=== PATIENT | male | born 1945 | race African-American/Black ===

== ENCOUNTER → 2016-09-05 | Day surgery (SDC) | payer MEDICARE ==
[~2016-09-05] MED LIST: ALBU2.5V14 NEB; ALBU8.5H5 IH; AZIT250T PO; CARV3.12 PO; DIGO125T PO; FENTANYL PF 100 MCG/2 ML VIAL. IV PRN; FLUT100D IH; FLUT9.9S NS; FOLI0.4T2 PO; FURO-69 PO; GABA-585 PO; HYDROMORPHONE 2 MG/ML VIAL. IV PRN; IV RINGERS,LACTATED 1000ML 1,000 ML IV SCH; LIDOCAINE 1% 1 ML SYRINGE. ID PRN; MONT10TA9 PO; MORPHINE SULFATE 2 MG/ML DISP.SYRIN. IV PRN; ONDANSETRON PF 4 MG/2 ML VIAL. IV PRN; PANT40TA5 PO; PROCHLORPERAZINE 10 MG/2 ML VIAL. IV PRN; PROPOFOL 40 ML IV ONE; TIOT18CA IH
--- NOTE | 2016-09-05 10:24 | PDOC1 ---
HISTORY & PHYSICAL H&P Juve iLndo Sr [id number] 1945 08/30/2016 02:00 PM 07/10 [employer] [facility] OUR PATIENTS COME FIRST [address] [place] [address] Ph. [phone] Patient: Juve Lindo Sr Date of : 1945 Date: 08/30/2016 2:00 PM Visit Type: Office Visit This 70 year old male presents for H/o colorectal polyp. History of Present Illness: 1. H/o colorectal polyp Prior screening: colonoscopy. Risk Factors: h/o colon polyp.. Pertinent negatives include abdominal pain, change in bowel habits, change in stool caliber, constipation, decreased appetite, diarrhea, melena, nausea, rectal bleeding, vomiting, weight gain and weight loss. Additional information: No family history of colon cancer, No family history of Crohn's/colitis, No NSAID/ ASA use and Last colonoscopy more then 3 yrs ago and had adenomatous polyp. INTAKE COMMENTS: Intake Comments: Nurse Note: the pt is here today to schedule a repeat colonoscopy, the pt's last colonoscopy was done in 2013 and he had polyps at that time. PROBLEM LIST: Problem Description Onset Date Coronary atherosclerosis 08/09/2012 Idiopathic peripheral neuropathy Arthropathy 07/16/2009 Acute exacerbation of chronic bronchitis 10/14/2013 Multiple myeloma 07/16/2009 Benign hypertension with CKD (chronic kidney disease) stage III 11/02/2015 Allergic rhinitis 07/16/2009 Chronic obstructive lung disease 07/16/2009 Megaloblastic anemia due to vitamin B>12< deficiency 07/16/2009 Benign essential hypertension 07/16/2009 Peripheral vascular disease 07/16/2009 Lymphadenopathy 07/16/2009 Acute on chronic congestive heart failure, unspecified congestive heart failure type 03/07/2016 Pernicious anemia 06/15/2015 COPD with acute exacerbation 06/09/2014 Acute exacerbation of chronic obstructive pulmonary disease (COPD) 07/07/2014 Chronic respiratory failure 07/07/2014 Conduction disorder of the heart 03/06/2012 PAST MEDICAL/SURGICAL HISTORY (Detailed) Disease/disorder Onset Date Management Date Comments Allergies Arthritis Bone marrow biopsy 2008 Colonic polyps colonoscopy with polypectomy 08/01/2013 COPD with Castleman syndrome Coronary artery disease gallbladder polyps 11/2012 Hypertension L3 vertebral lesion h/o radiation tx Lower Back Pain 2008 Lymphadenopathy monoclonal gammopathy /POEM syndrome Multiple myeloma Peripheral neuropathy Pernicious anemia B-12 deficiency PVD/mild 2007 splenomegaly 11/2012 DIAGNOSTICS HISTORY: Test Ordered Interpretation Result completed EKG 09/12/2006 09/12/2006 Scan MRI 09/14/2007 Lumbar spine 09/14/[address] 11/05/2008 PET/CT Skull to mid thigh 11/05/2008 CT guided biopsy 12/15/2008 biopsy of Retroperitoneal lymphadenopathy/mass 02/2009 Scan Bone 10/22/2007 Whole body bone survey 10/22/2007 EGD 10/24/2012 abnormal Imp: Gastritis(bx), Grade l Ref esophagitis(bx), BX: Antral type gastric mucosa within normal limits, Esophageal squamous and cardiac type gastric mucosa within normal limits. 11/08/2012 Abdomen Ultrasound; Complete 11/28/2012 Imp: Splenomegaly. Some tiny gallbladder polyps are identified. Some focal scarring is seen in the (R) kidney. 11/30/2012 Colonoscopy 07/24/2013 abnormal Imp: diverticulosis of the sigmoid colon, polyps in the ascending colon(polypectomy), BX: tubular adenoma 08/01/2013 Test Ordered Ordering Comments Modifier EKG 09/12/2006 Cardiac Studies Scan MRI 09/14/[address] 11/05/[address] guided biopsy 12/15/2008 Other Reports Scan Bone 10/22/2007 Diagnostic Images EGD 10/24/2012 Abdomen Ultrasound; Complete 11/28/2012 Colonoscopy 07/24/2013 Medications (Active): Started Medication Directions Instruction Stopped 04/11/2016 albuterol sulfate 2.5 mg/3 mL (0.083 %) solution for nebulization USE FOUR TIMES DAILY NEEDED DX:J44.1 10/14/2013 Allergy Relief (loratadine) 10 mg tablet take 1 tablet by oral route every day 05/25/2009 aspirin 325 mg Tab take 1 tablet (325MG) by ORAL route every day 03/07/2016 Coreg 3.125 mg tablet take 1 tablet by oral route 2 times every day with food 06/15/2015 cyanocobalamin (vit B-12) 5,[address] one tablet under the tongue once a day. 03/08/2016 digoxin 125 mcg tablet take 1 tablet by ORAL route every 2 days call patient when ready 12/28/2015 Elocon 0.1 % topical ointment APPLY TO AFFECTED AREAS DAILY. 12/28/2015 ferrous sulfate 325 mg (65 mg iron) tablet,delayed release take 1 tablet by oral route every day 12/28/2015 Flonase 50 mcg/actuation nasal spray,suspension INHALE 2 SPRAYS EVERY DAY IN EACH NOSTRIL 04/11/2016 Flovent Diskus 250 mcg/actuation powder for inhalation inhale 1 puff by inhalation route 2 times every day 12/28/2015 folic acid 1 mg tablet TAKE ONE TABLET DAILY 03/07/2016 furosemide 40 mg tablet take 1 tablet by oral route every day garlic tablet 02/23/2016 magnesium oxide 400 mg tablet take 1 tablet by oral route 3 times every day 05/07/2013 Mucinex 1,200 mg tablet,extended release 12 hr 1 tablet by mouth twice daily DM since 10/1204/22/2016 Neurontin 300 mg capsule TAKE 1 CAPSULE AT BEDTIME 01/23/2014 nystatin 100,000 unit/gram topical ointment apply by topical route 2 times every day to the affected area(s) 12/28/2015 nystatin 100,000 unit/mL oral suspension take 5 milliliter by oral route 4 times every day 12/29/[address] 40 MG TAB TAKE 1 TABLET IN THE MORNING. 12/28/2015 Pepcid 40 mg tablet TAKE 1 TABLET DAILY AT BEDTIME. 05/26/2016 prednisone 10 mg tablet 4 daily in AM for 3 days,3 daily for 3 days, 2 daily for 3 days,1 daily for 3 days 12/28/2015 selenium sulfide 2.25 % shampoo apply by topical route every week to the affected area(s) 12/28/2015 Singulair 10 mg tablet take 1 tablet by oral route every day in the evening 07/14/2016 SPIRIVA 30 INHALE 1 CAPSULE BY MOUTH DAILY Zithromax 250 mg tablet take 1 tablet by oral route every day for 1 day then 1 tablet (250 mg) by oral route once daily for 4 days Allergies: Ingredient Reaction Medication Name Comment ALLOPURINOL Rash ZYLOPRIM REVIEW OF SYSTEMS System Neg/Pos Details Constitutional Negative Chills, fever, malaise, weight gain and weight loss. ENMT Negative Sore throat. Eyes Negative Double vision. Respiratory Negative Dyspnea and wheezing. Cardio Negative Chest pain and irregular heartbeat/palpitations. GI Positive See HPI. GI Negative Abdominal pain, change in bowel habits, change in stool caliber, constipation, decreased appetite, diarrhea, melena, nausea, see HPI, rectal bleeding and vomiting. Negative Dysuria and hematuria. Endocrine Negative Cold intolerance and heat intolerance. Psych Negative Anxiety. Integumentary Negative Hives and rash. MS Negative Joint pain. Javier/Lymph Negative Easy bleeding and easy bruising. Allergic/Immuno Negative Food allergies. VITAL SIGNS Time BP mm/Hg Pulse /min Resp /min Temp F Ht ft Ht in Ht cm Wt lb Wt kg BMI kg/ m2 BSA m2 O2 Sat% 2:19 PM 132/84 97 97.9 6.0 4.00 193.04 191.60 86.908 23.32 92 Time Measured by 2:19 PM Alnea Rucker PHYSICAL EXAM: Exam Findings Details Constitutional Normal Well developed. Eyes Normal Conjunctiva - Right: Normal, Left: Normal. Sclera - Right: Normal, Left: Normal. Nasopharynx Normal Lips/teeth/gums - Normal. Neck Exam Normal Inspection - Normal. Thyroid gland - Normal. Respiratory Normal Inspection - Normal. Auscultation - Normal. Cardiovascular Normal Regular rate and rhythm. No murmurs, gallops, or rubs. Vascular Normal Pulses - Carotids: Normal, Femoral: Normal, Dorsalis pedis: Normal. Abdomen Normal Inspection - Normal. Anterior palpation - No guarding. No abdominal tenderness. No hepatic enlargement. No splenic enlargement. No hernia. No ascites. Skin Normal Inspection - Normal. Extremity Normal No edema. Psychiatric * Oriented to time, place, person and situation. Psychiatric Normal Appropriate mood and effect. The patient was checked out at 3:24 PM by Alena Rucker. Assessment/Plan # Detail Type Description 1. Assessment History of colon polyps (Z86.010). Patient Plan schedule colonoscopy at [facility] Plan Orders Further diagnostic evaluations ordered today include(s) Colonoscopy to be performed today. He is to schedule a follow-up visit with Katrin Dang MD upon completion of work-up Electronically signed by: Katrin Dang MD 08/31/2016 12:48 PM Document generated by: Katrin Dang 08/31/2016 12:47 PM Milvia Elliott MD, Family Practice; Raheem Weston MD Internal Medicine; Kiersten Lawson MD, Internal Medicine; Elizabeth Dang MD Internal Medicine; Katrin Dang MD, Gastroenterology; Carmelo Perdue MD, Rheumatology, S. Nino Stout, Physical Medicine/Rehab Tish Luu APRN ------ 09/05/16 Patient seen and examined. No change in H&P KATRIN DANG MD Sep 05, 2016 10:24
[2016-09-05 12:31] VITALS: BP 111/71
--- NOTE | 2016-09-05 12:33 | PDOC4 ---
GI OP Report - Dr. Woodson Date/Time DATE: 09/05/16 TIME: 12:29 Attending Physician Jm Woodson MD Referring Physician Indications Personal history of colonic polyps Pre-Op See the Anesthesia note for documentation of the administered medications Procedures Colonoscopy+polypectomy Findings - Diverticulosis in the sigmoid colon. - One 4 mm polyp in the ascending colon. Biopsied. - Two 3 to 4 mm polyps in the proximal transverse colon. Biopsied. - One 7 mm polyp in the distal transverse colon. Resected and retrieved. - One 10 mm polyp at the splenic flexure. Biopsied. Tattooed. - One 8 mm polyp in the sigmoid colon. Resected and retrieved. Plan - Discharge patient to home. - Patient has a contact number available for emergencies. The signs and symptoms of potential delayed complications were discussed with the patient. Return to normal activities tomorrow. Written discharge instructions were provided to the patient. - Resume regular diet. - Continue present medications. - Await pathology results. - Repeat colonoscopy date to be determined after pending pathology results are reviewed for retreatment of splenic flexure lesion if needed.. - Return to my office in 2 weeks. JM WOODSON MD Sep 05, 2016 12:32
--- NOTE | 2016-09-06 16:40 | PATHOLOGY ---
PATHOLOGY REPORT * * * * * * * * FINAL DIAGNOSIS: A. Colon biopsies, ascending colon polyp: - Tubular adenoma. B. Colon biopsies, proximal transverse colon polyps x 2: - Tubular adenomas. C. Colon biopsies, distal transverse colon polyp: - Mucous and minute segment of tubular adenoma. D. Colon biopsies, splenic flexure polyp: - Tubular adenoma. E. Colon biopsies, sigmoid polyp: - Tubular adenoma. COMMENT: There is no high-grade dysplasia or evidence of malignancy. (JPM:mgmary; d/t: 09/06/16) REPORT ELECTRONICALLY SIGNED BY: Hemanth Moran M.D. DATE/TIME: 09/06/2016 16:40 * * * * * * * * GROSS PATHOLOGY: A. Received in formalin labeled "Juve Cuellar Sr., ascending colon polyp biopsy," are two segments of chinchilla soft tissue measuring 0.4 x 0.4 x 0.1 cm in aggregate dimensions and ranging from 0.3 to 0.4 cm in maximum dimension. The specimen is submitted entirely in cassette A1. B. Received in formalin labeled "Juve Cuellar Sr., proximal transverse polyp biopsy 2 polyps," are two segments of chinchilla soft tissue measuring 0.7 x 0.6 x 0.1 cm in aggregate dimensions and ranging from 0.5 to 0.7 cm in maximum dimension. The specimen is submitted entirely in cassette B1. C. The specimen is received in formalin labeled "Juve Cuellar Sr., distal transverse colon polyp biopsy". Received are several minute fragments of pale chinchilla possible soft tissue measuring <0.1 by <0.1 by <0.1 cm in aggregate dimensions. The specimen is filtered and entirely submitted in cassette C1. Due to the minute nature of the specimen, it may not survive processing. D. Received in formalin labeled "Juve Cuellar Sr., biopsy splenic flexure polyp," are five segments of chinchilla soft tissue measuring 1.1 x 1.1 x 0.2 cm in aggregate dimensions and ranging from 0.2 to 0.6 cm in maximum dimension. The specimen is submitted entirely in cassette D1. E. Received in formalin labeled "Juve Cuellar Sr., biopsy sigmoid polyp," are three segments of chinchilla soft tissue measuring 0.8 x 0.5 x 0.1 cm in aggregate dimensions and ranging from 0.3 to 0.5 cm in maximum dimension. The specimen is submitted entirely in cassette E1. (CAA; 09/05/2016) INITIAL CPT CODE(S): A; 57320 B; 51365 C; 13914 D; 70217 E; 09198 Professional services performed by [facility] at [address] [address] Technical services performed by [facility] at [address] [place] [address], [address], [place] [address]. SPECIMEN(S) RECEIVED: A.Ascending colon polyp biopsy B.Proximal transverse colon polyp biopsy x2 polyps C.Distal transverse colon polyp biopsy D.Biopsy splenic flexure polyp E.Sigmoid polyp CLINICAL HISTORY: Screening; colon polyps PATIENT: JUVE CUELLAR /AGE: 5 1945 (Age: 70) PATIENT #: [id number] ALT CASE #: SPECIMEN COLLECTION DATE: 09/05/2016 SPECIMEN RECEIVED DATE: 09/05/2016 [facility] - [address] [place] [address] - PHONE: [phone] * * * END OF REPORT * * *
== END | disposition home or self-care (01) ==
LOC: ENDOS 09:39
PROVIDERS: ATTEND Internal Medicine Gastroenterology
DX: D12.2 Benign neoplasm of ascending colon (principal); D12.3 Benign neoplasm of transverse colon; D12.5 Benign neoplasm of sigmoid colon; K57.30 Diverticulosis of large intestine without perforation or abscess without bleeding; I10 Essential (primary) hypertension; J44.9 Chronic obstructive pulmonary disease, unspecified; F17.200 Nicotine dependence, unspecified, uncomplicated
CPT/HCPCS: 45380; 45381; 45385; J2704

== ENCOUNTER → 2016-09-26 | Day surgery (SDC) | payer MEDICARE ==
[~2016-09-26] MED LIST changes: +LIDOCAINE 2% PF Vial for OR 5 ML VIAL. ONE; -ONDANSETRON PF 4 MG/2 ML VIAL. IV PRN
--- NOTE | 2016-09-26 12:20 | PDOC1 ---
HISTORY & PHYSICAL H&P [place] [facility] OUR PATIENTS COM[facility] FIRST [address] [place] [id number] . [phone] Patient: Juve Lindo Sr Date of : 1945 Date: 08/30/2016 2:00 PM Visit Type: Office Visit This 70 year old male presents for H/o colorectal polyp. History of Present Illness: 1. H/o colorectal polyp Prior screening: colonoscopy. Risk Factors: h/o colon polyp.. Pertinent negatives include abdominal pain, change in bowel habits, change in stool caliber, constipation, decreased appetite, diarrhea, melena, nausea, rectal bleeding, vomiting, weight gain and weight loss. Additional information: No family history of colon cancer, No family history of Crohn's/colitis, No NSAID/ ASA use and Last colonoscopy more then 3 yrs ago and had adenomatous polyp. INTAKE COMMENTS: Intake Comments: Nurse Note: the pt is here today to schedule a repeat colonoscopy, the pt's last colonoscopy was done in 2013 and he had polyps at that time. PROBLEM LIST: Problem Description Onset Date Coronary atherosclerosis 08/09/2012 Idiopathic peripheral neuropathy Arthropathy 07/16/2009 Acute exacerbation of chronic bronchitis 10/14/2013 Multiple myeloma 07/16/2009 Benign hypertension with CKD (chronic kidney disease) stage III 11/02/2015 Allergic rhinitis 07/16/2009 Chronic obstructive lung disease 07/16/2009 Megaloblastic anemia due to vitamin B>12< deficiency 07/16/2009 Benign essential hypertension 07/16/2009 Peripheral vascular disease 07/16/2009 Lymphadenopathy 07/16/2009 Acute on chronic congestive heart failure, unspecified congestive heart failure type 03/07/2016 Pernicious anemia 06/15/2015 COPD with acute exacerbation 06/09/2014 Acute exacerbation of chronic obstructive pulmonary disease (COPD) 07/07/2014 Chronic respiratory failure 07/07/2014 Conduction disorder of the heart 03/06/2012 PAST MEDICAL/SURGICAL HISTORY (Detailed) Disease/disorder Onset Date Management Date Comments Allergies Arthritis Bone marrow biopsy 2008 Colonic polyps colonoscopy with polypectomy 08/01/2013 COPD with Castleman syndrome Coronary artery disease gallbladder polyps 11/2012 Hypertension L3 vertebral lesion h/o radiation tx Lower Back Pain 2008 Lymphadenopathy monoclonal gammopathy /POEM syndrome Multiple myeloma Peripheral neuropathy Pernicious anemia B-12 deficiency PVD/mild 2008 splenomegaly 11/2012 DIAGNOSTICS HISTORY: Test Ordered Interpretation Result completed EKG 09/12/2006 09/12/2006 Scan MRI 09/14/2007 Lumbar spine 09/14/[address] 11/05/2008 PET/CT Skull to mid thigh 11/05/2008 CT guided biopsy 12/15/2008 biopsy of Retroperitoneal lymphadenopathy/mass 02/2009 Scan Bone 10/22/2007 Whole body bone survey 10/22/2007 EGD 10/24/2012 abnormal Imp: Gastritis(bx), Grade l Ref esophagitis(bx), BX: Antral type gastric mucosa within normal limits, Esophageal squamous and cardiac type gastric mucosa within normal limits. 11/08/2012 Abdomen Ultrasound; Complete 11/28/2012 Imp: Splenomegaly. Some tiny gallbladder polyps are identified. Some focal scarring is seen in the (R) kidney. 11/30/2012 Colonoscopy 07/24/2013 abnormal Imp: diverticulosis of the sigmoid colon, polyps in the ascending colon(polypectomy), BX: tubular adenoma 08/01/2013 Test Ordered Ordering Comments Modifier EKG 09/12/2006 Cardiac Studies Scan MRI 09/14/[address] 11/05/[address] guided biopsy 12/15/2008 Other Reports Scan Bone 10/22/2007 Diagnostic Images EGD 10/24/2012 Abdomen Ultrasound; Complete 11/28/2012 Colonoscopy 07/24/2013 Medications (Active): Started Medication Directions Instruction Stopped 04/11/2016 albuterol sulfate 2.5 mg/3 mL (0.083 %) solution for nebulization USE FOUR TIMES DAILY NEEDED DX:J44.1 10/14/2013 Allergy Relief (loratadine) 10 mg tablet take 1 tablet by oral route every day 05/25/2009 aspirin 325 mg Tab take 1 tablet (325MG) by ORAL route every day 03/07/2016 Coreg 3.125 mg tablet take 1 tablet by oral route 2 times every day with food 06/15/2015 cyanocobalamin (vit B-12) 5,[address] one tablet under the tongue once a day. 03/08/2016 digoxin 125 mcg tablet take 1 tablet by ORAL route every 2 days call patient when ready 12/28/2015 Elocon 0.1 % topical ointment APPLY TO AFFECTED AREAS DAILY. 12/28/2015 ferrous sulfate 325 mg (65 mg iron) tablet,delayed release take 1 tablet by oral route every day 12/28/2015 Flonase 50 mcg/actuation nasal spray,suspension INHALE 2 SPRAYS EVERY DAY IN EACH NOSTRIL 04/11/2016 Flovent Diskus 250 mcg/actuation powder for inhalation inhale 1 puff by inhalation route 2 times every day 12/28/2015 folic acid 1 mg tablet TAKE ONE TABLET DAILY 03/07/2016 furosemide 40 mg tablet take 1 tablet by oral route every day garlic tablet 02/23/2016 magnesium oxide 400 mg tablet take 1 tablet by oral route 3 times every day 05/07/2013 Mucinex 1,200 mg tablet,extended release 12 hr 1 tablet by mouth twice daily DM since 10/1204/22/2016 Neurontin 300 mg capsule TAKE 1 CAPSULE AT BEDTIME 01/23/2014 nystatin 100,000 unit/gram topical ointment apply by topical route 2 times every day to the affected area(s) 12/28/2015 nystatin 100,000 unit/mL oral suspension take 5 milliliter by oral route 4 times every day 12/29/[address] 40 MG TAB TAKE 1 TABLET IN THE MORNING. 12/28/2015 Pepcid 40 mg tablet TAKE 1 TABLET DAILY AT BEDTIME. 05/26/2016 prednisone 10 mg tablet 4 daily in AM for 3 days,3 daily for 3 days, 2 daily for 3 days,1 daily for 3 days 12/28/2015 selenium sulfide 2.25 % shampoo apply by topical route every week to the affected area(s) 12/28/2015 Singulair 10 mg tablet take 1 tablet by oral route every day in the evening 07/14/2016 SPIRIVA 30 INHALE 1 CAPSULE BY MOUTH DAILY Zithromax 250 mg tablet take 1 tablet by oral route every day for 1 day then 1 tablet (250 mg) by oral route once daily for 4 days Allergies: Ingredient Reaction Medication Name Comment ALLOPURINOL Rash ZYLOPRIM REVIEW OF SYSTEMS System Neg/Pos Details Constitutional Negative Chills, fever, malaise, weight gain and weight loss. ENMT Negative Sore throat. Eyes Negative Double vision. Respiratory Negative Dyspnea and wheezing. Cardio Negative Chest pain and irregular heartbeat/palpitations. GI Positive See HPI. GI Negative Abdominal pain, change in bowel habits, change in stool caliber, constipation, decreased appetite, diarrhea, melena, nausea, see HPI, rectal bleeding and vomiting. Negative Dysuria and hematuria. Endocrine Negative Cold intolerance and heat intolerance. Psych Negative Anxiety. Integumentary Negative Hives and rash. MS Negative Joint pain. Javier/Lymph Negative Easy bleeding and easy bruising. Allergic/Immuno Negative Food allergies. VITAL SIGNS Time BP mm/Hg Pulse /min Resp /min Temp F Ht ft Ht in Ht cm Wt lb Wt kg BMI kg/ m2 BSA m2 O2 Sat% 2:19 PM 132/84 97 97.9 6.0 4.00 193.04 191.60 86.908 23.32 92 Time Measured by 2:19 PM Alena Rucker PHYSICAL EXAM: Exam Findings Details Constitutional Normal Well developed. Eyes Normal Conjunctiva - Right: Normal, Left: Normal. Sclera - Right: Normal, Left: Normal. Nasopharynx Normal Lips/teeth/gums - Normal. Neck Exam Normal Inspection - Normal. Thyroid gland - Normal. Respiratory Normal Inspection - Normal. Auscultation - Normal. Cardiovascular Normal Regular rate and rhythm. No murmurs, gallops, or rubs. Vascular Normal Pulses - Carotids: Normal, Femoral: Normal, Dorsalis pedis: Normal. Abdomen Normal Inspection - Normal. Anterior palpation - No guarding. No abdominal tenderness. No hepatic enlargement. No splenic enlargement. No hernia. No ascites. Skin Normal Inspection - Normal. Extremity Normal No edema. Psychiatric * Oriented to time, place, person and situation. Psychiatric Normal Appropriate mood and effect. The patient was checked out at 3:24 PM by Alena Rucker. Assessment/Plan # Detail Type Description 1. Assessment History of colon polyps (Z86.010). Patient Plan schedule colonoscopy at [facility] Plan Orders Further diagnostic evaluations ordered today include(s) Colonoscopy to be performed today. He is to schedule a follow-up visit with Katrin Dang MD upon completion of work-up Electronically signed by: Katrin Dang MD 08/31/2016 12:48 PM Document generated by: Katrin Dang 08/31/2016 12:47 PM Milvia Elliott MD, Family Practice; Raheem Weston MD Internal Medicine; Kiersten Lawson MD, Internal Medicine; Elizabeth Dang MD Internal Medicine; Katrin Dang MD, Gastroenterology; Carmelo Perdue MD, Rheumatology, S. Nino Stout, Physical Medicine/Rehab Tish PaytonMauricio' [employer] SUPER[employer] 09/26/16 Patient seen and examined. Patient is here for treatment of the residual tumor that was biopsied. KATRIN DANG MD Sep 26, 2016 12:20
--- NOTE | 2016-09-26 12:22 | PDOC4 ---
GI OP Report - Dr. Woodson Date/Time DATE: 09/26/16 TIME: 12:20 Attending Physician Jm Woodson MD Referring Physician Indications For therapy of adenomatous polyps in the colon Pre-Op See the Anesthesia note for documentation of the administered medications Procedures Colonoscopy +bx + Argon coagulation. Findings - One 5 mm polyp in the sigmoid colon. Biopsied. - Presence of some polypoid mucosa seen at the splenic flexure treated with argon coagulation. Plan - Discharge patient to home. - Patient has a contact number available for emergencies. The signs and symptoms of potential delayed complications were discussed with the patient. Return to normal activities tomorrow. Written discharge instructions were provided to the patient. - Resume regular diet. - Continue present medications. - Repeat colonoscopy in 3 years for surveillance. - Return to my office in 2 weeks. JM WOODSON MD Sep 26, 2016 12:22
[2016-09-26 12:36] VITALS: BP 107/74
--- NOTE | 2016-09-27 14:57 | PATHOLOGY ---
PATHOLOGY REPORT * * * * * * * * FINAL DIAGNOSIS: Colon biopsy, sigmoid polyp: - Tubular adenoma. COMMENT: There is no high-grade dysplasia or evidence of malignancy. (JPM:; d/t: 09/27/16) REPORT ELECTRONICALLY SIGNED BY: Hemanth Moran M.D. DATE/TIME: 09/27/2016 14:53 * * * * * * * * GROSS PATHOLOGY: Received in formalin labeled "Juve Cuellar, sigmoid polyp," are two segments of chinhcilla soft tissue measuring 0.7 x 0.5 x 0.1 cm in aggregate dimensions and ranging from 0.4 to 0.5 cm in maximum dimension. The specimen is submitted entirely in cassette A1. (CAA; 09/26/2016) INITIAL CPT CODE(S): A; 78890 Professional services performed [place] [facility] [address] Technical services performed by [facility] at [address] [place] [address], [facility] [address], [place] [address]. SPECIMEN(S) RECEIVED: A.Sigmoid polyp CLINICAL HISTORY: Polyps PATIENT: JUVE CUELLAR /AGE: 5 1945 (Age: 70) PATIENT #: [id number] ALT CASE #: SPECIMEN COLLECTION DATE: 09/26/2016 SPECIMEN RECEIVED DATE: 09/26/2016 [facility] - [address] [place] [address] - PHONE: [phone] * * * END OF REPORT * * *
== END | disposition home or self-care (01) ==
LOC: ENDOS 09:44
PROVIDERS: ATTEND Internal Medicine Gastroenterology
DX: D12.5 Benign neoplasm of sigmoid colon (principal); D12.6 Benign neoplasm of colon, unspecified; I10 Essential (primary) hypertension; J44.9 Chronic obstructive pulmonary disease, unspecified
CPT/HCPCS: 45380; 45388; J2704; 88305

== ENCOUNTER → 2017-04-13 | Outpatient (CLI) | payer MEDICARE ==
[2016-09-26 12:36] VITALS: BP 107/74
[~2017-04-13] MED LIST changes: -ALBU8.5H5 IH; +ALBU8.5H8 IH; -FENTANYL PF 100 MCG/2 ML VIAL. IV PRN; -HYDROMORPHONE 2 MG/ML VIAL. IV PRN; -IV RINGERS,LACTATED 1000ML 1,000 ML IV SCH; -LIDOCAINE 1% 1 ML SYRINGE. ID PRN; -LIDOCAINE 2% PF Vial for OR 5 ML VIAL. ONE; -MORPHINE SULFATE 2 MG/ML DISP.SYRIN. IV PRN; -PROCHLORPERAZINE 10 MG/2 ML VIAL. IV PRN; -PROPOFOL 40 ML IV ONE
--- NOTE | 2017-04-13 12:38 | KCIC ---
Chest 2 views 04/13/2017 CLINICAL INDICATION: Cough and chest pain. COMPARISON: None. FINDINGS: Cardiac and mediastinal silhouettes are within normal limits. No pleural effusion, pneumothorax or focal consolidation. IMPRESSION: No acute cardiopulmonary abnormality Electronically signed by: Ivan Cedeno MD (04/13/2017 12:34 PM) [id number]
== END | disposition home or self-care (01) ==
LOC: KCIC 11:33
PROVIDERS: ATTEND Internal Medicine Pulmonary Disease
DX: R05 Cough (principal); R07.9 Chest pain, unspecified
CPT/HCPCS: 71020

== ENCOUNTER 2019-06-26 06:36 | Outpatient (CLI) | payer MEDICARE ==
[~2019-06-26] VITALS: Ht 188 cm; Wt 86.2 kg
[2019-06-26] VITALS (7 sets, daily range): BP systolic 102–114; BP diastolic 62–74
[~2019-06-26 06:36] MED LIST changes: +ALBU2.5V8 IH; -ALBU8.5H8 IH; -DIGO125T PO; +DIGO125T3 PO; +MONT10TA49 PO; -MONT10TA9 PO; -PANT40TA5 PO; +PANT40TA77 PO
[2019-06-26] MEDS ORDERED: FLUT250D IH (07:39)
[2019-06-26] MEDS ORDERED: ASCO1TAB2 PO (07:39)
[2019-06-26] MEDS ORDERED: FAMO40TA4 PO (07:39)
[2019-06-26] MEDS ORDERED: CETI10TA22 PO (07:39)
[2019-06-26] MEDS ORDERED: CALC-31 PO (07:39)
[2019-06-26] MEDS ORDERED: CHOL200027 PO (07:39)
[2019-06-26] MEDS ORDERED: GUAI12003 PO (07:39)
[2019-06-26] MEDS ORDERED: BREO ELLIPTA 21 EACH IH (07:39)
[2019-06-26] MEDS ORDERED: SODI650T PO (07:39)
[2019-06-26] MEDS ORDERED: GARL500C5 PO (07:39)
[2019-06-26] MEDS ORDERED: folic acid PO (07:39)
[2019-06-26] MEDS ORDERED: MAGN400C PO (07:39)
[2019-06-26] MEDS ORDERED: FERR325T14 PO (07:39)
[2019-06-26] MEDS ORDERED: ASPI325T8 PO (07:39)
[2019-06-26] MEDS ORDERED: CYAN50008 PO (07:39)
[2019-06-26] MEDS ORDERED: FURO20TA3 PO (07:39)
[2019-06-26] MEDS ORDERED: GABA300C18 PO (07:39)
[2019-06-26] MEDS ORDERED: DILT180C29 PO (07:39)
[2019-06-26] MEDS ORDERED: GRAP50CA3 PO (07:40)
[2019-06-26 07:46] LABS: BASO % 1 % (0-3); EOS # 0.1 x10^3/uL (0.0-0.7); EOS % 5 % (0-3); HEMATOCRIT 37.5 % (39.0-53.0); HEMOGLOBIN 12.4 g/dL (13.0-17.5); LYMPH # 0.5 x10^3/uL (1.0-4.8); LYMPH % 17 % (24-48); MEAN CORPUSCULAR HEMOGLOBIN 30 pg (25-35); MEAN CORPUSCULAR HGB CONC 33 g/dL (31-37); MEAN CORPUSCULAR VOLUME 91 fL (79-100); MONO # 0.3 x10^3/uL (0.0-1.1); MONO % 9 % (0-9); NEUT # 2.1 x10^3/uL (1.8-7.7); NEUT % 68 % (31-73); PLATELET COUNT 324 x10^3/uL (140-400); RED BLOOD COUNT 4.12 x10^6/uL (4.30-5.70); RED CELL DISTRIBUTION WIDTH 13.9 % (11.5-14.5); WHITE BLOOD COUNT 3.1 x10^3/uL (4.0-11.0)
[2019-06-26 07:57] LABS: PROTHROMBIN TIME PATIENT 13.2 SEC (11.7-14.0)
[2019-06-26] MEDS ORDERED: LIDOCAINE WITH 8.4% SOD BICARB 3 ML DISP.SYRIN. ONE (08:06)
[2019-06-26] MEDS ORDERED: MIDAZOLAM HCL/PF 2 MG/2 ML VIAL. ONE (08:30)
[2019-06-26] MEDS ORDERED: fentaNYL PF VIAL 100 MCG/2 ML VIAL ONE (08:30)
[2019-06-26] MEDS ORDERED: MIDAZOLAM HCL/PF 2 MG/2 ML VIAL. IV ONE (08:45)
[2019-06-26] MEDS ORDERED: LIDOCAINE WITH 8.4% SOD BICARB 3 ML DISP.SYRIN. IJ ONE (08:45)
[2019-06-26] MEDS ORDERED: fentaNYL PF VIAL 100 MCG/2 ML VIAL IV ONE (08:45)
--- NOTE | 2019-06-26 09:09 | PDOC1 ---
History and Physical Date of Procedure Date of Admission Procedure Procedure 06.26.19 Indication Indication sclerotic lesion L1 History of Present Illness Reason for Visit Same Past Medical History Past Medical History Hx of sclerotic bony lesions uncertain eitiology/ Cardiovascular: No pertinent hx Pulmonary: No pertinent hx CENTRAL NERVOUS SYSTEM: Carpal Tunnel Syndrome GI: No pertinent hx Heme/Onc: Other Hepatobiliary: No pertinent hx Psych: No pertinent hx Rheumatologic: No pertinent hx Infectious disease: No pertinent hx ENT: No pertinent hx Renal/: No pertinent hx Endocrine: No pertinent hx Dermatology: No pertinent hx Current Medications Current Medications Current Medications Lidocaine HCl (Buffered Lidocaine 1%) 3 ml STK-MED ONCE .ROUTE ; Start 06/26/19 at 08:06; Stop 06/26/19 at 08:06; Status DC Midazolam HCl (Versed) 2 mg STK-MED ONCE .ROUTE ; Start 06/26/19 at 08:30; Stop 06/26/19 at 08:30; Status DC Fentanyl Citrate (Fentanyl 2ml Vial) 100 mcg STK-MED ONCE .ROUTE ; Start 06/26/19 at 08:30; Stop 06/26/19 at 08:30; Status DC Lidocaine HCl (Buffered Lidocaine 1%) 3 ml 1X ONCE IJ Last administered on 06/26/19at 08:49; Start 06/26/19 at 08:45; Stop 06/26/19 at 08:46; Status DC Midazolam HCl (Versed) 2 mg 1X ONCE IV Last administered on 06/26/19at 08:50; Start 06/26/19 at 08:45; Stop 06/26/19 at 08:46; Status DC Fentanyl Citrate (Fentanyl 2ml Vial) 100 mcg 1X ONCE IV Last administered on 06/26/19at 08:50; Start 06/26/19 at 08:45; Stop 06/26/19 at 08:46; Status DC Active Scripts Active Reported Grape Seed Extract 50 Mg Capsule 50 Mg PO BID Zyrtec (Cetirizine Hcl) 10 Mg Tablet 1 Tab PO DAILY Vitamin D3 (Cholecalciferol (Vitamin D3)) 2,000 Unit Tablet 1 Tab PO DAILY 30 Days Vitamin B12 (Cyanocobalamin (Vitamin B-12)) 5,000 Mcg Tab.rapdis 1,000 Mg PO DAILY 30 Days Sodium Bicarbonate 650 Mg Tablet 1 Tab PO BID Mucinex (Guaifenesin) 1,200 Mg Tbmp.12hr 1 Tab PO BID 15 Days Magnesium (Magnesium Oxide) 400 Mg Capsule 1 Cap PO DAILY 30 Days Ferrous Sulfate 325 Mg Tablet 1 Tab PO DAILY Garlic 500 Mg Capsule 500 Mg PO DAILY Gabapentin 300 Mg Capsule 300 Mg PO DAILY Furosemide 20 Mg Tablet 1 Tab PO DAILY [folic acid] 1 Mg PO DAILY Flovent 250MCG Diskus (Fluticasone Propionate) 250 Mcg Disk.w.dev 1 Puff IH BID Famotidine 40 Mg Tablet 0.5 Tab PO HS Dotty-C 500 Mg Tablet (Ascorbate Calcium/Bioflavonoid) 1 Each Tablet 1 Each PO DAILY Diltiazem 24HR Cd (Diltiazem Hcl) 180 Mg Cap.er.24h 1 Cap PO DAILY 30 Days Calcium 500 + D Tablet (Calcium Carbonate/Vitamin D3) 1 Each Tablet 1 Tab PO DAILY 30 Days Breo Ellipta 200-25 Mcg INH (Fluticasone/Vilanterol) 1 Each Blst.w.dev 1 Puff IH DAILY Aspirin 325 Mg Tablet 1 Tab PO DAILY Zithromax (Azithromycin) 250 Mg Tablet 1 Pkg PO DAILY Albuterol Sulfate Conc Neb Soln (Albuterol Sulfate) 2.5 Mg/0.5 Ml Vial.neb 1 Vial NEB PRN PRN Pantoprazole Sodium (Pantoprazole Sodium) 40 Mg Tablet.dr 1 Tab PO DAILY05 Flonase Allergy Relief (Fluticasone Propionate) 9.9 Ml [place].susp 2 Sprays NS DAILY Spiriva (Tiotropium [place]) 18 Mcg Cap.w.dev 1 Cap IH DAILY05 Allergies Allergies: Coded Allergies: Penicillins (Verified Allergy, Intermediate, Unknown, 06/26/19) Physical Exam Vital Signs Vital Signs Date Time Temp Pulse Resp B/P (MAP) Pulse Ox O2 Delivery O2 Flow Rate FiO2 06/26/19 09:05 78 18 98 Nasal Cannula 2.0 06/26/19 07:45 97.9 111/70 (84) 97.9 Heart: Regular rate Assessment Assessment l1 sclerotic lesion Plan Plan Biopsy STEVAN JACKSON MD Jun 26, 2019 09:09
--- NOTE | 2019-06-26 09:10 | PDOC ---
MODERATE SEDATION ASSESSMENT RISKS/ALTERNATIVES Risks/Alternatives Risks and alternatives of this type of sedation and procedure discussed with: RISK/ALTERNATIVES: Patient H & P ON CHART H & P H & P on chart and reviewed for co-morbid conditions and appropriate labs. H&P ON CHART: Yes STATUS PREG STATUS ASSESSED: Yes MEDS/ALLERGIES REVIEWED Meds/Allergies Reviewed Medications and Allergies including time and route of recently administered narcotics and sedatives. MEDS/ALLERGIES REVIEWED: Yes ASA RATING ASA RATING: II AIRWAY ASSESSMENT Airway Assessment Airway patency, oral function limitations, presence of caps, crowns, dentures, partials, and ability to extend neck assessed. AIRWAY ASSESSMENT: Yes MALLAMPATI SCORE MALLAMPATI SCORE: II PRE-SEDATION ASSESSMENT PRE-SEDATION ASSESSMENT: Yes STEVAN JACKSON MD Jun 26, 2019 09:10
--- NOTE | 2019-06-26 09:17 | RAD ---
Fluoroscopically guided biopsy, sclerotic lesion, L1 vertebral body 06/26/2019 Indication: Sclerotic lesions in the spine, uncertain etiology. Some interval growth since prior study. Discussion: The procedure was explained in its entirety to the patient or the patients designated printing sales representative by a member of the treatment team, including a discussion of the risks, benefits and commonly accepted alternatives to the procedure, as well as the expected consequences of no therapy whatsoever. Discussion of the risks included, but was not limited to, those that are most frequent and those that are rare but possibly severe or life-threatening, as well as the possibility of unforeseen complications. All elements of maximal sterile barrier technique including the use of a cap, mask, sterile gown, sterile gloves, large sterile sheet, appropriate hand hygiene, and 2% chlorhexidine for cutaneous antisepsis (or acceptable alternative antiseptic per current guidelines) were followed for this procedure. A timeout procedure was performed. The low back was prepped and draped using sterile barrier technique as described. The L1 vertebral body was identified and biplane fluoroscopy. 1% lidocaine was administered for local anesthesia. The needle was administered in a left transpedicular fashion into the posterior, left inferior L1 vertebral body. The sclerotic lesion could be visualized fluoroscopically. Core biopsies of this were obtained and placed in formalin. The needle was removed. Manual pressure was held. Sterile dressings were applied. Total fluoroscopy time:2.4 min Dose area product: 27.35 Gycm2 The procedures performed under conscious sedation including continuous cardiopulmonary monitoring via dedicated sedation nurse. Dyli-ir-vayd sedation time: 25 minutes Impression: Fluoroscopically guided biopsy, sclerotic lesion L1 vertebral body
--- NOTE | 2019-06-26 10:20 | NUR ---
pt discharged to home with family. PIV dc'd. Pt tolerated PO and ambulated without difficulty
--- NOTE | 2019-07-05 01:06 | PATHOLOGY ---
[facility] Accession Number: [id number] . 01 Material submitted: . vertebral column - SCLEROTIC LESION L1 . 01 Clinical history: . MGUS, bone metastasis . 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 Please see comment. (TANVI:gabe; 07/01/2019) [facility] 07/01/2019 1441 Local . 02 Comment: Examination of the L1 needle core bone biopsy shows trilineage marrow hematopoiesis with patchy proliferation of atypical plasma cells. Immunohistochemical stains with appropriate controls show: . (Block A1) CD138 - highlights plasma cells, comprising approximately 20% of the total marrow cellularity. [place] and lambda [place] - lambda predominant. . Based on the morphology and immunohistochemical stain pattern, the findings suggest a plasma cell neoplasm. Correlation with serum protein electrophoresis and immunofixation studies with presence of end-organ tissue/impairment (anemia, hypercalcemia, renal insufficiency and bone lesions) are recommended for a more definite classification of the plasma cell neoplasm including plasma cell myeloma and its variants. . These findings were discussed with Kristina Rivas RN from Dr. Lj Gustafson's office on 07/04/19 at 3:05 pm. . Co-reviewed: Dr. Caitlin Ramos (JMQ:speech lang path; 07/01/2019) . 02 Electronically signed: . Viridiana Ridley MD, Pathologist NPI- [id number] . 01 Gross description: . The specimen is received in formalin, labeled "Juve Lindo, L1 bone biopsy". Received are two needle cores of light chinchilla bone measuring 0.9 and 1.2 cm in length, with each measuring 0.3 cm in diameter. The specimen is filtered and entirely submitted in cassette A1, following light decalcification. (CAA; 06/26/2019) QAC/QAC 06/26/2019 1736 Local . 02 Pathologist provided ICD-10: D47.Z9 . 02 CPT . 114483, P87181, J18039, G81729, 203475 Specimen Comment: A courtesy copy of this report has been sent to [phone] Specimen Comment: [phone], Specimen Comment: Report sent to , and Performed at: [address], [place] [id number] MD Jesus Alberto Murray MD Phone: [phone] Performed at: 02 [facility] [id number] [place] [id number] MD Viridiana Ridley MD Phone: [phone]
== END 2019-06-26 10:20 | disposition home or self-care (01) ==
LOC: INTRAD 06:36
PROVIDERS: ATTEND Internal Medicine Hematology & Oncology
DX: M89.9 Disorder of bone, unspecified (principal); Z98.890 Other specified postprocedural states; Z79.82 Long term (current) use of aspirin; Z79.01 Long term (current) use of anticoagulants; Z88.0 Allergy status to penicillin
CPT/HCPCS: 20225; 36415; 77002; 85025; 85610; 88307; 88311; 88342; 88364; 88365; J2250; J3010; 76942; 99152

== ENCOUNTER → 2019-07-08 | Outpatient (CLI) | payer MEDICARE ==
[2019-06-26 10:05] VITALS: BP 113/67
[~2019-07-08] MED LIST changes: +ASCO1TAB2 PO; +ASPI325T8 PO; +BREO ELLIPTA 21 EACH IH; +CALC-31 PO; +CETI10TA22 PO; +CHOL200027 PO; +CYAN50008 PO; +DILT180C29 PO; +FAMO40TA4 PO; +FERR325T14 PO; +FLUT250D IH; +FURO20TA3 PO; +GABA300C18 PO; +GARL500C5 PO; +GRAP50CA3 PO; +GUAI12003 PO; +IOHEXOL 240 MG/ML 50ML VIAL. PO ONE; +MAGN400C PO; +SODI650T PO; +folic acid PO
--- NOTE | 2019-07-08 16:50 | RAD ---
CT scan of the abdomen and pelvis without contrast 06/11/2019 CLINICAL HISTORY: Sclerotic lesions seen on outside imaging studies concerning for bony metastasis. TECHNIQUE: After the oral administration of contrast only, contiguous, 5 mm axial sections were obtained through the abdomen and pelvis. One or more of the following individualized dose reduction techniques were utilized for this study: 1. Automated exposure control. 2. Adjustment of the mA and/or kV according to patient size. 3. Use of iterative reconstruction technique. FINDINGS: Comparison is made to the patient's CT scan of the chest [facility] dated 06/24/2019. Images through the lung bases demonstrate minimal dependent subsegmental atelectasis bilaterally. The liver, spleen, pancreas, adrenal glands and kidneys are within normal limits. Atherosclerotic calcification of the abdominal aorta is seen. The abdominal aorta tapers normally. The gallbladder is well-distended. No free fluid or free air is seen within the abdomen. Air and stool seen throughout the colon. There is no evidence of bowel obstruction. The cecum extends into the pelvis. The appendix is partially visualized and is within normal limits. Scattered diverticula are seen involving the sigmoid colon. No inflammatory changes are seen in the adjacent fat. Enlarged retroperitoneal lymph nodes are seen adjacent to the abdominal aorta, left greater than right. These measure 1 to 4.1 cm in size. Images through the pelvis demonstrate the urinary bladder distended with urine. The prostate gland is enlarged likely related to BPH. Calcifications are seen within the pelvis consistent with a colitis. An intramuscular lipoma is seen left gluteal region. This measures 7.7 cm in size. Very mild S-shaped curvature of the thoracolumbar spine is seen. Degenerative changes are seen involving the lower thoracic and throughout the lumbar spine, both SI joints and both hips. Predominantly sclerotic lesions are seen scattered throughout the lower thoracic and lumbosacral vertebrae along with the bony pelvis concerning for skeletal metastasis. These measure 2 mm to 2.5 cm in size. IMPRESSION: 1. Retroperitoneal lymphadenopathy. 2. Sclerotic lesions are seen involving the visualized bony structures concerning for bony metastasis. Electronically signed by: David Sharp MD (07/08/2019 4:47 PM) [facility]
--- NOTE | 2019-07-08 17:35 | RAD ---
Bone scan July 08, 2019 HISTORY: Sclerotic lesions seen on CT scan concerning for skeletal metastasis. TECHNIQUE: 3 hours after the intravenous administration of 25.3 mCi of Technetium 99m MDP, whole body imaging of the axial and appendicular skeleton was performed using the gamma camera. FINDINGS: Comparison is made to the patient's CT scan of the chest dated 06/14/[address] scan of the abdomen and pelvis performed earlier today. Areas of increased activity are seen involving lower cervical spine and both shoulders consistent with areas of degenerative change. No area of abnormal activity is seen to suggest evidence of skeletal metastatic disease. The sclerotic lesion seen on the patient's CT studies do not have scintigraphic correlates. IMPRESSION: The patient's sclerotic lesions do not demonstrate increased activity on bone scintigraphy. Electronically signed by: David Sharp MD (07/08/2019 5:32 PM) [facility]
== END | disposition home or self-care (01) ==
LOC: NM 07:39
PROVIDERS: ATTEND Internal Medicine Hematology & Oncology
DX: C79.51 Secondary malignant neoplasm of bone (principal); D47.2 Monoclonal gammopathy; D17.79 Benign lipomatous neoplasm of other sites; J98.11 Atelectasis; I70.0 Atherosclerosis of aorta; K57.30 Diverticulosis of large intestine without perforation or abscess without bleeding; R59.0 Localized enlarged lymph nodes; N40.0 Benign prostatic hyperplasia without lower urinary tract symptoms
CPT/HCPCS: 74176; 78306; A9503; Q9966

== ENCOUNTER → 2020-04-03 | Outpatient (CLI) | payer MEDICARE ==
[2019-10-28 15:00] VITALS: BP 105/65
[~2020-04-03] MED LIST changes: -CETI10TA22 PO; +CETI10TA74 PO; +CYAN50002 PO; +DOXA4TAB2 PO; +FLUT16SP NS; +FLUT1DIS3 IH; +Folic Acid PO; +GABA600T7 PO; +GARL500C2 PO; -GARL500C5 PO; -IOHEXOL 240 MG/ML 50ML VIAL. PO ONE; +LORA10TA55 PO; +MAGN200T7 PO; +MOME45CR3 TP; +PANT20TA2 PO; +PRED-220 PO
--- NOTE | 2020-04-03 15:06 | RAD ---
CT CHEST WO CONTRAST INDICATION: SOA/PLASMA CELL NEOPLASM COMPARISON STUDY: CTA 10/24/2019. TECHNIQUE: Unenhanced axial images were obtained through the lungs and upper abdomen. Coronal and sagittal multiplanar reconstructions were also obtained. PQRS compliance statement: One or more of the following individualized dose reduction techniques were utilized for this examination: 1. Automated exposure control 2. Adjustment of the mA and/or kV according to patient size 3. Use of iterative reconstruction technique FINDINGS: Lungs and Airways: No pulmonary mass or consolidation. Previously seen left upper lobe 10 mm spiculated nodule has resolved. Few additional previously described small nodules are stable. Centrilobular emphysema. Normal central airways. Pleura: The pleural spaces are normal. Heart and Mediastinum: The visualized thyroid gland is normal in size and attenuation. No axillary or supraclavicular lymphadenopathy. No mediastinal, hilar or retrocrural lymphadenopathy. Normal cardiac size. Coronary artery atherosclerotic disease. Atherosclerosis of the thoracic aorta. Large pulmonary trunk measures 34 mm, which can be seen with pulmonary hypertension. Abdomen: The visualized abdominal organs demonstrate no abnormality. Bones and Soft Tissues: Degenerative changes of the spine. Few scattered sclerotic osseous lesions remain stable. IMPRESSION: 1. Previously described left upper lobe spiculated nodule has resolved, and may have represented a focus of infection/inflammation. Few additional previously described small pulmonary nodules are stable. 2. No pulmonary mass. No thoracic lymphadenopathy. 3. Stable few scattered sclerotic osseous lesions. Electronically signed by: Clovis Peraza MD (04/03/2020 3:03 PM) [facility]
== END | disposition home or self-care (01) ==
LOC: CT 11:40
PROVIDERS: ATTEND Internal Medicine Pulmonary Disease
DX: I25.10 Atherosclerotic heart disease of native coronary artery without angina pectoris (principal); I70.0 Atherosclerosis of aorta; I10 Essential (primary) hypertension; M47.819 Spondylosis without myelopathy or radiculopathy, site unspecified
CPT/HCPCS: 71250

== ENCOUNTER → 2020-07-13 | Day surgery (SDC) | payer MEDICARE ==
[~2020-07-13] MED LIST changes: +CARV6.25 PO; -CYAN50008 PO; +CYAN50009 PO; +DEXA4TAB PO; +DILT120C99 PO; +FAMO40TA57 PO; -FLUT100D IH; +FLUT100D2 IH; -FOLI0.4T2 PO; +FOLI0.4T5 PO; +IV RINGERS,LACTATED 1000ML 1,000 ML IV SCH; +LIDOCAINE 2% PF 5 ML VIAL. ONE; +LORA-169 PO; -LORA10TA55 PO; +PROPOFOL 10 MG/ML (20ML) VIAL. IV ONE
--- NOTE | 2020-07-13 13:43 | PDOC4 ---
PROCEDURE Procedure EGD/biopsies, colonoscopy Indication: EMILY Meds: per anesthesia Findings: E--Non-obstructing ring distally G--Mild antral erythema, biopsied. D--Normal to second portion, biopsied. WILLIAM normal --'Scope advanced to cecum. Prep adequate. Mucosa normal. No tic's, polyps, etc. Smalll IH's on retroflex. Twan. well. IMP: Non-obstructing Shatzki's, not dilated as no symptoms. Antral erythema Internal hemorrhoids.\ REC: Await path. Resume meds and diet. F/u with me in 2 weeks. If no answers from path, consider SBCE. ALEJANDRO RICCI MD Jul 13, 2020 13:43
[2020-07-13 13:57] VITALS: BP 144/79
--- NOTE | 2020-07-16 17:10 | PATHOLOGY ---
[facility] Accession Number: [id number] . 01 Material submitted: . PART A: gastrointestinal site - DUODENUM BX PART B: stomach - ANTRUM BX . 01 Clinical history: . ANEMIA,EGD,SHATZKIS RING . 02 Diagnosis: A. Duodenal biopsy: - No significant pathologic abnormalities. . B. Gastric biopsies, antrum: - Chronic gastritis, mild. (JPM:[facility] 07/16/2020) [facility] 07/16/2020 1222 Local . 02 Comment: Sections of the duodenal biopsy reveal small intestine mucosa. Where best oriented, the mucosal villi show no sprue-like changes or significant inflammatory changes. . Sections of the gastric biopsy reveal segments of gastric antral and antral/body transition mucosa showing congestion and mild chronic inflammation. A properly controlled immunoperoxidase stain for Helicobacter is negative for Helicobacter organisms. ([facility] 07/16/2020) . Special stain performed: Immunoperoxidase stain for Helicobacter on B1. . 02 Electronically signed: . Hemanth Moran MD, Pathologist NPI- [id number] . 01 Gross description: . A. The specimen is received in formalin, labeled "Lindo, Juve, duodenum BX" and consists of a fragment chinchilla tissue measuring 0.6 x 0.2 cm which is entirely submitted in A1. . B. The specimen is received in formalin, labeled "Lindo, Juve, antral BX" and consists of 3 fragments of chinchilla tissue measuring between 0.2 x 0.1 cm and 0.3 x 0.2 cm which are entirely submitted in B1. (SDY; 07/15/2020) SYU/SYU 07/15/2020 1115 Local . 02 Pathologist provided ICD-10: K29.50, D64.9 . 02 CPT . 731004, 069257, O70906 Specimen Comment: A courtesy copy of this report has been sent to [phone] Specimen Comment: Report sent to Performed at: 01 [facility] [address] [place] [id number] MD Paul Steel MD Phone: [phone] Performed at: 02 [facility] [address] [place], [place] [id number] MD Hemanth Moran MD Phone: [phone]
== END | disposition home or self-care (01) ==
LOC: ENDOS 11:55
PROVIDERS: ATTEND Internal Medicine Gastroenterology
DX: D50.9 Iron deficiency anemia, unspecified (principal); K64.8 Other hemorrhoids; K22.2 Esophageal obstruction; K31.89 Other diseases of stomach and duodenum; K29.50 Unspecified chronic gastritis without bleeding; K64.0 First degree hemorrhoids; I25.10 Atherosclerotic heart disease of native coronary artery without angina pectoris; K44.9 Diaphragmatic hernia without obstruction or gangrene; K21.9 Gastro-esophageal reflux disease without esophagitis; I13.0 Hypertensive heart and chronic kidney disease with heart failure and stage 1 through stage 4 chronic kidney disease, or unspecified chronic kidney disease; I50.32 Chronic diastolic (congestive) heart failure; N18.30 Chronic kidney disease, stage 3 unspecified; J43.1 Panlobular emphysema; G47.30 Sleep apnea, unspecified; Z87.891 Personal history of nicotine dependence; Z79.82 Long term (current) use of aspirin; Z79.899 Other long term (current) drug therapy; Z98.890 Other specified postprocedural states; Z88.0 Allergy status to penicillin; Z86.010 Personal history of colon polyps; Z85.830 Personal history of malignant neoplasm of bone; Z86.711 Personal history of pulmonary embolism; Z86.718 Personal history of other venous thrombosis and embolism; Z87.19 Personal history of other diseases of the digestive system; Z92.3 Personal history of irradiation; Z83.3 Family history of diabetes mellitus; Z80.0 Family history of malignant neoplasm of digestive organs; Z79.01 Long term (current) use of anticoagulants; Z88.8 Allergy status to other drugs, medicaments and biological substances; Z82.49 Family history of ischemic heart disease and other diseases of the circulatory system
CPT/HCPCS: 43239; 45378; 88305; 88342; J2704

== ENCOUNTER 2021-04-01 11:59 | Inpatient (IN) | payer MEDICARE ==
[~2021-04-01] VITALS: Ht 188 cm; Wt 86.4 kg
[~2021-04-01 11:59] MED LIST changes: -FLUT250D IH; +FLUT250D2 IH; -IV RINGERS,LACTATED 1000ML 1,000 ML IV SCH; -LIDOCAINE 2% PF 5 ML VIAL. ONE; -PROPOFOL 10 MG/ML (20ML) VIAL. IV ONE
[2021-04-01 12:10] LABS: BASE EXCESS COOX 7 mmol/L (-3-3); HCO3 COOX 32 mmol/L (21-28); METHEMOGLOBIN 0.2 % (0.0-1.9); OXYHEMOGLOBIN 95.7 %; PCO2 COOX 50 mmHg (35-46); PO2 COOX 88 mmHg (65-108); SAT O2 COOX 96 % (92-99)
--- NOTE | 2021-04-01 12:10 | ED.ADGEN ---
Past Medical History Past Medical History: COPD, Hypertension Additional Past Medical Histor: bone cancer Past Surgical History: No Surgical History Smoking Status: Never Smoker Alcohol Use: None General Adult HPI: HPI: Patient is a 75-year-old male who arrives via EMS in respiratory distress. Patient has a history of COPD and requires 5 L of supplemental oxygen on a regular basis. Patient was diagnosed with bronchitis on Monday of this week and has been taking prednisone since that time. Despite his recent treatment, he is not improving. Upon arrival the patient is using a nonrebreather and was found to have oxygen saturations in the mid 70s on his supplemental oxygen. Patient states despite his symptoms he is not had any fevers or chest pain. Additionally he states he did complete the vaccination series for coronavirus earlier this year. He is awake, alert and in moderate respiratory distress Review of Systems: Review of Systems: Constitutional: Denies fever or chills. [] Eyes: Denies change in visual acuity. [] HENT: Denies nasal congestion or sore throat. [] Respiratory: Reports respiratory distress/shortness of air. [] Cardiovascular: Denies chest pain or edema. [] GI: Denies abdominal pain, nausea, vomiting, bloody stools or diarrhea. [] : Denies dysuria. [] Musculoskeletal: Denies back pain or joint pain. [] Integument: Denies rash. [] Neurologic: Denies headache, focal weakness or sensory changes. [] Endocrine: Denies polyuria or polydipsia. [] Lymphatic: Denies swollen glands. [] Psychiatric: Denies depression or anxiety. [] Current Medications: Current Medications Medications (Trade) Dose Ordered Sig/Juany Start Time Stop Time Status Last Admin Dose Admin Albuterol Sulfate (Ventolin Neb Soln) 2.5 mg 1X ONCE 04/01/21 12:15 04/01/21 12:16 DC 04/01/21 12:15 2.5 MG Levofloxacin/ Dextrose 150 ml @ 100 mls/hr 1X ONCE 04/01/21 12:15 04/01/21 13:44 04/01/21 12:44 100 MLS/HR Methylprednisolone Sodium Succinate (SOLU-Medrol 125MG VIAL) 125 mg 1X ONCE 04/01/21 12:15 04/01/21 12:16 DC 04/01/21 12:49 125 MG Sodium Chloride 1,000 ml @ 1,000 mls/hr Q1H 04/01/21 12:15 04/01/21 13:14 DC Allergies: Allergies: Allergies Coded Allergies Type Severity Reaction Last Updated Verified Penicillins Allergy Intermediate 07/13/20 Yes Physical Exam: PE: Constitutional: Patient is visibly uncomfortable and ill-appearing. Well developed, well nourished, non-toxic appearance. [] HENT: Normocephalic, atraumatic, bilateral external ears normal, oropharynx moist, no oral exudates, nose normal. [] Eyes: PERRLA, EOMI, conjunctiva normal, no discharge. [] Neck: Normal range of motion, no tenderness, supple, no stridor. [] Cardiovascular: Tachycardia. No murmur present Lungs & Thorax: Patient in moderate respiratory distress with expiratory wheezes bilaterally. [] Abdomen: Bowel sounds normal, soft, no tenderness, no masses, no pulsatile masses. [] Skin: Warm, dry, no erythema, no rash. [] Back: No tenderness, no CVA tenderness. [] Extremities: No tenderness, no cyanosis, no clubbing, ROM intact, no edema. [] Neurologic: Alert and oriented X 3, normal motor function, normal sensory function, no focal deficits noted. [] Psychologic: Affect normal, judgement normal, mood normal. [] Current Patient Data: Labs: Laboratory Tests Test 04/01/21 12:08 04/01/21 12:15 04/01/21 12:25 04/01/21 12:30 O2 Saturation 96 % (92-99) Arterial Blood pH 7.42 (7.35-7.45) Arterial Blood pCO2 at Patient Temp 50 mmHg (35-46) H Arterial Blood pO2 at Patient Temp 88 mmHg (65-108) Arterial Blood HCO3 32 mmol/L (21-28) H Arterial Blood Base Excess 7 mmol/L (-3-3) H Oxyhemoglobin 95.7 % Methemoglobin 0.2 % (0.0-1.9) Carbon Monoxide, Quantitative 0.3 % (0.0-1.9) FiO2 70 White Blood Count 10.1 x10^3/uL (4.0-11.0) Red Blood Count 2.68 x10^6/uL (4.30-5.70) L Hemoglobin 9.0 g/dL (13.0-17.5) L Hematocrit 27.4 % (39.0-53.0) L Mean Corpuscular Volume 102 fL (79-100) H Mean Corpuscular Hemoglobin 34 pg (25-35) Mean Corpuscular Hemoglobin Concent 33 g/dL (31-37) Red Cell Distribution Width 15.6 % (11.5-14.5) H Platelet Count 184 x10^3/uL (140-400) Neutrophils (%) (Auto) 95 % (31-73) H Lymphocytes (%) (Auto) 1 % (24-48) L Monocytes (%) (Auto) 3 % (0-9) Eosinophils (%) (Auto) 0 % (0-3) Basophils (%) (Auto) 1 % (0-3) Neutrophils # (Auto) 9.6 x10^3/uL (1.8-7.7) H Lymphocytes # (Auto) 0.1 x10^3/uL (1.0-4.8) L Monocytes # (Auto) 0.3 x10^3/uL (0.0-1.1) Eosinophils # (Auto) 0.0 x10^3/uL (0.0-0.7) Basophils # (Auto) 0.1 x10^3/uL (0.0-0.2) Segmented Neutrophils % 84 % (35-66) H Band Neutrophils % 12 % (0-9) H Lymphocytes % 1 % (24-48) L Monocytes % 3 % (0-10) Platelet Estimate Adequate (ADEQUATE) Anisocytosis Slight Sodium Level 137 mmol/L (136-145) Potassium Level 4.5 mmol/L (3.5-5.1) Chloride Level 96 mmol/L (98-107) L Carbon Dioxide Level 33 mmol/L (21-32) H Anion Gap 8 (6-14) Blood Urea Nitrogen 35 mg/dL (8-26) H Creatinine 1.6 mg/dL (0.7-1.3) H Estimated GFR (Cockcroft-Gault) 51.2 BUN/Creatinine Ratio 22 (6-20) H Glucose Level 112 mg/dL (70-99) H Lactic Acid Level 1.5 mmol/L (0.4-2.0) Calcium Level 9.5 mg/dL (8.5-10.1) Total Bilirubin 0.2 mg/dL (0.2-1.0) Aspartate Amino Transferase (AST) 40 U/L (15-37) H Alanine Aminotransferase (ALT) 51 U/L (16-63) Alkaline Phosphatase 125 U/L (46-116) H Troponin I Quantitative < 0.017 ng/mL (0.000-0.055) BE-Vrd-M-Type Natriuretic Peptide 172 pg/mL (0-449) Total Protein 7.0 g/dL (6.4-8.2) Albumin 2.8 g/dL (3.4-5.0) L Albumin/Globulin Ratio 0.7 (1.0-1.7) L SARS-CoV-2 Antigen (Rapid) Positive (NEGATIVE) *A Influenza Type A Antigen Negative (NEGATIVE) Influenza Type B Antigen Negative (NEGATIVE) Laboratory Tests 04/01/21 12:15 Laboratory Tests 04/01/21 12:15 Vital Signs: Vital Signs Date Time Temp Pulse Resp B/P (MAP) Pulse Ox O2 Delivery O2 Flow Rate FiO2 04/01/21 12:10 98.4 123 28 160/76 (104) 80 NonRebreather Mask 15.0 98.4 EKG: EKG: EKG was obtained at 12:08 PM and revealed a sinus tachycardia with ventricular 125 beats per minute. There is both left axis deviation as well as a left anterior fascicular block. There are no acute ST/T wave changes to denote ischemia. EKG is a poor quality given the patient's respiratory effort. [] Heart Score: C/O Chest Pain: No HEART Score for Chest Pain: HEART Score for Chest Pain Response (Comments) Value History Moderately Suspicious 1 ECG Nonspecific Repolarizatio 1 Age > 65 2 Risk Factors 1 or 2 Risk Factors 1 Troponin < Normal Limit 0 Total 5 Risk Factors: Risk Factors: DM, Current or recent (<one month) smoker, HTN, HLP, family history of CAD, obesity. Risk Scores: Score 0 - 3: 2.5% MACE over next 6 weeks - Discharge Home Score 4 - 6: 20.3% MACE over next 6 weeks - Admit for Clinical Observation Score 7 - 10: 72.7% MACE over next 6 weeks - Early Invasive Strategies Radiology/Procedures: Radiology/Procedures: [] Impression: [facility] [address] [place] [address] IMAGING REPORT Signed PATIENT: NATE CUELLAR ACCOUNT: [id number] : 1945 LOCATION: ER AGE: 75 SEX: M EXAM STATUS: REG ER ORD. PHYSICIAN: TRAVIS GONZALEZ DO REASON: soa PROCEDURE: PORTABLE CHEST 1V XR CHEST 1V History: Reason: soa / Spl. Instructions: / History: Comparison: October 22, 2019 Findings: Patchy bibasilar opacities. No pleural effusion. No pneumothorax. Hyperinflation. Unchanged heart size. Impression: 1. Mild patchy bibasilar opacities, may represent atelectasis or developing infiltrates. If persistent clinical concern, recommend follow-up. Electronically signed by: Zachary Reich DO (04/01/2021 1:09 PM) [id number] DICTATED and SIGNED BY: ZACHARY REICH DO DATE: 04/01/21 [id number] Course & Med Decision Making: Course & Med Decision Making Pertinent Labs and Imaging studies reviewed. (See chart for details) [] Dragon Disclaimer: Dragon Disclaimer: This electronic medical record was generated, in whole or in part, using a voice recognition dictation system. Departure Departure Impression: Primary Impression: COVID-19 Additional Impressions: Respiratory failure Renal insufficiency History of COPD Disposition: HOME / SELF CARE / HOMELESS Admitting Physician: Liberty Dang Condition: GUARDED Referrals: LIBERTY DANG MD (PCP) Problem Qualifiers TRAVIS GONZALEZ DO Apr 01, 2021 12:10
[2021-04-01] MEDS ORDERED: IV NORMAL SALINE 1000ML BAG 1,000 ML IV SCH (12:15)
[2021-04-01] MEDS ORDERED: methylPREDNISolone SOD SUCC PF 125 MG/2 ML VIAL. IV ONE (12:15)
[2021-04-01] MEDS ORDERED: ALBUTEROL SULFATE 2.5 MG/3 ML NEBU. NEB ONE (12:15)
[2021-04-01 12:43] LABS: BASO # 0.1 x10^3/uL (0.0-0.2); BASO % 1 % (0-3); EOS % 0 % (0-3); HEMATOCRIT 27.4 % (39.0-53.0); LYMPH # 0.1 x10^3/uL (1.0-4.8); LYMPH % 1 % (24-48); MEAN CORPUSCULAR HEMOGLOBIN 34 pg (25-35); MEAN CORPUSCULAR HGB CONC 33 g/dL (31-37); MEAN CORPUSCULAR VOLUME 102 fL (79-100); MONO # 0.3 x10^3/uL (0.0-1.1); MONO % 3 % (0-9); NEUT # 9.6 x10^3/uL (1.8-7.7); NEUT % 95 % (31-73); PLATELET COUNT 184 x10^3/uL (140-400); RED BLOOD COUNT 2.68 x10^6/uL (4.30-5.70); RED CELL DISTRIBUTION WIDTH 15.6 % (11.5-14.5); WHITE BLOOD COUNT 10.1 x10^3/uL (4.0-11.0)
[2021-04-01 13:04] LABS: CALCIUM 9.5 mg/dL (8.5-10.1); CREATININE 1.6 mg/dL (0.7-1.3); GFR 51.2; POTASSIUM 4.5 mmol/L (3.5-5.1)
[2021-04-01 13:07] LABS: ALBUMIN 2.8 g/dL (3.4-5.0); ALBUMIN/GLOBULIN RATIO 0.7 (1.0-1.7); TOTAL BILIRUBIN 0.2 mg/dL (0.2-1.0)
[2021-04-01 13:10] LABS: % BANDS 12 % (0-9); % LYMPHS 1 % (24-48); % MONOS 3 % (0-10); % SEGS 84 % (35-66)
[2021-04-01 13:11] LABS: ANISOCYTOSIS SLIGHT; PLT ESTIMATE ADEQUATE (ADEQUATE)
--- NOTE | 2021-04-01 13:11 | RAD ---
XR CHEST 1V History: Reason: soa / Spl. Instructions: / History: Comparison: October 22, 2019 Findings: Patchy bibasilar opacities. No pleural effusion. No pneumothorax. Hyperinflation. Unchanged heart siz e. Impression: 1. Mild patchy bibasilar opacities, may represent atelectasis or developing infiltrates. If persiste nt clinical concern, recommend follow-up. Electronically signed by: Zachary Reich DO (04/01/2021 1:09 PM) [id number]
[2021-04-01 13:15] LABS: INFLUENZA A PATIENT NEGATIVE (NEGATIVE); INFLUENZA B PATIENT NEGATIVE (NEGATIVE)
[2021-04-01 16:00] VITALS: BP 161/74
[2021-04-01] MEDS ORDERED: FURO-68 PO (16:42)
[2021-04-01] MEDS ORDERED: PRED20TA PO (17:04)
[2021-04-01] MEDS ORDERED: SULF1TAB23 PO (17:04)
[2021-04-01] MEDS ORDERED: GABA300C18 PO (17:04)
[2021-04-01] MEDS ORDERED: SODI650T PO (17:04)
[2021-04-01] MEDS ORDERED: ACYC-12 PO (17:04)
[2021-04-01] MEDS ORDERED: AZIT250T6 PO (17:04)
--- NOTE | 2021-04-01 18:23 | PDOC ---
Provider Note Date of Service: DATE: 04/01/21 TIME: 18:23 Provider Note H&P dictated #[id number] Justifications for Admission Other Justification LIBERTY WOODSON MD Apr 01, 2021 18:23
[2021-04-01] MEDS: SMZ/TMP 800/160MG TABLET. PO SCH (18:31)
[2021-04-01] MEDS: IPRATRPIUM/ALBUTEROL 0.5/2.5MG 3 ML NEBU. NEB SCH (18:54)
--- NOTE | 2021-04-01 19:02 | HP ---
ADMIT DATE: 04/01/2021 HISTORY OF PRESENT ILLNESS: This is a 75-year-old male who is well known to me and who has a history of severe COPD and chronic respiratory failure, on oxygen by nasal cannula 5 liters per minute and who also has multiple myeloma with POEMS syndrome. Recently, he took his booster that is his third vaccine dose for COVID-19. Three days ago, he started having symptoms of bronchitis and was treated with antibiotics and steroids. However, today, his symptoms got worse and even on 5 liters of oxygen by nasal cannula at home, he became much more short of breath and he just could not breathe in and because of that, the EMS was called and he was brought to the Emergency Room. His O2 sats were in the 70s. On FiO2 of 70%, his ABG showed pH 7.42, pCO2 of 50 and pO2 of 88. In the Emergency Room, he was given IV Solu-Medrol 125 mg and IV Levaquin. Chest x-ray showed bilateral opacities that may represent atelectasis or developing infiltrates. WBC count was 10.1, hemoglobin 9, platelet count 184,000, polys 84. Sodium 137, potassium 4.5, BUN 35, creatinine 1.6, AST 40, ALT 51, alkaline phosphatase 125, albumin 2.8. Influenza A and B were negative. SARS-CoV-2 antigen rapid test was positive. Because of the acute on chronic hypoxic respiratory failure with exacerbation of chronic obstructive pulmonary disease and COVID-19 pneumonia, the patient was admitted for further evaluation and management. SYSTEMS REVIEW: At present time, the patient states that he is breathing a little better. He complains of cough, congestion. He denies any fever, chills, nausea, vomiting, or diarrhea. He admits to some weakness and dyspnea. He feels weak and tired. Other systems reviewed and are negative. PAST MEDICAL HISTORY: The patient was last admitted here in October 2019 for exacerbation of COPD. He has severe COPD, chronic respiratory failure, on oxygen by nasal cannula 5 liters per minute. He has panlobular emphysema, hypertension, multiple myeloma with POEMS syndrome. 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 FAMILY HISTORY: Father has coronary artery disease and diabetes mellitus. Mother has diabetes mellitus. Sister has pancreatic cancer. ALLERGIES: THE PATIENT IS ALLERGIC TO ALLOPURINOL THAT CAUSES RASH. MEDICATIONS: Reviewed and reconciled. PHYSICAL EXAMINATION: GENERAL: The patient is an elderly male who is alert, oriented x 3, appears to be chronically ill and in moderate respiratory distress. He is on oxygen by nasal cannula 10 liters per minute. VITAL SIGNS: Temperature 98.4, pulse 123 per minute, respirations 28 per minute, blood pressure 160/76 mmHg, O2 sat 80%. The patient was at that time on nonrebreathing mask with BiPAP and a flow rate of 15 liters per minute. EYES: Pupils reacting to light. Conjunctivae pale. Sclerae muddy. HENT: Partial exam, congestion noted. NECK: Supple. JVP normal. No thyromegaly. Trachea midline. LUNGS: Bilateral wheezing. Decreased breath sounds at bases. CARDIOVASCULAR SYSTEM: S1, S2, regular. ABDOMEN: Soft, nontender, no guarding, no rigidity. Bowel sounds present. EXTREMITIES: No edema. CENTRAL NERVOUS SYSTEM: Generalized weakness, moves all extremities. Alert and oriented. LABORATORY FINDINGS: As noted earlier. IMPRESSION: 1. Acute on chronic hypoxic respiratory failure due to COVID-19 pneumonia. 2. COVID-19 pneumonia. 3. Multiple myeloma with polyneuropathy, organomegaly, endocrinopathy, monoclonal gammopathy, and skin changes syndrome. 4. Exacerbation of chronic obstructive pulmonary disease. 5. Panlobular emphysema. 6. Simple chronic bronchitis. 7. Chronic diastolic congestive heart failure. 8. Atherosclerotic heart disease. 9. Peripheral artery disease. 10. Gastroesophageal reflux disease without esophagitis. 11. Benign hypertension with chronic kidney disease stage 3. PLAN: 1. COVID-19 pneumonia. Start IV Solu-Medrol. We will consult Dr. Romero and Dr. Dustin Sy for pulmonary and infectious disease management respectively. We will continue him on appropriate protocol for COVID-19 infection. 2. Acute on chronic hypoxic respiratory failure. Continue oxygenation. 3. Exacerbation of chronic obstructive pulmonary disease, started on IV steroids. 4. Continue acyclovir and Bactrim-DS for immunosuppression. The patient has received both COVID-19 vaccines previously as well as booster dose recently. 5. Monitor blood sugar as he is on steroids. I will start him on DVT prophylaxis. Continue pantoprazole. For details, please refer to the orders. Prognosis of this patient is very poor due to his multiple medical problems. ROMINA/JERAMIE DR: Mikaela TID: [id number]
[2021-04-01 19:59] VITALS: BP 143/76
[2021-04-01] MEDS: BUDESONIDE 0.5 MG/2 ML NEBU. NEB SCH (20:00)
--- NOTE | 2021-04-01 20:25 | NUR ---
Pt in bed assessment completed vss poc explained pt denied pain at this time call light i n reach bed alarm is set will resume care and continue to monitor pt.
[2021-04-01] MEDS ORDERED: GUAIFENESIN PO SCH (21:00)
[2021-04-01] MEDS: ENOXAPARIN 40 MG/0.4 ML SYRINGE. SQ SCH (21:28)
[2021-04-01] MEDS: ACYCLOVIR 200 MG CAPSULE. PO SCH (21:28)
[2021-04-01] MEDS: MONTELUKAST SODIUM 10 MG TABLET. PO SCH (21:28)
[2021-04-01] MEDS: methylPREDNISolone SOD SUCC PF 125 MG/2 ML VIAL. IV SCH (21:28)
[2021-04-01 22:17] VITALS: BP 161/80
[2021-04-02 03:00] VITALS: BP 165/86
[2021-04-02 05:43] LABS: BASO % 0 % (0-3); EOS % 0 % (0-3); HEMATOCRIT 25.2 % (39.0-53.0); HEMOGLOBIN 8.1 g/dL (13.0-17.5); LYMPH # 0.1 x10^3/uL (1.0-4.8); LYMPH % 2 % (24-48); MEAN CORPUSCULAR HEMOGLOBIN 33 pg (25-35); MEAN CORPUSCULAR HGB CONC 32 g/dL (31-37); MEAN CORPUSCULAR VOLUME 103 fL (79-100); MONO # 0.1 x10^3/uL (0.0-1.1); MONO % 3 % (0-9); NEUT # 4.8 x10^3/uL (1.8-7.7); NEUT % 95 % (31-73); PLATELET COUNT 154 x10^3/uL (140-400); RED BLOOD COUNT 2.44 x10^6/uL (4.30-5.70); RED CELL DISTRIBUTION WIDTH 15.6 % (11.5-14.5)
[2021-04-02 05:56] LABS: ALBUMIN 2.3 g/dL (3.4-5.0); ALBUMIN/GLOBULIN RATIO 0.5 (1.0-1.7); CALCIUM 9.3 mg/dL (8.5-10.1); CREATININE 1.4 mg/dL (0.7-1.3); GFR 59.8; MAGNESIUM 2.4 mg/dL (1.8-2.4); POTASSIUM 5.4 mmol/L (3.5-5.1); TOTAL BILIRUBIN 0.2 mg/dL (0.2-1.0); TOTAL PROTEIN 6.5 g/dL (6.4-8.2)
[2021-04-02] MEDS: PANTOPRAZOLE 40 MG TABLET.DR. PO SCH (06:04)
[2021-04-02] MEDS: INSULIN LISPRO 300 UNITS/3 ML VIAL. SQ SCH ×2 (07:30→16:30)
[2021-04-02 07:55] VITALS: BP 171/84
[2021-04-02] MEDS: BUDESONIDE 0.5 MG/2 ML NEBU. NEB SCH (08:00)
[2021-04-02] MEDS: CYANOCOBALAMIN (VITAMIN B-12) 1,000 MCG TABLET. PO SCH (08:52)
[2021-04-02] MEDS: MAGNESIUM OXIDE 400 MG TABLET PO SCH (08:52)
[2021-04-02] MEDS: SODIUM BICARBONATE 650 MG TABLET. PO SCH ×3 (08:52→17:01)
--- NOTE | 2021-04-02 08:52 | PDOC ---
PULMONARY PROGRESS NOTES DATE: 04/02/21 TIME: 08:52 Vitals Vital Signs Date Time Temp Pulse Resp B/P (MAP) Pulse Ox O2 Delivery O2 Flow Rate FiO2 04/02/21 08:04 100 BiPAP/CPAP 04/02/21 07:55 98.0 98 20 171/84 (113) 10.0 98.0 General: Alert, No acute distress Lungs: Other Cardiovascular: S1, S2 Abdomen: Soft Extremities: No Edema Labs Laboratory Tests Test 04/01/21 12:08 04/01/21 12:15 04/01/21 12:25 04/01/21 12:30 O2 Saturation 96 % (92-99) Arterial Blood pH 7.42 (7.35-7.45) Arterial Blood pCO2 at Patient Temp 50 mmHg (35-46) Arterial Blood pO2 at Patient Temp 88 mmHg (65-108) Arterial Blood HCO3 32 mmol/L (21-28) Arterial Blood Base Excess 7 mmol/L (-3-3) Oxyhemoglobin 95.7 % Methemoglobin 0.2 % (0.0-1.9) Carbon Monoxide, Quantitative 0.3 % (0.0-1.9) FiO2 70 White Blood Count 10.1 x10^3/uL (4.0-11.0) Red Blood Count 2.68 x10^6/uL (4.30-5.70) Hemoglobin 9.0 g/dL (13.0-17.5) Hematocrit 27.4 % (39.0-53.0) Mean Corpuscular Volume 102 fL (79-100) Mean Corpuscular Hemoglobin 34 pg (25-35) Mean Corpuscular Hemoglobin Concent 33 g/dL (31-37) Red Cell Distribution Width 15.6 % (11.5-14.5) Platelet Count 184 x10^3/uL (140-400) Neutrophils (%) (Auto) 95 % (31-73) Lymphocytes (%) (Auto) 1 % (24-48) Monocytes (%) (Auto) 3 % (0-9) Eosinophils (%) (Auto) 0 % (0-3) Basophils (%) (Auto) 1 % (0-3) Neutrophils # (Auto) 9.6 x10^3/uL (1.8-7.7) Lymphocytes # (Auto) 0.1 x10^3/uL (1.0-4.8) Monocytes # (Auto) 0.3 x10^3/uL (0.0-1.1) Eosinophils # (Auto) 0.0 x10^3/uL (0.0-0.7) Basophils # (Auto) 0.1 x10^3/uL (0.0-0.2) Segmented Neutrophils % 84 % (35-66) Band Neutrophils % 12 % (0-9) Lymphocytes % 1 % (24-48) Monocytes % 3 % (0-10) Platelet Estimate Adequate (ADEQUATE) Anisocytosis Slight Sodium Level 137 mmol/L (136-145) Potassium Level 4.5 mmol/L (3.5-5.1) Chloride Level 96 mmol/L (98-107) Carbon Dioxide Level 33 mmol/L (21-32) Anion Gap 8 (6-14) Blood Urea Nitrogen 35 mg/dL (8-26) Creatinine 1.6 mg/dL (0.7-1.3) Estimated GFR (Cockcroft-Gault) 51.2 BUN/Creatinine Ratio 22 (6-20) Glucose Level 112 mg/dL (70-99) Lactic Acid Level 1.5 mmol/L (0.4-2.0) Calcium Level 9.5 mg/dL (8.5-10.1) Total Bilirubin 0.2 mg/dL (0.2-1.0) Aspartate Amino Transf (AST/SGOT) 40 U/L (15-37) Alanine Aminotransferase (ALT/SGPT) 51 U/L (16-63) Alkaline Phosphatase 125 U/L (46-116) Troponin I Quantitative < 0.017 ng/mL (0.000-0.055) JR-Qoz-[id number]-Type Natriuretic Peptide 172 pg/mL (0-449) Total Protein 7.0 g/dL (6.4-8.2) Albumin 2.8 g/dL (3.4-5.0) Albumin/Globulin Ratio 0.7 (1.0-1.7) SARS-CoV-2 Antigen (Rapid) Positive (NEGATIVE) Influenza Type A Antigen Negative (NEGATIVE) Influenza Type B Antigen Negative (NEGATIVE) Test 04/01/21 20:05 04/02/21 04:45 04/02/21 08:10 Glucose (Fingerstick) 145 mg/dL (70-99) 122 mg/dL (70-99) White Blood Count 5.0 x10^3/uL (4.0-11.0) Red Blood Count 2.44 x10^6/uL (4.30-5.70) Hemoglobin 8.1 g/dL (13.0-17.5) Hematocrit 25.2 % (39.0-53.0) Mean Corpuscular Volume 103 fL (79-100) Mean Corpuscular Hemoglobin 33 pg (25-35) Mean Corpuscular Hemoglobin Concent 32 g/dL (31-37) Red Cell Distribution Width 15.6 % (11.5-14.5) Platelet Count 154 x10^3/uL (140-400) Neutrophils (%) (Auto) 95 % (31-73) Lymphocytes (%) (Auto) 2 % (24-48) Monocytes (%) (Auto) 3 % (0-9) Eosinophils (%) (Auto) 0 % (0-3) Basophils (%) (Auto) 0 % (0-3) Neutrophils # (Auto) 4.8 x10^3/uL (1.8-7.7) Lymphocytes # (Auto) 0.1 x10^3/uL (1.0-4.8) Monocytes # (Auto) 0.1 x10^3/uL (0.0-1.1) Eosinophils # (Auto) 0.0 x10^3/uL (0.0-0.7) Basophils # (Auto) 0.0 x10^3/uL (0.0-0.2) Sodium Level 139 mmol/L (136-145) Potassium Level 5.4 mmol/L (3.5-5.1) Chloride Level 100 mmol/L (98-107) Carbon Dioxide Level 34 mmol/L (21-32) Anion Gap 5 (6-14) Blood Urea Nitrogen 33 mg/dL (8-26) Creatinine 1.4 mg/dL (0.7-1.3) Estimated GFR (Cockcroft-Gault) 59.8 BUN/Creatinine Ratio 24 (6-20) Glucose Level 139 mg/dL (70-99) Calcium Level 9.3 mg/dL (8.5-10.1) Magnesium Level 2.4 mg/dL (1.8-2.4) Total Bilirubin 0.2 mg/dL (0.2-1.0) Aspartate Amino Transf (AST/SGOT) 33 U/L (15-37) Alanine Aminotransferase (ALT/SGPT) 42 U/L (16-63) Alkaline Phosphatase 108 U/L (46-116) Total Protein 6.5 g/dL (6.4-8.2) Albumin 2.3 g/dL (3.4-5.0) Albumin/Globulin Ratio 0.5 (1.0-1.7) Laboratory Tests Test 04/01/21 12:08 04/01/21 12:15 04/01/21 12:25 04/01/21 12:30 O2 Saturation 96 % (92-99) Arterial Blood pH 7.42 (7.35-7.45) Arterial Blood pCO2 at Patient Temp 50 mmHg (35-46) Arterial Blood pO2 at Patient Temp 88 mmHg (65-108) Arterial Blood HCO3 32 mmol/L (21-28) Arterial Blood Base Excess 7 mmol/L (-3-3) Oxyhemoglobin 95.7 % Methemoglobin 0.2 % (0.0-1.9) Carbon Monoxide, Quantitative 0.3 % (0.0-1.9) FiO2 70 White Blood Count 10.1 x10^3/uL (4.0-11.0) Red Blood Count 2.68 x10^6/uL (4.30-5.70) Hemoglobin 9.0 g/dL (13.0-17.5) Hematocrit 27.4 % (39.0-53.0) Mean Corpuscular Volume 102 fL (79-100) Mean Corpuscular Hemoglobin 34 pg (25-35) Mean Corpuscular Hemoglobin Concent 33 g/dL (31-37) Red Cell Distribution Width 15.6 % (11.5-14.5) Platelet Count 184 x10^3/uL (140-400) Neutrophils (%) (Auto) 95 % (31-73) Lymphocytes (%) (Auto) 1 % (24-48) Monocytes (%) (Auto) 3 % (0-9) Eosinophils (%) (Auto) 0 % (0-3) Basophils (%) (Auto) 1 % (0-3) Neutrophils # (Auto) 9.6 x10^3/uL (1.8-7.7) Lymphocytes # (Auto) 0.1 x10^3/uL (1.0-4.8) Monocytes # (Auto) 0.3 x10^3/uL (0.0-1.1) Eosinophils # (Auto) 0.0 x10^3/uL (0.0-0.7) Basophils # (Auto) 0.1 x10^3/uL (0.0-0.2) Segmented Neutrophils % 84 % (35-66) Band Neutrophils % 12 % (0-9) Lymphocytes % 1 % (24-48) Monocytes % 3 % (0-10) Platelet Estimate Adequate (ADEQUATE) Anisocytosis Slight Sodium Level 137 mmol/L (136-145) Potassium Level 4.5 mmol/L (3.5-5.1) Chloride Level 96 mmol/L (98-107) Carbon Dioxide Level 33 mmol/L (21-32) Anion Gap 8 (6-14) Blood Urea Nitrogen 35 mg/dL (8-26) Creatinine 1.6 mg/dL (0.7-1.3) Estimated GFR (Cockcroft-Gault) 51.2 BUN/Creatinine Ratio 22 (6-20) Glucose Level 112 mg/dL (70-99) Lactic Acid Level 1.5 mmol/L (0.4-2.0) Calcium Level 9.5 mg/dL (8.5-10.1) Total Bilirubin 0.2 mg/dL (0.2-1.0) Aspartate Amino Transf (AST/SGOT) 40 U/L (15-37) Alanine Aminotransferase (ALT/SGPT) 51 U/L (16-63) Alkaline Phosphatase 125 U/L (46-116) Troponin I Quantitative < 0.017 ng/mL (0.000-0.055) SU-Ayd-O-Type Natriuretic Peptide 172 pg/mL (0-449) Total Protein 7.0 g/dL (6.4-8.2) Albumin 2.8 g/dL (3.4-5.0) Albumin/Globulin Ratio 0.7 (1.0-1.7) SARS-CoV-2 Antigen (Rapid) Positive (NEGATIVE) Influenza Type A Antigen Negative (NEGATIVE) Influenza Type B Antigen Negative (NEGATIVE) Test 04/01/21 20:05 04/02/21 04:45 04/02/21 08:10 Glucose (Fingerstick) 145 mg/dL (70-99) 122 mg/dL (70-99) White Blood Count 5.0 x10^3/uL (4.0-11.0) Red Blood Count 2.44 x10^6/uL (4.30-5.70) Hemoglobin 8.1 g/dL (13.0-17.5) Hematocrit 25.2 % (39.0-53.0) Mean Corpuscular Volume 103 fL (79-100) Mean Corpuscular Hemoglobin 33 pg (25-35) Mean Corpuscular Hemoglobin Concent 32 g/dL (31-37) Red Cell Distribution Width 15.6 % (11.5-14.5) Platelet Count 154 x10^3/uL (140-400) Neutrophils (%) (Auto) 95 % (31-73) Lymphocytes (%) (Auto) 2 % (24-48) Monocytes (%) (Auto) 3 % (0-9) Eosinophils (%) (Auto) 0 % (0-3) Basophils (%) (Auto) 0 % (0-3) Neutrophils # (Auto) 4.8 x10^3/uL (1.8-7.7) Lymphocytes # (Auto) 0.1 x10^3/uL (1.0-4.8) Monocytes # (Auto) 0.1 x10^3/uL (0.0-1.1) Eosinophils # (Auto) 0.0 x10^3/uL (0.0-0.7) Basophils # (Auto) 0.0 x10^3/uL (0.0-0.2) Sodium Level 139 mmol/L (136-145) Potassium Level 5.4 mmol/L (3.5-5.1) Chloride Level 100 mmol/L (98-107) Carbon Dioxide Level 34 mmol/L (21-32) Anion Gap 5 (6-14) Blood Urea Nitrogen 33 mg/dL (8-26) Creatinine 1.4 mg/dL (0.7-1.3) Estimated GFR (Cockcroft-Gault) 59.8 BUN/Creatinine Ratio 24 (6-20) Glucose Level 139 mg/dL (70-99) Calcium Level 9.3 mg/dL (8.5-10.1) Magnesium Level 2.4 mg/dL (1.8-2.4) Total Bilirubin 0.2 mg/dL (0.2-1.0) Aspartate Amino Transf (AST/SGOT) 33 U/L (15-37) Alanine Aminotransferase (ALT/SGPT) 42 U/L (16-63) Alkaline Phosphatase 108 U/L (46-116) Total Protein 6.5 g/dL (6.4-8.2) Albumin 2.3 g/dL (3.4-5.0) Albumin/Globulin Ratio 0.5 (1.0-1.7) Medications Active Scripts Medications Dose Route/Sig Max Daily Dose Days Date Category Dose Instructions Sodium Bicarbonate 650 Mg Tablet 1 Tab PO TIDWMEALS 04/01/21 Reported Prednisone 20 Mg Tablet 1 Tab PO DAILY 04/01/21 Reported Acyclovir 400 Mg Tablet 2 Tab PO BID 04/01/21 Reported Azithromycin Tablet (Azithromycin) 250 Mg Tablet 250 Mg PO DAILY 04/01/21 Reported Bactrim 400-80 Mg Tablet (Sulfamethoxazole/Trimethoprim) 1 Each Tablet 2 Tab PO QMTH 04/01/21 Reported Gabapentin (Gabapentin) 300 Mg Capsule 300 Mg PO TID 04/01/21 Reported Lasix (Furosemide) 40 Mg Tablet 1 Tab PO DAILY 30 04/01/21 Reported Mucinex (Guaifenesin) 1,200 Mg Tbmp.12hr 1 Tab PO BID 15 07/13/20 Reported Diltiazem 24HR Cd (Diltiazem Hcl) 120 Mg Cap.er.24h 1 Cap PO DAILY 30 07/13/20 Reported Dexamethasone 4 Mg Tablet 4 Tab PO DAILY 07/13/20 Reported Prednisone (Prednisone) 10 Mg Tablet 10 Mg PO UD 10/28/19 Rx Take 4 tablets by mouth daily for 3 days, then take 3 tablets by mouth daily for 3 days, then take 2 tablets by mouth daily for 3 days, then take 1 tablets by mouth daily for 3 days, then stop [Folic Acid] 1 Mg PO DAILY 10/22/19 Reported Spiriva (Tiotropium [place]) 18 Mcg Cap.w.dev 1 Cap IH DAILY 10/22/19 Reported Montelukast Sodium Tablet (Montelukast Sodium) 10 Mg Tablet 10 Mg PO HS 10/22/19 Reported Proair Hfa (Albuterol Sulfate) 8.5 Gm Hfa.aer.ad 2 Puff IH PRN Q4 PRN 21 10/22/19 Reported Protonix (Pantoprazole Sodium) 20 Mg Tablet.dr 2 Tab PO DAILY 10/22/19 Reported Mometasone Furoate 45 Gm Cream..g. 1 [place] TP DAILY 10/22/19 Reported Mag-Oxide (Magnesium Oxide) 200 Mg Tablet 2 Tab PO DAILY 30 10/22/19 Reported Fluticasone Propionate Nasal [place] (Fluticasone Propionate) 16 Gm [place].susp 2 [place] NS DAILY 10/22/19 Reported Ferrous Sulfate 325 Mg Tablet 1 Tab PO DAILY 10/22/19 Reported B-12 (Cyanocobalamin (Vitamin B-12)) 5,000 Mcg Tab.rapdis 1 Tab PO DAILY 30 10/22/19 Reported Loratadine 10 Mg Tab.rapdis 1 Tab PO DAILY 30 10/22/19 Reported Breo Ellipta 200-25 Mcg INH (Fluticasone/Vilanterol) 1 Each Blst.w.dev 1 Puff IH DAILY 06/26/19 Reported Aspirin 325 Mg Tablet 1 Tab PO DAILY 06/26/19 Reported Albuterol Sulfate Conc Neb Soln (Albuterol Sulfate) 2.5 Mg/0.5 Ml Vial.neb 1 Vial NEB PRN PRN 09/05/16 Reported Impression . Full note dictated Continue current support We will add tocilizumab TU HERMOSILLO MD Apr 02, 2021 08:52
[2021-04-02] MEDS: FLUTICASONE 50MCG/NASAL SPRAY 16GM BOTTLE. NS SCH (08:53)
[2021-04-02] MEDS: FERROUS SULFATE 325 MG TABLET. PO SCH (08:53)
[2021-04-02] MEDS: CETIRIZINE HCL 10 MG TABLET. PO SCH (08:53)
[2021-04-02] MEDS: ACYCLOVIR 200 MG CAPSULE. PO SCH ×2 (08:54→20:55)
[2021-04-02] MEDS: ASPIRIN 325 MG TABLET PO SCH (08:54)
[2021-04-02] MEDS: methylPREDNISolone SOD SUCC PF 125 MG/2 ML VIAL. IV SCH ×2 (08:57→20:55)
[2021-04-02] MEDS: IPRATRPIUM/ALBUTEROL 0.5/2.5MG 3 ML NEBU. NEB SCH (08:58)
[2021-04-02] MEDS ORDERED: NON FORMULARY ITEM (Tiotropium Bromide (Spiriva) 1 CAP) IH SCH (09:00)
[2021-04-02] MEDS ORDERED: NON FORMULARY ITEM (Fluticasone/Vilanterol (Breo Ellipta 200-25 Mcg INH) 1 PUFF) IH SCH (09:00)
--- NOTE | 2021-04-02 09:07 | PDOC ---
IM PROGRESS NOTES- Subjective Subjective Complaints of cough, congestion and dyspnea. Objective Vitals/I&O Vital Signs Date Time Temp Pulse Resp B/P (MAP) Pulse Ox O2 Delivery O2 Flow Rate FiO2 04/02/21 08:52 98 171/84 04/02/21 08:04 100 BiPAP/CPAP 04/02/21 07:55 98.0 20 10.0 98.0 I & O 04/01/21 04/01/21 04/02/21 15:00 23:00 07:00 Intake Total 1180 ml Output Total 275 ml 550 ml Balance 905 ml -550 ml Physical Exam Physical Exam General Appearance - alert and mild respiratory Chest - decreased breath sounds at bases with few bilateral wheezes,rales Heart - S1 and S2 normal Abdomen - soft, non tender Neurological - alert and oriented Musculoskeletal - generalized weakness Extremities - no edema Labs Laboratory Tests Test 04/01/21 12:08 04/01/21 12:15 04/01/21 12:25 04/01/21 12:30 O2 Saturation 96 % (92-99) Arterial Blood pH 7.42 (7.35-7.45) Arterial Blood pCO2 at Patient Temp 50 mmHg (35-46) H Arterial Blood pO2 at Patient Temp 88 mmHg (65-108) Arterial Blood HCO3 32 mmol/L (21-28) H Arterial Blood Base Excess 7 mmol/L (-3-3) H Oxyhemoglobin 95.7 % Methemoglobin 0.2 % (0.0-1.9) Carbon Monoxide, Quantitative 0.3 % (0.0-1.9) FiO2 70 White Blood Count 10.1 x10^3/uL (4.0-11.0) Red Blood Count 2.68 x10^6/uL (4.30-5.70) L Hemoglobin 9.0 g/dL (13.0-17.5) L Hematocrit 27.4 % (39.0-53.0) L Mean Corpuscular Volume 102 fL (79-100) H Mean Corpuscular Hemoglobin 34 pg (25-35) Mean Corpuscular Hemoglobin Concent 33 g/dL (31-37) Red Cell Distribution Width 15.6 % (11.5-14.5) H Platelet Count 184 x10^3/uL (140-400) Neutrophils (%) (Auto) 95 % (31-73) H Lymphocytes (%) (Auto) 1 % (24-48) L Monocytes (%) (Auto) 3 % (0-9) Eosinophils (%) (Auto) 0 % (0-3) Basophils (%) (Auto) 1 % (0-3) Neutrophils # (Auto) 9.6 x10^3/uL (1.8-7.7) H Lymphocytes # (Auto) 0.1 x10^3/uL (1.0-4.8) L Monocytes # (Auto) 0.3 x10^3/uL (0.0-1.1) Eosinophils # (Auto) 0.0 x10^3/uL (0.0-0.7) Basophils # (Auto) 0.1 x10^3/uL (0.0-0.2) Segmented Neutrophils % 84 % (35-66) H Band Neutrophils % 12 % (0-9) H Lymphocytes % 1 % (24-48) L Monocytes % 3 % (0-10) Platelet Estimate Adequate (ADEQUATE) Anisocytosis Slight Sodium Level 137 mmol/L (136-145) Potassium Level 4.5 mmol/L (3.5-5.1) Chloride Level 96 mmol/L (98-107) L Carbon Dioxide Level 33 mmol/L (21-32) H Anion Gap 8 (6-14) Blood Urea Nitrogen 35 mg/dL (8-26) H Creatinine 1.6 mg/dL (0.7-1.3) H Estimated GFR (Cockcroft-Gault) 51.2 BUN/Creatinine Ratio 22 (6-20) H Glucose Level 112 mg/dL (70-99) H Lactic Acid Level 1.5 mmol/L (0.4-2.0) Calcium Level 9.5 mg/dL (8.5-10.1) Total Bilirubin 0.2 mg/dL (0.2-1.0) Aspartate Amino Transferase (AST) 40 U/L (15-37) H Alanine Aminotransferase (ALT) 51 U/L (16-63) Alkaline Phosphatase 125 U/L (46-116) H Troponin I Quantitative < 0.017 ng/mL (0.000-0.055) GO-Ynm-Q-Type Natriuretic Peptide 172 pg/mL (0-449) Total Protein 7.0 g/dL (6.4-8.2) Albumin 2.8 g/dL (3.4-5.0) L Albumin/Globulin Ratio 0.7 (1.0-1.7) L SARS-CoV-2 Antigen (Rapid) Positive (NEGATIVE) *A Influenza Type A Antigen Negative (NEGATIVE) Influenza Type B Antigen Negative (NEGATIVE) Test 04/01/21 20:05 04/02/21 04:45 04/02/21 08:10 Glucose (Fingerstick) 145 mg/dL (70-99) H 122 mg/dL (70-99) H White Blood Count 5.0 x10^3/uL (4.0-11.0) Red Blood Count 2.44 x10^6/uL (4.30-5.70) L Hemoglobin 8.1 g/dL (13.0-17.5) L Hematocrit 25.2 % (39.0-53.0) L Mean Corpuscular Volume 103 fL (79-100) H Mean Corpuscular Hemoglobin 33 pg (25-35) Mean Corpuscular Hemoglobin Concent 32 g/dL (31-37) Red Cell Distribution Width 15.6 % (11.5-14.5) H Platelet Count 154 x10^3/uL (140-400) Neutrophils (%) (Auto) 95 % (31-73) H Lymphocytes (%) (Auto) 2 % (24-48) L Monocytes (%) (Auto) 3 % (0-9) Eosinophils (%) (Auto) 0 % (0-3) Basophils (%) (Auto) 0 % (0-3) Neutrophils # (Auto) 4.8 x10^3/uL (1.8-7.7) Lymphocytes # (Auto) 0.1 x10^3/uL (1.0-4.8) L Monocytes # (Auto) 0.1 x10^3/uL (0.0-1.1) Eosinophils # (Auto) 0.0 x10^3/uL (0.0-0.7) Basophils # (Auto) 0.0 x10^3/uL (0.0-0.2) Sodium Level 139 mmol/L (136-145) Potassium Level 5.4 mmol/L (3.5-5.1) H Chloride Level 100 mmol/L (98-107) Carbon Dioxide Level 34 mmol/L (21-32) H Anion Gap 5 (6-14) L Blood Urea Nitrogen 33 mg/dL (8-26) H Creatinine 1.4 mg/dL (0.7-1.3) H Estimated GFR (Cockcroft-Gault) 59.8 BUN/Creatinine Ratio 24 (6-20) H Glucose Level 139 mg/dL (70-99) H Calcium Level 9.3 mg/dL (8.5-10.1) Magnesium Level 2.4 mg/dL (1.8-2.4) Total Bilirubin 0.2 mg/dL (0.2-1.0) Aspartate Amino Transferase (AST) 33 U/L (15-37) Alanine Aminotransferase (ALT) 42 U/L (16-63) Alkaline Phosphatase 108 U/L (46-116) Total Protein 6.5 g/dL (6.4-8.2) Albumin 2.3 g/dL (3.4-5.0) L Albumin/Globulin Ratio 0.5 (1.0-1.7) L Laboratory Tests 04/01/21 12:15 04/02/21 04:45 Laboratory Tests 04/01/21 12:15 04/02/21 04:45 Meds Current Medications Medications (Trade) Dose Ordered Sig/Juany Route PRN Reason Start Time Stop Time Status Last Admin Dose Admin Sodium Chloride 1,000 ml @ 1,000 mls/hr Q1H IV 04/01/21 12:15 04/01/21 13:14 DC 04/01/21 13:40 Albuterol Sulfate (Ventolin Neb Soln) 2.5 mg 1X ONCE NEB 04/01/21 12:15 04/01/21 12:16 DC 04/01/21 12:15 Methylprednisolone Sodium Succinate (SOLU-Medrol 125MG VIAL) 125 mg 1X ONCE IV 04/01/21 12:15 04/01/21 12:16 DC 04/01/21 12:49 Levofloxacin/ Dextrose 150 ml @ 100 mls/hr 1X ONCE IV 04/01/21 12:15 04/01/21 13:44 DC 04/01/21 12:44 Aspirin (Kevin Aspirin) 325 mg DAILY PO 04/02/21 09:00 04/02/21 08:54 Diltiazem HCl (Cardizem 24hr Cd) 120 mg DAILY PO 04/02/21 09:00 04/02/21 08:52 Ferrous Sulfate (Feosol) 325 mg DAILY PO 04/02/21 09:00 04/02/21 08:53 Fluticasone Propionate (Flonase) 2 spray DAILY NS 04/02/21 09:00 04/02/21 08:53 Montelukast Sodium (Singulair) 10 mg HS PO 04/01/21 21:00 04/01/21 21:28 Sodium Bicarbonate (Sodium Bicarbonate) 650 mg TIDWMEALS PO 04/02/21 08:00 04/02/21 08:52 Acyclovir (Zovirax) 400 mg BID PO 04/01/21 21:00 04/02/21 08:54 Cyanocobalamin (Vitamin B-12) 500 mcg DAILY PO 04/02/21 09:00 04/02/21 08:52 Cetirizine HCl (ZyrTEC) 10 mg DAILY PO 04/02/21 09:00 04/02/21 08:53 Magnesium Oxide (Magnesium Oxide) 400 mg DAILY PO 04/02/21 09:00 04/02/21 08:52 Pantoprazole Sodium (Protonix) 40 mg DAILYAC PO 04/02/21 07:30 04/02/21 06:04 Trimethoprim/ Sulfamethoxazole (Bactrim Ds) 1 tab QMTH PO 04/01/21 16:00 04/01/21 18:31 Methylprednisolone Sodium Succinate (SOLU-Medrol 125MG VIAL) 60 mg Q12HR IV 04/01/21 21:00 04/02/21 08:57 Enoxaparin Sodium (Lovenox 40mg Syringe) 40 mg Q24H SQ 04/01/21 19:00 04/01/21 21:28 Assessment Assessment 1. Acute on chronic hypoxic respiratory failure due to COVID-19 pneumonia. 2. COVID-19 pneumonia. 3. Multiple myeloma with polyneuropathy, organomegaly, endocrinopathy, monoclonal gammopathy, and skin changes syndrome. 4. Exacerbation of chronic obstructive pulmonary disease. 5. Panlobular emphysema. 6. Simple chronic bronchitis. 7. Chronic diastolic congestive heart failure. 8. Atherosclerotic heart disease. 9. Peripheral artery disease. 10. Gastroesophageal reflux disease without esophagitis. 11. Benign hypertension with chronic kidney disease stage 3. PLAN: 1. COVID-19 pneumonia. Start IV Solu-Medrol. We will consult Dr. Romero and Dr. Dustin Sy for pulmonary and infectious disease management respectively. We will continue him on appropriate protocol for COVID-19 infection. Antibiotics, remdesivir etc. per specialist 2. Acute on chronic hypoxic respiratory failure. Continue oxygenation. 3. Exacerbation of chronic obstructive pulmonary disease, started on IV steroids. 4. Continue acyclovir and Bactrim-DS for immunosuppression. The patient has received both COVID-19 vaccines previously as well as booster dose recently. 5. Monitor blood sugar as he is on steroids. I will start him on DVT prophylaxis. Continue pantoprazole. Severe malnutrition. Albumin level is 2.3 Hyperkalemia potassium 5.4. Continue to monitor. Anemia hemoglobin has dropped to 8.1. Continue to monitor. For details, please refer to the orders. Prognosis of this patient is very poor due to his multiple medical problems. Plan Plan For more details regarding further plans, please refer to the orders. Justifications for Admission Other Justification LIBERTY WOODSON MD Apr 02, 2021 09:07
[2021-04-02 10:41] VITALS: BP 144/74
--- NOTE | 2021-04-02 10:54 | CONS ---
DATE OF CONSULTATION: 04/02/2021 REFERRING PHYSICIAN: Elizabeth Dang MD REASON FOR CONSULTATION: Respiratory failure, antibiotic management. HISTORY OF PRESENT ILLNESS: A 75-year-old male with history of COPD, on O2 at 2 liters at home; multiple myeloma with POEMS syndrome, recently took his third COVID vaccine booster a week ago. Three days ago, he started having worsening cough, shortness of breath. His O2 went up to 5 liters by nasal cannula at home. Since he did not improve, he called EMS and was brought to the ER. He was hypoxic, initially placed on BiPAP. He was started on IV Solu-Medrol, received 1 dose of Levaquin. He was started on steroids. White count was 10.1, neutrophils of 95%, bands of 12%. Lactate of 1.5, creatinine of 1.6. SARS COVID rapid was positive. Influenza screen negative. Chest x-ray showed bilateral basilar opacities. ID consultation has been requested for antibiotic management. PAST MEDICAL HISTORY: Chronic respiratory failure; severe COPD, home O2; multiple myeloma, POEMS; coronary artery disease; monoclonal gammopathy; lymphadenopathy; peripheral neuropathy; pernicious anemia; chronic diastolic congestive heart failure; chronic bronchitis; peripheral arterial disease; GERD without esophagitis; hypertension; CKD. FAMILY HISTORY: As per HPI. ALLERGIES: PENICILLIN CAUSING RASH, has tolerated amoxicillin and Augmentin well; ALLOPURINOL. CURRENT MEDICATIONS: Reviewed. PHYSICAL EXAMINATION: VITAL SIGNS: Temperature 98, pulse 98, respiratory rate 20, blood pressure 171/84, oxygen saturation 98% on 10 liters O2 by nasal cannula. GENERAL: Alert, oriented x 3, chronically ill-appearing male in mild distress. HEENT: Normocephalic, atraumatic. Anicteric sclerae. NECK: Supple. LUNGS: Coarse breath sounds, mild wheezing. HEART: S1, S2, regular. ABDOMEN: Soft, nontender, nondistended. EXTREMITIES: No edema, no cyanosis. DERMATOLOGIC: Warm, dry. No generalized rash. NEUROLOGIC: Alert, oriented x 3, generalized weakness. PSYCHIATRIC: Calm and cooperative. LABORATORY DATA: WBC 8.5, hemoglobin 8.1, hematocrit 25.2, platelets 154. Sodium 137, potassium 4.5, chloride 96, bicarb 33, BUN 35, creatinine 1.6. AST 40, ALT 51, alk phos 151, albumin 2.8. SARS COVID rapid positive. Influenza screen negative. IMAGING: Chest x-ray shows mild patchy bibasilar opacities, may represent atelectasis or developing pneumonia. IMPRESSION: 1. Acute on chronic hypoxic respiratory failure. 2. Bilateral infiltrates with COVID rapid antigen positive. 3. Status post COVID vaccination 3rd in series booster dose a week ago prior to admission. 4. Chronic bronchitis. 5. Multiple myeloma with polyneuropathy organomegaly, endocrinopathy and monoclonal gammopathy. 6. Chronic kidney disease. 7. Chronic diastolic heart failure. 8. Peripheral arterial disease. 9. Gastroesophageal reflux disease. 10. Anemia. RECOMMENDATIONS: 1. Start cefepime.Start Remdesivir. D/W Pharmacy 2. Continue steroids. 3. Pulmonary team has been consulted. 4. Follow up labs and cultures. 5. Continue supportive care. Thank you, Dr. Dang, for consulting Infectious Disease to participate in this patient's care. If you have any questions, do not hesitate to contact me. ALEXA DR: Janet TID: [id number] [facility]
[2021-04-02] MEDS: CEFEPIME HCL IV Push 2 GM VIAL. IVP SCH ×2 (11:21→20:55)
[2021-04-02] MEDS: FLUTICASONE/VILANTEROL 200/25 INHALER. INH SCH (11:21)
[2021-04-02] MEDS ORDERED: REMDESIVIR LOAD in IV NORMAL SALINE 250ML TV IV ONE (12:00)
--- NOTE | 2021-04-02 13:10 | NUR ---
SS following for discharge planning. SS reviewed pt chart and discussed with pt RN. Pt is from home with spouse and is currently requiring oxygen at 13 liters nasal canula. COVID19 positive. Pt on IV Remdesivir, IV Cefepime, and IV Solu-Medrol. SS will continue to follow for discharge planning.
[2021-04-02 14:38] VITALS: BP 147/70
[2021-04-02] MEDS ORDERED: TOCILIZUMAB 400 MG in IV NS TV=100ML IV ONE (16:00)
[2021-04-02] MEDS: ENOXAPARIN 40 MG/0.4 ML SYRINGE. SQ SCH (17:03)
[2021-04-02 19:10] VITALS: BP 149/77
[2021-04-02] MEDS: MONTELUKAST SODIUM 10 MG TABLET. PO SCH (20:55)
--- NOTE | 2021-04-02 21:23 | CONS ---
DATE OF CONSULTATION: 04/02/2021 ATTENDING PHYSICIAN: Elizabeth Dang MD CONSULTING PHYSICIAN: Ann Umana MD REASON FOR CONSULTATION: The patient is seen in Pulmonary consultation at the request of Dr. Dang for acute on chronic respiratory failure. HISTORY OF PRESENT ILLNESS: The patient is a 75-year-old patient of mine. He is well known to me. He is currently being treated at home for chronic respiratory failure, on 2-3 liters of oxygen. He also has a history of multiple myeloma and monoclonal gammopathy. He presented with increasing shortness of breath, he is now requiring 12 liters of oxygen supplementation. He has been vaccinated for COVID. In fact, he also had his booster vaccination. He presents with increasing shortness of breath. Chest x-ray was obtained, which revealed bilateral pulmonary infiltrates. I was asked to see him in consultation. The patient has been seen in consult by Infectious Disease service. He is currently being treated with cefepime. PAST MEDICAL HISTORY: Remarkable for chronic respiratory failure, severe COPD. He has a history of monoclonal gammopathy, peripheral neuropathy, chronic diastolic heart failure, congestive heart failure, hypertension, gastroesophageal reflux. PAST SURGICAL HISTORY: As indicated above. ALLERGIES: AUGMENTIN AND ALLOPURINOL. MEDICATIONS: Current medication list is reviewed. He is currently receiving remdesivir. REVIEW OF SYSTEMS: As indicated above, otherwise a 10-point system was reviewed and negative. PHYSICAL EXAMINATION: VITAL SIGNS: Stable. O2 saturation was greater than 92%. LUNGS: Clear. No wheezes. CARDIOVASCULAR: Regular rate and rhythm with S1, S2, no S3. ABDOMEN: Soft, nontender. EXTREMITIES: No clubbing, cyanosis or edema. DIAGNOSTIC DATA: Chest x-ray reviewed as indicated above. LABORATORY DATA: White count was normal. He had a lymphopenia. Arterial blood gas: A pH of 7.42, PaCO2 of 50, pO2 of 88. Electrolytes were noted. BUN and creatinine elevated. Troponin was normal. IMPRESSION: 1. Acute on chronic respiratory failure, multifactorial. 2. COVID-19 viral pneumonia. 3. Possible bacterial pneumonia. 4. Status post vaccination with a booster approximately a week ago. 5. Multiple myeloma with polyneuropathy, organomegaly, endocrinopathy and monoclonal gammopathy. 6. Chronic kidney disease. 7. Chronic diastolic heart failure. 8. Chronic obstructive pulmonary disease. PLAN: 1. Continue current support with steroids. 2. IV remdesivir. 3. We will add tocilizumab. 4. Follow ID input. I do appreciate the privilege in sharing in the patient's care. JARON DR: Lisandro TID: [id number]
[2021-04-02 23:00] VITALS: BP 160/81
[2021-04-03 03:20] VITALS: BP 162/79
[2021-04-03 04:47] LABS: BASO % 0 % (0-3); EOS % 0 % (0-3); HEMATOCRIT 28.9 % (39.0-53.0); HEMOGLOBIN 9.3 g/dL (13.0-17.5); LYMPH # 0.1 x10^3/uL (1.0-4.8); LYMPH % 2 % (24-48); MEAN CORPUSCULAR HEMOGLOBIN 33 pg (25-35); MEAN CORPUSCULAR HGB CONC 32 g/dL (31-37); MEAN CORPUSCULAR VOLUME 103 fL (79-100); MONO # 0.3 x10^3/uL (0.0-1.1); MONO % 5 % (0-9); NEUT # 5.2 x10^3/uL (1.8-7.7); NEUT % 93 % (31-73); PLATELET COUNT 231 x10^3/uL (140-400); RED CELL DISTRIBUTION WIDTH 15.6 % (11.5-14.5); WHITE BLOOD COUNT 5.6 x10^3/uL (4.0-11.0)
[2021-04-03 05:09] LABS: ALBUMIN 2.5 g/dL (3.4-5.0); ALBUMIN/GLOBULIN RATIO 0.5 (1.0-1.7); POTASSIUM 4.6 mmol/L (3.5-5.1); TOTAL BILIRUBIN 0.2 mg/dL (0.2-1.0); TOTAL PROTEIN 7.1 g/dL (6.4-8.2)
[2021-04-03 05:22] LABS: CALCIUM 9.5 mg/dL (8.5-10.1); CREATININE 1.4 mg/dL (0.7-1.3); GFR 59.8
[2021-04-03 06:59] VITALS: BP 157/84
[2021-04-03] MEDS: INSULIN LISPRO 300 UNITS/3 ML VIAL. SQ SCH ×2 (07:30→16:30)
[2021-04-03] MEDS: MAGNESIUM OXIDE 400 MG TABLET PO SCH (08:54)
[2021-04-03] MEDS: SODIUM BICARBONATE 650 MG TABLET. PO SCH ×3 (08:55→17:05)
[2021-04-03] MEDS: CETIRIZINE HCL 10 MG TABLET. PO SCH (08:55)
[2021-04-03] MEDS: PANTOPRAZOLE 40 MG TABLET.DR. PO SCH (08:55)
[2021-04-03] MEDS: ASPIRIN 325 MG TABLET PO SCH (08:55)
[2021-04-03] MEDS: CYANOCOBALAMIN (VITAMIN B-12) 1,000 MCG TABLET. PO SCH (08:56)
[2021-04-03] MEDS: FERROUS SULFATE 325 MG TABLET. PO SCH (08:56)
[2021-04-03] MEDS: CEFEPIME HCL IV Push 2 GM VIAL. IVP SCH ×2 (08:57→20:59)
[2021-04-03] MEDS: methylPREDNISolone SOD SUCC PF 125 MG/2 ML VIAL. IV SCH ×2 (08:57→20:59)
[2021-04-03] MEDS: ACYCLOVIR 200 MG CAPSULE. PO SCH ×2 (08:59→20:57)
[2021-04-03] MEDS: FLUTICASONE 50MCG/NASAL SPRAY 16GM BOTTLE. NS SCH ×2 (09:04→11:42)
[2021-04-03] MEDS: FLUTICASONE/VILANTEROL 200/25 INHALER. INH SCH (09:06)
--- NOTE | 2021-04-03 09:23 | PDOC ---
PULMONARY PROGRESS NOTES DATE: 04/03/21 TIME: 09:21 Subjective on bipap feels better Vitals Vital Signs Date Time Temp Pulse Resp B/P (MAP) Pulse Ox O2 Delivery O2 Flow Rate FiO2 04/03/21 08:55 75 04/03/21 06:59 97.7 19 157/84 (108) 100 BiPAP/CPAP 97.7 04/02/21 20:44 11.0 Comments on bipap no distress nc at rrr no accessory muscle use General: Alert, No acute distress Cardiovascular: S1, S2 Extremities: No Edema Labs Laboratory Tests Test 04/01/21 12:08 04/01/21 12:15 04/01/21 12:25 04/01/21 12:30 O2 Saturation 96 % (92-99) Arterial Blood pH 7.42 (7.35-7.45) Arterial Blood pCO2 at Patient Temp 50 mmHg (35-46) Arterial Blood pO2 at Patient Temp 88 mmHg (65-108) Arterial Blood HCO3 32 mmol/L (21-28) Arterial Blood Base Excess 7 mmol/L (-3-3) Oxyhemoglobin 95.7 % Methemoglobin 0.2 % (0.0-1.9) Carbon Monoxide, Quantitative 0.3 % (0.0-1.9) FiO2 70 White Blood Count 10.1 x10^3/uL (4.0-11.0) Red Blood Count 2.68 x10^6/uL (4.30-5.70) Hemoglobin 9.0 g/dL (13.0-17.5) Hematocrit 27.4 % (39.0-53.0) Mean Corpuscular Volume 102 fL (79-100) Mean Corpuscular Hemoglobin 34 pg (25-35) Mean Corpuscular Hemoglobin Concent 33 g/dL (31-37) Red Cell Distribution Width 15.6 % (11.5-14.5) Platelet Count 184 x10^3/uL (140-400) Neutrophils (%) (Auto) 95 % (31-73) Lymphocytes (%) (Auto) 1 % (24-48) Monocytes (%) (Auto) 3 % (0-9) Eosinophils (%) (Auto) 0 % (0-3) Basophils (%) (Auto) 1 % (0-3) Neutrophils # (Auto) 9.6 x10^3/uL (1.8-7.7) Lymphocytes # (Auto) 0.1 x10^3/uL (1.0-4.8) Monocytes # (Auto) 0.3 x10^3/uL (0.0-1.1) Eosinophils # (Auto) 0.0 x10^3/uL (0.0-0.7) Basophils # (Auto) 0.1 x10^3/uL (0.0-0.2) Segmented Neutrophils % 84 % (35-66) Band Neutrophils % 12 % (0-9) Lymphocytes % 1 % (24-48) Monocytes % 3 % (0-10) Platelet Estimate Adequate (ADEQUATE) Anisocytosis Slight Sodium Level 137 mmol/L (136-145) Potassium Level 4.5 mmol/L (3.5-5.1) Chloride Level 96 mmol/L (98-107) Carbon Dioxide Level 33 mmol/L (21-32) Anion Gap 8 (6-14) Blood Urea Nitrogen 35 mg/dL (8-26) Creatinine 1.6 mg/dL (0.7-1.3) Estimated GFR (Cockcroft-Gault) 51.2 BUN/Creatinine Ratio 22 (6-20) Glucose Level 112 mg/dL (70-99) Lactic Acid Level 1.5 mmol/L (0.4-2.0) Calcium Level 9.5 mg/dL (8.5-10.1) Total Bilirubin 0.2 mg/dL (0.2-1.0) Aspartate Amino Transf (AST/SGOT) 40 U/L (15-37) Alanine Aminotransferase (ALT/SGPT) 51 U/L (16-63) Alkaline Phosphatase 125 U/L (46-116) Troponin I Quantitative < 0.017 ng/mL (0.000-0.055) EK-Fkg-D-Type Natriuretic Peptide 172 pg/mL (0-449) Total Protein 7.0 g/dL (6.4-8.2) Albumin 2.8 g/dL (3.4-5.0) Albumin/Globulin Ratio 0.7 (1.0-1.7) SARS-CoV-2 Antigen (Rapid) Positive (NEGATIVE) Influenza Type A Antigen Negative (NEGATIVE) Influenza Type B Antigen Negative (NEGATIVE) Test 04/01/21 20:05 04/02/21 04:45 04/02/21 08:10 04/02/21 11:18 Glucose (Fingerstick) 145 mg/dL (70-99) 122 mg/dL (70-99) 118 mg/dL (70-99) White Blood Count 5.0 x10^3/uL (4.0-11.0) Red Blood Count 2.44 x10^6/uL (4.30-5.70) Hemoglobin 8.1 g/dL (13.0-17.5) Hematocrit 25.2 % (39.0-53.0) Mean Corpuscular Volume 103 fL (79-100) Mean Corpuscular Hemoglobin 33 pg (25-35) Mean Corpuscular Hemoglobin Concent 32 g/dL (31-37) Red Cell Distribution Width 15.6 % (11.5-14.5) Platelet Count 154 x10^3/uL (140-400) Neutrophils (%) (Auto) 95 % (31-73) Lymphocytes (%) (Auto) 2 % (24-48) Monocytes (%) (Auto) 3 % (0-9) Eosinophils (%) (Auto) 0 % (0-3) Basophils (%) (Auto) 0 % (0-3) Neutrophils # (Auto) 4.8 x10^3/uL (1.8-7.7) Lymphocytes # (Auto) 0.1 x10^3/uL (1.0-4.8) Monocytes # (Auto) 0.1 x10^3/uL (0.0-1.1) Eosinophils # (Auto) 0.0 x10^3/uL (0.0-0.7) Basophils # (Auto) 0.0 x10^3/uL (0.0-0.2) Sodium Level 139 mmol/L (136-145) Potassium Level 5.4 mmol/L (3.5-5.1) Chloride Level 100 mmol/L (98-107) Carbon Dioxide Level 34 mmol/L (21-32) Anion Gap 5 (6-14) Blood Urea Nitrogen 33 mg/dL (8-26) Creatinine 1.4 mg/dL (0.7-1.3) Estimated GFR (Cockcroft-Gault) 59.8 BUN/Creatinine Ratio 24 (6-20) Glucose Level 139 mg/dL (70-99) Calcium Level 9.3 mg/dL (8.5-10.1) Magnesium Level 2.4 mg/dL (1.8-2.4) Total Bilirubin 0.2 mg/dL (0.2-1.0) Aspartate Amino Transf (AST/SGOT) 33 U/L (15-37) Alanine Aminotransferase (ALT/SGPT) 42 U/L (16-63) Alkaline Phosphatase 108 U/L (46-116) C-Reactive Protein, Quantitative 306.0 mg/L (0-3.3) Total Protein 6.5 g/dL (6.4-8.2) Albumin 2.3 g/dL (3.4-5.0) Albumin/Globulin Ratio 0.5 (1.0-1.7) Test 04/02/21 17:02 04/02/21 20:36 04/03/21 04:30 04/03/21 07:36 Glucose (Fingerstick) 130 mg/dL (70-99) 121 mg/dL (70-99) 118 mg/dL (70-99) White Blood Count 5.6 x10^3/uL (4.0-11.0) Red Blood Count 2.80 x10^6/uL (4.30-5.70) Hemoglobin 9.3 g/dL (13.0-17.5) Hematocrit 28.9 % (39.0-53.0) Mean Corpuscular Volume 103 fL (79-100) Mean Corpuscular Hemoglobin 33 pg (25-35) Mean Corpuscular Hemoglobin Concent 32 g/dL (31-37) Red Cell Distribution Width 15.6 % (11.5-14.5) Platelet Count 231 x10^3/uL (140-400) Neutrophils (%) (Auto) 93 % (31-73) Lymphocytes (%) (Auto) 2 % (24-48) Monocytes (%) (Auto) 5 % (0-9) Eosinophils (%) (Auto) 0 % (0-3) Basophils (%) (Auto) 0 % (0-3) Neutrophils # (Auto) 5.2 x10^3/uL (1.8-7.7) Lymphocytes # (Auto) 0.1 x10^3/uL (1.0-4.8) Monocytes # (Auto) 0.3 x10^3/uL (0.0-1.1) Eosinophils # (Auto) 0.0 x10^3/uL (0.0-0.7) Basophils # (Auto) 0.0 x10^3/uL (0.0-0.2) Sodium Level 143 mmol/L (136-145) Potassium Level 4.6 mmol/L (3.5-5.1) Chloride Level 101 mmol/L (98-107) Carbon Dioxide Level 32 mmol/L (21-32) Anion Gap 10 (6-14) Blood Urea Nitrogen 37 mg/dL (8-26) Creatinine 1.4 mg/dL (0.7-1.3) Estimated GFR (Cockcroft-Gault) 59.8 BUN/Creatinine Ratio 26 (6-20) Glucose Level 130 mg/dL (70-99) Calcium Level 9.5 mg/dL (8.5-10.1) Total Bilirubin 0.2 mg/dL (0.2-1.0) Aspartate Amino Transf (AST/SGOT) 39 U/L (15-37) Alanine Aminotransferase (ALT/SGPT) 43 U/L (16-63) Alkaline Phosphatase 118 U/L (46-116) Total Protein 7.1 g/dL (6.4-8.2) Albumin 2.5 g/dL (3.4-5.0) Albumin/Globulin Ratio 0.5 (1.0-1.7) Laboratory Tests Test 04/02/21 11:18 04/02/21 17:02 04/02/21 20:36 04/03/21 04:30 Glucose (Fingerstick) 118 mg/dL (70-99) 130 mg/dL (70-99) 121 mg/dL (70-99) White Blood Count 5.6 x10^3/uL (4.0-11.0) Red Blood Count 2.80 x10^6/uL (4.30-5.70) Hemoglobin 9.3 g/dL (13.0-17.5) Hematocrit 28.9 % (39.0-53.0) Mean Corpuscular Volume 103 fL (79-100) Mean Corpuscular Hemoglobin 33 pg (25-35) Mean Corpuscular Hemoglobin Concent 32 g/dL (31-37) Red Cell Distribution Width 15.6 % (11.5-14.5) Platelet Count 231 x10^3/uL (140-400) Neutrophils (%) (Auto) 93 % (31-73) Lymphocytes (%) (Auto) 2 % (24-48) Monocytes (%) (Auto) 5 % (0-9) Eosinophils (%) (Auto) 0 % (0-3) Basophils (%) (Auto) 0 % (0-3) Neutrophils # (Auto) 5.2 x10^3/uL (1.8-7.7) Lymphocytes # (Auto) 0.1 x10^3/uL (1.0-4.8) Monocytes # (Auto) 0.3 x10^3/uL (0.0-1.1) Eosinophils # (Auto) 0.0 x10^3/uL (0.0-0.7) Basophils # (Auto) 0.0 x10^3/uL (0.0-0.2) Sodium Level 143 mmol/L (136-145) Potassium Level 4.6 mmol/L (3.5-5.1) Chloride Level 101 mmol/L (98-107) Carbon Dioxide Level 32 mmol/L (21-32) Anion Gap 10 (6-14) Blood Urea Nitrogen 37 mg/dL (8-26) Creatinine 1.4 mg/dL (0.7-1.3) Estimated GFR (Cockcroft-Gault) 59.8 BUN/Creatinine Ratio 26 (6-20) Glucose Level 130 mg/dL (70-99) Calcium Level 9.5 mg/dL (8.5-10.1) Total Bilirubin 0.2 mg/dL (0.2-1.0) Aspartate Amino Transf (AST/SGOT) 39 U/L (15-37) Alanine Aminotransferase (ALT/SGPT) 43 U/L (16-63) Alkaline Phosphatase 118 U/L (46-116) Total Protein 7.1 g/dL (6.4-8.2) Albumin 2.5 g/dL (3.4-5.0) Albumin/Globulin Ratio 0.5 (1.0-1.7) Test 04/03/21 07:36 Glucose (Fingerstick) 118 mg/dL (70-99) Medications Active Scripts Medications Dose Route/Sig Max Daily Dose Days Date Category Dose Instructions Sodium Bicarbonate 650 Mg Tablet 1 Tab PO TIDWMEALS 04/01/21 Reported Prednisone 20 Mg Tablet 1 Tab PO DAILY 04/01/21 Reported Acyclovir 400 Mg Tablet 2 Tab PO BID 04/01/21 Reported Azithromycin Tablet (Azithromycin) 250 Mg Tablet 250 Mg PO DAILY 04/01/21 Reported Bactrim 400-80 Mg Tablet (Sulfamethoxazole/Trimethoprim) 1 Each Tablet 2 Tab PO QMTH 04/01/21 Reported Gabapentin (Gabapentin) 300 Mg Capsule 300 Mg PO TID 04/01/21 Reported Lasix (Furosemide) 40 Mg Tablet 1 Tab PO DAILY 30 04/01/21 Reported Mucinex (Guaifenesin) 1,200 Mg Tbmp.12hr 1 Tab PO BID 15 07/13/20 Reported Diltiazem 24HR Cd (Diltiazem Hcl) 120 Mg Cap.er.24h 1 Cap PO DAILY 30 07/13/20 Reported Dexamethasone 4 Mg Tablet 4 Tab PO DAILY 07/13/20 Reported Prednisone (Prednisone) 10 Mg Tablet 10 Mg PO UD 10/28/19 Rx Take 4 tablets by mouth daily for 3 days, then take 3 tablets by mouth daily for 3 days, then take 2 tablets by mouth daily for 3 days, then take 1 tablets by mouth daily for 3 days, then stop [Folic Acid] 1 Mg PO DAILY 10/22/19 Reported Spiriva (Tiotropium [place]) 18 Mcg Cap.w.dev 1 Cap IH DAILY 10/22/19 Reported Montelukast Sodium Tablet (Montelukast Sodium) 10 Mg Tablet 10 Mg PO HS 10/22/19 Reported Proair Hfa (Albuterol Sulfate) 8.5 Gm Hfa.aer.ad 2 Puff IH PRN Q4 PRN 21 10/22/19 Reported Protonix (Pantoprazole Sodium) 20 Mg Tablet.dr 2 Tab PO DAILY 10/22/19 Reported Mometasone Furoate 45 Gm Cream..g. 1 [place] TP DAILY 10/22/19 Reported Mag-Oxide (Magnesium Oxide) 200 Mg Tablet 2 Tab PO DAILY 30 10/22/19 Reported Fluticasone Propionate Nasal [place] (Fluticasone Propionate) 16 Gm [place].susp 2 [place] NS DAILY 10/22/19 Reported Ferrous Sulfate 325 Mg Tablet 1 Tab PO DAILY 4/14/20 Reported B-12 (Cyanocobalamin (Vitamin B-12)) 5,000 Mcg Tab.rapdis 1 Tab PO DAILY 30 10/22/19 Reported Loratadine 10 Mg Tab.rapdis 1 Tab PO DAILY 30 10/22/19 Reported Breo Ellipta 200-25 Mcg INH (Fluticasone/Vilanterol) 1 Each Blst.w.dev 1 Puff IH DAILY 06/26/19 Reported Aspirin 325 Mg Tablet 1 Tab PO DAILY 06/26/19 Reported Albuterol Sulfate Conc Neb Soln (Albuterol Sulfate) 2.5 Mg/0.5 Ml Vial.neb 1 Vial NEB PRN PRN 09/05/16 Reported Impression . IMPRESSION: 1. Acute on chronic respiratory failure, multifactorial. 2. COVID-19 viral pneumonia. 3. Possible bacterial pneumonia. 4. Status post vaccination with a booster approximately a week ago. 5. Multiple myeloma with polyneuropathy, organomegaly, endocrinopathy and monoclonal gammopathy. 6. Chronic kidney disease. 7. Chronic diastolic heart failure. 8. Chronic obstructive pulmonary disease. Plan . PLAN: 1. steroids. solumedrol 2. remdesivir. 3. tocilizumab. 4. abx per id 5. titrate fio2 to keep sat 90% 6. lovenox for dvt prophylaxis 7. bipap prn ERON DONALDSON MD Apr 03, 2021 09:23
[2021-04-03 11:00] VITALS: BP 188/88
--- NOTE | 2021-04-03 11:01 | PDOC ---
PROGRESS NOTES Date of Service: DATE: 04/03/21 TIME: 10:58 Subjective Subjective feels ok, sitting on potty chair Objective Objective Vital Signs Date Time Temp Pulse Resp B/P (MAP) Pulse Ox O2 Delivery O2 Flow Rate FiO2 04/03/21 09:39 92 High Flow Nasal Cannula 15.0 04/03/21 08:55 75 04/03/21 06:59 97.7 19 157/84 (108) 97.7 Intake and Output 04/03/21 07:00 Intake Total 740 ml Output Total 500 ml Balance 240 ml Intake Oral 740 ml Output Urine Total 500 ml # Bowel Movements 2 Physical Exam Abdomen: Soft Heart: Normal S1, Normal S2 Extremities: No clubbing General: Alert Lungs: Normal air movement MUSCULOSKELETAL: No deformity Neck: Supple Neuro: Normal speech Psych/Mental Status: Mental status NL Skin: No breakdown Diagnosis Problem List Problems Medical Problems: (1) COVID-19 Status: Acute (2) History of COPD Status: Acute (3) Person under investigation for COVID-19 Status: Acute (4) Renal insufficiency Status: Acute (5) Respiratory failure Status: Acute Assessment Assessment 1. Acute on chronic hypoxic respiratory failure due to COVID-19 pneumonia. 2. COVID-19 pneumonia. 3. Multiple myeloma with polyneuropathy, organomegaly, endocrinopathy, monoclonal gammopathy, and skin changes syndrome. 4. Exacerbation of chronic obstructive pulmonary disease. 5. Panlobular emphysema. 6. Simple chronic bronchitis. 7. Chronic diastolic congestive heart failure. 8. Atherosclerotic heart disease. 9. Peripheral artery disease. 10. Gastroesophageal reflux disease without esophagitis. 11. Benign hypertension with chronic kidney disease stage 3. PLAN:10- 15 L oxygen IV remdesivr+solemedrol IV actimra x1 dose. IV antibiotics Cefepime+acyclovir cr 1.4 stable ,cbc ok. 1. COVID-19 pneumonia. Start IV Solu-Medrol. We will consult Dr. Romero and Dr. Dustin Sy for pulmonary and infectious disease management respectively. We will continue him on appropriate protocol for COVID-19 infection. Antibiotics, remdesivir etc. per specialist 2. Acute on chronic hypoxic respiratory failure. Continue oxygenation. 3. Exacerbation of chronic obstructive pulmonary disease, started on IV steroids. 4. Continue acyclovir and Bactrim-DS for immunosuppression. The patient has received both COVID-19 vaccines previously as well as booster dose recently. 5. Monitor blood sugar as he is on steroids. I will start him on DVT prophylaxis. Continue pantoprazole. Severe malnutrition. Albumin level is 2.3 Hyperkalemia potassium 5.4. Continue to monitor. Anemia hemoglobin has dropped to 8.1. Continue to monitor. For details, please refer to the orders. Prognosis of this patient is very poor due to his multiple medical problems. Plan Plan of Care Problems Medical Problems: (1) COVID-19 Status: Acute (2) History of COPD Status: Acute (3) Person under investigation for COVID-19 Status: Acute (4) Renal insufficiency Status: Acute (5) Respiratory failure Status: Acute Comment Review of Relevant I have reviewed the following items barney (where applicable) has been applied. Labs Laboratory Tests Test 04/02/21 11:18 04/02/21 17:02 04/02/21 20:36 04/03/21 04:30 Glucose (Fingerstick) 118 mg/dL (70-99) 130 mg/dL (70-99) 121 mg/dL (70-99) White Blood Count 5.6 x10^3/uL (4.0-11.0) Red Blood Count 2.80 x10^6/uL (4.30-5.70) Hemoglobin 9.3 g/dL (13.0-17.5) Hematocrit 28.9 % (39.0-53.0) Mean Corpuscular Volume 103 fL (79-100) Mean Corpuscular Hemoglobin 33 pg (25-35) Mean Corpuscular Hemoglobin Concent 32 g/dL (31-37) Red Cell Distribution Width 15.6 % (11.5-14.5) Platelet Count 231 x10^3/uL (140-400) Neutrophils (%) (Auto) 93 % (31-73) Lymphocytes (%) (Auto) 2 % (24-48) Monocytes (%) (Auto) 5 % (0-9) Eosinophils (%) (Auto) 0 % (0-3) Basophils (%) (Auto) 0 % (0-3) Neutrophils # (Auto) 5.2 x10^3/uL (1.8-7.7) Lymphocytes # (Auto) 0.1 x10^3/uL (1.0-4.8) Monocytes # (Auto) 0.3 x10^3/uL (0.0-1.1) Eosinophils # (Auto) 0.0 x10^3/uL (0.0-0.7) Basophils # (Auto) 0.0 x10^3/uL (0.0-0.2) Sodium Level 143 mmol/L (136-145) Potassium Level 4.6 mmol/L (3.5-5.1) Chloride Level 101 mmol/L (98-107) Carbon Dioxide Level 32 mmol/L (21-32) Anion Gap 10 (6-14) Blood Urea Nitrogen 37 mg/dL (8-26) Creatinine 1.4 mg/dL (0.7-1.3) Estimated GFR (Cockcroft-Gault) 59.8 BUN/Creatinine Ratio 26 (6-20) Glucose Level 130 mg/dL (70-99) Calcium Level 9.5 mg/dL (8.5-10.1) Total Bilirubin 0.2 mg/dL (0.2-1.0) Aspartate Amino Transf (AST/SGOT) 39 U/L (15-37) Alanine Aminotransferase (ALT/SGPT) 43 U/L (16-63) Alkaline Phosphatase 118 U/L (46-116) Total Protein 7.1 g/dL (6.4-8.2) Albumin 2.5 g/dL (3.4-5.0) Albumin/Globulin Ratio 0.5 (1.0-1.7) Test 04/03/21 07:36 Glucose (Fingerstick) 118 mg/dL (70-99) Microbiology 04/01/21 Blood Culture - Preliminary, Resulted NO GROWTH AFTER 1 DAY Medications Current Medications Cefepime HCl (Maxipime) 2 gm Q12HR IVP Last administered on 04/03/21at 08:57; Start 04/02/21 at 11:30 Fluticasone/ Vilanterol (Breo Ellipta 200-25 Mcg) 1 puff DAILY INH Last administered on 04/03/21at 09:06; Start 04/02/21 at 11:00 Remdesivir 100 mg/ Sodium Chloride 230 ml @ 460 mls/hr Q24H IV ; Start 04/03/21 at 12:00; Stop 04/06/21 at 12:29 Remdesivir 200 mg/ Sodium Chloride 210 ml @ 210 mls/hr 1X ONCE IV Last administered on 04/02/21at 11:41; Start 04/02/21 at 12:00; Stop 04/02/21 at 12:59; Status DC Tocilizumab 400 mg/Sodium Chloride 100 ml @ 100 mls/hr 1X ONCE IV Last administered on 04/02/21at 17:00; Start 04/02/21 at 16:00; Stop 04/02/21 at 16:59; Status DC Vitals/I & O Vital Sign - Last 24 Hours 04/02/21 04/02/21 04/02/21 04/02/21 11:14 14:38 16:55 19:10 Temp 97.6 97.9 97.6 97.9 Pulse 101 95 Resp 22 B/P (MAP) 147/70 (95) 149/77 (101) Pulse Ox 97 97 95 94 O2 Delivery High Flow Nasal Cannula Nasal Cannula High Flow Nasal Cannula Nasal Cannula O2 Flow Rate 13.0 10.0 11.0 11.0 04/02/21 04/02/21 04/02/21 04/02/21 20:00 20:44 22:00 22:13 Resp 20 Pulse Ox 93 95 99 O2 Delivery Nasal Cannula High Flow Nasal Cannula BiPAP/CPAP BiPAP/CPAP O2 Flow Rate 10.0 11.0 04/02/21 04/03/21 04/03/21 04/03/21 23:00 03:20 06:59 08:55 Temp 97.6 97.0 97.7 97.6 97.0 97.7 Pulse 98 78 73 75 Resp 19 B/P (MAP) 160/81 (107) 162/79 (106) 157/84 (108) Pulse Ox 100 99 100 O2 Delivery BiPAP/CPAP BiPAP/CPAP BiPAP/CPAP 04/03/21 09:39 Pulse Ox 92 O2 Delivery High Flow Nasal Cannula O2 Flow Rate 15.0 Intake and Output 04/02/21 04/02/21 04/03/21 15:00 23:00 07:00 Intake Total 420 ml 200 ml 120 ml Output Total 350 ml 150 ml Balance 420 ml -150 ml -30 ml Justifications for Admission Other Justification SYED BAUGH MD Apr 03, 2021 11:01
--- NOTE | 2021-04-03 11:18 | PDOC ---
Infectious Disease Note Vital Signs: Vital Signs Vital Signs Date Time Temp Pulse Resp B/P (MAP) Pulse Ox O2 Delivery O2 Flow Rate FiO2 04/03/21 11:00 98.0 100 20 188/88 (121) 93 Nasal Cannula 98.0 04/03/21 09:39 15.0 Physical Exam: PHYSICAL EXAM GENERAL: Alert, oriented x 3, chronically ill-appearing male in mild distress. HEENT: Normocephalic, atraumatic. Anicteric sclerae. NECK: Supple. LUNGS: Coarse breath sounds, mild wheezing. HEART: S1, S2, regular. ABDOMEN: Soft, nontender, nondistended. EXTREMITIES: No edema, no cyanosis. DERMATOLOGIC: Warm, dry. No generalized rash. NEUROLOGIC: Alert, oriented x 3, generalized weakness. PSYCHIATRIC: mildly anxioius and cooperative. Medications: Inpatient Meds: Medications reviewed. Labs: Lab Laboratory Tests Test 04/02/21 17:02 04/02/21 20:36 04/03/21 04:30 04/03/21 07:36 Glucose (Fingerstick) 130 mg/dL (70-99) 121 mg/dL (70-99) 118 mg/dL (70-99) White Blood Count 5.6 x10^3/uL (4.0-11.0) Red Blood Count 2.80 x10^6/uL (4.30-5.70) Hemoglobin 9.3 g/dL (13.0-17.5) Hematocrit 28.9 % (39.0-53.0) Mean Corpuscular Volume 103 fL (79-100) Mean Corpuscular Hemoglobin 33 pg (25-35) Mean Corpuscular Hemoglobin Concent 32 g/dL (31-37) Red Cell Distribution Width 15.6 % (11.5-14.5) Platelet Count 231 x10^3/uL (140-400) Neutrophils (%) (Auto) 93 % (31-73) Lymphocytes (%) (Auto) 2 % (24-48) Monocytes (%) (Auto) 5 % (0-9) Eosinophils (%) (Auto) 0 % (0-3) Basophils (%) (Auto) 0 % (0-3) Neutrophils # (Auto) 5.2 x10^3/uL (1.8-7.7) Lymphocytes # (Auto) 0.1 x10^3/uL (1.0-4.8) Monocytes # (Auto) 0.3 x10^3/uL (0.0-1.1) Eosinophils # (Auto) 0.0 x10^3/uL (0.0-0.7) Basophils # (Auto) 0.0 x10^3/uL (0.0-0.2) Sodium Level 143 mmol/L (136-145) Potassium Level 4.6 mmol/L (3.5-5.1) Chloride Level 101 mmol/L (98-107) Carbon Dioxide Level 32 mmol/L (21-32) Anion Gap 10 (6-14) Blood Urea Nitrogen 37 mg/dL (8-26) Creatinine 1.4 mg/dL (0.7-1.3) Estimated GFR (Cockcroft-Gault) 59.8 BUN/Creatinine Ratio 26 (6-20) Glucose Level 130 mg/dL (70-99) Calcium Level 9.5 mg/dL (8.5-10.1) Total Bilirubin 0.2 mg/dL (0.2-1.0) Aspartate Amino Transf (AST/SGOT) 39 U/L (15-37) Alanine Aminotransferase (ALT/SGPT) 43 U/L (16-63) Alkaline Phosphatase 118 U/L (46-116) Total Protein 7.1 g/dL (6.4-8.2) Albumin 2.5 g/dL (3.4-5.0) Albumin/Globulin Ratio 0.5 (1.0-1.7) Objective: Assessment: 1. Acute on chronic hypoxic respiratory failure. 2. Bilateral infiltrates with COVID 19 infection 3. Status post COVID vaccination 3rd in series booster dose a week ago prior to admission. 4. Chronic bronchitis. 5. Multiple myeloma with polyneuropathy organomegaly, endocrinopathy and monoclonal gammopathy. 6. Chronic kidney disease. 7. Chronic diastolic heart failure. 8. Peripheral arterial disease. 9. Gastroesophageal reflux disease. 10. Anemia. Plan: Plan of Care 1. Start cefepime.Start Remdesivir. D/W Pharmacy 2. Continue steroids. 3. Pulmonary team following 4. Follow up labs and cultures. 5. Continue supportive care D/W PAUL HELLER MD Apr 03, 2021 11:18
[2021-04-03] MEDS: REMDESIVIR 100mg in NORMAL SALINE 250ML X 4 DAYS IV SCH (11:42)
[2021-04-03 14:48] VITALS: BP 150/76
[2021-04-03 19:00] VITALS: BP 163/79
[2021-04-03] MEDS: ENOXAPARIN 40 MG/0.4 ML SYRINGE. SQ SCH (19:38)
[2021-04-03] MEDS: MONTELUKAST SODIUM 10 MG TABLET. PO SCH (20:57)
[2021-04-03 23:04] VITALS: BP 148/78
[2021-04-04 02:44] VITALS: BP 138/90
[2021-04-04 04:51] LABS: BASO % 0 % (0-3); EOS % 0 % (0-3); HEMATOCRIT 24.2 % (39.0-53.0); HEMOGLOBIN 8.1 g/dL (13.0-17.5); LYMPH # 0.1 x10^3/uL (1.0-4.8); LYMPH % 1 % (24-48); MEAN CORPUSCULAR HEMOGLOBIN 34 pg (25-35); MEAN CORPUSCULAR HGB CONC 34 g/dL (31-37); MEAN CORPUSCULAR VOLUME 100 fL (79-100); MONO # 0.2 x10^3/uL (0.0-1.1); MONO % 4 % (0-9); NEUT # 3.9 x10^3/uL (1.8-7.7); NEUT % 95 % (31-73); PLATELET COUNT 169 x10^3/uL (140-400); RED BLOOD COUNT 2.42 x10^6/uL (4.30-5.70); RED CELL DISTRIBUTION WIDTH 15.5 % (11.5-14.5); WHITE BLOOD COUNT 4.2 x10^3/uL (4.0-11.0)
[2021-04-04 05:17] LABS: ALBUMIN 2.2 g/dL (3.4-5.0); ALBUMIN/GLOBULIN RATIO 0.6 (1.0-1.7); CALCIUM 8.9 mg/dL (8.5-10.1); CREATININE 1.1 mg/dL (0.7-1.3); POTASSIUM 4.6 mmol/L (3.5-5.1); TOTAL BILIRUBIN 0.2 mg/dL (0.2-1.0)
[2021-04-04] MEDS: PANTOPRAZOLE 40 MG TABLET.DR. PO SCH (06:17)
[2021-04-04 07:00] VITALS: BP 183/90
[2021-04-04] MEDS: INSULIN LISPRO 300 UNITS/3 ML VIAL. SQ SCH ×2 (07:30→16:30)
[2021-04-04] MEDS: FLUTICASONE/VILANTEROL 200/25 INHALER. INH SCH (09:00)
--- NOTE | 2021-04-04 09:29 | PDOC ---
IM PROGRESS NOTES- Subjective Subjective Complaints of cough, congestion and dyspnea.. Feels slightly better Objective Vitals/I&O Vital Signs Date Time Temp Pulse Resp B/P (MAP) Pulse Ox O2 Delivery O2 Flow Rate FiO2 04/04/21 07:00 97.1 77 18 183/90 (121) 94 BiPAP/CPAP 97.1 04/03/21 23:04 11.0 I & O 04/03/21 04/03/21 04/04/21 15:00 23:00 07:00 Intake Total 600 ml 200 ml 100 ml Output Total 300 ml 200 ml Balance 600 ml -100 ml -100 ml Physical Exam Physical Exam General Appearance - alert and in mild respiratory distress Chest - decreased breath sounds at bases, with occasional wheezes Heart - S1 and S2 normal Abdomen - soft, non tender Neurological - alert and oriented Musculoskeletal - generalized weakness Extremities - no edema Labs Laboratory Tests Test 04/03/21 12:17 04/03/21 16:44 04/03/21 20:37 04/04/21 04:05 Glucose (Fingerstick) 132 mg/dL (70-99) H 143 mg/dL (70-99) H 126 mg/dL (70-99) H White Blood Count 4.2 x10^3/uL (4.0-11.0) Red Blood Count 2.42 x10^6/uL (4.30-5.70) L Hemoglobin 8.1 g/dL (13.0-17.5) L Hematocrit 24.2 % (39.0-53.0) L Mean Corpuscular Volume 100 fL (79-100) Mean Corpuscular Hemoglobin 34 pg (25-35) Mean Corpuscular Hemoglobin Concent 34 g/dL (31-37) Red Cell Distribution Width 15.5 % (11.5-14.5) H Platelet Count 169 x10^3/uL (140-400) Neutrophils (%) (Auto) 95 % (31-73) H Lymphocytes (%) (Auto) 1 % (24-48) L Monocytes (%) (Auto) 4 % (0-9) Eosinophils (%) (Auto) 0 % (0-3) Basophils (%) (Auto) 0 % (0-3) Neutrophils # (Auto) 3.9 x10^3/uL (1.8-7.7) Lymphocytes # (Auto) 0.1 x10^3/uL (1.0-4.8) L Monocytes # (Auto) 0.2 x10^3/uL (0.0-1.1) Eosinophils # (Auto) 0.0 x10^3/uL (0.0-0.7) Basophils # (Auto) 0.0 x10^3/uL (0.0-0.2) Sodium Level 141 mmol/L (136-145) Potassium Level 4.6 mmol/L (3.5-5.1) Chloride Level 102 mmol/L (98-107) Carbon Dioxide Level 33 mmol/L (21-32) H Anion Gap 6 (6-14) Blood Urea Nitrogen 40 mg/dL (8-26) H Creatinine 1.1 mg/dL (0.7-1.3) Estimated GFR (Cockcroft-Gault) 79.0 BUN/Creatinine Ratio 36 (6-20) H Glucose Level 141 mg/dL (70-99) H Calcium Level 8.9 mg/dL (8.5-10.1) Total Bilirubin 0.2 mg/dL (0.2-1.0) Aspartate Amino Transferase (AST) 31 U/L (15-37) Alanine Aminotransferase (ALT) 33 U/L (16-63) Alkaline Phosphatase 92 U/L (46-116) Total Protein 6.0 g/dL (6.4-8.2) L Albumin 2.2 g/dL (3.4-5.0) L Albumin/Globulin Ratio 0.6 (1.0-1.7) L Test 04/04/21 07:45 Glucose (Fingerstick) 136 mg/dL (70-99) H Laboratory Tests 04/04/21 04:05 Laboratory Tests 04/04/21 04:05 Meds Current Medications Medications (Trade) Dose Ordered Sig/Juany Route PRN Reason Start Time Stop Time Status Last Admin Dose Admin Remdesivir 100 mg/ Sodium Chloride 230 ml @ 460 mls/hr Q24H IV 04/03/21 12:00 04/06/21 12:29 04/03/21 11:42 Assessment Assessment 1. Acute on chronic hypoxic respiratory failure due to COVID-19 pneumonia. 2. COVID-19 pneumonia. 3. Multiple myeloma with polyneuropathy, organomegaly, endocrinopathy, monoclonal gammopathy, and skin changes syndrome. 4. Exacerbation of chronic obstructive pulmonary disease. 5. Panlobular emphysema. 6. Simple chronic bronchitis. 7. Chronic diastolic congestive heart failure. 8. Atherosclerotic heart disease. 9. Peripheral artery disease. 10. Gastroesophageal reflux disease without esophagitis. 11. Benign hypertension with chronic kidney disease stage 3. PLAN:10- 15 L oxygen 1. COVID-19 pneumonia. Start IV Solu-Medrol. We will consult Dr. Romero and Dr. Dustin Sy for pulmonary and infectious disease management respectively. We will continue him on appropriate protocol for COVID-19 infection. On IV cefepime and remdesivir 2. Acute on chronic hypoxic respiratory failure. Continue oxygenation. 3. Exacerbation of chronic obstructive pulmonary disease, started on IV steroids. 4. Continue acyclovir and Bactrim-DS for immunosuppression. The patient has received both COVID-19 vaccines previously as well as booster dose recently. 5. Monitor blood sugar as he is on steroids. I will start him on DVT prophylaxis. Continue pantoprazole. Severe malnutrition. Albumin level is 2.3 Hyperkalemia- improving. Continue to monitor. Anemia hemoglobin has dropped to 8.1. Continue to monitor. Azotemia. BUN 40, creatinine 1.1. BUN may be increasing due to steroids. Hypertension monitor blood pressure. As needed IV hydralazine. For details, please refer to the orders. Prognosis of this patient is very poor due to his multiple medical problems. Plan Plan For more details regarding further plans, please refer to the orders. Justifications for Admission Other Justification LIBERTY WOODSON MD Apr 04, 2021 09:29
[2021-04-04] MEDS ORDERED: hydrALAZINE 20 MG/ML VIAL. IVP PRN (09:30)
[2021-04-04] MEDS: methylPREDNISolone SOD SUCC PF 125 MG/2 ML VIAL. IV SCH ×2 (09:31→20:42)
[2021-04-04] MEDS: MAGNESIUM OXIDE 400 MG TABLET PO SCH (09:31)
[2021-04-04] MEDS: CYANOCOBALAMIN (VITAMIN B-12) 1,000 MCG TABLET. PO SCH (09:31)
[2021-04-04] MEDS: SODIUM BICARBONATE 650 MG TABLET. PO SCH ×3 (09:31→17:04)
[2021-04-04] MEDS: FERROUS SULFATE 325 MG TABLET. PO SCH (09:31)
[2021-04-04] MEDS: CETIRIZINE HCL 10 MG TABLET. PO SCH (09:32)
[2021-04-04] MEDS: ACYCLOVIR 200 MG CAPSULE. PO SCH ×2 (09:32→20:42)
[2021-04-04] MEDS: ASPIRIN 325 MG TABLET PO SCH (09:32)
--- NOTE | 2021-04-04 09:32 | PDOC ---
PULMONARY PROGRESS NOTES DATE: 04/04/21 TIME: 09:31 Subjective on bipap fio2 40% feels better Vitals Vital Signs Date Time Temp Pulse Resp B/P (MAP) Pulse Ox O2 Delivery O2 Flow Rate FiO2 04/04/21 07:00 97.1 77 18 183/90 (121) 94 BiPAP/CPAP 97.1 04/03/21 23:04 11.0 Comments on bipap no distress nc at rrr no accessory muscle use General: Alert, No acute distress Cardiovascular: S1, S2 Extremities: No Edema Labs Laboratory Tests Test 04/02/21 11:18 04/02/21 17:02 04/02/21 20:36 04/03/21 04:30 Glucose (Fingerstick) 118 mg/dL (70-99) 130 mg/dL (70-99) 121 mg/dL (70-99) White Blood Count 5.6 x10^3/uL (4.0-11.0) Red Blood Count 2.80 x10^6/uL (4.30-5.70) Hemoglobin 9.3 g/dL (13.0-17.5) Hematocrit 28.9 % (39.0-53.0) Mean Corpuscular Volume 103 fL (79-100) Mean Corpuscular Hemoglobin 33 pg (25-35) Mean Corpuscular Hemoglobin Concent 32 g/dL (31-37) Red Cell Distribution Width 15.6 % (11.5-14.5) Platelet Count 231 x10^3/uL (140-400) Neutrophils (%) (Auto) 93 % (31-73) Lymphocytes (%) (Auto) 2 % (24-48) Monocytes (%) (Auto) 5 % (0-9) Eosinophils (%) (Auto) 0 % (0-3) Basophils (%) (Auto) 0 % (0-3) Neutrophils # (Auto) 5.2 x10^3/uL (1.8-7.7) Lymphocytes # (Auto) 0.1 x10^3/uL (1.0-4.8) Monocytes # (Auto) 0.3 x10^3/uL (0.0-1.1) Eosinophils # (Auto) 0.0 x10^3/uL (0.0-0.7) Basophils # (Auto) 0.0 x10^3/uL (0.0-0.2) Sodium Level 143 mmol/L (136-145) Potassium Level 4.6 mmol/L (3.5-5.1) Chloride Level 101 mmol/L (98-107) Carbon Dioxide Level 32 mmol/L (21-32) Anion Gap 10 (6-14) Blood Urea Nitrogen 37 mg/dL (8-26) Creatinine 1.4 mg/dL (0.7-1.3) Estimated GFR (Cockcroft-Gault) 59.8 BUN/Creatinine Ratio 26 (6-20) Glucose Level 130 mg/dL (70-99) Calcium Level 9.5 mg/dL (8.5-10.1) Total Bilirubin 0.2 mg/dL (0.2-1.0) Aspartate Amino Transf (AST/SGOT) 39 U/L (15-37) Alanine Aminotransferase (ALT/SGPT) 43 U/L (16-63) Alkaline Phosphatase 118 U/L (46-116) Total Protein 7.1 g/dL (6.4-8.2) Albumin 2.5 g/dL (3.4-5.0) Albumin/Globulin Ratio 0.5 (1.0-1.7) Test 04/03/21 07:36 04/03/21 12:17 04/03/21 16:44 04/03/21 20:37 Glucose (Fingerstick) 118 mg/dL (70-99) 132 mg/dL (70-99) 143 mg/dL (70-99) 126 mg/dL (70-99) Test 04/04/21 04:05 04/04/21 07:45 White Blood Count 4.2 x10^3/uL (4.0-11.0) Red Blood Count 2.42 x10^6/uL (4.30-5.70) Hemoglobin 8.1 g/dL (13.0-17.5) Hematocrit 24.2 % (39.0-53.0) Mean Corpuscular Volume 100 fL (79-100) Mean Corpuscular Hemoglobin 34 pg (25-35) Mean Corpuscular Hemoglobin Concent 34 g/dL (31-37) Red Cell Distribution Width 15.5 % (11.5-14.5) Platelet Count 169 x10^3/uL (140-400) Neutrophils (%) (Auto) 95 % (31-73) Lymphocytes (%) (Auto) 1 % (24-48) Monocytes (%) (Auto) 4 % (0-9) Eosinophils (%) (Auto) 0 % (0-3) Basophils (%) (Auto) 0 % (0-3) Neutrophils # (Auto) 3.9 x10^3/uL (1.8-7.7) Lymphocytes # (Auto) 0.1 x10^3/uL (1.0-4.8) Monocytes # (Auto) 0.2 x10^3/uL (0.0-1.1) Eosinophils # (Auto) 0.0 x10^3/uL (0.0-0.7) Basophils # (Auto) 0.0 x10^3/uL (0.0-0.2) Sodium Level 141 mmol/L (136-145) Potassium Level 4.6 mmol/L (3.5-5.1) Chloride Level 102 mmol/L (98-107) Carbon Dioxide Level 33 mmol/L (21-32) Anion Gap 6 (6-14) Blood Urea Nitrogen 40 mg/dL (8-26) Creatinine 1.1 mg/dL (0.7-1.3) Estimated GFR (Cockcroft-Gault) 79.0 BUN/Creatinine Ratio 36 (6-20) Glucose Level 141 mg/dL (70-99) Calcium Level 8.9 mg/dL (8.5-10.1) Total Bilirubin 0.2 mg/dL (0.2-1.0) Aspartate Amino Transf (AST/SGOT) 31 U/L (15-37) Alanine Aminotransferase (ALT/SGPT) 33 U/L (16-63) Alkaline Phosphatase 92 U/L (46-116) Total Protein 6.0 g/dL (6.4-8.2) Albumin 2.2 g/dL (3.4-5.0) Albumin/Globulin Ratio 0.6 (1.0-1.7) Glucose (Fingerstick) 136 mg/dL (70-99) Laboratory Tests Test 04/03/21 12:17 04/03/21 16:44 04/03/21 20:37 04/04/21 04:05 Glucose (Fingerstick) 132 mg/dL (70-99) 143 mg/dL (70-99) 126 mg/dL (70-99) White Blood Count 4.2 x10^3/uL (4.0-11.0) Red Blood Count 2.42 x10^6/uL (4.30-5.70) Hemoglobin 8.1 g/dL (13.0-17.5) Hematocrit 24.2 % (39.0-53.0) Mean Corpuscular Volume 100 fL (79-100) Mean Corpuscular Hemoglobin 34 pg (25-35) Mean Corpuscular Hemoglobin Concent 34 g/dL (31-37) Red Cell Distribution Width 15.5 % (11.5-14.5) Platelet Count 169 x10^3/uL (140-400) Neutrophils (%) (Auto) 95 % (31-73) Lymphocytes (%) (Auto) 1 % (24-48) Monocytes (%) (Auto) 4 % (0-9) Eosinophils (%) (Auto) 0 % (0-3) Basophils (%) (Auto) 0 % (0-3) Neutrophils # (Auto) 3.9 x10^3/uL (1.8-7.7) Lymphocytes # (Auto) 0.1 x10^3/uL (1.0-4.8) Monocytes # (Auto) 0.2 x10^3/uL (0.0-1.1) Eosinophils # (Auto) 0.0 x10^3/uL (0.0-0.7) Basophils # (Auto) 0.0 x10^3/uL (0.0-0.2) Sodium Level 141 mmol/L (136-145) Potassium Level 4.6 mmol/L (3.5-5.1) Chloride Level 102 mmol/L (98-107) Carbon Dioxide Level 33 mmol/L (21-32) Anion Gap 6 (6-14) Blood Urea Nitrogen 40 mg/dL (8-26) Creatinine 1.1 mg/dL (0.7-1.3) Estimated GFR (Cockcroft-Gault) 79.0 BUN/Creatinine Ratio 36 (6-20) Glucose Level 141 mg/dL (70-99) Calcium Level 8.9 mg/dL (8.5-10.1) Total Bilirubin 0.2 mg/dL (0.2-1.0) Aspartate Amino Transf (AST/SGOT) 31 U/L (15-37) Alanine Aminotransferase (ALT/SGPT) 33 U/L (16-63) Alkaline Phosphatase 92 U/L (46-116) Total Protein 6.0 g/dL (6.4-8.2) Albumin 2.2 g/dL (3.4-5.0) Albumin/Globulin Ratio 0.6 (1.0-1.7) Test 04/04/21 07:45 Glucose (Fingerstick) 136 mg/dL (70-99) Medications Active Scripts Medications Dose Route/Sig Max Daily Dose Days Date Category Dose Instructions Sodium Bicarbonate 650 Mg Tablet 1 Tab PO TIDWMEALS 04/01/21 Reported Prednisone 20 Mg Tablet 1 Tab PO DAILY 04/01/21 Reported Acyclovir 400 Mg Tablet 2 Tab PO BID 04/01/21 Reported Azithromycin Tablet (Azithromycin) 250 Mg Tablet 250 Mg PO DAILY 04/01/21 Reported Bactrim 400-80 Mg Tablet (Sulfamethoxazole/Trimethoprim) 1 Each Tablet 2 Tab PO QMTH 04/01/21 Reported Gabapentin (Gabapentin) 300 Mg Capsule 300 Mg PO TID 04/01/21 Reported Lasix (Furosemide) 40 Mg Tablet 1 Tab PO DAILY 30 04/01/21 Reported Mucinex (Guaifenesin) 1,200 Mg Tbmp.12hr 1 Tab PO BID 15 07/13/20 Reported Diltiazem 24HR Cd (Diltiazem Hcl) 120 Mg Cap.er.24h 1 Cap PO DAILY 30 07/13/20 Reported Dexamethasone 4 Mg Tablet 4 Tab PO DAILY 07/13/20 Reported Prednisone (Prednisone) 10 Mg Tablet 10 Mg PO UD 10/28/19 Rx Take 4 tablets by mouth daily for 3 days, then take 3 tablets by mouth daily for 3 days, then take 2 tablets by mouth daily for 3 days, then take 1 tablets by mouth daily for 3 days, then stop [Folic Acid] 1 Mg PO DAILY 10/22/19 Reported Spiriva (Tiotropium Lamar) 18 Mcg Cap.w.dev 1 Cap IH DAILY 10/22/19 Reported Montelukast Sodium Tablet (Montelukast Sodium) 10 Mg Tablet 10 Mg PO HS 10/22/19 Reported Proair Hfa (Albuterol Sulfate) 8.5 Gm Hfa.aer.ad 2 Puff IH PRN Q4 PRN 21 10/22/19 Reported Protonix (Pantoprazole Sodium) 20 Mg Tablet.dr 2 Tab PO DAILY 10/22/19 Reported Mometasone Furoate 45 Gm Cream..g. 1 Gómez TP DAILY 10/22/19 Reported Mag-Oxide (Magnesium Oxide) 200 Mg Tablet 2 Tab PO DAILY 30 10/22/19 Reported Fluticasone Propionate Nasal Lejunior (Fluticasone Propionate) 16 Gm Lejunior.susp 2 Lejunior NS DAILY 10/22/19 Reported Ferrous Sulfate 325 Mg Tablet 1 Tab PO DAILY 10/22/19 Reported B-12 (Cyanocobalamin (Vitamin B-12)) 5,000 Mcg Tab.rapdis 1 Tab PO DAILY 30 10/22/19 Reported Loratadine 10 Mg Tab.rapdis 1 Tab PO DAILY 30 10/22/19 Reported Breo Ellipta 200-25 Mcg INH (Fluticasone/Vilanterol) 1 Each Blst.w.dev 1 Puff IH DAILY 06/26/19 Reported Aspirin 325 Mg Tablet 1 Tab PO DAILY 06/26/19 Reported Albuterol Sulfate Conc Neb Soln (Albuterol Sulfate) 2.5 Mg/0.5 Ml Vial.neb 1 Vial NEB PRN PRN 09/05/16 Reported Impression . IMPRESSION: 1. Acute on chronic respiratory failure, multifactorial. 2. COVID-19 viral pneumonia. 3. Possible bacterial pneumonia. 4. Status post vaccination with a booster approximately a week ago. 5. Multiple myeloma with polyneuropathy, organomegaly, endocrinopathy and monoclonal gammopathy. 6. Chronic kidney disease. 7. Chronic diastolic heart failure. 8. Chronic obstructive pulmonary disease. Plan . PLAN: 1. titrate fio2 to keep sat 90% bipap prn setting reviewed, steroids. solumedrol 60 bid no dose change 2. remdesivir. 3. tocilizumab. 4. abx per id 5. lovenox for dvt prophylaxis discussed w ERON Barrera MD Apr 04, 2021 09:32
[2021-04-04] MEDS: CEFEPIME HCL IV Push 2 GM VIAL. IVP SCH ×3 (09:33→22:09)
--- NOTE | 2021-04-04 10:27 | PDOC ---
Infectious Disease Note Subjective: Subjective Pt on Bipap afebrile Vital Signs: Vital Signs Vital Signs Date Time Temp Pulse Resp B/P (MAP) Pulse Ox O2 Delivery O2 Flow Rate FiO2 04/04/21 09:48 94 BiPAP/CPAP 04/04/21 09:32 77 183/90 04/04/21 07:00 97.1 18 97.1 04/03/21 23:04 11.0 Physical Exam: PHYSICAL EXAM GENERAL: Alert, oriented x 3, chronically ill-appearing male in mild distress. HEENT: Normocephalic, atraumatic. Anicteric sclerae. NECK: Supple. LUNGS: Coarse breath sounds, mild wheezing. HEART: S1, S2, regular. ABDOMEN: Soft, nontender, nondistended. EXTREMITIES: No edema, no cyanosis. DERMATOLOGIC: Warm, dry. No generalized rash. NEUROLOGIC: Alert, oriented x 3, generalized weakness. PSYCHIATRIC: mildly anxioius and cooperative. Medications: Inpatient Meds: Medications reviewed. Labs: Lab Laboratory Tests Test 04/03/21 12:17 04/03/21 16:44 04/03/21 20:37 04/04/21 04:05 Glucose (Fingerstick) 132 mg/dL (70-99) 143 mg/dL (70-99) 126 mg/dL (70-99) White Blood Count 4.2 x10^3/uL (4.0-11.0) Red Blood Count 2.42 x10^6/uL (4.30-5.70) Hemoglobin 8.1 g/dL (13.0-17.5) Hematocrit 24.2 % (39.0-53.0) Mean Corpuscular Volume 100 fL (79-100) Mean Corpuscular Hemoglobin 34 pg (25-35) Mean Corpuscular Hemoglobin Concent 34 g/dL (31-37) Red Cell Distribution Width 15.5 % (11.5-14.5) Platelet Count 169 x10^3/uL (140-400) Neutrophils (%) (Auto) 95 % (31-73) Lymphocytes (%) (Auto) 1 % (24-48) Monocytes (%) (Auto) 4 % (0-9) Eosinophils (%) (Auto) 0 % (0-3) Basophils (%) (Auto) 0 % (0-3) Neutrophils # (Auto) 3.9 x10^3/uL (1.8-7.7) Lymphocytes # (Auto) 0.1 x10^3/uL (1.0-4.8) Monocytes # (Auto) 0.2 x10^3/uL (0.0-1.1) Eosinophils # (Auto) 0.0 x10^3/uL (0.0-0.7) Basophils # (Auto) 0.0 x10^3/uL (0.0-0.2) Sodium Level 141 mmol/L (136-145) Potassium Level 4.6 mmol/L (3.5-5.1) Chloride Level 102 mmol/L (98-107) Carbon Dioxide Level 33 mmol/L (21-32) Anion Gap 6 (6-14) Blood Urea Nitrogen 40 mg/dL (8-26) Creatinine 1.1 mg/dL (0.7-1.3) Estimated GFR (Cockcroft-Gault) 79.0 BUN/Creatinine Ratio 36 (6-20) Glucose Level 141 mg/dL (70-99) Calcium Level 8.9 mg/dL (8.5-10.1) Total Bilirubin 0.2 mg/dL (0.2-1.0) Aspartate Amino Transf (AST/SGOT) 31 U/L (15-37) Alanine Aminotransferase (ALT/SGPT) 33 U/L (16-63) Alkaline Phosphatase 92 U/L (46-116) Total Protein 6.0 g/dL (6.4-8.2) Albumin 2.2 g/dL (3.4-5.0) Albumin/Globulin Ratio 0.6 (1.0-1.7) Test 04/04/21 07:45 Glucose (Fingerstick) 136 mg/dL (70-99) Objective: Assessment: 1. Acute on chronic hypoxic respiratory failure. 2. Bilateral infiltrates with COVID 19 infection 3. Status post COVID vaccination 3rd in series booster dose a week ago prior to admission. 4. Chronic bronchitis. 5. Multiple myeloma with polyneuropathy organomegaly, endocrinopathy and monoclonal gammopathy. 6. Chronic kidney disease. 7. Chronic diastolic heart failure. 8. Peripheral arterial disease. 9. Gastroesophageal reflux disease. 10. Anemia. Plan: Plan of Care 1. Cont cefepime and Remdesivir. 2. Continue steroids. 3. Pulmonary team following 4. Follow up labs and cultures. 5. Continue supportive care D/W PAUL HELLER MD Apr 04, 2021 10:27
[2021-04-04 10:36] VITALS: BP 158/83
[2021-04-04] MEDS: REMDESIVIR 100mg in NORMAL SALINE 250ML X 4 DAYS IV SCH (12:06)
[2021-04-04 15:00] VITALS: BP 146/74
[2021-04-04] MEDS: ENOXAPARIN 40 MG/0.4 ML SYRINGE. SQ SCH (17:04)
[2021-04-04 19:45] VITALS: BP 139/78
[2021-04-04] MEDS: MONTELUKAST SODIUM 10 MG TABLET. PO SCH (20:42)
[2021-04-04 23:15] VITALS: BP 147/81
[2021-04-05 03:40] VITALS: BP 139/77
[2021-04-05 05:00] LABS: BASO % 0 % (0-3); EOS % 0 % (0-3); HEMATOCRIT 27.5 % (39.0-53.0); HEMOGLOBIN 8.9 g/dL (13.0-17.5); LYMPH # 0.1 x10^3/uL (1.0-4.8); LYMPH % 2 % (24-48); MEAN CORPUSCULAR HEMOGLOBIN 33 pg (25-35); MEAN CORPUSCULAR HGB CONC 32 g/dL (31-37); MEAN CORPUSCULAR VOLUME 103 fL (79-100); MONO # 0.2 x10^3/uL (0.0-1.1); MONO % 3 % (0-9); NEUT # 6.9 x10^3/uL (1.8-7.7); NEUT % 95 % (31-73); PLATELET COUNT 206 x10^3/uL (140-400); RED BLOOD COUNT 2.69 x10^6/uL (4.30-5.70); WHITE BLOOD COUNT 7.3 x10^3/uL (4.0-11.0)
[2021-04-05 05:16] LABS: ALBUMIN 2.5 g/dL (3.4-5.0); ALBUMIN/GLOBULIN RATIO 0.7 (1.0-1.7); CALCIUM 9.1 mg/dL (8.5-10.1); CREATININE 1.4 mg/dL (0.7-1.3); GFR 59.8; TOTAL BILIRUBIN 0.2 mg/dL (0.2-1.0); TOTAL PROTEIN 6.3 g/dL (6.4-8.2)
[2021-04-05] MEDS: PANTOPRAZOLE 40 MG TABLET.DR. PO SCH (06:12)
[2021-04-05] MEDS: CEFEPIME HCL IV Push 2 GM VIAL. IVP SCH (06:13)
[2021-04-05 07:00] VITALS: BP 139/110
[2021-04-05] MEDS: INSULIN LISPRO 300 UNITS/3 ML VIAL. SQ SCH ×2 (07:30→16:30)
--- NOTE | 2021-04-05 07:52 | PDOC ---
Infectious Disease Note Subjective: Subjective Pt on O2 by nasal cannula this morning Still short of breath but improving Feels a little better afebrile Vital Signs: Vital Signs Vital Signs Date Time Temp Pulse Resp B/P (MAP) Pulse Ox O2 Delivery O2 Flow Rate FiO2 04/05/21 05:39 93 BiPAP/CPAP 04/05/21 03:40 97.1 91 22 139/77 (97) 97.1 04/04/21 21:10 8.0 Physical Exam: PHYSICAL EXAM GENERAL: Alert, oriented x 3, chronically ill-appearing male in mild distress. HEENT: Normocephalic, atraumatic. Anicteric sclerae. NECK: Supple. LUNGS: Coarse breath sounds, mild wheezing. HEART: S1, S2, regular. ABDOMEN: Soft, nontender, nondistended. EXTREMITIES: No edema, no cyanosis. DERMATOLOGIC: Warm, dry. No generalized rash. NEUROLOGIC: Alert, oriented x 3, generalized weakness. PSYCHIATRIC: mildly anxioius and cooperative. Medications: Inpatient Meds: Medications reviewed. Labs: Lab Laboratory Tests Test 04/04/21 11:02 04/04/21 16:58 04/04/21 20:50 04/05/21 04:10 Glucose (Fingerstick) 136 mg/dL (70-99) 127 mg/dL (70-99) 139 mg/dL (70-99) White Blood Count 7.3 x10^3/uL (4.0-11.0) Red Blood Count 2.69 x10^6/uL (4.30-5.70) Hemoglobin 8.9 g/dL (13.0-17.5) Hematocrit 27.5 % (39.0-53.0) Mean Corpuscular Volume 103 fL (79-100) Mean Corpuscular Hemoglobin 33 pg (25-35) Mean Corpuscular Hemoglobin Concent 32 g/dL (31-37) Red Cell Distribution Width 15.0 % (11.5-14.5) Platelet Count 206 x10^3/uL (140-400) Neutrophils (%) (Auto) 95 % (31-73) Lymphocytes (%) (Auto) 2 % (24-48) Monocytes (%) (Auto) 3 % (0-9) Eosinophils (%) (Auto) 0 % (0-3) Basophils (%) (Auto) 0 % (0-3) Neutrophils # (Auto) 6.9 x10^3/uL (1.8-7.7) Lymphocytes # (Auto) 0.1 x10^3/uL (1.0-4.8) Monocytes # (Auto) 0.2 x10^3/uL (0.0-1.1) Eosinophils # (Auto) 0.0 x10^3/uL (0.0-0.7) Basophils # (Auto) 0.0 x10^3/uL (0.0-0.2) Sodium Level 141 mmol/L (136-145) Potassium Level 5.0 mmol/L (3.5-5.1) Chloride Level 102 mmol/L (98-107) Carbon Dioxide Level 32 mmol/L (21-32) Anion Gap 7 (6-14) Blood Urea Nitrogen 52 mg/dL (8-26) Creatinine 1.4 mg/dL (0.7-1.3) Estimated GFR (Cockcroft-Gault) 59.8 BUN/Creatinine Ratio 37 (6-20) Glucose Level 149 mg/dL (70-99) Calcium Level 9.1 mg/dL (8.5-10.1) Total Bilirubin 0.2 mg/dL (0.2-1.0) Aspartate Amino Transf (AST/SGOT) 26 U/L (15-37) Alanine Aminotransferase (ALT/SGPT) 34 U/L (16-63) Alkaline Phosphatase 92 U/L (46-116) Total Protein 6.3 g/dL (6.4-8.2) Albumin 2.5 g/dL (3.4-5.0) Albumin/Globulin Ratio 0.7 (1.0-1.7) Test 04/05/21 07:23 Glucose (Fingerstick) 136 mg/dL (70-99) Objective: Assessment: 1. Acute on chronic hypoxic respiratory failure. 2. Bilateral infiltrates with COVID 19 infection 3. Status post COVID vaccination 3rd in series booster dose a week ago prior to admission. 4. Chronic bronchitis. 5. Multiple myeloma with polyneuropathy organomegaly, endocrinopathy and monoclonal gammopathy. 6. Chronic kidney disease. 7. Chronic diastolic heart failure. 8. Peripheral arterial disease. 9. Gastroesophageal reflux disease. 10. Anemia. Plan: Plan of Care Continue supportive care Continue steroids and Remdesivir DC cefepime Monitor labs and cultures Continue supportive care D/W PAUL HELLER MD Apr 05, 2021 07:52
--- NOTE | 2021-04-05 08:40 | PDOC ---
PULMONARY PROGRESS NOTES DATE: 04/05/21 TIME: 08:40 Subjective Feels better, off of BiPAP Currently on oxygen supplement Vitals Vital Signs Date Time Temp Pulse Resp B/P (MAP) Pulse Ox O2 Delivery O2 Flow Rate FiO2 04/05/21 07:00 96.6 89 17 139/110 (120) 93 Nasal Cannula 10.0 96.6 ROS: No Nausea, No Chest Pain, No Abdominal Pain, No Increase Cough General: Alert, No acute distress Lungs: Crackles Cardiovascular: S1, S2 Abdomen: Soft Neuro Exam: Alert Extremities: No Edema Labs Laboratory Tests Test 04/03/21 12:17 04/03/21 16:44 04/03/21 20:37 04/04/21 04:05 Glucose (Fingerstick) 132 mg/dL (70-99) 143 mg/dL (70-99) 126 mg/dL (70-99) White Blood Count 4.2 x10^3/uL (4.0-11.0) Red Blood Count 2.42 x10^6/uL (4.30-5.70) Hemoglobin 8.1 g/dL (13.0-17.5) Hematocrit 24.2 % (39.0-53.0) Mean Corpuscular Volume 100 fL (79-100) Mean Corpuscular Hemoglobin 34 pg (25-35) Mean Corpuscular Hemoglobin Concent 34 g/dL (31-37) Red Cell Distribution Width 15.5 % (11.5-14.5) Platelet Count 169 x10^3/uL (140-400) Neutrophils (%) (Auto) 95 % (31-73) Lymphocytes (%) (Auto) 1 % (24-48) Monocytes (%) (Auto) 4 % (0-9) Eosinophils (%) (Auto) 0 % (0-3) Basophils (%) (Auto) 0 % (0-3) Neutrophils # (Auto) 3.9 x10^3/uL (1.8-7.7) Lymphocytes # (Auto) 0.1 x10^3/uL (1.0-4.8) Monocytes # (Auto) 0.2 x10^3/uL (0.0-1.1) Eosinophils # (Auto) 0.0 x10^3/uL (0.0-0.7) Basophils # (Auto) 0.0 x10^3/uL (0.0-0.2) Sodium Level 141 mmol/L (136-145) Potassium Level 4.6 mmol/L (3.5-5.1) Chloride Level 102 mmol/L (98-107) Carbon Dioxide Level 33 mmol/L (21-32) Anion Gap 6 (6-14) Blood Urea Nitrogen 40 mg/dL (8-26) Creatinine 1.1 mg/dL (0.7-1.3) Estimated GFR (Cockcroft-Gault) 79.0 BUN/Creatinine Ratio 36 (6-20) Glucose Level 141 mg/dL (70-99) Calcium Level 8.9 mg/dL (8.5-10.1) Total Bilirubin 0.2 mg/dL (0.2-1.0) Aspartate Amino Transf (AST/SGOT) 31 U/L (15-37) Alanine Aminotransferase (ALT/SGPT) 33 U/L (16-63) Alkaline Phosphatase 92 U/L (46-116) Total Protein 6.0 g/dL (6.4-8.2) Albumin 2.2 g/dL (3.4-5.0) Albumin/Globulin Ratio 0.6 (1.0-1.7) Test 04/04/21 07:45 04/04/21 11:02 04/04/21 16:58 04/04/21 20:50 Glucose (Fingerstick) 136 mg/dL (70-99) 136 mg/dL (70-99) 127 mg/dL (70-99) 139 mg/dL (70-99) Test 04/05/21 04:10 04/05/21 07:23 White Blood Count 7.3 x10^3/uL (4.0-11.0) Red Blood Count 2.69 x10^6/uL (4.30-5.70) Hemoglobin 8.9 g/dL (13.0-17.5) Hematocrit 27.5 % (39.0-53.0) Mean Corpuscular Volume 103 fL (79-100) Mean Corpuscular Hemoglobin 33 pg (25-35) Mean Corpuscular Hemoglobin Concent 32 g/dL (31-37) Red Cell Distribution Width 15.0 % (11.5-14.5) Platelet Count 206 x10^3/uL (140-400) Neutrophils (%) (Auto) 95 % (31-73) Lymphocytes (%) (Auto) 2 % (24-48) Monocytes (%) (Auto) 3 % (0-9) Eosinophils (%) (Auto) 0 % (0-3) Basophils (%) (Auto) 0 % (0-3) Neutrophils # (Auto) 6.9 x10^3/uL (1.8-7.7) Lymphocytes # (Auto) 0.1 x10^3/uL (1.0-4.8) Monocytes # (Auto) 0.2 x10^3/uL (0.0-1.1) Eosinophils # (Auto) 0.0 x10^3/uL (0.0-0.7) Basophils # (Auto) 0.0 x10^3/uL (0.0-0.2) Sodium Level 141 mmol/L (136-145) Potassium Level 5.0 mmol/L (3.5-5.1) Chloride Level 102 mmol/L (98-107) Carbon Dioxide Level 32 mmol/L (21-32) Anion Gap 7 (6-14) Blood Urea Nitrogen 52 mg/dL (8-26) Creatinine 1.4 mg/dL (0.7-1.3) Estimated GFR (Cockcroft-Gault) 59.8 BUN/Creatinine Ratio 37 (6-20) Glucose Level 149 mg/dL (70-99) Calcium Level 9.1 mg/dL (8.5-10.1) Total Bilirubin 0.2 mg/dL (0.2-1.0) Aspartate Amino Transf (AST/SGOT) 26 U/L (15-37) Alanine Aminotransferase (ALT/SGPT) 34 U/L (16-63) Alkaline Phosphatase 92 U/L (46-116) Total Protein 6.3 g/dL (6.4-8.2) Albumin 2.5 g/dL (3.4-5.0) Albumin/Globulin Ratio 0.7 (1.0-1.7) Glucose (Fingerstick) 136 mg/dL (70-99) Laboratory Tests Test 04/04/21 11:02 04/04/21 16:58 04/04/21 20:50 04/05/21 04:10 Glucose (Fingerstick) 136 mg/dL (70-99) 127 mg/dL (70-99) 139 mg/dL (70-99) White Blood Count 7.3 x10^3/uL (4.0-11.0) Red Blood Count 2.69 x10^6/uL (4.30-5.70) Hemoglobin 8.9 g/dL (13.0-17.5) Hematocrit 27.5 % (39.0-53.0) Mean Corpuscular Volume 103 fL (79-100) Mean Corpuscular Hemoglobin 33 pg (25-35) Mean Corpuscular Hemoglobin Concent 32 g/dL (31-37) Red Cell Distribution Width 15.0 % (11.5-14.5) Platelet Count 206 x10^3/uL (140-400) Neutrophils (%) (Auto) 95 % (31-73) Lymphocytes (%) (Auto) 2 % (24-48) Monocytes (%) (Auto) 3 % (0-9) Eosinophils (%) (Auto) 0 % (0-3) Basophils (%) (Auto) 0 % (0-3) Neutrophils # (Auto) 6.9 x10^3/uL (1.8-7.7) Lymphocytes # (Auto) 0.1 x10^3/uL (1.0-4.8) Monocytes # (Auto) 0.2 x10^3/uL (0.0-1.1) Eosinophils # (Auto) 0.0 x10^3/uL (0.0-0.7) Basophils # (Auto) 0.0 x10^3/uL (0.0-0.2) Sodium Level 141 mmol/L (136-145) Potassium Level 5.0 mmol/L (3.5-5.1) Chloride Level 102 mmol/L (98-107) Carbon Dioxide Level 32 mmol/L (21-32) Anion Gap 7 (6-14) Blood Urea Nitrogen 52 mg/dL (8-26) Creatinine 1.4 mg/dL (0.7-1.3) Estimated GFR (Cockcroft-Gault) 59.8 BUN/Creatinine Ratio 37 (6-20) Glucose Level 149 mg/dL (70-99) Calcium Level 9.1 mg/dL (8.5-10.1) Total Bilirubin 0.2 mg/dL (0.2-1.0) Aspartate Amino Transf (AST/SGOT) 26 U/L (15-37) Alanine Aminotransferase (ALT/SGPT) 34 U/L (16-63) Alkaline Phosphatase 92 U/L (46-116) Total Protein 6.3 g/dL (6.4-8.2) Albumin 2.5 g/dL (3.4-5.0) Albumin/Globulin Ratio 0.7 (1.0-1.7) Test 04/05/21 07:23 Glucose (Fingerstick) 136 mg/dL (70-99) Medications Active Scripts Medications Dose Route/Sig Max Daily Dose Days Date Category Dose Instructions Sodium Bicarbonate 650 Mg Tablet 1 Tab PO TIDWMEALS 04/01/21 Reported Prednisone 20 Mg Tablet 1 Tab PO DAILY 04/01/21 Reported Acyclovir 400 Mg Tablet 2 Tab PO BID 04/01/21 Reported Azithromycin Tablet (Azithromycin) 250 Mg Tablet 250 Mg PO DAILY 04/01/21 Reported Bactrim 400-80 Mg Tablet (Sulfamethoxazole/Trimethoprim) 1 Each Tablet 2 Tab PO QMTH 04/01/21 Reported Gabapentin (Gabapentin) 300 Mg Capsule 300 Mg PO TID 04/01/21 Reported Lasix (Furosemide) 40 Mg Tablet 1 Tab PO DAILY 30 04/01/21 Reported Mucinex (Guaifenesin) 1,200 Mg Tbmp.12hr 1 Tab PO BID 15 07/13/20 Reported Diltiazem 24HR Cd (Diltiazem Hcl) 120 Mg Cap.er.24h 1 Cap PO DAILY 30 07/13/20 Reported Dexamethasone 4 Mg Tablet 4 Tab PO DAILY 07/13/20 Reported Prednisone (Prednisone) 10 Mg Tablet 10 Mg PO UD 10/28/19 Rx Take 4 tablets by mouth daily for 3 days, then take 3 tablets by mouth daily for 3 days, then take 2 tablets by mouth daily for 3 days, then take 1 tablets by mouth daily for 3 days, then stop [Folic Acid] 1 Mg PO DAILY 10/22/19 Reported Spiriva (Tiotropium [place]) 18 Mcg Cap.w.dev 1 Cap IH DAILY 10/22/19 Reported Montelukast Sodium Tablet (Montelukast Sodium) 10 Mg Tablet 10 Mg PO HS 10/22/19 Reported Proair Hfa (Albuterol Sulfate) 8.5 Gm Hfa.aer.ad 2 Puff IH PRN Q4 PRN 21 10/22/19 Reported Protonix (Pantoprazole Sodium) 20 Mg Tablet.dr 2 Tab PO DAILY 10/22/19 Reported Mometasone Furoate 45 Gm Cream..g. 1 [place] TP DAILY 10/22/19 Reported Mag-Oxide (Magnesium Oxide) 200 Mg Tablet 2 Tab PO DAILY 30 10/22/19 Reported Fluticasone Propionate Nasal [place] (Fluticasone Propionate) 16 Gm [place].susp 2 [place] NS DAILY 10/22/19 Reported Ferrous Sulfate 325 Mg Tablet 1 Tab PO DAILY 10/22/19 Reported B-12 (Cyanocobalamin (Vitamin B-12)) 5,000 Mcg Tab.rapdis 1 Tab PO DAILY 30 10/22/19 Reported Loratadine 10 Mg Tab.rapdis 1 Tab PO DAILY 30 10/22/19 Reported Breo Ellipta 200-25 Mcg INH (Fluticasone/Vilanterol) 1 Each Blst.w.dev 1 Puff IH DAILY 06/26/19 Reported Aspirin 325 Mg Tablet 1 Tab PO DAILY 06/26/19 Reported Albuterol Sulfate Conc Neb Soln (Albuterol Sulfate) 2.5 Mg/0.5 Ml Vial.neb 1 Vial NEB PRN PRN 09/05/16 Reported Impression . IMPRESSION: 1. Acute on chronic respiratory failure, multifactorial. 2. COVID-19 viral pneumonia. 3. Possible bacterial pneumonia. 4. Status post vaccination with a booster approximately a week ago. 5. Multiple myeloma with polyneuropathy, organomegaly, endocrinopathy and monoclonal gammopathy. 6. Chronic kidney disease. 7. Chronic diastolic heart failure. 8. Chronic obstructive pulmonary disease. 9. Castleman syndrome Plan . Updated 04/06 Continue oxygen supplementation Solu-Medrol Remdesivir Status post tocilizumab BiPAP as needed PLAN: 1. titrate fio2 to keep sat 90% bipap prn setting reviewed, steroids. solumedrol 60 bid no dose change 2. remdesivir. 3. tocilizumab. 4. abx per id 5. lovenox for dvt prophylaxis discussed w TU Jaramillo MD Apr 05, 2021 08:40
--- NOTE | 2021-04-05 08:58 | PDOC ---
IM PROGRESS NOTES- Subjective Subjective Complaints of cough, congestion and dyspnea.. Does not feel any better. Objective Vitals/I&O Vital Signs Date Time Temp Pulse Resp B/P (MAP) Pulse Ox O2 Delivery O2 Flow Rate FiO2 04/05/21 07:00 96.6 89 17 139/110 (120) 93 Nasal Cannula 10.0 96.6 I & O 04/04/21 04/04/21 04/05/21 15:00 23:00 07:00 Intake Total 810 ml 950 ml 400 ml Output Total 300 ml Balance 810 ml 950 ml 100 ml Physical Exam Physical Exam General Appearance - alert and in no distress Chest - decreased breath sounds at bases, occasional rhonchi and right basilar rales. Heart - S1 and S2 normal Abdomen - soft, non tender Neurological - alert and oriented Musculoskeletal - generalized weakness Extremities - no edema Labs Laboratory Tests Test 04/04/21 11:02 04/04/21 16:58 04/04/21 20:50 04/05/21 04:10 Glucose (Fingerstick) 136 mg/dL (70-99) H 127 mg/dL (70-99) H 139 mg/dL (70-99) H White Blood Count 7.3 x10^3/uL (4.0-11.0) Red Blood Count 2.69 x10^6/uL (4.30-5.70) L Hemoglobin 8.9 g/dL (13.0-17.5) L Hematocrit 27.5 % (39.0-53.0) L Mean Corpuscular Volume 103 fL (79-100) H Mean Corpuscular Hemoglobin 33 pg (25-35) Mean Corpuscular Hemoglobin Concent 32 g/dL (31-37) Red Cell Distribution Width 15.0 % (11.5-14.5) H Platelet Count 206 x10^3/uL (140-400) Neutrophils (%) (Auto) 95 % (31-73) H Lymphocytes (%) (Auto) 2 % (24-48) L Monocytes (%) (Auto) 3 % (0-9) Eosinophils (%) (Auto) 0 % (0-3) Basophils (%) (Auto) 0 % (0-3) Neutrophils # (Auto) 6.9 x10^3/uL (1.8-7.7) Lymphocytes # (Auto) 0.1 x10^3/uL (1.0-4.8) L Monocytes # (Auto) 0.2 x10^3/uL (0.0-1.1) Eosinophils # (Auto) 0.0 x10^3/uL (0.0-0.7) Basophils # (Auto) 0.0 x10^3/uL (0.0-0.2) Sodium Level 141 mmol/L (136-145) Potassium Level 5.0 mmol/L (3.5-5.1) Chloride Level 102 mmol/L (98-107) Carbon Dioxide Level 32 mmol/L (21-32) Anion Gap 7 (6-14) Blood Urea Nitrogen 52 mg/dL (8-26) H Creatinine 1.4 mg/dL (0.7-1.3) H Estimated GFR (Cockcroft-Gault) 59.8 BUN/Creatinine Ratio 37 (6-20) H Glucose Level 149 mg/dL (70-99) H Calcium Level 9.1 mg/dL (8.5-10.1) Total Bilirubin 0.2 mg/dL (0.2-1.0) Aspartate Amino Transferase (AST) 26 U/L (15-37) Alanine Aminotransferase (ALT) 34 U/L (16-63) Alkaline Phosphatase 92 U/L (46-116) Total Protein 6.3 g/dL (6.4-8.2) L Albumin 2.5 g/dL (3.4-5.0) L Albumin/Globulin Ratio 0.7 (1.0-1.7) L Test 04/05/21 07:23 Glucose (Fingerstick) 136 mg/dL (70-99) H Laboratory Tests 04/05/21 04:10 Laboratory Tests 04/05/21 04:10 Meds Current Medications Medications (Trade) Dose Ordered Sig/Ju[place] Route PRN Reason Start Time Stop Time Status Last Admin Dose Admin Cefepime HCl (Maxipime) 2 gm Q8HRS IVP 04/04/21 14:30 04/05/21 06:13 Assessment Assessment 1. Acute on chronic hypoxic respiratory failure due to COVID-19 pneumonia. 2. COVID-19 pneumonia. 3. Multiple myeloma with polyneuropathy, organomegaly, endocrinopathy, monoclonal gammopathy, and skin changes syndrome. 4. Exacerbation of chronic obstructive pulmonary disease. 5. Panlobular emphysema. 6. Simple chronic bronchitis. 7. Chronic diastolic congestive heart failure. 8. Atherosclerotic heart disease. 9. Peripheral artery disease. 10. Gastroesophageal reflux disease without esophagitis. 11. Benign hypertension with chronic kidney disease stage 3. PLAN:10- 15 L oxygen 1. COVID-19 pneumonia. Start IV Solu-Medrol. We will consult Dr. Romero and Dr. Dustin Sy for pulmonary and infectious disease management respectively. We will continue him on appropriate protocol for COVID-19 infection. On IV cefepime and remdesivir 2. Acute on chronic hypoxic respiratory failure. Continue oxygenation. 3. Exacerbation of chronic obstructive pulmonary disease, started on IV steroids. 4. Continue acyclovir and Bactrim-DS for immunosuppression. The patient has received both COVID-19 vaccines previously as well as booster dose recently. 5. Monitor blood sugar as he is on steroids. I will start him on DVT prophylaxis. Continue pantoprazole. Severe malnutrition. Albumin level is 2.3 Hyperkalemia- improving. Continue to monitor. Anemia hemoglobin has dropped to 8.1. Continue to monitor. Azotemia. BUN 52, creatinine 1.2. BUN may be increasing due to steroids. Hypertension monitor blood pressure. As needed IV hydralazine. For details, please refer to the orders. Prognosis of this patient is very poor due to his multiple medical problems. Plan Plan For more details regarding further plans, please refer to the orders. Justifications for Admission Other Justification LIBERTY WOODSON MD Apr 05, 2021 08:58
[2021-04-05] MEDS: FLUTICASONE/VILANTEROL 200/25 INHALER. INH SCH (09:00)
[2021-04-05] MEDS: CETIRIZINE HCL 10 MG TABLET. PO SCH (09:53)
[2021-04-05] MEDS: ASPIRIN 325 MG TABLET PO SCH (09:53)
[2021-04-05] MEDS: FERROUS SULFATE 325 MG TABLET. PO SCH (09:53)
[2021-04-05] MEDS: methylPREDNISolone SOD SUCC PF 125 MG/2 ML VIAL. IV SCH ×2 (09:54→21:59)
[2021-04-05] MEDS: ACYCLOVIR 200 MG CAPSULE. PO SCH ×2 (09:54→21:59)
[2021-04-05] MEDS: FLUTICASONE 50MCG/NASAL SPRAY 16GM BOTTLE. NS SCH (09:54)
[2021-04-05] MEDS: SODIUM BICARBONATE 650 MG TABLET. PO SCH ×3 (09:54→17:36)
[2021-04-05] MEDS: MAGNESIUM OXIDE 400 MG TABLET PO SCH (09:55)
[2021-04-05] MEDS: CYANOCOBALAMIN (VITAMIN B-12) 1,000 MCG TABLET. PO SCH (09:55)
[2021-04-05 11:00] VITALS: BP 181/88
[2021-04-05] MEDS: REMDESIVIR 100mg in NORMAL SALINE 250ML X 4 DAYS IV SCH (11:52)
[2021-04-05 15:00] VITALS: BP 149/77
[2021-04-05] MEDS: ENOXAPARIN 40 MG/0.4 ML SYRINGE. SQ SCH (17:36)
[2021-04-05] MEDS: SMZ/TMP 800/160MG TABLET. PO SCH (17:36)
[2021-04-05 19:00] VITALS: BP 139/76
[2021-04-05] MEDS: MONTELUKAST SODIUM 10 MG TABLET. PO SCH (21:59)
[2021-04-05 23:00] VITALS: BP 139/88
[2021-04-06 03:00] VITALS: BP 153/77
[2021-04-06 03:57] LABS: BASO % 0 % (0-3); EOS % 0 % (0-3); HEMATOCRIT 25.3 % (39.0-53.0); HEMOGLOBIN 8.3 g/dL (13.0-17.5); LYMPH # 0.1 x10^3/uL (1.0-4.8); LYMPH % 1 % (24-48); MEAN CORPUSCULAR HEMOGLOBIN 33 pg (25-35); MEAN CORPUSCULAR HGB CONC 33 g/dL (31-37); MEAN CORPUSCULAR VOLUME 101 fL (79-100); MONO # 0.3 x10^3/uL (0.0-1.1); MONO % 3 % (0-9); NEUT # 10.4 x10^3/uL (1.8-7.7); NEUT % 96 % (31-73); PLATELET COUNT 270 x10^3/uL (140-400); RED BLOOD COUNT 2.51 x10^6/uL (4.30-5.70); RED CELL DISTRIBUTION WIDTH 15.1 % (11.5-14.5); WHITE BLOOD COUNT 10.8 x10^3/uL (4.0-11.0)
[2021-04-06 04:40] LABS: ALBUMIN 2.6 g/dL (3.4-5.0); ALBUMIN/GLOBULIN RATIO 0.7 (1.0-1.7); CREATININE 1.5 mg/dL (0.7-1.3); GFR 55.2; POTASSIUM 4.7 mmol/L (3.5-5.1); TOTAL BILIRUBIN 0.2 mg/dL (0.2-1.0); TOTAL PROTEIN 6.1 g/dL (6.4-8.2)
[2021-04-06 07:00] VITALS: BP 159/72
[2021-04-06] MEDS: INSULIN LISPRO 300 UNITS/3 ML VIAL. SQ SCH ×2 (07:30→16:30)
[2021-04-06] MEDS: FLUTICASONE/VILANTEROL 200/25 INHALER. INH SCH (09:00)
--- NOTE | 2021-04-06 09:05 | PDOC ---
IM PROGRESS NOTES- Subjective Subjective Complaints of cough, congestion and dyspnea.. Does not feel any better. Objective Vitals/I&O Vital Signs Date Time Temp Pulse Resp B/P (MAP) Pulse Ox O2 Delivery O2 Flow Rate FiO2 04/06/21 07:00 97.0 96 20 159/72 (101) 95 97.0 04/06/21 04:38 BiPAP/CPAP 04/06/21 03:00 40.0 I & O 04/05/21 04/05/21 04/06/21 15:00 23:00 07:00 Intake Total 706 ml 180 ml 400 ml Output Total 300 ml 525 ml Balance 706 ml -120 ml -125 ml Physical Exam Physical Exam General Appearance - alert and on BiPaP , in mild distress Chest - decreased breath sounds at bases Heart - S1 and S2 normal Abdomen - soft, non tender Neurological - alert and oriented Musculoskeletal - generalized weakness Extremities - no edema Labs Laboratory Tests Test 04/05/21 11:56 04/05/21 17:40 04/05/21 20:40 04/06/21 03:15 Glucose (Fingerstick) 117 mg/dL (70-99) H 145 mg/dL (70-99) H 156 mg/dL (70-99) H White Blood Count 10.8 x10^3/uL (4.0-11.0) Red Blood Count 2.51 x10^6/uL (4.30-5.70) L Hemoglobin 8.3 g/dL (13.0-17.5) L Hematocrit 25.3 % (39.0-53.0) L Mean Corpuscular Volume 101 fL (79-100) H Mean Corpuscular Hemoglobin 33 pg (25-35) Mean Corpuscular Hemoglobin Concent 33 g/dL (31-37) Red Cell Distribution Width 15.1 % (11.5-14.5) H Platelet Count 270 x10^3/uL (140-400) Neutrophils (%) (Auto) 96 % (31-73) H Lymphocytes (%) (Auto) 1 % (24-48) L Monocytes (%) (Auto) 3 % (0-9) Eosinophils (%) (Auto) 0 % (0-3) Basophils (%) (Auto) 0 % (0-3) Neutrophils # (Auto) 10.4 x10^3/uL (1.8-7.7) H Lymphocytes # (Auto) 0.1 x10^3/uL (1.0-4.8) L Monocytes # (Auto) 0.3 x10^3/uL (0.0-1.1) Eosinophils # (Auto) 0.0 x10^3/uL (0.0-0.7) Basophils # (Auto) 0.0 x10^3/uL (0.0-0.2) Sodium Level 139 mmol/L (136-145) Potassium Level 4.7 mmol/L (3.5-5.1) Chloride Level 102 mmol/L (98-107) Carbon Dioxide Level 32 mmol/L (21-32) Anion Gap 5 (6-14) L Blood Urea Nitrogen 65 mg/dL (8-26) H Creatinine 1.5 mg/dL (0.7-1.3) H Estimated GFR (Cockcroft-Gault) 55.2 BUN/Creatinine Ratio 43 (6-20) H Glucose Level 164 mg/dL (70-99) H Calcium Level 9.0 mg/dL (8.5-10.1) Total Bilirubin 0.2 mg/dL (0.2-1.0) Aspartate Amino Transferase (AST) 19 U/L (15-37) Alanine Aminotransferase (ALT) 33 U/L (16-63) Alkaline Phosphatase 87 U/L (46-116) Total Protein 6.1 g/dL (6.4-8.2) L Albumin 2.6 g/dL (3.4-5.0) L Albumin/Globulin Ratio 0.7 (1.0-1.7) L Test 04/06/21 07:17 Glucose (Fingerstick) 150 mg/dL (70-99) H Laboratory Tests 04/06/21 03:15 Laboratory Tests 04/06/21 03:15 Assessment Assessment 1. Acute on chronic hypoxic respiratory failure due to COVID-19 pneumonia. 2. COVID-19 pneumonia. 3. Multiple myeloma with polyneuropathy, organomegaly, endocrinopathy, monoclonal gammopathy, and skin changes syndrome. 4. Exacerbation of chronic obstructive pulmonary disease. 5. Panlobular emphysema. 6. Simple chronic bronchitis. 7. Chronic diastolic congestive heart failure. 8. Atherosclerotic heart disease. 9. Peripheral artery disease. 10. Gastroesophageal reflux disease without esophagitis. 11. Benign hypertension with chronic kidney disease stage 3. PLAN:10- 15 L oxygen 1. COVID-19 pneumonia. Start IV Solu-Medrol. We will consult Dr. Romero and Dr. Dustin Sy for pulmonary and infectious disease management respectively. We will continue him on appropriate protocol for COVID-19 infection. On IV cefepime and remdesivir. D/w .repeat CXR. 2. Acute on chronic hypoxic respiratory failure. Continue oxygenation. 3. Exacerbation of chronic obstructive pulmonary disease, started on IV steroids. Add Spiriva d/w staff. 4. Continue acyclovir and Bactrim-DS for immunosuppression. The patient has received both COVID-19 vaccines previously as well as booster dose recently. 5. Monitor blood sugar as he is on steroids. I will start him on DVT prophylaxis. Continue pantoprazole. Severe malnutrition. Hyperkalemia- improving. Continue to monitor. Anemia hemoglobin has dropped to 8.1. Continue to monitor. Azotemia. Getting worse. BUN 65, creatinine 1.5. BUN may be increasing due to steroids. Consult Dr. Mason for nephrology evaluation and management Hypertension monitor blood pressure. As needed IV hydralazine. For details, please refer to the orders. Prognosis of this patient is very poor due to his multiple medical problems. Plan Plan For more details regarding further plans, please refer to the orders. Justifications for Admission Other Justification LIBERTY WOODSON MD Apr 06, 2021 09:05
[2021-04-06] MEDS: CYANOCOBALAMIN (VITAMIN B-12) 1,000 MCG TABLET. PO SCH (09:27)
[2021-04-06] MEDS: PANTOPRAZOLE 40 MG TABLET.DR. PO SCH (09:27)
[2021-04-06] MEDS: FERROUS SULFATE 325 MG TABLET. PO SCH (09:27)
[2021-04-06] MEDS: FLUTICASONE 50MCG/NASAL SPRAY 16GM BOTTLE. NS SCH (09:27)
[2021-04-06] MEDS: CETIRIZINE HCL 10 MG TABLET. PO SCH (09:28)
[2021-04-06] MEDS: SODIUM BICARBONATE 650 MG TABLET. PO SCH ×3 (09:28→17:29)
[2021-04-06] MEDS: MAGNESIUM OXIDE 400 MG TABLET PO SCH (09:28)
[2021-04-06] MEDS: ACYCLOVIR 200 MG CAPSULE. PO SCH ×2 (09:28→21:25)
[2021-04-06] MEDS: ASPIRIN 325 MG TABLET PO SCH (09:28)
[2021-04-06] MEDS: methylPREDNISolone SOD SUCC PF 125 MG/2 ML VIAL. IV SCH ×2 (09:29→21:25)
--- NOTE | 2021-04-06 09:30 | PDOC ---
Infectious Disease Note Subjective: Subjective Pt on bipap this am Feels better Afebrile Vital Signs: Vital Signs Vital Signs Date Time Temp Pulse Resp B/P (MAP) Pulse Ox O2 Delivery O2 Flow Rate FiO2 04/06/21 09:06 96 BiPAP/CPAP 04/06/21 07:00 97.0 96 20 159/72 (101) 97.0 04/06/21 03:00 40.0 Physical Exam: PHYSICAL EXAM GENERAL: Alert, oriented x 3, chronically ill-appearing male in mild distress. HEENT: Normocephalic, atraumatic. Anicteric sclerae. NECK: Supple. LUNGS: Coarse breath sounds, mild wheezing. HEART: S1, S2, regular. ABDOMEN: Soft, nontender, nondistended. EXTREMITIES: No edema, no cyanosis. DERMATOLOGIC: Warm, dry. No generalized rash. NEUROLOGIC: Alert, oriented x 3, generalized weakness. PSYCHIATRIC: mildly anxioius and cooperative. Medications: Inpatient Meds: Medications reviewed. Labs: Lab Laboratory Tests Test 04/05/21 11:56 04/05/21 17:40 04/05/21 20:40 04/06/21 03:15 Glucose (Fingerstick) 117 mg/dL (70-99) 145 mg/dL (70-99) 156 mg/dL (70-99) White Blood Count 10.8 x10^3/uL (4.0-11.0) Red Blood Count 2.51 x10^6/uL (4.30-5.70) Hemoglobin 8.3 g/dL (13.0-17.5) Hematocrit 25.3 % (39.0-53.0) Mean Corpuscular Volume 101 fL (79-100) Mean Corpuscular Hemoglobin 33 pg (25-35) Mean Corpuscular Hemoglobin Concent 33 g/dL (31-37) Red Cell Distribution Width 15.1 % (11.5-14.5) Platelet Count 270 x10^3/uL (140-400) Neutrophils (%) (Auto) 96 % (31-73) Lymphocytes (%) (Auto) 1 % (24-48) Monocytes (%) (Auto) 3 % (0-9) Eosinophils (%) (Auto) 0 % (0-3) Basophils (%) (Auto) 0 % (0-3) Neutrophils # (Auto) 10.4 x10^3/uL (1.8-7.7) Lymphocytes # (Auto) 0.1 x10^3/uL (1.0-4.8) Monocytes # (Auto) 0.3 x10^3/uL (0.0-1.1) Eosinophils # (Auto) 0.0 x10^3/uL (0.0-0.7) Basophils # (Auto) 0.0 x10^3/uL (0.0-0.2) Sodium Level 139 mmol/L (136-145) Potassium Level 4.7 mmol/L (3.5-5.1) Chloride Level 102 mmol/L (98-107) Carbon Dioxide Level 32 mmol/L (21-32) Anion Gap 5 (6-14) Blood Urea Nitrogen 65 mg/dL (8-26) Creatinine 1.5 mg/dL (0.7-1.3) Estimated GFR (Cockcroft-Gault) 55.2 BUN/Creatinine Ratio 43 (6-20) Glucose Level 164 mg/dL (70-99) Calcium Level 9.0 mg/dL (8.5-10.1) Total Bilirubin 0.2 mg/dL (0.2-1.0) Aspartate Amino Transf (AST/SGOT) 19 U/L (15-37) Alanine Aminotransferase (ALT/SGPT) 33 U/L (16-63) Alkaline Phosphatase 87 U/L (46-116) Total Protein 6.1 g/dL (6.4-8.2) Albumin 2.6 g/dL (3.4-5.0) Albumin/Globulin Ratio 0.7 (1.0-1.7) Test 04/06/21 07:17 Glucose (Fingerstick) 150 mg/dL (70-99) Objective: Assessment: 1. Acute on chronic hypoxic respiratory failure. 2. Bilateral infiltrates with COVID 19 infection 3. Status post COVID vaccination 3rd in series booster dose a week ago prior to admission. 4. Chronic bronchitis. 5. Multiple myeloma with polyneuropathy organomegaly, endocrinopathy and monoclonal gammopathy. 6. Chronic kidney disease. 7. Chronic diastolic heart failure. 8. Peripheral arterial disease. 9. Gastroesophageal reflux disease. 10. Anemia. Plan: Plan of Care Continue supportive care Continue steroids and Remdesivir DC cefepime Monitor labs and cultures Continue supportive care D/W PAUL HELLER MD Apr 06, 2021 09:30
[2021-04-06 11:00] VITALS: BP 175/53
--- NOTE | 2021-04-06 11:22 | PDOC ---
PULMONARY PROGRESS NOTES DATE: 04/06/21 TIME: 11:21 Subjective Feels better, Remains on BiPAP at 50% FiO2. Vitals Vital Signs Date Time Temp Pulse Resp B/P (MAP) Pulse Ox O2 Delivery O2 Flow Rate FiO2 04/06/21 09:28 96 159/72 04/06/21 09:06 96 BiPAP/CPAP 04/06/21 07:00 97.0 20 97.0 04/06/21 03:00 40.0 ROS: No Nausea, No Chest Pain, No Abdominal Pain, No Increase Cough General: Alert, No acute distress Lungs: Clear Cardiovascular: S1, S2 Abdomen: Soft Neuro Exam: Alert Extremities: No Edema Labs Laboratory Tests Test 04/04/21 16:58 04/04/21 20:50 04/05/21 04:10 04/05/21 07:23 Glucose (Fingerstick) 127 mg/dL (70-99) 139 mg/dL (70-99) 136 mg/dL (70-99) White Blood Count 7.3 x10^3/uL (4.0-11.0) Red Blood Count 2.69 x10^6/uL (4.30-5.70) Hemoglobin 8.9 g/dL (13.0-17.5) Hematocrit 27.5 % (39.0-53.0) Mean Corpuscular Volume 103 fL (79-100) Mean Corpuscular Hemoglobin 33 pg (25-35) Mean Corpuscular Hemoglobin Concent 32 g/dL (31-37) Red Cell Distribution Width 15.0 % (11.5-14.5) Platelet Count 206 x10^3/uL (140-400) Neutrophils (%) (Auto) 95 % (31-73) Lymphocytes (%) (Auto) 2 % (24-48) Monocytes (%) (Auto) 3 % (0-9) Eosinophils (%) (Auto) 0 % (0-3) Basophils (%) (Auto) 0 % (0-3) Neutrophils # (Auto) 6.9 x10^3/uL (1.8-7.7) Lymphocytes # (Auto) 0.1 x10^3/uL (1.0-4.8) Monocytes # (Auto) 0.2 x10^3/uL (0.0-1.1) Eosinophils # (Auto) 0.0 x10^3/uL (0.0-0.7) Basophils # (Auto) 0.0 x10^3/uL (0.0-0.2) Sodium Level 141 mmol/L (136-145) Potassium Level 5.0 mmol/L (3.5-5.1) Chloride Level 102 mmol/L (98-107) Carbon Dioxide Level 32 mmol/L (21-32) Anion Gap 7 (6-14) Blood Urea Nitrogen 52 mg/dL (8-26) Creatinine 1.4 mg/dL (0.7-1.3) Estimated GFR (Cockcroft-Gault) 59.8 BUN/Creatinine Ratio 37 (6-20) Glucose Level 149 mg/dL (70-99) Calcium Level 9.1 mg/dL (8.5-10.1) Total Bilirubin 0.2 mg/dL (0.2-1.0) Aspartate Amino Transf (AST/SGOT) 26 U/L (15-37) Alanine Aminotransferase (ALT/SGPT) 34 U/L (16-63) Alkaline Phosphatase 92 U/L (46-116) Total Protein 6.3 g/dL (6.4-8.2) Albumin 2.5 g/dL (3.4-5.0) Albumin/Globulin Ratio 0.7 (1.0-1.7) Test 04/05/21 11:56 04/05/21 17:40 04/05/21 20:40 04/06/21 03:15 Glucose (Fingerstick) 117 mg/dL (70-99) 145 mg/dL (70-99) 156 mg/dL (70-99) White Blood Count 10.8 x10^3/uL (4.0-11.0) Red Blood Count 2.51 x10^6/uL (4.30-5.70) Hemoglobin 8.3 g/dL (13.0-17.5) Hematocrit 25.3 % (39.0-53.0) Mean Corpuscular Volume 101 fL (79-100) Mean Corpuscular Hemoglobin 33 pg (25-35) Mean Corpuscular Hemoglobin Concent 33 g/dL (31-37) Red Cell Distribution Width 15.1 % (11.5-14.5) Platelet Count 270 x10^3/uL (140-400) Neutrophils (%) (Auto) 96 % (31-73) Lymphocytes (%) (Auto) 1 % (24-48) Monocytes (%) (Auto) 3 % (0-9) Eosinophils (%) (Auto) 0 % (0-3) Basophils (%) (Auto) 0 % (0-3) Neutrophils # (Auto) 10.4 x10^3/uL (1.8-7.7) Lymphocytes # (Auto) 0.1 x10^3/uL (1.0-4.8) Monocytes # (Auto) 0.3 x10^3/uL (0.0-1.1) Eosinophils # (Auto) 0.0 x10^3/uL (0.0-0.7) Basophils # (Auto) 0.0 x10^3/uL (0.0-0.2) Sodium Level 139 mmol/L (136-145) Potassium Level 4.7 mmol/L (3.5-5.1) Chloride Level 102 mmol/L (98-107) Carbon Dioxide Level 32 mmol/L (21-32) Anion Gap 5 (6-14) Blood Urea Nitrogen 65 mg/dL (8-26) Creatinine 1.5 mg/dL (0.7-1.3) Estimated GFR (Cockcroft-Gault) 55.2 BUN/Creatinine Ratio 43 (6-20) Glucose Level 164 mg/dL (70-99) Calcium Level 9.0 mg/dL (8.5-10.1) Total Bilirubin 0.2 mg/dL (0.2-1.0) Aspartate Amino Transf (AST/SGOT) 19 U/L (15-37) Alanine Aminotransferase (ALT/SGPT) 33 U/L (16-63) Alkaline Phosphatase 87 U/L (46-116) Total Protein 6.1 g/dL (6.4-8.2) Albumin 2.6 g/dL (3.4-5.0) Albumin/Globulin Ratio 0.7 (1.0-1.7) Test 04/06/21 07:17 Glucose (Fingerstick) 150 mg/dL (70-99) Laboratory Tests Test 04/05/21 11:56 04/05/21 17:40 04/05/21 20:40 9/28/21 03:15 Glucose (Fingerstick) 117 mg/dL (70-99) 145 mg/dL (70-99) 156 mg/dL (70-99) White Blood Count 10.8 x10^3/uL (4.0-11.0) Red Blood Count 2.51 x10^6/uL (4.30-5.70) Hemoglobin 8.3 g/dL (13.0-17.5) Hematocrit 25.3 % (39.0-53.0) Mean Corpuscular Volume 101 fL (79-100) Mean Corpuscular Hemoglobin 33 pg (25-35) Mean Corpuscular Hemoglobin Concent 33 g/dL (31-37) Red Cell Distribution Width 15.1 % (11.5-14.5) Platelet Count 270 x10^3/uL (140-400) Neutrophils (%) (Auto) 96 % (31-73) Lymphocytes (%) (Auto) 1 % (24-48) Monocytes (%) (Auto) 3 % (0-9) Eosinophils (%) (Auto) 0 % (0-3) Basophils (%) (Auto) 0 % (0-3) Neutrophils # (Auto) 10.4 x10^3/uL (1.8-7.7) Lymphocytes # (Auto) 0.1 x10^3/uL (1.0-4.8) Monocytes # (Auto) 0.3 x10^3/uL (0.0-1.1) Eosinophils # (Auto) 0.0 x10^3/uL (0.0-0.7) Basophils # (Auto) 0.0 x10^3/uL (0.0-0.2) Sodium Level 139 mmol/L (136-145) Potassium Level 4.7 mmol/L (3.5-5.1) Chloride Level 102 mmol/L (98-107) Carbon Dioxide Level 32 mmol/L (21-32) Anion Gap 5 (6-14) Blood Urea Nitrogen 65 mg/dL (8-26) Creatinine 1.5 mg/dL (0.7-1.3) Estimated GFR (Cockcroft-Gault) 55.2 BUN/Creatinine Ratio 43 (6-20) Glucose Level 164 mg/dL (70-99) Calcium Level 9.0 mg/dL (8.5-10.1) Total Bilirubin 0.2 mg/dL (0.2-1.0) Aspartate Amino Transf (AST/SGOT) 19 U/L (15-37) Alanine Aminotransferase (ALT/SGPT) 33 U/L (16-63) Alkaline Phosphatase 87 U/L (46-116) Total Protein 6.1 g/dL (6.4-8.2) Albumin 2.6 g/dL (3.4-5.0) Albumin/Globulin Ratio 0.7 (1.0-1.7) Test 04/06/21 07:17 Glucose (Fingerstick) 150 mg/dL (70-99) Medications Active Scripts Medications Dose Route/Sig Max Daily Dose Days Date Category Dose Instructions Sodium Bicarbonate 650 Mg Tablet 1 Tab PO TIDWMEALS 04/01/21 Reported Prednisone 20 Mg Tablet 1 Tab PO DAILY 04/01/21 Reported Acyclovir 400 Mg Tablet 2 Tab PO BID 04/01/21 Reported Azithromycin Tablet (Azithromycin) 250 Mg Tablet 250 Mg PO DAILY 04/01/21 Reported Bactrim 400-80 Mg Tablet (Sulfamethoxazole/Trimethoprim) 1 Each Tablet 2 Tab PO QMTH 04/01/21 Reported Gabapentin (Gabapentin) 300 Mg Capsule 300 Mg PO TID 04/01/21 Reported Lasix (Furosemide) 40 Mg Tablet 1 Tab PO DAILY 30 04/01/21 Reported Mucinex (Guaifenesin) 1,200 Mg Tbmp.12hr 1 Tab PO BID 15 07/13/20 Reported Diltiazem 24HR Cd (Diltiazem Hcl) 120 Mg Cap.er.24h 1 Cap PO DAILY 30 07/13/20 Reported Dexamethasone 4 Mg Tablet 4 Tab PO DAILY 07/13/20 Reported Prednisone (Prednisone) 10 Mg Tablet 10 Mg PO UD 10/28/19 Rx Take 4 tablets by mouth daily for 3 days, then take 3 tablets by mouth daily for 3 days, then take 2 tablets by mouth daily for 3 days, then take 1 tablets by mouth daily for 3 days, then stop [Folic Acid] 1 Mg PO DAILY 10/22/19 Reported Spiriva (Tiotropium [place]) 18 Mcg Cap.w.dev 1 Cap IH DAILY 10/22/19 Reported Montelukast Sodium Tablet (Montelukast Sodium) 10 Mg Tablet 10 Mg PO HS 10/22/19 Reported Proair Hfa (Albuterol Sulfate) 8.5 Gm Hfa.aer.ad 2 Puff IH PRN Q4 PRN 21 10/22/19 Reported Protonix (Pantoprazole Sodium) 20 Mg Tablet.dr 2 Tab PO DAILY 10/22/19 Reported Mometasone Furoate 45 Gm Cream..g. 1 [place] TP DAILY 10/22/19 Reported Mag-Oxide (Magnesium Oxide) 200 Mg Tablet 2 Tab PO DAILY 30 10/22/19 Reported Fluticasone Propionate Nasal [place] (Fluticasone Propionate) 16 Gm [place].susp 2 [place] NS DAILY 10/22/19 Reported Ferrous Sulfate 325 Mg Tablet 1 Tab PO DAILY 10/22/19 Reported B-12 (Cyanocobalamin (Vitamin B-12)) 5,000 Mcg Tab.rapdis 1 Tab PO DAILY 30 10/22/19 Reported Loratadine 10 Mg Tab.rapdis 1 Tab PO DAILY 30 10/22/19 Reported Breo Ellipta 200-25 Mcg INH (Fluticasone/Vilanterol) 1 Each Blst.w.dev 1 Puff IH DAILY 06/26/19 Reported Aspirin 325 Mg Tablet 1 Tab PO DAILY 06/26/19 Reported Albuterol Sulfate Conc Neb Soln (Albuterol Sulfate) 2.5 Mg/0.5 Ml Vial.neb 1 Vial NEB PRN PRN 09/05/16 Reported Impression . IMPRESSION: 1. Acute on chronic respiratory failure, multifactorial. 2. COVID-19 viral pneumonia. 3. Possible bacterial pneumonia. 4. Status post vaccination with a booster approximately a week ago. 5. Multiple myeloma with polyneuropathy, organomegaly, endocrinopathy and monoclonal gammopathy. 6. Chronic kidney disease. 7. Chronic diastolic heart failure. 8. Chronic obstructive pulmonary disease. 9. Castleman syndrome Plan . Updated 04/06 Continue oxygen supplementation at 50% FiO2 via BiPAP. Solu-Medrol Remdesivir Status post tocilizumab Continue present supportive care. PLAN: 1. titrate fio2 to keep sat 90% bipap prn setting reviewed, steroids. solumedrol 60 bid no dose change 2. remdesivir. 3. tocilizumab. 4. abx per id 5. lovenox for dvt prophylaxis discussed w rt MALENA FITCH MD Apr 06, 2021 11:22
[2021-04-06] MEDS: REMDESIVIR 100mg in NORMAL SALINE 250ML X 4 DAYS IV SCH (11:24)
--- NOTE | 2021-04-06 14:04 | PDOC2 ---
CONSULT Date of Consult Date of Consult DATE: 04/06/21 TIME: 13:56 Reason for Consult Reason for Consult: Renal Insufficiency Identification/Chief Complaint Chief Complaint Shortness of breath On BiPAP History of Present Illness Reason for Visit: Patient is a 75-year-old male istory of severe COPD and chronic respiratory failure, on oxygen by nasal cannula 5 liters per minute, multiple myeloma with POEMS syndrome. Recently, he took his booster that is his third vaccine dose for COVID-19.He started having symptoms of bronchitis and was treated with antibiotics and steroids. His symptoms got worse and even on 5 liters of oxygen by nasal cannula at home, he became much more ,short of breath and he just could not breathe in and because of that, the EMS was called and he was brought to the Emergency Room., admitted on 04/01. His O2 sats were in the 70s. Denies any N/V. No CP, No F/C. Denies any urinary complaints . He follows with me as Out patient for CKD Past Medical History Cardiovascular: No pertinent hx Pulmonary: No pertinent hx CENTRAL NERVOUS SYSTEM: Carpal Tunnel Syndrome GI: No pertinent hx Heme/Onc: Other Hepatobiliary: No pertinent hx Psych: No pertinent hx Rheumatologic: No pertinent hx Infectious disease: No pertinent hx Renal/: Chronic renal insuff Endocrine: No pertinent hx Family History Family History: Hypertension Social History ALCOHOL: none Drugs: None Lives: with Family Current Problem List Problem List Problems Medical Problems: (1) COVID-19 Status: Acute (2) History of COPD Status: Acute (3) Person under investigation for COVID-19 Status: Acute (4) Renal insufficiency Status: Acute (5) Respiratory failure Status: Acute Current Medications Current Medications Current Medications Sodium Chloride 1,000 ml @ 1,000 mls/hr Q1H IV Last administered on 04/01/21at 13:40; Start 04/01/21 at 12:15; Stop 04/01/21 at 13:14; Status DC Albuterol Sulfate (Ventolin Neb Soln) 2.5 mg 1X ONCE NEB Last administered on 04/01/21at 12:15; Start 04/01/21 at 12:15; Stop 04/01/21 at 12:16; Status DC Methylprednisolone Sodium Succinate (SOLU-Medrol 125MG VIAL) 125 mg 1X ONCE IV Last administered on 04/01/21at 12:49; Start 04/01/21 at 12:15; Stop 04/01/21 at 12:16; Status DC Levofloxacin/ Dextrose 150 ml @ 100 mls/hr 1X ONCE IV Last administered on 04/01/21at 12:44; Start 04/01/21 at 12:15; Stop 04/01/21 at 13:44; Status DC Aspirin (Kevin Aspirin) 325 mg DAILY PO Last administered on 04/06/21 09:28; Start 04/02/21 at 09:00 Diltiazem HCl (Cardizem 24hr Cd) 120 mg DAILY PO Last administered on 04/06/21 09:28; Start 04/02/21 at 09:00 Ferrous Sulfate (Feosol) 325 mg DAILY PO Last administered on 04/06/21 09:27; Start 04/02/21 at 09:00 Fluticasone Propionate (Flonase) 2 spray DAILY NS Last administered on 04/06/21 09:27; Start 04/02/21 at 09:00 Montelukast Sodium (Singulair) 10 mg HS PO Last administered on 04/05/21 21:59; Start 04/01/21 at 21:00 Sodium Bicarbonate (Sodium Bicarbonate) 650 mg TIDWMEALS PO Last administered on 04/06/21 11:24; Start 04/02/21 at 08:00 Acyclovir (Zovirax) 400 mg BID PO Last administered on 04/06/21 09:28; Start 04/01/21 at 21:00 Cyanocobalamin (Vitamin B-12) 500 mcg DAILY PO Last administered on 04/06/21 09:27; Start 04/02/21 at 09:00 Non-Formulary Medication (Fluticasone/ Vilanterol (Breo Ellipta 200-25 Mcg INH)) 1 puff DAILY IH ; Start 04/02/21 at 09:00; Status UNV Non-Formulary Medication (Guaifenesin (Mucinex)) 1 tab BID PO ; Start 04/01/21 at 21:00; Status UNV Cetirizine HCl (ZyrTEC) 10 mg DAILY PO Last administered on 04/06/21 09:28; Start 04/02/21 at 09:00 Magnesium Oxide (Magnesium Oxide) 400 mg DAILY PO Last administered on 9/28/21at 09:28; Start 04/02/21 at 09:00 Pantoprazole Sodium (Protonix) 40 mg DAILYAC PO Last administered on 04/06/21at 09:27; Start 04/02/21 at 07:30 Trimethoprim/ Sulfamethoxazole (Bactrim Ds) 1 tab QMTH PO Last administered on 04/05/21at 17:36; Start 04/01/21 at 16:00 Non-Formulary Medication (Tiotropium [place] (Spiriva)) 1 cap DAILY IH ; Start 04/02/21 at 09:00; Status UNV Methylprednisolone Sodium Succinate (SOLU-Medrol 125MG VIAL) 60 mg Q12HR IV Last administered on 04/06/21at 09:29; Start 04/01/21 at 21:00 Albuterol/ Ipratropium (Duoneb) 3 ml RTQID NEB ; Start 04/01/21 at 20:00; Stop 04/02/21 at 10:07; Status DC Budesonide (Pulmicort) 0.5 mg RTBID NEB ; Start 04/01/21 at 20:00; Stop 04/02/21 at 10:07; Status DC Enoxaparin Sodium (Lovenox 40mg Syringe) 40 mg Q24H SQ Last administered on 04/05/21at 17:36; Start 04/01/21 at 19:00 Insulin Human Lispro (HumaLOG) 0-8 UNITS BIDBFRMEAL SQ ; Start 04/02/21 at 07:30 Fluticasone/ Vilanterol (Breo Ellipta 200-25 Mcg) 1 puff DAILY INH Last administered on 04/06/21at 09:00; Start 04/02/21 at 11:00 Cefepime HCl (Maxipime) 2 gm Q12HR IVP Last administered on 04/04/21at 09:33; Start 04/02/21 at 11:30; Stop 04/04/21 at 14:19; Status DC Remdesivir 200 mg/ Sodium Chloride 210 ml @ 210 mls/hr 1X ONCE IV Last administered on 04/02/21at 11:41; Start 04/02/21 at 12:00; Stop 04/02/21 at 12:59; Status DC Remdesivir 100 mg/ Sodium Chloride 230 ml @ 460 mls/hr Q24H IV Last administered on 04/06/21at 11:24; Start 04/03/21 at 12:00; Stop 04/06/21 at 12:2 9; Status DC Tocilizumab 400 mg/Sodium Chloride 100 ml @ 100 mls/hr 1X ONCE IV Last administered on 04/02/21at 17:00; Start 04/02/21 at 16:00; Stop 04/02/21 at 16:59; Status DC Hydralazine HCl (Apresoline Inj) 10 mg PRN Q4HRS PRN IVP ELEVATED BP, SEE COMMENTS; Start 04/04/21 at 09:30 Cefepime HCl (Maxipime) 2 gm Q8HRS IVP Last administered on 04/05/21at 06:13; Start 04/04/21 at 14:30; Stop 04/05/21 at 09:18; Status DC Active Scripts Active Prednisone (Prednisone) 10 Mg Tablet 10 Mg PO UD Take 4 tablets by mouth daily for 3 days, then take 3 tablets by mouth daily for 3 days, then take 2 tablets by mouth daily for 3 days, then take 1 tablets by mouth daily for 3 days, then stop Reported Sodium Bicarbonate 650 Mg Tablet 1 Tab PO TIDWMEALS Prednisone 20 Mg Tablet 1 Tab PO DAILY Acyclovir 400 Mg Tablet 2 Tab PO BID Azithromycin Tablet (Azithromycin) 250 Mg Tablet 250 Mg PO DAILY Bactrim 400-80 Mg Tablet (Sulfamethoxazole/Trimethoprim) 1 Each Tablet 2 Tab PO QMTH Gabapentin (Gabapentin) 300 Mg Capsule 300 Mg PO TID Lasix (Furosemide) 40 Mg Tablet 1 Tab PO DAILY 30 Days Mucinex (Guaifenesin) 1,200 Mg Tbmp.12hr 1 Tab PO BID 15 Days Diltiazem 24HR Cd (Diltiazem Hcl) 120 Mg Cap.er.24h 1 Cap PO DAILY 30 Days Dexamethasone 4 Mg Tablet 4 Tab PO DAILY [Folic Acid] 1 Mg PO DAILY Spiriva (Tiotropium [place]) 18 Mcg Cap.w.dev 1 Cap IH DAILY Montelukast Sodium Tablet (Montelukast Sodium) 10 Mg Tablet 10 Mg PO HS Proair Hfa (Albuterol Sulfate) 8.5 Gm Hfa.aer.ad 2 Puff IH PRN Q4 PRN 21 Days Protonix (Pantoprazole Sodium) 20 Mg Tablet.dr 2 Tab PO DAILY Mometasone Furoate 45 Gm Cream..g. 1 [place] TP DAILY Mag-Oxide (Magnesium Oxide) 200 Mg Tablet 2 Tab PO DAILY 30 Days Fluticasone Propionate Nasal [place] (Fluticasone Propionate) 16 Gm [place].susp 2 [place] NS DAILY Ferrous Sulfate 325 Mg Tablet 1 Tab PO DAILY B-12 (Cyanocobalamin (Vitamin B-12)) 5,000 Mcg Tab.rapdis 1 Tab PO DAILY 30 Days Loratadine 10 Mg Tab.rapdis 1 Tab PO DAILY 30 Days Breo Ellipta 200-25 Mcg INH (Fluticasone/Vilanterol) 1 Each Blst.w.dev 1 Puff IH DAILY Aspirin 325 Mg Tablet 1 Tab PO DAILY Albuterol Sulfate Conc Neb Soln (Albuterol Sulfate) 2.5 Mg/0.5 Ml Vial.neb 1 Vial NEB PRN PRN Allergies Allergies: Coded Allergies: Penicillins (Verified Allergy, Intermediate, 07/13/20) ROS Review of System As per HPI, rest of the ROS is negative Physical Exam Physical Exam GENERAL: Alert, oriented x 3 in mild distress. HEENT: Normocephalic, atraumatic. Anicteric sclerae.Has BIPAP NECK: Supple. LUNGS: Coarse breath sounds, HEART: S1, S2, regular. ABDOMEN: Soft, nontender, nondistended. EXTREMITIES: No edema, no cyanosis. DERMATOLOGIC: Warm, dry. No generalized rash. NEUROLOGIC: Alert, oriented x 3, PSYCHIATRIC: cooperative. No [place], No CVA or SP tenderness Vital Signs Vital Signs Date Time Temp Pulse Resp B/P (MAP) Pulse Ox O2 Delivery O2 Flow Rate FiO2 04/06/21 11:42 95 BiPAP/CPAP 04/06/21 11:00 97.3 103 20 175/53 (93) 97.3 04/06/21 03:00 40.0 Assessment & Plan CKD stage 3A- Follows with us as OP ; Renal function appears to be at his baseline, will review records from the office . E-Lytes stable . Supportive are, maintain fluid balance, avoid nephrotoxins Acute on chronic respiratory failure-On o2 via BiPAP COVID-19 viral pneumonia - Status post vaccination with a booster approximately a week ago.On o2 via BiPAP, Solu-Medrol, Remdesivir. Status post tocilizumab ; Multiple myeloma with polyneuropathy, organomegaly, endocrinopathy and monoclonal gammopathy. (POEM's) Chronic diastolic heart failure. Chronic obstructive pulmonary disease. Castleman syndrome Labs Labs Laboratory Tests Test 04/04/21 16:58 04/04/21 20:50 04/05/21 04:10 04/05/21 07:23 Glucose (Fingerstick) 127 mg/dL (70-99) 139 mg/dL (70-99) 136 mg/dL (70-99) White Blood Count 7.3 x10^3/uL (4.0-11.0) Red Blood Count 2.69 x10^6/uL (4.30-5.70) Hemoglobin 8.9 g/dL (13.0-17.5) Hematocrit 27.5 % (39.0-53.0) Mean Corpuscular Volume 103 fL (79-100) Mean Corpuscular Hemoglobin 33 pg (25-35) Mean Corpuscular Hemoglobin Concent 32 g/dL (31-37) Red Cell Distribution Width 15.0 % (11.5-14.5) Platelet Count 206 x10^3/uL (140-400) Neutrophils (%) (Auto) 95 % (31-73) Lymphocytes (%) (Auto) 2 % (24-48) Monocytes (%) (Auto) 3 % (0-9) Eosinophils (%) (Auto) 0 % (0-3) Basophils (%) (Auto) 0 % (0-3) Neutrophils # (Auto) 6.9 x10^3/uL (1.8-7.7) Lymphocytes # (Auto) 0.1 x10^3/uL (1.0-4.8) Monocytes # (Auto) 0.2 x10^3/uL (0.0-1.1) Eosinophils # (Auto) 0.0 x10^3/uL (0.0-0.7) Basophils # (Auto) 0.0 x10^3/uL (0.0-0.2) Sodium Level 141 mmol/L (136-145) Potassium Level 5.0 mmol/L (3.5-5.1) Chloride Level 102 mmol/L (98-107) Carbon Dioxide Level 32 mmol/L (21-32) Anion Gap 7 (6-14) Blood Urea Nitrogen 52 mg/dL (8-26) Creatinine 1.4 mg/dL (0.7-1.3) Estimated GFR (Cockcroft-Gault) 59.8 BUN/Creatinine Ratio 37 (6-20) Glucose Level 149 mg/dL (70-99) Calcium Level 9.1 mg/dL (8.5-10.1) Total Bilirubin 0.2 mg/dL (0.2-1.0) Aspartate Amino Transf (AST/SGOT) 26 U/L (15-37) Alanine Aminotransferase (ALT/SGPT) 34 U/L (16-63) Alkaline Phosphatase 92 U/L (46-116) Total Protein 6.3 g/dL (6.4-8.2) Albumin 2.5 g/dL (3.4-5.0) Albumin/Globulin Ratio 0.7 (1.0-1.7) Test 04/05/21 11:56 04/05/21 17:40 04/05/21 20:40 04/06/21 03:15 Glucose (Fingerstick) 117 mg/dL (70-99) 145 mg/dL (70-99) 156 mg/dL (70-99) White Blood Count 10.8 x10^3/uL (4.0-11.0) Red Blood Count 2.51 x10^6/uL (4.30-5.70) Hemoglobin 8.3 g/dL (13.0-17.5) Hematocrit 25.3 % (39.0-53.0) Mean Corpuscular Volume 101 fL (79-100) Mean Corpuscular Hemoglobin 33 pg (25-35) Mean Corpuscular Hemoglobin Concent 33 g/dL (31-37) Red Cell Distribution Width 15.1 % (11.5-14.5) Platelet Count 270 x10^3/uL (140-400) Neutrophils (%) (Auto) 96 % (31-73) Lymphocytes (%) (Auto) 1 % (24-48) Monocytes (%) (Auto) 3 % (0-9) Eosinophils (%) (Auto) 0 % (0-3) Basophils (%) (Auto) 0 % (0-3) Neutrophils # (Auto) 10.4 x10^3/uL (1.8-7.7) Lymphocytes # (Auto) 0.1 x10^3/uL (1.0-4.8) Monocytes # (Auto) 0.3 x10^3/uL (0.0-1.1) Eosinophils # (Auto) 0.0 x10^3/uL (0.0-0.7) Basophils # (Auto) 0.0 x10^3/uL (0.0-0.2) Sodium Level 139 mmol/L (136-145) Potassium Level 4.7 mmol/L (3.5-5.1) Chloride Level 102 mmol/L (98-107) Carbon Dioxide Level 32 mmol/L (21-32) Anion Gap 5 (6-14) Blood Urea Nitrogen 65 mg/dL (8-26) Creatinine 1.5 mg/dL (0.7-1.3) Estimated GFR (Cockcroft-Gault) 55.2 BUN/Creatinine Ratio 43 (6-20) Glucose Level 164 mg/dL (70-99) Calcium Level 9.0 mg/dL (8.5-10.1) Total Bilirubin 0.2 mg/dL (0.2-1.0) Aspartate Amino Transf (AST/SGOT) 19 U/L (15-37) Alanine Aminotransferase (ALT/SGPT) 33 U/L (16-63) Alkaline Phosphatase 87 U/L (46-116) Total Protein 6.1 g/dL (6.4-8.2) Albumin 2.6 g/dL (3.4-5.0) Albumin/Globulin Ratio 0.7 (1.0-1.7) Test 04/06/21 07:17 04/06/21 11:29 Glucose (Fingerstick) 150 mg/dL (70-99) 139 mg/dL (70-99) Laboratory Tests Test 04/05/21 17:40 04/05/21 20:40 04/06/21 03:15 04/06/21 07:17 Glucose (Fingerstick) 145 mg/dL (70-99) 156 mg/dL (70-99) 150 mg/dL (70-99) White Blood Count 10.8 x10^3/uL (4.0-11.0) Red Blood Count 2.51 x10^6/uL (4.30-5.70) Hemoglobin 8.3 g/dL (13.0-17.5) Hematocrit 25.3 % (39.0-53.0) Mean Corpuscular Volume 101 fL (79-100) Mean Corpuscular Hemoglobin 33 pg (25-35) Mean Corpuscular Hemoglobin Concent 33 g/dL (31-37) Red Cell Distribution Width 15.1 % (11.5-14.5) Platelet Count 270 x10^3/uL (140-400) Neutrophils (%) (Auto) 96 % (31-73) Lymphocytes (%) (Auto) 1 % (24-48) Monocytes (%) (Auto) 3 % (0-9) Eosinophils (%) (Auto) 0 % (0-3) Basophils (%) (Auto) 0 % (0-3) Neutrophils # (Auto) 10.4 x10^3/uL (1.8-7.7) Lymphocytes # (Auto) 0.1 x10^3/uL (1.0-4.8) Monocytes # (Auto) 0.3 x10^3/uL (0.0-1.1) Eosinophils # (Auto) 0.0 x10^3/uL (0.0-0.7) Basophils # (Auto) 0.0 x10^3/uL (0.0-0.2) Sodium Level 139 mmol/L (136-145) Potassium Level 4.7 mmol/L (3.5-5.1) Chloride Level 102 mmol/L (98-107) Carbon Dioxide Level 32 mmol/L (21-32) Anion Gap 5 (6-14) Blood Urea Nitrogen 65 mg/dL (8-26) Creatinine 1.5 mg/dL (0.7-1.3) Estimated GFR (Cockcroft-Gault) 55.2 BUN/Creatinine Ratio 43 (6-20) Glucose Level 164 mg/dL (70-99) Calcium Level 9.0 mg/dL (8.5-10.1) Total Bilirubin 0.2 mg/dL (0.2-1.0) Aspartate Amino Transf (AST/SGOT) 19 U/L (15-37) Alanine Aminotransferase (ALT/SGPT) 33 U/L (16-63) Alkaline Phosphatase 87 U/L (46-116) Total Protein 6.1 g/dL (6.4-8.2) Albumin 2.6 g/dL (3.4-5.0) Albumin/Globulin Ratio 0.7 (1.0-1.7) Test 04/06/21 11:29 Glucose (Fingerstick) 139 mg/dL (70-99) Review All relevant outside records, renal labs, imaging studies, telemetry/EKG's were reviewed. Images Images History: Reason: soa / Spl. Instructions: / History: Comparison: October 22, 2019 Findings: Patchy bibasilar opacities. No pleural effusion. No pneumothorax. Hyperinflation. Unchanged heart size. Impression: 1. Mild patchy bibasilar opacities, may represent atelectasis or developing infiltrates. If persistent clinical concern, recommend follow-up. TEO LAW MD Apr 06, 2021 14:04
[2021-04-06 15:00] VITALS: BP 149/76
--- NOTE | 2021-04-06 16:05 | RAD ---
EXAM: XR CHEST 1V 04/06/2021 1:04 PM CLINICAL INDICATION: Respiratory failure COMPARISON: Chest radiograph 04/01/[address] chest 04/03/2020 TECHNIQUE: AP view of the chest FINDINGS: The heart is normal in size. Lungs are adequately expanded. Bibasilar interstitial opaciti es are unchanged. No pleural effusion or pneumothorax. Bone lesions on prior CT are not conspicuous b y radiograph. IMPRESSION: Unchanged bibasilar interstitial opacities suspicious for pneumonia. Aspiration is also possible. Electronically signed by: Anita Moncada MD (04/06/2021 4:03 PM) [id number]
[2021-04-06] MEDS: ENOXAPARIN 40 MG/0.4 ML SYRINGE. SQ SCH (17:29)
[2021-04-06 19:50] VITALS: BP 154/82
[2021-04-06] MEDS: MONTELUKAST SODIUM 10 MG TABLET. PO SCH (21:25)
[2021-04-06 22:45] VITALS: BP 134/67
[2021-04-06] MEDS: ALPRAZolam 0.25 MG TABLET PO PRN (23:29)
[2021-04-07 03:25] VITALS: BP 130/77
[2021-04-07 04:11] LABS: BASO % 0 % (0-3); EOS % 0 % (0-3); HEMATOCRIT 23.1 % (39.0-53.0); HEMOGLOBIN 7.6 g/dL (13.0-17.5); LYMPH # 0.2 x10^3/uL (1.0-4.8); LYMPH % 1 % (24-48); MEAN CORPUSCULAR HEMOGLOBIN 33 pg (25-35); MEAN CORPUSCULAR HGB CONC 33 g/dL (31-37); MEAN CORPUSCULAR VOLUME 100 fL (79-100); MONO # 0.3 x10^3/uL (0.0-1.1); MONO % 2 % (0-9); NEUT # 13.6 x10^3/uL (1.8-7.7); NEUT % 96 % (31-73); PLATELET COUNT 281 x10^3/uL (140-400); RED BLOOD COUNT 2.31 x10^6/uL (4.30-5.70); RED CELL DISTRIBUTION WIDTH 14.9 % (11.5-14.5); WHITE BLOOD COUNT 14.2 x10^3/uL (4.0-11.0)
[2021-04-07 04:36] LABS: ALBUMIN 2.6 g/dL (3.4-5.0); ALBUMIN/GLOBULIN RATIO 0.8 (1.0-1.7); CALCIUM 8.7 mg/dL (8.5-10.1); CREATININE 1.7 mg/dL (0.7-1.3); GFR 47.8; POTASSIUM 4.9 mmol/L (3.5-5.1); TOTAL BILIRUBIN 0.2 mg/dL (0.2-1.0); TOTAL PROTEIN 5.7 g/dL (6.4-8.2)
--- NOTE | 2021-04-07 06:47 | PDOC ---
Infectious Disease Note Subjective: Subjective Pt remains on bipap Afebrile Vital Signs: Vital Signs Vital Signs Date Time Temp Pulse Resp B/P (MAP) Pulse Ox O2 Delivery O2 Flow Rate FiO2 04/07/21 05:22 89 BiPAP/CPAP 04/07/21 03:25 96.5 89 22 130/77 (94) 96.5 04/06/21 20:00 8.0 Physical Exam: PHYSICAL EXAM GENERAL: Alert, oriented x 3, chronically ill-appearing male in mild distress. HEENT: Normocephalic, atraumatic. Anicteric sclerae. NECK: Supple. LUNGS: Coarse breath sounds, mild wheezing. HEART: S1, S2, regular. ABDOMEN: Soft, nontender, nondistended. EXTREMITIES: No edema, no cyanosis. DERMATOLOGIC: Warm, dry. No generalized rash. NEUROLOGIC: Alert, oriented x 3, generalized weakness. PSYCHIATRIC: mildly anxioius and cooperative. Medications: Inpatient Meds: Medications reviewed. Labs: Lab Laboratory Tests Test 04/06/21 07:17 04/06/21 11:29 04/06/21 17:32 04/07/21 03:15 Glucose (Fingerstick) 150 mg/dL (70-99) 139 mg/dL (70-99) 168 mg/dL (70-99) White Blood Count 14.2 x10^3/uL (4.0-11.0) Red Blood Count 2.31 x10^6/uL (4.30-5.70) Hemoglobin 7.6 g/dL (13.0-17.5) Hematocrit 23.1 % (39.0-53.0) Mean Corpuscular Volume 100 fL (79-100) Mean Corpuscular Hemoglobin 33 pg (25-35) Mean Corpuscular Hemoglobin Concent 33 g/dL (31-37) Red Cell Distribution Width 14.9 % (11.5-14.5) Platelet Count 281 x10^3/uL (140-400) Neutrophils (%) (Auto) 96 % (31-73) Lymphocytes (%) (Auto) 1 % (24-48) Monocytes (%) (Auto) 2 % (0-9) Eosinophils (%) (Auto) 0 % (0-3) Basophils (%) (Auto) 0 % (0-3) Neutrophils # (Auto) 13.6 x10^3/uL (1.8-7.7) Lymphocytes # (Auto) 0.2 x10^3/uL (1.0-4.8) Monocytes # (Auto) 0.3 x10^3/uL (0.0-1.1) Eosinophils # (Auto) 0.0 x10^3/uL (0.0-0.7) Basophils # (Auto) 0.0 x10^3/uL (0.0-0.2) Sodium Level 138 mmol/L (136-145) Potassium Level 4.9 mmol/L (3.5-5.1) Chloride Level 101 mmol/L (98-107) Carbon Dioxide Level 30 mmol/L (21-32) Anion Gap 7 (6-14) Blood Urea Nitrogen 72 mg/dL (8-26) Creatinine 1.7 mg/dL (0.7-1.3) Estimated GFR (Cockcroft-Gault) 47.8 BUN/Creatinine Ratio 42 (6-20) Glucose Level 151 mg/dL (70-99) Calcium Level 8.7 mg/dL (8.5-10.1) Total Bilirubin 0.2 mg/dL (0.2-1.0) Aspartate Amino Transf (AST/SGOT) 22 U/L (15-37) Alanine Aminotransferase (ALT/SGPT) 33 U/L (16-63) Alkaline Phosphatase 81 U/L (46-116) Total Protein 5.7 g/dL (6.4-8.2) Albumin 2.6 g/dL (3.4-5.0) Albumin/Globulin Ratio 0.8 (1.0-1.7) Objective: Assessment: 1. Acute on chronic hypoxic respiratory failure. 2. Bilateral infiltrates with COVID 19 infection 3. Status post COVID vaccination 3rd in series booster dose a week ago prior to admission. 4. Chronic bronchitis. 5. Multiple myeloma with polyneuropathy organomegaly, endocrinopathy and monoclonal gammopathy. 6. Chronic kidney disease. 7. Chronic diastolic heart failure. 8. Peripheral arterial disease. 9. Gastroesophageal reflux disease. 10. Anemia. Leucocytosis from steroids Plan: Plan of Care Continue supportive care Continue steroids s/p Remdesivir Monitor off antibiotics Monitor labs and cultures Continue supportive care D/W PAUL HELLER MD Apr 07, 2021 06:47
[2021-04-07 07:00] VITALS: BP 142/88
--- NOTE | 2021-04-07 07:50 | NUR ---
PT IN THE NIGHT GOT REALLY ANXIOUS AND CALLED DR BAUGH. ORDER FOR XANAX. HELPED HIM TREMINDOUSLY. ALSO PLACE A NEW IV IN RIGHT HAND. PT TOLERATED MODERATELY. LCRN
[2021-04-07] MEDS: MAGNESIUM OXIDE 400 MG TABLET PO SCH (08:31)
[2021-04-07] MEDS: CYANOCOBALAMIN (VITAMIN B-12) 1,000 MCG TABLET. PO SCH (08:31)
[2021-04-07] MEDS: SODIUM BICARBONATE 650 MG TABLET. PO SCH ×3 (08:31→17:11)
[2021-04-07] MEDS: FERROUS SULFATE 325 MG TABLET. PO SCH (08:31)
[2021-04-07] MEDS: ASPIRIN 325 MG TABLET PO SCH (08:31)
[2021-04-07] MEDS: ACYCLOVIR 200 MG CAPSULE. PO SCH ×2 (08:32→20:58)
[2021-04-07] MEDS: CETIRIZINE HCL 10 MG TABLET. PO SCH (08:32)
[2021-04-07] MEDS: PANTOPRAZOLE 40 MG TABLET.DR. PO SCH (08:32)
[2021-04-07] MEDS: methylPREDNISolone SOD SUCC PF 125 MG/2 ML VIAL. IV SCH ×2 (08:33→20:57)
[2021-04-07] MEDS: INSULIN LISPRO 300 UNITS/3 ML VIAL. SQ SCH ×2 (08:36→17:12)
[2021-04-07] MEDS: FLUTICASONE/VILANTEROL 200/25 INHALER. INH SCH (08:47)
[2021-04-07] MEDS: FLUTICASONE 50MCG/NASAL SPRAY 16GM BOTTLE. NS SCH (08:47)
--- NOTE | 2021-04-07 09:12 | PDOC ---
IM PROGRESS NOTES- Subjective Subjective Complaints of cough, congestion and dyspnea. He feels about the same. Objective Vitals/I&O Vital Signs Date Time Temp Pulse Resp B/P (MAP) Pulse Ox O2 Delivery O2 Flow Rate FiO2 04/07/21 08:31 99 142/88 04/07/21 08:05 94 BiPAP/CPAP 04/07/21 07:00 96.3 20 96.3 04/06/21 20:00 8.0 I & O 04/06/21 04/06/21 04/07/21 15:00 23:00 07:00 Intake Total 360 ml 120 ml 440 ml Output Total 400 ml 100 ml 500 ml Balance -40 ml 20 ml -60 ml Physical Exam Physical Exam General Appearance - alert and in mild to moderate respiratory distress. On FiO2 50% via BiPAP Chest - decreased breath sounds at bases, occasional coarse breath sounds Heart - S1 and S2 normal Abdomen - soft, non tender Neurological - alert and oriented Musculoskeletal - generalized weakness Extremities - no edema Labs Laboratory Tests Test 04/06/21 11:29 04/06/21 17:32 04/07/21 03:15 04/07/21 08:06 Glucose (Fingerstick) 139 mg/dL (70-99) H 168 mg/dL (70-99) H 152 mg/dL (70-99) H White Blood Count 14.2 x10^3/uL (4.0-11.0) H Red Blood Count 2.31 x10^6/uL (4.30-5.70) L Hemoglobin 7.6 g/dL (13.0-17.5) L Hematocrit 23.1 % (39.0-53.0) L Mean Corpuscular Volume 100 fL (79-100) Mean Corpuscular Hemoglobin 33 pg (25-35) Mean Corpuscular Hemoglobin Concent 33 g/dL (31-37) Red Cell Distribution Width 14.9 % (11.5-14.5) H Platelet Count 281 x10^3/uL (140-400) Neutrophils (%) (Auto) 96 % (31-73) H Lymphocytes (%) (Auto) 1 % (24-48) L Monocytes (%) (Auto) 2 % (0-9) Eosinophils (%) (Auto) 0 % (0-3) Basophils (%) (Auto) 0 % (0-3) Neutrophils # (Auto) 13.6 x10^3/uL (1.8-7.7) H Lymphocytes # (Auto) 0.2 x10^3/uL (1.0-4.8) L Monocytes # (Auto) 0.3 x10^3/uL (0.0-1.1) Eosinophils # (Auto) 0.0 x10^3/uL (0.0-0.7) Basophils # (Auto) 0.0 x10^3/uL (0.0-0.2) Sodium Level 138 mmol/L (136-145) Potassium Level 4.9 mmol/L (3.5-5.1) Chloride Level 101 mmol/L (98-107) Carbon Dioxide Level 30 mmol/L (21-32) Anion Gap 7 (6-14) Blood Urea Nitrogen 72 mg/dL (8-26) H Creatinine 1.7 mg/dL (0.7-1.3) H Estimated GFR (Cockcroft-Gault) 47.8 BUN/Creatinine Ratio 42 (6-20) H Glucose Level 151 mg/dL (70-99) H Calcium Level 8.7 mg/dL (8.5-10.1) Total Bilirubin 0.2 mg/dL (0.2-1.0) Aspartate Amino Transferase (AST) 22 U/L (15-37) Alanine Aminotransferase (ALT) 33 U/L (16-63) Alkaline Phosphatase 81 U/L (46-116) Total Protein 5.7 g/dL (6.4-8.2) L Albumin 2.6 g/dL (3.4-5.0) L Albumin/Globulin Ratio 0.8 (1.0-1.7) L Laboratory Tests 04/07/21 03:15 Laboratory Tests 04/07/21 03:15 Meds Current Medications Medications (Trade) Dose Ordered Sig/Juany Route PRN Reason Start Time Stop Time Status Last Admin Dose Admin Alprazolam (Xanax) 0.25 mg PRN Q8HRS PRN PO ANXIETY / AGITATION 04/06/21 22:45 04/06/21 23:29 Assessment Assessment 1. Acute on chronic hypoxic respiratory failure due to COVID-19 pneumonia. 2. COVID-19 pneumonia. 3. Multiple myeloma with polyneuropathy, organomegaly, endocrinopathy, monoclonal gammopathy, and skin changes syndrome. 4. Exacerbation of chronic obstructive pulmonary disease. 5. Panlobular emphysema. 6. Simple chronic bronchitis. 7. Chronic diastolic congestive heart failure. 8. Atherosclerotic heart disease. 9. Peripheral artery disease. 10. Gastroesophageal reflux disease without esophagitis. 11. Benign hypertension with chronic kidney disease stage 3. PLAN: 1. COVID-19 pneumonia. Start IV Solu-Medrol. We will consult Dr. Romero and Dr. Dustin Sy for pulmonary and infectious disease management respectively. We will continue him on appropriate protocol for COVID-19 infection. Patient has completed IV cefepime and remdesivir. Monitor off antibiotics. 2. Acute on chronic hypoxic respiratory failure. Continue oxygenation. FiO2 50% via BiPAP. 3. Exacerbation of chronic obstructive pulmonary disease, continue IV steroids. Add Spiriva d/w staff. 4. Continue acyclovir and Bactrim-DS for immunosuppression. The patient has received both COVID-19 vaccines previously as well as booster dose recently. 5. Monitor blood sugar as he is on steroids. I will start him on DVT prophylaxis. Continue pantoprazole. Severe malnutrition. Hyperkalemia- improving. Continue to monitor. Anemia Continue to monitor. Azotemia. Getting worse. BUN 72, creatinine 1.7. BUN may be increasing due to steroids. Consult Dr. Mason for nephrology evaluation and management Hypertension monitor blood pressure. As needed IV hydralazine. For details, please refer to the orders. Prognosis of this patient is very poor due to his multiple medical problems. Plan Plan For more details regarding further plans, please refer to the orders. Justifications for Admission Other Justification LIBERTY WOODSON MD Apr 07, 2021 09:12
--- NOTE | 2021-04-07 10:30 | PDOC ---
PULMONARY PROGRESS NOTES DATE: 04/07/21 TIME: 10:29 Subjective Feels better, Remains on BiPAP at 50% FiO2. Vitals Vital Signs Date Time Temp Pulse Resp B/P (MAP) Pulse Ox O2 Delivery O2 Flow Rate FiO2 04/07/21 09:56 95 BiPAP/CPAP 04/07/21 08:31 99 142/88 04/07/21 08:00 8.0 04/07/21 07:00 96.3 20 96.3 ROS: No Nausea, No Chest Pain, No Abdominal Pain, No Increase Cough General: Alert, No acute distress Lungs: Clear Cardiovascular: S1, S2 Abdomen: Soft Neuro Exam: Alert Extremities: No Edema Labs Laboratory Tests Test 04/05/21 11:56 04/05/21 17:40 04/05/21 19:25 04/05/21 20:40 Glucose (Fingerstick) 117 mg/dL (70-99) 145 mg/dL (70-99) 156 mg/dL (70-99) Tacrolimus (Prograf) Level See separate report Test 04/06/21 03:15 04/06/21 07:17 04/06/21 11:29 04/06/21 17:32 White Blood Count 10.8 x10^3/uL (4.0-11.0) Red Blood Count 2.51 x10^6/uL (4.30-5.70) Hemoglobin 8.3 g/dL (13.0-17.5) Hematocrit 25.3 % (39.0-53.0) Mean Corpuscular Volume 101 fL (79-100) Mean Corpuscular Hemoglobin 33 pg (25-35) Mean Corpuscular Hemoglobin Concent 33 g/dL (31-37) Red Cell Distribution Width 15.1 % (11.5-14.5) Platelet Count 270 x10^3/uL (140-400) Neutrophils (%) (Auto) 96 % (31-73) Lymphocytes (%) (Auto) 1 % (24-48) Monocytes (%) (Auto) 3 % (0-9) Eosinophils (%) (Auto) 0 % (0-3) Basophils (%) (Auto) 0 % (0-3) Neutrophils # (Auto) 10.4 x10^3/uL (1.8-7.7) Lymphocytes # (Auto) 0.1 x10^3/uL (1.0-4.8) Monocytes # (Auto) 0.3 x10^3/uL (0.0-1.1) Eosinophils # (Auto) 0.0 x10^3/uL (0.0-0.7) Basophils # (Auto) 0.0 x10^3/uL (0.0-0.2) Sodium Level 139 mmol/L (136-145) Potassium Level 4.7 mmol/L (3.5-5.1) Chloride Level 102 mmol/L (98-107) Carbon Dioxide Level 32 mmol/L (21-32) Anion Gap 5 (6-14) Blood Urea Nitrogen 65 mg/dL (8-26) Creatinine 1.5 mg/dL (0.7-1.3) Estimated GFR (Cockcroft-Gault) 55.2 BUN/Creatinine Ratio 43 (6-20) Glucose Level 164 mg/dL (70-99) Calcium Level 9.0 mg/dL (8.5-10.1) Total Bilirubin 0.2 mg/dL (0.2-1.0) Aspartate Amino Transf (AST/SGOT) 19 U/L (15-37) Alanine Aminotransferase (ALT/SGPT) 33 U/L (16-63) Alkaline Phosphatase 87 U/L (46-116) Total Protein 6.1 g/dL (6.4-8.2) Albumin 2.6 g/dL (3.4-5.0) Albumin/Globulin Ratio 0.7 (1.0-1.7) Glucose (Fingerstick) 150 mg/dL (70-99) 139 mg/dL (70-99) 168 mg/dL (70-99) Test 04/07/21 03:15 04/07/21 08:06 White Blood Count 14.2 x10^3/uL (4.0-11.0) Red Blood Count 2.31 x10^6/uL (4.30-5.70) Hemoglobin 7.6 g/dL (13.0-17.5) Hematocrit 23.1 % (39.0-53.0) Mean Corpuscular Volume 100 fL (79-100) Mean Corpuscular Hemoglobin 33 pg (25-35) Mean Corpuscular Hemoglobin Concent 33 g/dL (31-37) Red Cell Distribution Width 14.9 % (11.5-14.5) Platelet Count 281 x10^3/uL (140-400) Neutrophils (%) (Auto) 96 % (31-73) Lymphocytes (%) (Auto) 1 % (24-48) Monocytes (%) (Auto) 2 % (0-9) Eosinophils (%) (Auto) 0 % (0-3) Basophils (%) (Auto) 0 % (0-3) Neutrophils # (Auto) 13.6 x10^3/uL (1.8-7.7) Lymphocytes # (Auto) 0.2 x10^3/uL (1.0-4.8) Monocytes # (Auto) 0.3 x10^3/uL (0.0-1.1) Eosinophils # (Auto) 0.0 x10^3/uL (0.0-0.7) Basophils # (Auto) 0.0 x10^3/uL (0.0-0.2) Sodium Level 138 mmol/L (136-145) Potassium Level 4.9 mmol/L (3.5-5.1) Chloride Level 101 mmol/L (98-107) Carbon Dioxide Level 30 mmol/L (21-32) Anion Gap 7 (6-14) Blood Urea Nitrogen 72 mg/dL (8-26) Creatinine 1.7 mg/dL (0.7-1.3) Estimated GFR (Cockcroft-Gault) 47.8 BUN/Creatinine Ratio 42 (6-20) Glucose Level 151 mg/dL (70-99) Calcium Level 8.7 mg/dL (8.5-10.1) Total Bilirubin 0.2 mg/dL (0.2-1.0) Aspartate Amino Transf (AST/SGOT) 22 U/L (15-37) Alanine Aminotransferase (ALT/SGPT) 33 U/L (16-63) Alkaline Phosphatase 81 U/L (46-116) Total Protein 5.7 g/dL (6.4-8.2) Albumin 2.6 g/dL (3.4-5.0) Albumin/Globulin Ratio 0.8 (1.0-1.7) Glucose (Fingerstick) 152 mg/dL (70-99) Laboratory Tests Test 04/06/21 11:29 04/06/21 17:32 04/07/21 03:15 04/07/21 08:06 Glucose (Fingerstick) 139 mg/dL (70-99) 168 mg/dL (70-99) 152 mg/dL (70-99) White Blood Count 14.2 x10^3/uL (4.0-11.0) Red Blood Count 2.31 x10^6/uL (4.30-5.70) Hemoglobin 7.6 g/dL (13.0-17.5) Hematocrit 23.1 % (39.0-53.0) Mean Corpuscular Volume 100 fL (79-100) Mean Corpuscular Hemoglobin 33 pg (25-35) Mean Corpuscular Hemoglobin Concent 33 g/dL (31-37) Red Cell Distribution Width 14.9 % (11.5-14.5) Platelet Count 281 x10^3/uL (140-400) Neutrophils (%) (Auto) 96 % (31-73) Lymphocytes (%) (Auto) 1 % (24-48) Monocytes (%) (Auto) 2 % (0-9) Eosinophils (%) (Auto) 0 % (0-3) Basophils (%) (Auto) 0 % (0-3) Neutrophils # (Auto) 13.6 x10^3/uL (1.8-7.7) Lymphocytes # (Auto) 0.2 x10^3/uL (1.0-4.8) Monocytes # (Auto) 0.3 x10^3/uL (0.0-1.1) Eosinophils # (Auto) 0.0 x10^3/uL (0.0-0.7) Basophils # (Auto) 0.0 x10^3/uL (0.0-0.2) Sodium Level 138 mmol/L (136-145) Potassium Level 4.9 mmol/L (3.5-5.1) Chloride Level 101 mmol/L (98-107) Carbon Dioxide Level 30 mmol/L (21-32) Anion Gap 7 (6-14) Blood Urea Nitrogen 72 mg/dL (8-26) Creatinine 1.7 mg/dL (0.7-1.3) Estimated GFR (Cockcroft-Gault) 47.8 BUN/Creatinine Ratio 42 (6-20) Glucose Level 151 mg/dL (70-99) Calcium Level 8.7 mg/dL (8.5-10.1) Total Bilirubin 0.2 mg/dL (0.2-1.0) Aspartate Amino Transf (AST/SGOT) 22 U/L (15-37) Alanine Aminotransferase (ALT/SGPT) 33 U/L (16-63) Alkaline Phosphatase 81 U/L (46-116) Total Protein 5.7 g/dL (6.4-8.2) Albumin 2.6 g/dL (3.4-5.0) Albumin/Globulin Ratio 0.8 (1.0-1.7) Medications Active Scripts Medications Dose Route/Sig Max Daily Dose Days Date Category Dose Instructions Sodium Bicarbonate 650 Mg Tablet 1 Tab PO TIDWMEALS 04/01/21 Reported Prednisone 20 Mg Tablet 1 Tab PO DAILY 04/01/21 Reported Acyclovir 400 Mg Tablet 2 Tab PO BID 04/01/21 Reported Azithromycin Tablet (Azithromycin) 250 Mg Tablet 250 Mg PO DAILY 04/01/21 Reported Bactrim 400-80 Mg Tablet (Sulfamethoxazole/Trimethoprim) 1 Each Tablet 2 Tab PO QMTH 04/01/21 Reported Gabapentin (Gabapentin) 300 Mg Capsule 300 Mg PO TID 04/01/21 Reported Lasix (Furosemide) 40 Mg Tablet 1 Tab PO DAILY 30 04/01/21 Reported Mucinex (Guaifenesin) 1,200 Mg Tbmp.12hr 1 Tab PO BID 15 07/13/20 Reported Diltiazem 24HR Cd (Diltiazem Hcl) 120 Mg Cap.er.24h 1 Cap PO DAILY 30 07/13/20 Reported Dexamethasone 4 Mg Tablet 4 Tab PO DAILY 07/13/20 Reported Prednisone (Prednisone) 10 Mg Tablet 10 Mg PO UD 10/28/19 Rx Take 4 tablets by mouth daily for 3 days, then take 3 tablets by mouth daily for 3 days, then take 2 tablets by mouth daily for 3 days, then take 1 tablets by mouth daily for 3 days, then stop [Folic Acid] 1 Mg PO DAILY 10/22/19 Reported Spiriva (Tiotropium [place]) 18 Mcg Cap.w.dev 1 Cap IH DAILY 10/22/19 Reported Montelukast Sodium Tablet (Montelukast Sodium) 10 Mg Tablet 10 Mg PO HS 10/22/19 Reported Proair Hfa (Albuterol Sulfate) 8.5 Gm Hfa.aer.ad 2 Puff IH PRN Q4 PRN 21 10/22/19 Reported Protonix (Pantoprazole Sodium) 20 Mg Tablet.dr 2 Tab PO DAILY 10/22/19 Reported Mometasone Furoate 45 Gm Cream..g. 1 [place] TP DAILY 10/22/19 Reported Mag-Oxide (Magnesium Oxide) 200 Mg Tablet 2 Tab PO DAILY 30 10/22/19 Reported Fluticasone Propionate Nasal [place] (Fluticasone Propionate) 16 Gm [place].susp 2 [place] NS DAILY 10/22/19 Reported Ferrous Sulfate 325 Mg Tablet 1 Tab PO DAILY 10/22/19 Reported B-12 (Cyanocobalamin (Vitamin B-12)) 5,000 Mcg Tab.rapdis 1 Tab PO DAILY 30 10/22/19 Reported Loratadine 10 Mg Tab.rapdis 1 Tab PO DAILY 30 10/22/19 Reported Breo Ellipta 200-25 Mcg INH (Fluticasone/Vilanterol) 1 Each Blst.w.dev 1 Puff IH DAILY 06/26/19 Reported Aspirin 325 Mg Tablet 1 Tab PO DAILY 06/26/19 Reported Albuterol Sulfate Conc Neb Soln (Albuterol Sulfate) 2.5 Mg/0.5 Ml Vial.neb 1 Vial NEB PRN PRN 09/05/16 Reported Impression . IMPRESSION: 1. Acute on chronic respiratory failure, multifactorial. 2. COVID-19 viral pneumonia. 3. Possible bacterial pneumonia. 4. Status post vaccination with a booster approximately a week ago. 5. Multiple myeloma with polyneuropathy, organomegaly, endocrinopathy and monoclonal gammopathy. 6. Chronic kidney disease. 7. Chronic diastolic heart failure. 8. Chronic obstructive pulmonary disease. 9. Castleman syndrome Plan . Updated 04/07 Continue oxygen supplementation at 50% FiO2 via BiPAP. Solu-Medrol Remdesivir Status post tocilizumab Continue present supportive care. Clinically unchanged. PLAN: 1. titrate fio2 to keep sat 90% bipap prn setting reviewed, steroids. solumedrol 60 bid no dose change 2. remdesivir. 3. tocilizumab. 4. abx per id 5. lovenox for dvt prophylaxis discussed w rt MALENA FITCH MD Apr 07, 2021 10:30
[2021-04-07 10:59] VITALS: BP 156/84
--- NOTE | 2021-04-07 14:43 | PDOC ---
DATE OF SERVICE DATE: 04/07/21 TIME: 14:38 SUBJECTIVE ROS Stable Remains on BiPAP OBJECTIVE Vital Signs Vital Signs Date Time Temp Pulse Resp B/P (MAP) Pulse Ox O2 Delivery O2 Flow Rate FiO2 04/07/21 11:38 92 BiPAP/CPAP 04/07/21 10:59 97.3 103 20 156/84 (108) 97.3 04/07/21 08:00 8.0 I & 0 Intake and Output 04/07/21 07:00 Intake Total 920 ml Output Total 1000 ml Balance -80 ml Intake Oral 920 ml Output Urine Total 1000 ml PHYSICAL EXAM Physical Exam GENERAL: Alert, oriented x 3 NAD HEENT: Normocephalic, atraumatic. Anicteric sclerae.Has BIPAP NECK: Supple. LUNGS: Coarse breath sounds, HEART: S1, S2, regular. ABDOMEN: Soft, nontender, nondistended. EXTREMITIES: No edema, no cyanosis. DERMATOLOGIC: Warm, dry. No generalized rash. NEUROLOGIC: Alert, oriented x 3, PSYCHIATRIC: cooperative. No [place], No CVA or SP tenderness DIAGNOSIS/ASSESSMENT Assessment & Plan CKD stage 3A- Follows with us as OP ; Baseline Cr 1.4-1.8 . Seen in our office on 02/19/21- Cr 1.4. E-Lytes stable . Supportive are, maintain fluid balance, avoid nephrotoxins Acute on chronic respiratory failure-On o2 via BiPAP COVID-19 viral pneumonia - Status post vaccination with a booster approximately a week ago.On o2 via BiPAP, Solu-Medrol, Remdesivir. Status post tocilizumab ; Multiple myeloma with polyneuropathy, organomegaly, endocrinopathy and monoclonal gammopathy. (POEM's) Follows with Dr. Gustafson, recently completed Chemo therapy Chronic diastolic heart failure. Chronic obstructive pulmonary disease. Castleman syndrome COMMENT/RELEVANT DATA Meds Current Medications Medications (Trade) Dose Ordered Sig/Juany Start Time Stop Time Status Last Admin Dose Admin Acyclovir (Zovirax) 400 mg BID 04/01/21 21:00 04/07/21 08:32 400 MG Albuterol Sulfate (Ventolin Neb Soln) 2.5 mg 1X ONCE 04/01/21 12:15 04/01/21 12:16 DC 04/01/21 12:15 2.5 MG Albuterol/ Ipratropium (Duoneb) 3 ml RTQID 04/01/21 20:00 04/02/21 10:07 DC Alprazolam (Xanax) 0.25 mg PRN Q8HRS PRN 04/06/21 22:45 04/06/21 23:29 0.25 MG Aspirin (Kevin Aspirin) 325 mg DAILY 04/02/21 09:00 04/07/21 08:31 325 MG Budesonide (Pulmicort) 0.5 mg RTBID 04/01/21 20:00 04/02/21 10:07 DC Cefepime HCl (Maxipime) 2 gm Q8HRS 04/04/21 14:30 04/05/21 09:18 DC 04/05/21 06:13 2 GM Cetirizine HCl (ZyrTEC) 10 mg DAILY 04/02/21 09:00 04/07/21 08:32 10 MG Cyanocobalamin (Vitamin B-12) 500 mcg DAILY 04/02/21 09:00 04/07/21 08:31 500 MCG Diltiazem HCl (Cardizem 24hr Cd) 120 mg DAILY 04/02/21 09:00 04/07/21 08:31 120 MG Enoxaparin Sodium (Lovenox 40mg Syringe) 40 mg Q24H 04/01/21 19:00 04/06/21 17:29 40 MG Ferrous Sulfate (Feosol) 325 mg DAILY 04/02/21 09:00 04/07/21 08:31 325 MG Fluticasone Propionate (Flonase) 2 spray DAILY 04/02/21 09:00 04/07/21 08:47 2 SPRAY Fluticasone/ Vilanterol (Breo Ellipta 200-25 Mcg) 1 puff DAILY 04/02/21 11:00 04/07/21 08:47 1 PUFF Hydralazine HCl (Apresoline Inj) 10 mg PRN Q4HRS PRN 04/04/21 09:30 Insulin Human Lispro (HumaLOG) 0-8 UNITS BIDBFRMEAL 04/02/21 07:30 04/07/21 08:36 2 UNITS Levofloxacin/ Dextrose 150 ml @ 100 mls/hr 1X ONCE 04/01/21 12:15 04/01/21 13:44 DC 04/01/21 12:44 100 MLS/HR Magnesium Oxide (Magnesium Oxide) 400 mg DAILY 04/02/21 09:00 04/07/21 08:31 400 MG Methylprednisolone Sodium Succinate (SOLU-Medrol 125MG VIAL) 60 mg Q12HR 04/01/21 21:00 04/07/21 08:33 60 MG Montelukast Sodium (Singulair) 10 mg HS 04/01/21 21:00 04/06/21 21:25 10 MG Non-Formulary Medication (Fluticasone/ Vilanterol (Breo Ellipta 200-25 Mcg INH)) 1 puff DAILY 04/02/21 09:00 UNV Non-Formulary Medication (Guaifenesin (Mucinex)) 1 tab BID 04/01/21 21:00 UNV Non-Formulary Medication (Tiotropium [place] (Spiriva)) 1 cap DAILY 04/02/21 09:00 UNV Pantoprazole Sodium (Protonix) 40 mg DAILYAC 04/02/21 07:30 04/07/21 08:32 40 MG Remdesivir 100 mg/ Sodium Chloride 230 ml @ 460 mls/hr Q24H 04/03/21 12:00 04/06/21 12:29 DC 04/06/21 11:24 460 MLS/HR Remdesivir 200 mg/ Sodium Chloride 210 ml @ 210 mls/hr 1X ONCE 04/02/21 12:00 04/02/21 12:59 DC 04/02/21 11:41 210 MLS/HR Sodium Bicarbonate (Sodium Bicarbonate) 650 mg TIDWMEALS 04/02/21 08:00 04/07/21 08:31 650 MG Sodium Chloride 1,000 ml @ 1,000 mls/hr Q1H 04/01/21 12:15 04/01/21 13:14 DC 04/01/21 13:40 1,000 MLS/HR Tocilizumab 400 mg/Sodium Chloride 100 ml @ 100 mls/hr 1X ONCE 04/02/21 16:00 04/02/21 16:59 DC 04/02/21 17:00 100 MLS/HR Trimethoprim/ Sulfamethoxazole (Bactrim Ds) 1 tab QMTH 04/01/21 16:00 04/05/21 17:36 1 TAB Lab Laboratory Tests Test 04/06/21 17:32 04/07/21 03:15 04/07/21 08:06 04/07/21 11:54 Glucose (Fingerstick) 168 mg/dL (70-99) 152 mg/dL (70-99) 173 mg/dL (70-99) White Blood Count 14.2 x10^3/uL (4.0-11.0) Red Blood Count 2.31 x10^6/uL (4.30-5.70) Hemoglobin 7.6 g/dL (13.0-17.5) Hematocrit 23.1 % (39.0-53.0) Mean Corpuscular Volume 100 fL (79-100) Mean Corpuscular Hemoglobin 33 pg (25-35) Mean Corpuscular Hemoglobin Concent 33 g/dL (31-37) Red Cell Distribution Width 14.9 % (11.5-14.5) Platelet Count 281 x10^3/uL (140-400) Neutrophils (%) (Auto) 96 % (31-73) Lymphocytes (%) (Auto) 1 % (24-48) Monocytes (%) (Auto) 2 % (0-9) Eosinophils (%) (Auto) 0 % (0-3) Basophils (%) (Auto) 0 % (0-3) Neutrophils # (Auto) 13.6 x10^3/uL (1.8-7.7) Lymphocytes # (Auto) 0.2 x10^3/uL (1.0-4.8) Monocytes # (Auto) 0.3 x10^3/uL (0.0-1.1) Eosinophils # (Auto) 0.0 x10^3/uL (0.0-0.7) Basophils # (Auto) 0.0 x10^3/uL (0.0-0.2) Sodium Level 138 mmol/L (136-145) Potassium Level 4.9 mmol/L (3.5-5.1) Chloride Level 101 mmol/L (98-107) Carbon Dioxide Level 30 mmol/L (21-32) Anion Gap 7 (6-14) Blood Urea Nitrogen 72 mg/dL (8-26) Creatinine 1.7 mg/dL (0.7-1.3) Estimated GFR (Cockcroft-Gault) 47.8 BUN/Creatinine Ratio 42 (6-20) Glucose Level 151 mg/dL (70-99) Calcium Level 8.7 mg/dL (8.5-10.1) Total Bilirubin 0.2 mg/dL (0.2-1.0) Aspartate Amino Transf (AST/SGOT) 22 U/L (15-37) Alanine Aminotransferase (ALT/SGPT) 33 U/L (16-63) Alkaline Phosphatase 81 U/L (46-116) Total Protein 5.7 g/dL (6.4-8.2) Albumin 2.6 g/dL (3.4-5.0) Albumin/Globulin Ratio 0.8 (1.0-1.7) Results All relevant outside records, renal labs, imaging studies, telemetry/EKG's were reviewed. Justicifation of Admission Dx: Justifications for Admission: Justification of Admission Dx: N/A TEO LAW MD Apr 07, 2021 14:43
[2021-04-07 15:00] VITALS: BP 142/78
--- NOTE | 2021-04-07 17:44 | NUR ---
NURSING PT ALERT, ORIENTED, ABLE TO MAKE NEEDS KNOWN. WEARS BIPAP AT ALL TIMES EXCEPT MEALS. O2 @ 8L/NC DURING MEALS. APPETITE POOR, EATS MAINLY APPLESAUCE. CONTINUE TREATING ELEVATED BLOOD GLUCOSE WITH SSI. NO EPISODES OF ANXIETY NOTED TODAY. FAMILY CALLED TO CHECK ON HIM, CALLED INTO ROOM AND SPOKE WITH HIM WELL.
[2021-04-07] MEDS: ENOXAPARIN 40 MG/0.4 ML SYRINGE. SQ SCH (18:06)
[2021-04-07 19:50] VITALS: BP 138/84
[2021-04-07] MEDS: MONTELUKAST SODIUM 10 MG TABLET. PO SCH (20:58)
[2021-04-07] MEDS: ALPRAZolam 0.25 MG TABLET PO PRN (20:58)
[2021-04-07 23:47] VITALS: BP 145/79
[2021-04-08 02:30] VITALS: BP 145/80
[2021-04-08] MEDS: PANTOPRAZOLE 40 MG TABLET.DR. PO SCH ×2 (06:01→09:47)
[2021-04-08 06:29] VITALS: BP 135/74
[2021-04-08] MEDS: INSULIN LISPRO 300 UNITS/3 ML VIAL. SQ SCH ×2 (07:30→16:30)
[2021-04-08] MEDS: methylPREDNISolone SOD SUCC PF 125 MG/2 ML VIAL. IV SCH ×3 (09:00→22:02)
--- NOTE | 2021-04-08 09:25 | PDOC ---
DATE OF SERVICE DATE: 04/08/21 TIME: 09:25 SUBJECTIVE ROS Feeling the same Remains on BiPAP OBJECTIVE Vital Signs Vital Signs Date Time Temp Pulse Resp B/P (MAP) Pulse Ox O2 Delivery O2 Flow Rate FiO2 04/08/21 09:11 90 BiPAP/CPAP 04/08/21 06:29 96.1 91 22 135/74 (94) 96.1 04/07/21 15:00 11.0 I & 0 Intake and Output 04/08/21 07:00 Intake Total 910 ml Output Total 1275 ml Balance -365 ml Intake Oral 910 ml Output Urine Total 1275 ml PHYSICAL EXAM Physical Exam GENERAL: Alert, oriented x 3 NAD HEENT: Normocephalic, atraumatic. Anicteric sclerae. BIPAP NECK: Supple. LUNGS: Coarse breath sounds, HEART: S1, S2, regular. ABDOMEN: Soft, nontender, nondistended. EXTREMITIES: No edema, no cyanosis. DERMATOLOGIC: Warm, dry. No generalized rash. NEUROLOGIC: Alert, oriented x 3, PSYCHIATRIC: cooperative. No [place], No CVA or SP tenderness DIAGNOSIS/ASSESSMENT Assessment & Plan CKD stage 3A- Follows with us as OP ; Baseline Cr 1.4-1.8 . Seen in our office on 02/19/21- Cr 1.4.Labs pending today. . Supportive are, maintain fluid balance, avoid nephrotoxins Acute on chronic respiratory failure-On o2 via BiPAP COVID-19 viral pneumonia - Status post vaccination with a booster approximately a week ago.On o2 via BiPAP, Solu-Medrol, Remdesivir. Status post tocilizumab ; Multiple myeloma with polyneuropathy, organomegaly, endocrinopathy and monoclo nal gammopathy. (POEM's) Follows with Dr. Gustafson, recently completed Chemo therapy Chronic diastolic heart failure. Chronic obstructive pulmonary disease. Castleman syndrome COMMENT/RELEVANT DATA Meds Current Medications Medications (Trade) Dose Ordered Sig/Juany Start Time Stop Time Status Last Admin Dose Admin Acyclovir (Zovirax) 400 mg BID 04/01/21 21:00 04/07/21 20:58 400 MG Albuterol Sulfate (Ventolin Neb Soln) 2.5 mg 1X ONCE 04/01/21 12:15 04/01/21 12:16 DC 04/01/21 12:15 2.5 MG Albuterol/ Ipratropium (Duoneb) 3 ml RTQID 04/01/21 20:00 04/02/21 10:07 DC Alprazolam (Xanax) 0.25 mg PRN Q8HRS PRN 04/06/21 22:45 04/07/21 20:58 0.25 MG Aspirin (Kevin Aspirin) 325 mg DAILY 04/02/21 09:00 04/07/21 08:31 325 MG Budesonide (Pulmicort) 0.5 mg RTBID 04/01/21 20:00 04/02/21 10:07 DC Cefepime HCl (Maxipime) 2 gm Q8HRS 04/04/21 14:30 04/05/21 09:18 DC 04/05/21 06:13 2 GM Cetirizine HCl (ZyrTEC) 10 mg DAILY 04/02/21 09:00 04/07/21 08:32 10 MG Cyanocobalamin (Vitamin B-12) 500 mcg DAILY 04/02/21 09:00 04/07/21 08:31 500 MCG Diltiazem HCl (Cardizem 24hr Cd) 120 mg DAILY 04/02/21 09:00 04/07/21 08:31 120 MG Enoxaparin Sodium (Lovenox 40mg Syringe) 40 mg Q24H 04/01/21 19:00 04/07/21 18:06 40 MG Ferrous Sulfate (Feosol) 325 mg DAILY 04/02/21 09:00 04/07/21 08:31 325 MG Fluticasone Propionate (Flonase) 2 spray DAILY 04/02/21 09:00 04/07/21 08:47 2 SPRAY Fluticasone/ Vilanterol (Breo Ellipta 200-25 Mcg) 1 puff DAILY 04/02/21 11:00 04/07/21 08:47 1 PUFF Hydralazine HCl (Apresoline Inj) 10 mg PRN Q4HRS PRN 04/04/21 09:30 Insulin Human Lispro (HumaLOG) 0-8 UNITS BIDBFRMEAL 04/02/21 07:30 04/07/21 17:12 2 UNITS Levofloxacin/ Dextrose 150 ml @ 100 mls/hr 1X ONCE 04/01/21 12:15 04/01/21 13:44 DC 04/01/21 12:44 100 MLS/HR Magnesium Oxide (Magnesium Oxide) 400 mg DAILY 04/02/21 09:00 04/07/21 08:31 400 MG Methylprednisolone Sodium Succinate (SOLU-Medrol 125MG VIAL) 60 mg Q12HR 04/01/21 21:00 04/07/21 20:57 60 MG Montelukast Sodium (Singulair) 10 mg HS 04/01/21 21:00 04/07/21 20:58 10 MG Non-Formulary Medication (Fluticasone/ Vilanterol (Breo Ellipta 200-25 Mcg INH)) 1 puff DAILY 04/02/21 09:00 UNV Non-Formulary Medication (Guaifenesin (Mucinex)) 1 tab BID 04/01/21 21:00 UNV Non-Formulary Medication (Tiotropium [place] (Spiriva)) 1 cap DAILY 04/02/21 09:00 UNV Pantoprazole Sodium (Protonix) 40 mg DAILYAC 04/02/21 07:30 04/08/21 06:01 40 MG Remdesivir 100 mg/ Sodium Chloride 230 ml @ 460 mls/hr Q24H 04/03/21 12:00 04/06/21 12:29 DC 04/06/21 11:24 460 MLS/HR Remdesivir 200 mg/ Sodium Chloride 210 ml @ 210 mls/hr 1X ONCE 04/02/21 12:00 04/02/21 12:59 DC 04/02/21 11:41 210 MLS/HR Sodium Bicarbonate (Sodium Bicarbonate) 650 mg TIDWMEALS 04/02/21 08:00 04/07/21 17:11 650 MG Sodium Chloride 1,000 ml @ 1,000 mls/hr Q1H 04/01/21 12:15 04/01/21 13:14 DC 04/01/21 13:40 1,000 MLS/HR Tocilizumab 400 mg/Sodium Chloride 100 ml @ 100 mls/hr 1X ONCE 04/02/21 16:00 04/02/21 16:59 DC 04/02/21 17:00 100 MLS/HR Trimethoprim/ Sulfamethoxazole (Bactrim Ds) 1 tab QMTH 04/01/21 16:00 04/05/21 17:36 1 TAB Lab Laboratory Tests Test 04/07/21 11:54 04/07/21 16:31 04/07/21 21:02 Glucose (Fingerstick) 173 mg/dL (70-99) 161 mg/dL (70-99) 150 mg/dL (70-99) Results All relevant outside records, renal labs, imaging studies, telemetry/EKG's were reviewed. Justicifation of Admission Dx: Justifications for Admission: Justification of Admission Dx: N/A TEO LAW MD Apr 08, 2021 09:25
[2021-04-08] MEDS: ASPIRIN 325 MG TABLET PO SCH (09:46)
[2021-04-08] MEDS: CETIRIZINE HCL 10 MG TABLET. PO SCH (09:47)
[2021-04-08] MEDS: SODIUM BICARBONATE 650 MG TABLET. PO SCH ×3 (09:47→17:00)
[2021-04-08] MEDS: ACYCLOVIR 200 MG CAPSULE. PO SCH ×2 (09:47→22:01)
[2021-04-08] MEDS: SMZ/TMP 800/160MG TABLET. PO SCH (09:47)
[2021-04-08] MEDS: FLUTICASONE/VILANTEROL 200/25 INHALER. INH SCH (09:47)
[2021-04-08] MEDS: CYANOCOBALAMIN (VITAMIN B-12) 1,000 MCG TABLET. PO SCH (09:48)
[2021-04-08] MEDS: FLUTICASONE 50MCG/NASAL SPRAY 16GM BOTTLE. NS SCH (09:48)
[2021-04-08] MEDS: MAGNESIUM OXIDE 400 MG TABLET PO SCH (09:48)
[2021-04-08] MEDS: FERROUS SULFATE 325 MG TABLET. PO SCH (09:50)
--- NOTE | 2021-04-08 10:14 | PDOC ---
IM PROGRESS NOTES- Subjective Subjective Complaints of cough, congestion and dyspnea. He feels about the same. Objective Vitals/I&O Vital Signs Date Time Temp Pulse Resp B/P (MAP) Pulse Ox O2 Delivery O2 Flow Rate FiO2 04/08/21 09:46 80 04/08/21 09:11 90 BiPAP/CPAP 04/08/21 06:29 96.1 22 135/74 (94) 96.1 04/07/21 15:00 11.0 I & O 04/07/21 04/07/21 04/08/21 15:00 23:00 07:00 Intake Total 350 ml 360 ml 200 ml Output Total 800 ml 475 ml Balance 350 ml -440 ml -275 ml Physical Exam Physical Exam General Appearance - alert and in moderate distress Chest - decreased breath sounds at bases, occasional wheezes Heart - S1 and S2 normal Abdomen - soft, non tender Neurological - alert and oriented Musculoskeletal - generalized weakness Extremities - no edema Labs Laboratory Tests Test 04/07/21 11:54 04/07/21 16:31 04/07/21 21:02 Glucose (Fingerstick) 173 mg/dL (70-99) H 161 mg/dL (70-99) H 150 mg/dL (70-99) H Assessment Assessment 1. Acute on chronic hypoxic respiratory failure due to COVID-19 pneumonia. 2. COVID-19 pneumonia. 3. Multiple myeloma with polyneuropathy, organomegaly, endocrinopathy, monoclonal gammopathy, and skin changes syndrome. 4. Exacerbation of chronic obstructive pulmonary disease. 5. Panlobular emphysema. 6. Simple chronic bronchitis. 7. Chronic diastolic congestive heart failure. 8. Atherosclerotic heart disease. 9. Peripheral artery disease. 10. Gastroesophageal reflux disease without esophagitis. 11. Benign hypertension with chronic kidney disease stage 3. PLAN: 1. COVID-19 pneumonia. Start IV Solu-Medrol. We will consult Dr. Romero and Dr. Dustin Sy for pulmonary and infectious disease management respectively. We will continue him on appropriate protocol for COVID-19 infection. Patient has completed IV cefepime and remdesivir. Monitor off antibiotics. Repeat chest x-ray on April 06 does not show any change in the opacities. 2. Acute on chronic hypoxic respiratory failure. Continue oxygenation. FiO2 50% via BiPAP. 3. Exacerbation of chronic obstructive pulmonary disease, continue IV steroids. Add Spiriva d/w staff. 4. Continue acyclovir and Bactrim-DS for immunosuppression. The patient has received both COVID-19 vaccines previously as well as booster dose recently. 5. Hyperglycemia secondary to steroids .monitor blood sugar as he is on steroids. I will start him on DVT prophylaxis. Continue pantoprazole. Severe malnutrition. Hyperkalemia- improving. Continue to monitor. Anemia Continue to monitor. Leukocytosis possibly due to steroids. Azotemia. Getting worse. BUN 72, creatinine 1.7. BUN may be increasing due to steroids. Consult Dr. Mason for nephrology evaluation and management Hypertension monitor blood pressure. As needed IV hydralazine. For details, please refer to the orders. Prognosis of this patient is very poor due to his multiple medical problems. Plan Plan For more details regarding further plans, please refer to the orders. Justifications for Admission Other Justification LIBERTY WOODSON MD Apr 08, 2021 10:14
[2021-04-08 11:30] VITALS: BP 141/81
--- NOTE | 2021-04-08 11:54 | PDOC ---
Infectious Disease Note Subjective: Subjective Pt remains on bipap Feels the same as yesterday Vital Signs: Vital Signs Vital Signs Date Time Temp Pulse Resp B/P (MAP) Pulse Ox O2 Delivery O2 Flow Rate FiO2 04/08/21 09:46 80 04/08/21 09:11 90 BiPAP/CPAP 04/08/21 06:29 96.1 22 135/74 (94) 96.1 04/07/21 15:00 11.0 Physical Exam: PHYSICAL EXAM GENERAL: Alert, oriented x 3, chronically ill-appearing male HEENT: Normocephalic, atraumatic. Anicteric sclerae. NECK: Supple. LUNGS: Coarse breath sounds, mild wheezing. HEART: S1, S2, regular. ABDOMEN: Soft, nontender, nondistended. EXTREMITIES: No edema, no cyanosis. DERMATOLOGIC: Warm, dry. No generalized rash. NEUROLOGIC: Alert, oriented x 3, generalized weakness. PSYCHIATRIC: mildly anxioius and cooperative. Medications: Inpatient Meds: Medications reviewed. Labs: Lab Laboratory Tests Test 04/07/21 11:54 04/07/21 16:31 04/07/21 21:02 Glucose (Fingerstick) 173 mg/dL (70-99) 161 mg/dL (70-99) 150 mg/dL (70-99) Objective: Assessment: 1. Acute on chronic hypoxic respiratory failure. 2. Bilateral infiltrates with COVID 19 infection 3. Status post COVID vaccination 3rd in series booster dose a week ago prior to admission. 4. Chronic bronchitis. 5. Multiple myeloma with polyneuropathy organomegaly, endocrinopathy and monoclonal gammopathy. 6. Chronic kidney disease. 7. Chronic diastolic heart failure. 8. Peripheral arterial disease. 9. Gastroesophageal reflux disease. 10. Anemia. Leucocytosis from steroids Plan: Plan of Care Continue supportive care Continue steroids s/p Remdesivir Monitor off antibiotics Monitor labs and cultures Continue supportive care D/W PAUL HELLER MD Apr 08, 2021 11:54
--- NOTE | 2021-04-08 14:01 | PDOC ---
PULMONARY PROGRESS NOTES DATE: 04/08/21 TIME: 14:00 Subjective Feels better, Remains on BiPAP at 50% FiO2. Vitals Vital Signs Date Time Temp Pulse Resp B/P (MAP) Pulse Ox O2 Delivery O2 Flow Rate FiO2 04/08/21 12:35 90 BiPAP/CPAP 04/08/21 11:30 97.7 102 20 141/81 (101) 97.7 04/07/21 15:00 11.0 ROS: No Nausea, No Chest Pain, No Abdominal Pain, No Increase Cough General: Alert, No acute distress Lungs: Clear Cardiovascular: S1, S2 Abdomen: Soft Neuro Exam: Alert Extremities: No Edema Labs Laboratory Tests Test 04/06/21 17:32 04/07/21 03:15 04/07/21 08:06 04/07/21 11:54 Glucose (Fingerstick) 168 mg/dL (70-99) 152 mg/dL (70-99) 173 mg/dL (70-99) White Blood Count 14.2 x10^3/uL (4.0-11.0) Red Blood Count 2.31 x10^6/uL (4.30-5.70) Hemoglobin 7.6 g/dL (13.0-17.5) Hematocrit 23.1 % (39.0-53.0) Mean Corpuscular Volume 100 fL (79-100) Mean Corpuscular Hemoglobin 33 pg (25-35) Mean Corpuscular Hemoglobin Concent 33 g/dL (31-37) Red Cell Distribution Width 14.9 % (11.5-14.5) Platelet Count 281 x10^3/uL (140-400) Neutrophils (%) (Auto) 96 % (31-73) Lymphocytes (%) (Auto) 1 % (24-48) Monocytes (%) (Auto) 2 % (0-9) Eosinophils (%) (Auto) 0 % (0-3) Basophils (%) (Auto) 0 % (0-3) Neutrophils # (Auto) 13.6 x10^3/uL (1.8-7.7) Lymphocytes # (Auto) 0.2 x10^3/uL (1.0-4.8) Monocytes # (Auto) 0.3 x10^3/uL (0.0-1.1) Eosinophils # (Auto) 0.0 x10^3/uL (0.0-0.7) Basophils # (Auto) 0.0 x10^3/uL (0.0-0.2) Sodium Level 138 mmol/L (136-145) Potassium Level 4.9 mmol/L (3.5-5.1) Chloride Level 101 mmol/L (98-107) Carbon Dioxide Level 30 mmol/L (21-32) Anion Gap 7 (6-14) Blood Urea Nitrogen 72 mg/dL (8-26) Creatinine 1.7 mg/dL (0.7-1.3) Estimated GFR (Cockcroft-Gault) 47.8 BUN/Creatinine Ratio 42 (6-20) Glucose Level 151 mg/dL (70-99) Calcium Level 8.7 mg/dL (8.5-10.1) Total Bilirubin 0.2 mg/dL (0.2-1.0) Aspartate Amino Transf (AST/SGOT) 22 U/L (15-37) Alanine Aminotransferase (ALT/SGPT) 33 U/L (16-63) Alkaline Phosphatase 81 U/L (46-116) Total Protein 5.7 g/dL (6.4-8.2) Albumin 2.6 g/dL (3.4-5.0) Albumin/Globulin Ratio 0.8 (1.0-1.7) Test 04/07/21 16:31 04/07/21 21:02 04/08/21 12:03 Glucose (Fingerstick) 161 mg/dL (70-99) 150 mg/dL (70-99) 138 mg/dL (70-99) Laboratory Tests Test 04/07/21 16:31 04/07/21 21:02 04/08/21 12:03 Glucose (Fingerstick) 161 mg/dL (70-99) 150 mg/dL (70-99) 138 mg/dL (70-99) Medications Active Scripts Medications Dose Route/Sig Max Daily Dose Days Date Category Dose Instructions Sodium Bicarbonate 650 Mg Tablet 1 Tab PO TIDWMEALS 04/01/21 Reported Prednisone 20 Mg Tablet 1 Tab PO DAILY 04/01/21 Reported Acyclovir 400 Mg Tablet 2 Tab PO BID 04/01/21 Reported Azithromycin Tablet (Azithromycin) 250 Mg Tablet 250 Mg PO DAILY 04/01/21 Reported Bactrim 400-80 Mg Tablet (Sulfamethoxazole/Trimethoprim) 1 Each Tablet 2 Tab PO QMTH 04/01/21 Reported Gabapentin (Gabapentin) 300 Mg Capsule 300 Mg PO TID 04/01/21 Reported Lasix (Furosemide) 40 Mg Tablet 1 Tab PO DAILY 30 04/01/21 Reported Mucinex (Guaifenesin) 1,200 Mg Tbmp.12hr 1 Tab PO BID 15 07/13/20 Reported Diltiazem 24HR Cd (Diltiazem Hcl) 120 Mg Cap.er.24h 1 Cap PO DAILY 30 07/13/20 Reported Dexamethasone 4 Mg Tablet 4 Tab PO DAILY 07/13/20 Reported Prednisone (Prednisone) 10 Mg Tablet 10 Mg PO UD 10/28/19 Rx Take 4 tablets by mouth daily for 3 days, then take 3 tablets by mouth daily for 3 days, then take 2 tablets by mouth daily for 3 days, then take 1 tablets by mouth daily for 3 days, then stop [Folic Acid] 1 Mg PO DAILY 10/22/19 Reported Spiriva (Tiotropium Ira) 18 Mcg Cap.w.dev 1 Cap IH DAILY 10/22/19 Reported Montelukast Sodium Tablet (Montelukast Sodium) 10 Mg Tablet 10 Mg PO HS 10/22/19 Reported Proair Hfa (Albuterol Sulfate) 8.5 Gm Hfa.aer.ad 2 Puff IH PRN Q4 PRN 21 10/22/19 Reported Protonix (Pantoprazole Sodium) 20 Mg Tablet.dr 2 Tab PO DAILY 10/22/19 Reported Mometasone Furoate 45 Gm Cream..g. 1 [place] TP DAILY 10/22/19 Reported Mag-Oxide (Magnesium Oxide) 200 Mg Tablet 2 Tab PO DAILY 30 10/22/19 Reported Fluticasone Propionate Nasal [place] (Fluticasone Propionate) 16 Gm [place].susp 2 [place] NS DAILY 10/22/19 Reported Ferrous Sulfate 325 Mg Tablet 1 Tab PO DAILY 10/22/19 Reported B-12 (Cyanocobalamin (Vitamin B-12)) 5,000 Mcg Tab.rapdis 1 Tab PO DAILY 30 10/22/19 Reported Loratadine 10 Mg Tab.rapdis 1 Tab PO DAILY 30 10/22/19 Reported Breo Ellipta 200-25 Mcg INH (Fluticasone/Vilanterol) 1 Each Blst.w.dev 1 Puff IH DAILY 06/26/19 Reported Aspirin 325 Mg Tablet 1 Tab PO DAILY 06/26/19 Reported Albuterol Sulfate Conc Neb Soln (Albuterol Sulfate) 2.5 Mg/0.5 Ml Vial.neb 1 Vial NEB PRN PRN 09/05/16 Reported Impression . IMPRESSION: 1. Acute on chronic respiratory failure, multifactorial. 2. COVID-19 viral pneumonia. 3. Possible bacterial pneumonia. 4. Status post vaccination with a booster approximately a week ago. 5. Multiple myeloma with polyneuropathy, organomegaly, endocrinopathy and monoclonal gammopathy. 6. Chronic kidney disease. 7. Chronic diastolic heart failure. 8. Chronic obstructive pulmonary disease. 9. Castleman syndrome Plan . Updated 04/08 Continue oxygen supplementation at 50% FiO2 via BiPAP./alternating with high flow canula Solu-Medrol Remdesivir Status post tocilizumab Continue present supportive care. Clinically unchanged. MALENA IFTCH MD Apr 08, 2021 14:01
[2021-04-08 14:02] LABS: ALBUMIN 2.6 g/dL (3.4-5.0); ALBUMIN/GLOBULIN RATIO 0.9 (1.0-1.7); CREATININE 1.9 mg/dL (0.7-1.3); POTASSIUM 5.1 mmol/L (3.5-5.1); TOTAL BILIRUBIN 0.2 mg/dL (0.2-1.0); TOTAL PROTEIN 5.5 g/dL (6.4-8.2)
[2021-04-08 15:17] VITALS: BP 137/65
[2021-04-08 18:31] VITALS: BP 161/77
[2021-04-08] MEDS: MONTELUKAST SODIUM 10 MG TABLET. PO SCH (22:01)
[2021-04-08] MEDS: ALPRAZolam 0.25 MG TABLET PO PRN (22:01)
[2021-04-08] MEDS: ENOXAPARIN 40 MG/0.4 ML SYRINGE. SQ SCH (22:03)
[2021-04-08 23:00] VITALS: BP 154/84
[2021-04-09 02:57] VITALS: BP 150/83
[2021-04-09 04:44] LABS: BASO % 0 % (0-3); EOS % 0 % (0-3); HEMATOCRIT 23.6 % (39.0-53.0); HEMOGLOBIN 7.8 g/dL (13.0-17.5); LYMPH # 0.2 x10^3/uL (1.0-4.8); LYMPH % 1 % (24-48); MEAN CORPUSCULAR HEMOGLOBIN 33 pg (25-35); MEAN CORPUSCULAR HGB CONC 33 g/dL (31-37); MEAN CORPUSCULAR VOLUME 99 fL (79-100); MONO # 0.3 x10^3/uL (0.0-1.1); MONO % 2 % (0-9); NEUT # 20.7 x10^3/uL (1.8-7.7); NEUT % 98 % (31-73); PLATELET COUNT 443 x10^3/uL (140-400); RED BLOOD COUNT 2.39 x10^6/uL (4.30-5.70); RED CELL DISTRIBUTION WIDTH 15.7 % (11.5-14.5); WHITE BLOOD COUNT 21.3 x10^3/uL (4.0-11.0)
[2021-04-09 05:11] LABS: % BANDS 1 % (0-9); % SEGS 99 % (35-66); ALBUMIN 2.8 g/dL (3.4-5.0); CALCIUM 8.5 mg/dL (8.5-10.1); CREATININE 2.1 mg/dL (0.7-1.3); GFR 37.4; NUCLEATED RBC 3; PLT ESTIMATE ADEQUATE (ADEQUATE); POLYCHROMASIA SLIGHT; POTASSIUM 5.6 mmol/L (3.5-5.1); TOTAL BILIRUBIN 0.4 mg/dL (0.2-1.0); TOTAL PROTEIN 5.6 g/dL (6.4-8.2)
[2021-04-09 05:12] LABS: ANISOCYTOSIS SLIGHT
[2021-04-09 07:00] VITALS: BP 148/85
[2021-04-09] MEDS: INSULIN LISPRO 300 UNITS/3 ML VIAL. SQ SCH ×2 (07:30→16:30)
--- NOTE | 2021-04-09 07:48 | PDOC ---
Infectious Disease Note Subjective: Subjective Pt remains on bipap Remains anxious Respiratory therapist at bedside Denies fever, nausea, vomiting, diarrhea, abdominal pain, chest pain Vital Signs: Vital Signs Vital Signs Date Time Temp Pulse Resp B/P (MAP) Pulse Ox O2 Delivery O2 Flow Rate FiO2 04/09/21 05:00 100 BiPAP/CPAP 04/09/21 02:57 97.4 107 21 150/83 (105) 97.4 04/08/21 18:31 11.0 Physical Exam: PHYSICAL EXAM GENERAL: Alert, oriented x 3, chronically ill-appearing male HEENT: Normocephalic, atraumatic. Anicteric sclerae. NECK: Supple. LUNGS: Coarse breath sounds, mild wheezing. HEART: S1, S2, regular. ABDOMEN: Soft, nontender, nondistended. EXTREMITIES: No edema, no cyanosis. DERMATOLOGIC: Warm, dry. No generalized rash. NEUROLOGIC: Alert, oriented x 3, generalized weakness. PSYCHIATRIC: mildly anxioius and cooperative. Medications: Inpatient Meds: Medications reviewed. Labs: Lab Laboratory Tests Test 04/08/21 12:03 04/08/21 13:27 04/08/21 17:17 04/08/21 21:02 Glucose (Fingerstick) 138 mg/dL (70-99) 127 mg/dL (70-99) 156 mg/dL (70-99) Sodium Level 133 mmol/L (136-145) Potassium Level 5.1 mmol/L (3.5-5.1) Chloride Level 97 mmol/L (98-107) Carbon Dioxide Level 31 mmol/L (21-32) Anion Gap 5 (6-14) Blood Urea Nitrogen 73 mg/dL (8-26) Creatinine 1.9 mg/dL (0.7-1.3) Estimated GFR (Cockcroft-Gault) 42.0 BUN/Creatinine Ratio 38 (6-20) Glucose Level 193 mg/dL (70-99) Calcium Level 8.0 mg/dL (8.5-10.1) Total Bilirubin 0.2 mg/dL (0.2-1.0) Aspartate Amino Transf (AST/SGOT) 15 U/L (15-37) Alanine Aminotransferase (ALT/SGPT) 27 U/L (16-63) Alkaline Phosphatase 72 U/L (46-116) Total Protein 5.5 g/dL (6.4-8.2) Albumin 2.6 g/dL (3.4-5.0) Albumin/Globulin Ratio 0.9 (1.0-1.7) Test 04/09/21 04:15 White Blood Count 21.3 x10^3/uL (4.0-11.0) Red Blood Count 2.39 x10^6/uL (4.30-5.70) Hemoglobin 7.8 g/dL (13.0-17.5) Hematocrit 23.6 % (39.0-53.0) Mean Corpuscular Volume 99 fL (79-100) Mean Corpuscular Hemoglobin 33 pg (25-35) Mean Corpuscular Hemoglobin Concent 33 g/dL (31-37) Red Cell Distribution Width 15.7 % (11.5-14.5) Platelet Count 443 x10^3/uL (140-400) Neutrophils (%) (Auto) 98 % (31-73) Lymphocytes (%) (Auto) 1 % (24-48) Monocytes (%) (Auto) 2 % (0-9) Eosinophils (%) (Auto) 0 % (0-3) Basophils (%) (Auto) 0 % (0-3) Neutrophils # (Auto) 20.7 x10^3/uL (1.8-7.7) Lymphocytes # (Auto) 0.2 x10^3/uL (1.0-4.8) Monocytes # (Auto) 0.3 x10^3/uL (0.0-1.1) Eosinophils # (Auto) 0.0 x10^3/uL (0.0-0.7) Basophils # (Auto) 0.0 x10^3/uL (0.0-0.2) Segmented Neutrophils % 99 % (35-66) Band Neutrophils % 1 % (0-9) Nucleated Red Blood Cells 3 Platelet Estimate Adequate (ADEQUATE) Polychromasia Slight Anisocytosis Slight Sodium Level 134 mmol/L (136-145) Potassium Level 5.6 mmol/L (3.5-5.1) Chloride Level 95 mmol/L (98-107) Carbon Dioxide Level 31 mmol/L (21-32) Anion Gap 8 (6-14) Blood Urea Nitrogen 80 mg/dL (8-26) Creatinine 2.1 mg/dL (0.7-1.3) Estimated GFR (Cockcroft-Gault) 37.4 BUN/Creatinine Ratio 38 (6-20) Glucose Level 152 mg/dL (70-99) Calcium Level 8.5 mg/dL (8.5-10.1) Total Bilirubin 0.4 mg/dL (0.2-1.0) Aspartate Amino Transf (AST/SGOT) 21 U/L (15-37) Alanine Aminotransferase (ALT/SGPT) 31 U/L (16-63) Alkaline Phosphatase 78 U/L (46-116) Total Protein 5.6 g/dL (6.4-8.2) Albumin 2.8 g/dL (3.4-5.0) Albumin/Globulin Ratio 1.0 (1.0-1.7) Objective: Assessment: 1. Acute on chronic hypoxic respiratory failure. 2. Bilateral infiltrates with COVID 19 infection 3. Status post COVID vaccination 3rd in series booster dose a week ago prior to admission. 4. Chronic bronchitis. 5. Multiple myeloma with polyneuropathy organomegaly, endocrinopathy and monoclonal gammopathy. 6. Chronic kidney disease. 7. Chronic diastolic heart failure. 8. Peripheral arterial disease. 9. Gastroesophageal reflux disease. 10. Anemia. Leucocytosis from steroids Plan: Plan of Care Continue supportive care Continue steroids s/p Remdesivir Monitor off antibiotics Monitor labs and cultures Continue supportive care D/W PAUL HELLER MD Apr 09, 2021 07:47
[2021-04-09] MEDS: CYANOCOBALAMIN (VITAMIN B-12) 1,000 MCG TABLET. PO SCH (08:54)
[2021-04-09] MEDS: ASPIRIN 325 MG TABLET PO SCH (08:54)
[2021-04-09] MEDS: ACYCLOVIR 200 MG CAPSULE. PO SCH ×2 (08:55→20:21)
[2021-04-09] MEDS: ALPRAZolam 0.25 MG TABLET PO PRN ×2 (08:55→20:20)
[2021-04-09] MEDS: FERROUS SULFATE 325 MG TABLET. PO SCH (08:55)
[2021-04-09] MEDS: FLUTICASONE/VILANTEROL 200/25 INHALER. INH SCH (08:55)
[2021-04-09] MEDS: CETIRIZINE HCL 10 MG TABLET. PO SCH (08:55)
[2021-04-09] MEDS: PANTOPRAZOLE 40 MG TABLET.DR. PO SCH (08:55)
[2021-04-09] MEDS: SODIUM BICARBONATE 650 MG TABLET. PO SCH ×3 (08:55→18:10)
[2021-04-09] MEDS: MAGNESIUM OXIDE 400 MG TABLET PO SCH (08:55)
[2021-04-09] MEDS: methylPREDNISolone SOD SUCC PF 125 MG/2 ML VIAL. IV SCH (08:56)
[2021-04-09] MEDS: FLUTICASONE 50MCG/NASAL SPRAY 16GM BOTTLE. NS SCH (08:56)
--- NOTE | 2021-04-09 09:05 | PDOC ---
IM PROGRESS NOTES- Subjective Subjective Complaints of cough, congestion and dyspnea. He feels worse. Objective Vitals/I&O Vital Signs Date Time Temp Pulse Resp B/P (MAP) Pulse Ox O2 Delivery O2 Flow Rate FiO2 04/09/21 08:55 109 04/09/21 08:03 100 BiPAP/CPAP 04/09/21 07:00 97.3 21 148/85 (106) 97.3 04/08/21 18:31 11.0 I & O 04/08/21 04/08/21 04/09/21 15:00 23:00 07:00 Intake Total 100 ml 200 ml Output Total 500 ml 300 ml Balance -400 ml -100 ml Physical Exam Physical Exam General Appearance - alert and in moderate distress Chest - decreased breath sounds at bases, occasional wheezes, bilateral rales Heart - S1 and S2 normal Abdomen - soft, non tender Neurological - alert and oriented Musculoskeletal - generalized weakness Extremities - no edema Labs Laboratory Tests Test 04/08/21 12:03 04/08/21 13:27 04/08/21 17:17 04/08/21 21:02 Glucose (Fingerstick) 138 mg/dL (70-99) H 127 mg/dL (70-99) H 156 mg/dL (70-99) H Sodium Level 133 mmol/L (136-145) L Potassium Level 5.1 mmol/L (3.5-5.1) Chloride Level 97 mmol/L (98-107) L Carbon Dioxide Level 31 mmol/L (21-32) Anion Gap 5 (6-14) L Blood Urea Nitrogen 73 mg/dL (8-26) H Creatinine 1.9 mg/dL (0.7-1.3) H Estimated GFR (Cockcroft-Gault) 42.0 BUN/Creatinine Ratio 38 (6-20) H Glucose Level 193 mg/dL (70-99) H Calcium Level 8.0 mg/dL (8.5-10.1) L Total Bilirubin 0.2 mg/dL (0.2-1.0) Aspartate Amino Transferase (AST) 15 U/L (15-37) Alanine Aminotransferase (ALT) 27 U/L (16-63) Alkaline Phosphatase 72 U/L (46-116) Total Protein 5.5 g/dL (6.4-8.2) L Albumin 2.6 g/dL (3.4-5.0) L Albumin/Globulin Ratio 0.9 (1.0-1.7) L Test 04/09/21 04:15 04/09/21 08:12 White Blood Count 21.3 x10^3/uL (4.0-11.0) H Red Blood Count 2.39 x10^6/uL (4.30-5.70) L Hemoglobin 7.8 g/dL (13.0-17.5) L Hematocrit 23.6 % (39.0-53.0) L Mean Corpuscular Volume 99 fL (79-100) Mean Corpuscular Hemoglobin 33 pg (25-35) Mean Corpuscular Hemoglobin Concent 33 g/dL (31-37) Red Cell Distribution Width 15.7 % (11.5-14.5) H Platelet Count 443 x10^3/uL (140-400) H Neutrophils (%) (Auto) 98 % (31-73) H Lymphocytes (%) (Auto) 1 % (24-48) L Monocytes (%) (Auto) 2 % (0-9) Eosinophils (%) (Auto) 0 % (0-3) Basophils (%) (Auto) 0 % (0-3) Neutrophils # (Auto) 20.7 x10^3/uL (1.8-7.7) H Lymphocytes # (Auto) 0.2 x10^3/uL (1.0-4.8) L Monocytes # (Auto) 0.3 x10^3/uL (0.0-1.1) Eosinophils # (Auto) 0.0 x10^3/uL (0.0-0.7) Basophils # (Auto) 0.0 x10^3/uL (0.0-0.2) Segmented Neutrophils % 99 % (35-66) H Band Neutrophils % 1 % (0-9) Nucleated Red Blood Cells 3 Platelet Estimate Adequate (ADEQUATE) Polychromasia Slight Anisocytosis Slight Sodium Level 134 mmol/L (136-145) L Potassium Level 5.6 mmol/L (3.5-5.1) H Chloride Level 95 mmol/L (98-107) L Carbon Dioxide Level 31 mmol/L (21-32) Anion Gap 8 (6-14) Blood Urea Nitrogen 80 mg/dL (8-26) H Creatinine 2.1 mg/dL (0.7-1.3) H Estimated GFR (Cockcroft-Gault) 37.4 BUN/Creatinine Ratio 38 (6-20) H Glucose Level 152 mg/dL (70-99) H Calcium Level 8.5 mg/dL (8.5-10.1) Total Bilirubin 0.4 mg/dL (0.2-1.0) Aspartate Amino Transferase (AST) 21 U/L (15-37) Alanine Aminotransferase (ALT) 31 U/L (16-63) Alkaline Phosphatase 78 U/L (46-116) Total Protein 5.6 g/dL (6.4-8.2) L Albumin 2.8 g/dL (3.4-5.0) L Albumin/Globulin Ratio 1.0 (1.0-1.7) Glucose (Fingerstick) 161 mg/dL (70-99) H Laboratory Tests 04/09/21 04:15 Laboratory Tests 04/08/21 13:27 04/09/21 04:15 Assessment Assessment 1. Acute on chronic hypoxic respiratory failure due to COVID-19 pneumonia. 2. COVID-19 pneumonia. 3. Multiple myeloma with polyneuropathy, organomegaly, endocrinopathy, monoclonal gammopathy, and skin changes syndrome. 4. Exacerbation of chronic obstructive pulmonary disease. 5. Panlobular emphysema. 6. Simple chronic bronchitis. 7. Chronic diastolic congestive heart failure. 8. Atherosclerotic heart disease. 9. Peripheral artery disease. 10. Gastroesophageal reflux disease without esophagitis. 11. Benign hypertension with chronic kidney disease stage 3. PLAN: 1. COVID-19 pneumonia. Start IV Solu-Medrol. We will consult Dr. Romero and Dr. Dustin Sy for pulmonary and infectious disease management respectively. We will continue him on appropriate protocol for COVID-19 infection. Patient has completed IV cefepime and remdesivir. Monitor off antibiotics. Repeat chest x-ray on April 06 does not show any change in the opacities. 2. Acute on chronic hypoxic respiratory failure. Continue oxygenation. FiO2 50% via BiPAP. 3. Exacerbation of chronic obstructive pulmonary disease, continue IV steroids. Add Spiriva d/w staff. 4. Continue acyclovir and Bactrim-DS for immunosuppression. The patient has received both COVID-19 vaccines previously as well as booster dose recently. 5. Hyperglycemia secondary to steroids .monitor blood sugar as he is on steroids. I will start him on DVT prophylaxis. Continue pantoprazole. Severe malnutrition. Hyperkalemia- Continue to monitor. Anemia Continue to monitor. Leukocytosis WBC 21.3possibly due to steroids. Azotemia. Getting worse. BUN 80., creatinine 2.1. K 5.6 BUN may be increasing due to steroids. Consult Dr. Mason for nephrology evaluation and management Discussed with Dr. Rangel Hypertension monitor blood pressure. As needed IV hydralazine. Repeat chest x-ray. Clinically getting worse For details, please refer to the orders. Prognosis of this patient is very poor due to his multiple medical problems. Plan Plan For more details regarding further plans, please refer to the orders. Justifications for Admission Other Justification LIBERTY WOODSON MD Apr 09, 2021 09:05
--- NOTE | 2021-04-09 10:20 | PDOC ---
DATE OF SERVICE DATE: 04/09/21 TIME: 10:19 SUBJECTIVE ROS Feeling the same Remains on BiPAP Per RN very anxious OBJECTIVE Vital Signs Vital Signs Date Time Temp Pulse Resp B/P (MAP) Pulse Ox O2 Delivery O2 Flow Rate FiO2 04/09/21 08:55 109 04/09/21 08:03 100 BiPAP/CPAP 04/09/21 07:00 97.3 21 148/85 (106) 97.3 04/08/21 18:31 11.0 I & 0 Intake and Output 04/09/21 07:00 Intake Total 300 ml Output Total 800 ml Balance -500 ml Intake Oral 300 ml Output Urine Total 800 ml PHYSICAL EXAM Physical Exam GENERAL: Alert, oriented x 3 NAD HEENT: Normocephalic, atraumatic. Anicteric sclerae. BIPAP NECK: Supple. LUNGS: Coarse breath sounds, HEART: S1, S2, regular. ABDOMEN: Soft, nontender, nondistended. EXTREMITIES: No edema, no cyanosis. DERMATOLOGIC: Warm, dry. No generalized rash. NEUROLOGIC: Alert, oriented x 3, PSYCHIATRIC: cooperative. No [place], No CVA or SP tenderness DIAGNOSIS/ASSESSMENT Assessment & Plan EDITA- Mild worsening of renal function ; Cr mildly above his baseline ; BUN significantly elevated 2/2 Steroids . Maintain Hydration (if OK with Pulm , start IV NS at 75 mls /hr) .Supportive are, maintain fluid balance, avoid nephrotoxins Hyperkalemia- Also on bactrim 2/week - probabaly prophylaxis for POEM's , was receiving Chemo . Monitor, Kayexalate x 1 if worsening. Re-eval in morning CKD stage 3A- Follows with us as OP ; Baseline Cr 1.4-1.8 . Seen in our office on 02/19/21- Cr 1.4. Acute on chronic respiratory failure-On o2 via BiPAP , CxR Dx of pneumonia COVID-19 viral pneumonia - Status post vaccination with a booster approximately a week ago.On o2 via BiPAP, Solu-Medrol, Remdesivir. Status post tocilizumab ; Multiple myeloma with polyneuropathy, organomegaly, endocrinopathy and monoclonal gammopathy. (POEM's) Follows with Dr. Gustafson, recently completed Chemo therapy Chronic diastolic heart failure. Chronic obstructive pulmonary disease. Castleman syndrome COMMENT/RELEVANT DATA Meds Current Medications Medications (Trade) Dose Ordered Sig/Juany Start Time Stop Time Status Last Admin Dose Admin Acyclovir (Zovirax) 400 mg BID 04/01/21 21:00 04/09/21 08:55 400 MG Albuterol Sulfate (Ventolin Neb Soln) 2.5 mg 1X ONCE 04/01/21 12:15 04/01/21 12:16 DC 04/01/21 12:15 2.5 MG Albuterol/ Ipratropium (Duoneb) 3 ml RTQID 04/01/21 20:00 04/02/21 10:07 DC Alprazolam (Xanax) 0.25 mg PRN Q8HRS PRN 04/06/21 22:45 04/09/21 08:55 0.25 MG Aspirin (Kevin Aspirin) 325 mg DAILY 04/02/21 09:00 04/09/21 08:54 325 MG Budesonide (Pulmicort) 0.5 mg RTBID 04/01/21 20:00 04/02/21 10:07 DC Cefepime HCl (Maxipime) 2 gm Q8HRS 04/04/21 14:30 04/05/21 09:18 DC 04/05/21 06:13 2 GM Cetirizine HCl (ZyrTEC) 10 mg DAILY 04/02/21 09:00 04/09/21 08:55 10 MG Cyanocobalamin (Vitamin B-12) 500 mcg DAILY 04/02/21 09:00 04/09/21 08:54 500 MCG Diltiazem HCl (Cardizem 24hr Cd) 120 mg DAILY 04/02/21 09:00 04/09/21 08:55 120 MG Enoxaparin Sodium (Lovenox 40mg Syringe) 40 mg Q24H 04/01/21 19:00 04/08/21 22:03 40 MG Ferrous Sulfate (Feosol) 325 mg DAILY 04/02/21 09:00 04/09/21 08:55 325 MG Fluticasone Propionate (Flonase) 2 spray DAILY 04/02/21 09:00 04/09/21 08:56 2 SPRAY Fluticasone/ Vilanterol (Breo Ellipta 200-25 Mcg) 1 puff DAILY 04/02/21 11:00 04/08/21 09:47 1 PUFF Hydralazine HCl (Apresoline Inj) 10 mg PRN Q4HRS PRN 04/04/21 09:30 Insulin Human Lispro (HumaLOG) 0-8 UNITS BIDBFRMEAL 04/02/21 07:30 04/07/21 17:12 2 UNITS Levofloxacin/ Dextrose 150 ml @ 100 mls/hr 1X ONCE 04/01/21 12:15 04/01/21 13:44 DC 04/01/21 12:44 100 MLS/HR Magnesium Oxide (Magnesium Oxide) 400 mg DAILY 04/02/21 09:00 04/09/21 08:55 400 MG Methylprednisolone Sodium Succinate (SOLU-Medrol 125MG VIAL) 60 mg Q12HR 04/01/21 21:00 04/09/21 08:56 60 MG Montelukast Sodium (Singulair) 10 mg HS 04/01/21 21:00 04/08/21 22:01 10 MG Non-Formulary Medication (Fluticasone/ Vilanterol (Breo Ellipta 200-25 Mcg INH)) 1 puff DAILY 04/02/21 09:00 UNV Non-Formulary Medication (Guaifenesin (Mucinex)) 1 tab BID 04/01/21 21:00 UNV Non-Formulary Medication (Tiotropium [place] (Spiriva)) 1 cap DAILY 04/02/21 09:00 UNV Pantoprazole Sodium (Protonix) 40 mg DAILYAC 04/02/21 07:30 04/09/21 08:55 40 MG Remdesivir 100 mg/ Sodium Chloride 230 ml @ 460 mls/hr Q24H 04/03/21 12:00 04/06/21 12:29 DC 04/06/21 11:24 460 MLS/HR Remdesivir 200 mg/ Sodium Chloride 210 ml @ 210 mls/hr 1X ONCE 04/02/21 12:00 04/02/21 12:59 DC 04/02/21 11:41 210 MLS/HR Sodium Bicarbonate (Sodium Bicarbonate) 650 mg TIDWMEALS 04/02/21 08:00 04/09/21 08:55 650 MG Sodium Chloride 1,000 ml @ 1,000 mls/hr Q1H 04/01/21 12:15 04/01/21 13:14 DC 04/01/21 13:40 1,000 MLS/HR Tocilizumab 400 mg/Sodium Chloride 100 ml @ 100 mls/hr 1X ONCE 04/02/21 16:00 04/02/21 16:59 DC 04/02/21 17:00 100 MLS/HR Trimethoprim/ Sulfamethoxazole (Bactrim Ds) 1 tab QMTH 04/01/21 16:00 04/08/21 09:47 1 TAB Lab Laboratory Tests Test 04/08/21 12:03 04/08/21 13:27 04/08/21 17:17 04/08/21 21:02 Glucose (Fingerstick) 138 mg/dL (70-99) 127 mg/dL (70-99) 156 mg/dL (70-99) Sodium Level 133 mmol/L (136-145) Potassium Level 5.1 mmol/L (3.5-5.1) Chloride Level 97 mmol/L (98-107) Carbon Dioxide Level 31 mmol/L (21-32) Anion Gap 5 (6-14) Blood Urea Nitrogen 73 mg/dL (8-26) Creatinine 1.9 mg/dL (0.7-1.3) Estimated GFR (Cockcroft-Gault) 42.0 BUN/Creatinine Ratio 38 (6-20) Glucose Level 193 mg/dL (70-99) Calcium Level 8.0 mg/dL (8.5-10.1) Total Bilirubin 0.2 mg/dL (0.2-1.0) Aspartate Amino Transf (AST/SGOT) 15 U/L (15-37) Alanine Aminotransferase (ALT/SGPT) 27 U/L (16-63) Alkaline Phosphatase 72 U/L (46-116) Total Protein 5.5 g/dL (6.4-8.2) Albumin 2.6 g/dL (3.4-5.0) Albumin/Globulin Ratio 0.9 (1.0-1.7) Test 04/09/21 04:15 04/09/21 08:12 White Blood Count 21.3 x10^3/uL (4.0-11.0) Red Blood Count 2.39 x10^6/uL (4.30-5.70) Hemoglobin 7.8 g/dL (13.0-17.5) Hematocrit 23.6 % (39.0-53.0) Mean Corpuscular Volume 99 fL (79-100) Mean Corpuscular Hemoglobin 33 pg (25-35) Mean Corpuscular Hemoglobin Concent 33 g/dL (31-37) Red Cell Distribution Width 15.7 % (11.5-14.5) Platelet Count 443 x10^3/uL (140-400) Neutrophils (%) (Auto) 98 % (31-73) Lymphocytes (%) (Auto) 1 % (24-48) Monocytes (%) (Auto) 2 % (0-9) Eosinophils (%) (Auto) 0 % (0-3) Basophils (%) (Auto) 0 % (0-3) Neutrophils # (Auto) 20.7 x10^3/uL (1.8-7.7) Lymphocytes # (Auto) 0.2 x10^3/uL (1.0-4.8) Monocytes # (Auto) 0.3 x10^3/uL (0.0-1.1) Eosinophils # (Auto) 0.0 x10^3/uL (0.0-0.7) Basophils # (Auto) 0.0 x10^3/uL (0.0-0.2) Segmented Neutrophils % 99 % (35-66) Band Neutrophils % 1 % (0-9) Nucleated Red Blood Cells 3 Platelet Estimate Adequate (ADEQUATE) Polychromasia Slight Anisocytosis Slight Sodium Level 134 mmol/L (136-145) Potassium Level 5.6 mmol/L (3.5-5.1) Chloride Level 95 mmol/L (98-107) Carbon Dioxide Level 31 mmol/L (21-32) Anion Gap 8 (6-14) Blood Urea Nitrogen 80 mg/dL (8-26) Creatinine 2.1 mg/dL (0.7-1.3) Estimated GFR (Cockcroft-Gault) 37.4 BUN/Creatinine Ratio 38 (6-20) Glucose Level 152 mg/dL (70-99) Calcium Level 8.5 mg/dL (8.5-10.1) Total Bilirubin 0.4 mg/dL (0.2-1.0) Aspartate Amino Transf (AST/SGOT) 21 U/L (15-37) Alanine Aminotransferase (ALT/SGPT) 31 U/L (16-63) Alkaline Phosphatase 78 U/L (46-116) Total Protein 5.6 g/dL (6.4-8.2) Albumin 2.8 g/dL (3.4-5.0) Albumin/Globulin Ratio 1.0 (1.0-1.7) Glucose (Fingerstick) 161 mg/dL (70-99) Results All relevant outside records, renal labs, imaging studies, telemetry/EKG's were reviewed. Justicifation of Admission Dx: Justifications for Admission: Justification of Admission Dx: N/A TEO LAW MD Apr 09, 2021 10:20
[2021-04-09 11:00] VITALS: BP 133/73
--- NOTE | 2021-04-09 12:39 | PDOC ---
PULMONARY PROGRESS NOTES DATE: 04/09/21 TIME: 12:31 Subjective Feels better, Remains on BiPAP at 50% FiO2./ alternating with canula Vitals Vital Signs Date Time Temp Pulse Resp B/P (MAP) Pulse Ox O2 Delivery O2 Flow Rate FiO2 04/09/21 08:55 109 04/09/21 08:03 100 BiPAP/CPAP 04/09/21 07:00 97.3 21 148/85 (106) 97.3 04/08/21 18:31 11.0 ROS: No Nausea, No Chest Pain, No Abdominal Pain, No Increase Cough General: Alert, No acute distress Lungs: Clear Cardiovascular: S1, S2 Abdomen: Soft Neuro Exam: Alert Extremities: No Edema Labs Laboratory Tests Test 04/07/21 16:31 04/07/21 21:02 04/08/21 12:03 04/08/21 13:27 Glucose (Fingerstick) 161 mg/dL (70-99) 150 mg/dL (70-99) 138 mg/dL (70-99) Sodium Level 133 mmol/L (136-145) Potassium Level 5.1 mmol/L (3.5-5.1) Chloride Level 97 mmol/L (98-107) Carbon Dioxide Level 31 mmol/L (21-32) Anion Gap 5 (6-14) Blood Urea Nitrogen 73 mg/dL (8-26) Creatinine 1.9 mg/dL (0.7-1.3) Estimated GFR (Cockcroft-Gault) 42.0 BUN/Creatinine Ratio 38 (6-20) Glucose Level 193 mg/dL (70-99) Calcium Level 8.0 mg/dL (8.5-10.1) Total Bilirubin 0.2 mg/dL (0.2-1.0) Aspartate Amino Transf (AST/SGOT) 15 U/L (15-37) Alanine Aminotransferase (ALT/SGPT) 27 U/L (16-63) Alkaline Phosphatase 72 U/L (46-116) Total Protein 5.5 g/dL (6.4-8.2) Albumin 2.6 g/dL (3.4-5.0) Albumin/Globulin Ratio 0.9 (1.0-1.7) Test 04/08/21 17:17 04/08/21 21:02 04/09/21 04:15 04/09/21 08:12 Glucose (Fingerstick) 127 mg/dL (70-99) 156 mg/dL (70-99) 161 mg/dL (70-99) White Blood Count 21.3 x10^3/uL (4.0-11.0) Red Blood Count 2.39 x10^6/uL (4.30-5.70) Hemoglobin 7.8 g/dL (13.0-17.5) Hematocrit 23.6 % (39.0-53.0) Mean Corpuscular Volume 99 fL (79-100) Mean Corpuscular Hemoglobin 33 pg (25-35) Mean Corpuscular Hemoglobin Concent 33 g/dL (31-37) Red Cell Distribution Width 15.7 % (11.5-14.5) Platelet Count 443 x10^3/uL (140-400) Neutrophils (%) (Auto) 98 % (31-73) Lymphocytes (%) (Auto) 1 % (24-48) Monocytes (%) (Auto) 2 % (0-9) Eosinophils (%) (Auto) 0 % (0-3) Basophils (%) (Auto) 0 % (0-3) Neutrophils # (Auto) 20.7 x10^3/uL (1.8-7.7) Lymphocytes # (Auto) 0.2 x10^3/uL (1.0-4.8) Monocytes # (Auto) 0.3 x10^3/uL (0.0-1.1) Eosinophils # (Auto) 0.0 x10^3/uL (0.0-0.7) Basophils # (Auto) 0.0 x10^3/uL (0.0-0.2) Segmented Neutrophils % 99 % (35-66) Band Neutrophils % 1 % (0-9) Nucleated Red Blood Cells 3 Platelet Estimate Adequate (ADEQUATE) Polychromasia Slight Anisocytosis Slight Sodium Level 134 mmol/L (136-145) Potassium Level 5.6 mmol/L (3.5-5.1) Chloride Level 95 mmol/L (98-107) Carbon Dioxide Level 31 mmol/L (21-32) Anion Gap 8 (6-14) Blood Urea Nitrogen 80 mg/dL (8-26) Creatinine 2.1 mg/dL (0.7-1.3) Estimated GFR (Cockcroft-Gault) 37.4 BUN/Creatinine Ratio 38 (6-20) Glucose Level 152 mg/dL (70-99) Calcium Level 8.5 mg/dL (8.5-10.1) Total Bilirubin 0.4 mg/dL (0.2-1.0) Aspartate Amino Transf (AST/SGOT) 21 U/L (15-37) Alanine Aminotransferase (ALT/SGPT) 31 U/L (16-63) Alkaline Phosphatase 78 U/L (46-116) Total Protein 5.6 g/dL (6.4-8.2) Albumin 2.8 g/dL (3.4-5.0) Albumin/Globulin Ratio 1.0 (1.0-1.7) Test 04/09/21 12:26 Glucose (Fingerstick) 146 mg/dL (70-99) Laboratory Tests Test 04/08/21 13:27 04/08/21 17:17 04/08/21 21:02 04/09/21 04:15 Sodium Level 133 mmol/L (136-145) 134 mmol/L (136-145) Potassium Level 5.1 mmol/L (3.5-5.1) 5.6 mmol/L (3.5-5.1) Chloride Level 97 mmol/L (98-107) 95 mmol/L (98-107) Carbon Dioxide Level 31 mmol/L (21-32) 31 mmol/L (21-32) Anion Gap 5 (6-14) 8 (6-14) Blood Urea Nitrogen 73 mg/dL (8-26) 80 mg/dL (8-26) Creatinine 1.9 mg/dL (0.7-1.3) 2.1 mg/dL (0.7-1.3) Estimated GFR (Cockcroft-Gault) 42.0 37.4 BUN/Creatinine Ratio 38 (6-20) 38 (6-20) Glucose Level 193 mg/dL (70-99) 152 mg/dL (70-99) Calcium Level 8.0 mg/dL (8.5-10.1) 8.5 mg/dL (8.5-10.1) Total Bilirubin 0.2 mg/dL (0.2-1.0) 0.4 mg/dL (0.2-1.0) Aspartate Amino Transf (AST/SGOT) 15 U/L (15-37) 21 U/L (15-37) Alanine Aminotransferase (ALT/SGPT) 27 U/L (16-63) 31 U/L (16-63) Alkaline Phosphatase 72 U/L (46-116) 78 U/L (46-116) Total Protein 5.5 g/dL (6.4-8.2) 5.6 g/dL (6.4-8.2) Albumin 2.6 g/dL (3.4-5.0) 2.8 g/dL (3.4-5.0) Albumin/Globulin Ratio 0.9 (1.0-1.7) 1.0 (1.0-1.7) Glucose (Fingerstick) 127 mg/dL (70-99) 156 mg/dL (70-99) White Blood Count 21.3 x10^3/uL (4.0-11.0) Red Blood Count 2.39 x10^6/uL (4.30-5.70) Hemoglobin 7.8 g/dL (13.0-17.5) Hematocrit 23.6 % (39.0-53.0) Mean Corpuscular Volume 99 fL (79-100) Mean Corpuscular Hemoglobin 33 pg (25-35) Mean Corpuscular Hemoglobin Concent 33 g/dL (31-37) Red Cell Distribution Width 15.7 % (11.5-14.5) Platelet Count 443 x10^3/uL (140-400) Neutrophils (%) (Auto) 98 % (31-73) Lymphocytes (%) (Auto) 1 % (24-48) Monocytes (%) (Auto) 2 % (0-9) Eosinophils (%) (Auto) 0 % (0-3) Basophils (%) (Auto) 0 % (0-3) Neutrophils # (Auto) 20.7 x10^3/uL (1.8-7.7) Lymphocytes # (Auto) 0.2 x10^3/uL (1.0-4.8) Monocytes # (Auto) 0.3 x10^3/uL (0.0-1.1) Eosinophils # (Auto) 0.0 x10^3/uL (0.0-0.7) Basophils # (Auto) 0.0 x10^3/uL (0.0-0.2) Segmented Neutrophils % 99 % (35-66) Band Neutrophils % 1 % (0-9) Nucleated Red Blood Cells 3 Platelet Estimate Adequate (ADEQUATE) Polychromasia Slight Anisocytosis Slight Test 04/09/21 08:12 04/09/21 12:26 Glucose (Fingerstick) 161 mg/dL (70-99) 146 mg/dL (70-99) Medications Active Scripts Medications Dose Route/Sig Max Daily Dose Days Date Category Dose Instructions Sodium Bicarbonate 650 Mg Tablet 1 Tab PO TIDWMEALS 04/01/21 Reported Prednisone 20 Mg Tablet 1 Tab PO DAILY 04/01/21 Reported Acyclovir 400 Mg Tablet 2 Tab PO BID 04/01/21 Reported Azithromycin Tablet (Azithromycin) 250 Mg Tablet 250 Mg PO DAILY 04/01/21 Reported Bactrim 400-80 Mg Tablet (Sulfamethoxazole/Trimethoprim) 1 Each Tablet 2 Tab PO QMTH 04/01/21 Reported Gabapentin (Gabapentin) 300 Mg Capsule 300 Mg PO TID 04/01/21 Reported Lasix (Furosemide) 40 Mg Tablet 1 Tab PO DAILY 30 04/01/21 Reported Mucinex (Guaifenesin) 1,200 Mg Tbmp.12hr 1 Tab PO BID 15 07/13/20 Reported Diltiazem 24HR Cd (Diltiazem Hcl) 120 Mg Cap.er.24h 1 Cap PO DAILY 30 07/13/20 Reported Dexamethasone 4 Mg Tablet 4 Tab PO DAILY 07/13/20 Reported Prednisone (Prednisone) 10 Mg Tablet 10 Mg PO UD 10/28/19 Rx Take 4 tablets by mouth daily for 3 days, then take 3 tablets by mouth daily for 3 days, then take 2 tablets by mouth daily for 3 days, then take 1 tablets by mouth daily for 3 days, then stop [Folic Acid] 1 Mg PO DAILY 10/22/19 Reported Spiriva (Tiotropium [place]) 18 Mcg Cap.w.dev 1 Cap IH DAILY 10/22/19 Reported Montelukast Sodium Tablet (Montelukast Sodium) 10 Mg Tablet 10 Mg PO HS 10/22/19 Reported Proair Hfa (Albuterol Sulfate) 8.5 Gm Hfa.aer.ad 2 Puff IH PRN Q4 PRN 21 10/22/19 Reported Protonix (Pantoprazole Sodium) 20 Mg Tablet.dr 2 Tab PO DAILY 10/22/19 Reported Mometasone Furoate 45 Gm Cream..g. 1 [place] TP DAILY 10/22/19 Reported Mag-Oxide (Magnesium Oxide) 200 Mg Tablet 2 Tab PO DAILY 30 10/22/19 Reported Fluticasone Propionate Nasal [place] (Fluticasone Propionate) 16 Gm [place].susp 2 [place] NS DAILY 10/22/19 Reported Ferrous Sulfate 325 Mg Tablet 1 Tab PO DAILY 10/22/19 Reported B-12 (Cyanocobalamin (Vitamin B-12)) 5,000 Mcg Tab.rapdis 1 Tab PO DAILY 30 10/22/19 Reported Loratadine 10 Mg Tab.rapdis 1 Tab PO DAILY 30 10/22/19 Reported Breo Ellipta 200-25 Mcg INH (Fluticasone/Vilanterol) 1 Each Blst.w.dev 1 Puff IH DAILY 06/26/19 Reported Aspirin 325 Mg Tablet 1 Tab PO DAILY 06/26/19 Reported Albuterol Sulfate Conc Neb Soln (Albuterol Sulfate) 2.5 Mg/0.5 Ml Vial.neb 1 Vial NEB PRN PRN 09/05/16 Reported Impression . IMPRESSION: 1. Acute on chronic respiratory failure, multifactorial. 2. COVID-19 viral pneumonia. 3. Possible bacterial pneumonia. 4. Status post vaccination with a booster approximately a week ago. 5. Multiple myeloma with polyneuropathy, organomegaly, endocrinopathy and monoclonal gammopathy. 6. Chronic kidney disease. 7. Chronic diastolic heart failure. 8. Chronic obstructive pulmonary disease. 9. Castleman syndrome Plan . Continue oxygen supplementation at 50% FiO2 via BiPAP./alternating with high flow canula. Sats are 100%. Wean Fio2 Solu-Medrol, taper. Increase wbc likely from steroids Remdesivir Status post tocilizumab Continue present supportive care. Clinically improving continue present care d/w MALENA PENG MD Apr 09, 2021 12:39
[2021-04-09] MEDS ORDERED: LIDOCAINE 2% PF 5 ML VIAL. ONE (13:06)
[2021-04-09 15:00] VITALS: BP 156/71
[2021-04-09] MEDS: ENOXAPARIN 40 MG/0.4 ML SYRINGE. SQ SCH (18:09)
[2021-04-09 19:00] VITALS: BP 129/71
[2021-04-09] MEDS: MONTELUKAST SODIUM 10 MG TABLET. PO SCH (20:21)
[2021-04-09 23:00] VITALS: BP 132/62
[2021-04-10] VITALS (10 sets, daily range): BP systolic 118–156; BP diastolic 65–85
[2021-04-10 04:47] LABS: BASO % 0 % (0-3); EOS % 0 % (0-3); HEMATOCRIT 22.2 % (39.0-53.0); LYMPH # 0.2 x10^3/uL (1.0-4.8); LYMPH % 1 % (24-48); MEAN CORPUSCULAR HEMOGLOBIN 33 pg (25-35); MEAN CORPUSCULAR HGB CONC 32 g/dL (31-37); MEAN CORPUSCULAR VOLUME 103 fL (79-100); MONO # 0.9 x10^3/uL (0.0-1.1); MONO % 5 % (0-9); NEUT % 94 % (31-73); PLATELET COUNT 371 x10^3/uL (140-400); RED BLOOD COUNT 2.15 x10^6/uL (4.30-5.70); RED CELL DISTRIBUTION WIDTH 15.5 % (11.5-14.5); WHITE BLOOD COUNT 19.2 x10^3/uL (4.0-11.0)
--- NOTE | 2021-04-10 05:08 | NUR ---
pt hemoglobin 7.0, dr guerrero notified new orders received see charting, will cont to monitor pt status. pmrn
[2021-04-10 05:14] LABS: ALBUMIN 2.8 g/dL (3.4-5.0); CALCIUM 8.6 mg/dL (8.5-10.1); CREATININE 2.2 mg/dL (0.7-1.3); GFR 35.5; TOTAL BILIRUBIN 0.4 mg/dL (0.2-1.0); TOTAL PROTEIN 5.6 g/dL (6.4-8.2)
[2021-04-10 05:16] LABS: POTASSIUM 5.5 mmol/L (3.5-5.1)
[2021-04-10] MEDS ORDERED: FUROSEMIDE 20 MG/2 ML VIAL. IVP ONE (05:45)
[2021-04-10] MEDS ORDERED: FUROSEMIDE 40 MG/4 ML VIAL. IVP ONE (06:00)
[2021-04-10] MEDS: INSULIN LISPRO 300 UNITS/3 ML VIAL. SQ SCH ×2 (07:30→16:30)
--- NOTE | 2021-04-10 08:31 | RAD ---
INDICATION: Shortness of breath. Follow-up airspace consolidation. COMPARISON: April 06, 2021 FINDINGS: Single view of chest obtained. Calcific atherosclerosis. Cardiac silhouette similar to prior. Disorganized pulmonary markings bilate rally. Patchy opacities at the lung bases. IMPRESSION: * Persistent patchy opacities at the bilateral lung bases which could be from atelectasis or infiltr ate. Similar prior. Electronically signed by: Taj Alvarado MD (04/10/2021 8:29 AM) [id number]
[2021-04-10] MEDS: FLUTICASONE 50MCG/NASAL SPRAY 16GM BOTTLE. NS SCH (08:32)
[2021-04-10] MEDS: PANTOPRAZOLE 40 MG TABLET.DR. PO SCH (08:33)
[2021-04-10] MEDS: SODIUM BICARBONATE 650 MG TABLET. PO SCH ×3 (08:33→18:01)
[2021-04-10] MEDS: FERROUS SULFATE 325 MG TABLET. PO SCH (08:33)
[2021-04-10] MEDS: CETIRIZINE HCL 10 MG TABLET. PO SCH (08:33)
[2021-04-10] MEDS: ASPIRIN 325 MG TABLET PO SCH (08:33)
[2021-04-10] MEDS: MAGNESIUM OXIDE 400 MG TABLET PO SCH (08:33)
[2021-04-10] MEDS: CYANOCOBALAMIN (VITAMIN B-12) 1,000 MCG TABLET. PO SCH (08:34)
[2021-04-10] MEDS: ACYCLOVIR 200 MG CAPSULE. PO SCH ×2 (08:34→19:58)
--- NOTE | 2021-04-10 08:35 | PDOC ---
Infectious Disease Note Subjective: Subjective Pt remains on nasal O2 Feels a little better Vital Signs: Vital Signs Vital Signs Date Time Temp Pulse Resp B/P (MAP) Pulse Ox O2 Delivery O2 Flow Rate FiO2 04/10/21 06:07 100 BiPAP/CPAP 04/10/21 03:00 97.0 97 23 132/68 (89) 97.0 04/09/21 08:10 11.0 Physical Exam: PHYSICAL EXAM GENERAL: Alert, oriented x 3, chronically ill-appearing male HEENT: Normocephalic, atraumatic. Anicteric sclerae. NECK: Supple. LUNGS: Coarse breath sounds, mild wheezing. HEART: S1, S2, regular. ABDOMEN: Soft, nontender, nondistended. EXTREMITIES: No edema, no cyanosis. DERMATOLOGIC: Warm, dry. No generalized rash. NEUROLOGIC: Alert, oriented x 3, generalized weakness. PSYCHIATRIC: mildly anxioius and cooperative. Medications: Inpatient Meds: Medications reviewed. Labs: Lab Laboratory Tests Test 04/09/21 12:26 04/09/21 17:04 04/09/21 20:45 04/10/21 04:30 Glucose (Fingerstick) 146 mg/dL (70-99) 193 mg/dL (70-99) 132 mg/dL (70-99) White Blood Count 19.2 x10^3/uL (4.0-11.0) Red Blood Count 2.15 x10^6/uL (4.30-5.70) Hemoglobin 7.0 g/dL (13.0-17.5) Hematocrit 22.2 % (39.0-53.0) Mean Corpuscular Volume 103 fL (79-100) Mean Corpuscular Hemoglobin 33 pg (25-35) Mean Corpuscular Hemoglobin Concent 32 g/dL (31-37) Red Cell Distribution Width 15.5 % (11.5-14.5) Platelet Count 371 x10^3/uL (140-400) Neutrophils (%) (Auto) 94 % (31-73) Lymphocytes (%) (Auto) 1 % (24-48) Monocytes (%) (Auto) 5 % (0-9) Eosinophils (%) (Auto) 0 % (0-3) Basophils (%) (Auto) 0 % (0-3) Neutrophils # (Auto) 18.0 x10^3/uL (1.8-7.7) Lymphocytes # (Auto) 0.2 x10^3/uL (1.0-4.8) Monocytes # (Auto) 0.9 x10^3/uL (0.0-1.1) Eosinophils # (Auto) 0.0 x10^3/uL (0.0-0.7) Basophils # (Auto) 0.0 x10^3/uL (0.0-0.2) Sodium Level 135 mmol/L (136-145) Potassium Level 5.5 mmol/L (3.5-5.1) Chloride Level 98 mmol/L (98-107) Carbon Dioxide Level 30 mmol/L (21-32) Anion Gap 7 (6-14) Blood Urea Nitrogen 84 mg/dL (8-26) Creatinine 2.2 mg/dL (0.7-1.3) Estimated GFR (Cockcroft-Gault) 35.5 BUN/Creatinine Ratio 38 (6-20) Glucose Level 180 mg/dL (70-99) Calcium Level 8.6 mg/dL (8.5-10.1) Total Bilirubin 0.4 mg/dL (0.2-1.0) Aspartate Amino Transf (AST/SGOT) 22 U/L (15-37) Alanine Aminotransferase (ALT/SGPT) 28 U/L (16-63) Alkaline Phosphatase 75 U/L (46-116) Total Protein 5.6 g/dL (6.4-8.2) Albumin 2.8 g/dL (3.4-5.0) Albumin/Globulin Ratio 1.0 (1.0-1.7) Test 04/10/21 08:19 Glucose (Fingerstick) 131 mg/dL (70-99) Objective: Assessment: 1. Acute on chronic hypoxic respiratory failure. 2. Bilateral infiltrates with COVID 19 infection 3. Status post COVID vaccination 3rd in series booster dose a week ago prior to admission. 4. Chronic bronchitis. 5. Multiple myeloma with polyneuropathy organomegaly, endocrinopathy and monoclonal gammopathy. 6. Chronic kidney disease. 7. Chronic diastolic heart failure. 8. Peripheral arterial disease. 9. Gastroesophageal reflux disease. 10. Anemia. Leucocytosis from steroids Plan: Plan of Care Continue supportive care Continue steroids s/p Remdesivir and tocilizumab Monitor labs and cultures Continue supportive care PAUL STALLWORTH MD Apr 10, 2021 08:35
[2021-04-10] MEDS: FLUTICASONE/VILANTEROL 200/25 INHALER. INH SCH (08:49)
[2021-04-10] MEDS ORDERED: methylPREDNISolone SOD SUCC PF 40 MG/ML VIAL. IV SCH (09:00)
--- NOTE | 2021-04-10 10:19 | PDOC ---
PULMONARY PROGRESS NOTES DATE: 04/10/21 TIME: 10:16 Subjective Feels better, Oxygen requirement has improved. Down to 35% FiO2. Still uses BiPAP during the day. Vitals Vital Signs Date Time Temp Pulse Resp B/P (MAP) Pulse Ox O2 Delivery O2 Flow Rate FiO2 04/10/21 08:43 97 Nasal Cannula 5.0 04/10/21 08:33 97 132/68 04/10/21 07:00 23 04/10/21 03:00 97.0 97.0 ROS: No Nausea, No Chest Pain, No Abdominal Pain, No Increase Cough General: Alert, No acute distress Lungs: Clear Cardiovascular: S1, S2 Abdomen: Soft Neuro Exam: Alert Extremities: No Edema Labs Laboratory Tests Test 04/08/21 12:03 04/08/21 13:27 04/08/21 17:17 04/08/21 21:02 Glucose (Fingerstick) 138 mg/dL (70-99) 127 mg/dL (70-99) 156 mg/dL (70-99) Sodium Level 133 mmol/L (136-145) Potassium Level 5.1 mmol/L (3.5-5.1) Chloride Level 97 mmol/L (98-107) Carbon Dioxide Level 31 mmol/L (21-32) Anion Gap 5 (6-14) Blood Urea Nitrogen 73 mg/dL (8-26) Creatinine 1.9 mg/dL (0.7-1.3) Estimated GFR (Cockcroft-Gault) 42.0 BUN/Creatinine Ratio 38 (6-20) Glucose Level 193 mg/dL (70-99) Calcium Level 8.0 mg/dL (8.5-10.1) Total Bilirubin 0.2 mg/dL (0.2-1.0) Aspartate Amino Transf (AST/SGOT) 15 U/L (15-37) Alanine Aminotransferase (ALT/SGPT) 27 U/L (16-63) Alkaline Phosphatase 72 U/L (46-116) Total Protein 5.5 g/dL (6.4-8.2) Albumin 2.6 g/dL (3.4-5.0) Albumin/Globulin Ratio 0.9 (1.0-1.7) Test 04/09/21 04:15 04/09/21 08:12 04/09/21 12:26 04/09/21 17:04 White Blood Count 21.3 x10^3/uL (4.0-11.0) Red Blood Count 2.39 x10^6/uL (4.30-5.70) Hemoglobin 7.8 g/dL (13.0-17.5) Hematocrit 23.6 % (39.0-53.0) Mean Corpuscular Volume 99 fL (79-100) Mean Corpuscular Hemoglobin 33 pg (25-35) Mean Corpuscular Hemoglobin Concent 33 g/dL (31-37) Red Cell Distribution Width 15.7 % (11.5-14.5) Platelet Count 443 x10^3/uL (140-400) Neutrophils (%) (Auto) 98 % (31-73) Lymphocytes (%) (Auto) 1 % (24-48) Monocytes (%) (Auto) 2 % (0-9) Eosinophils (%) (Auto) 0 % (0-3) Basophils (%) (Auto) 0 % (0-3) Neutrophils # (Auto) 20.7 x10^3/uL (1.8-7.7) Lymphocytes # (Auto) 0.2 x10^3/uL (1.0-4.8) Monocytes # (Auto) 0.3 x10^3/uL (0.0-1.1) Eosinophils # (Auto) 0.0 x10^3/uL (0.0-0.7) Basophils # (Auto) 0.0 x10^3/uL (0.0-0.2) Segmented Neutrophils % 99 % (35-66) Band Neutrophils % 1 % (0-9) Nucleated Red Blood Cells 3 Platelet Estimate Adequate (ADEQUATE) Polychromasia Slight Anisocytosis Slight Sodium Level 134 mmol/L (136-145) Potassium Level 5.6 mmol/L (3.5-5.1) Chloride Level 95 mmol/L (98-107) Carbon Dioxide Level 31 mmol/L (21-32) Anion Gap 8 (6-14) Blood Urea Nitrogen 80 mg/dL (8-26) Creatinine 2.1 mg/dL (0.7-1.3) Estimated GFR (Cockcroft-Gault) 37.4 BUN/Creatinine Ratio 38 (6-20) Glucose Level 152 mg/dL (70-99) Calcium Level 8.5 mg/dL (8.5-10.1) Total Bilirubin 0.4 mg/dL (0.2-1.0) Aspartate Amino Transf (AST/SGOT) 21 U/L (15-37) Alanine Aminotransferase (ALT/SGPT) 31 U/L (16-63) Alkaline Phosphatase 78 U/L (46-116) Total Protein 5.6 g/dL (6.4-8.2) Albumin 2.8 g/dL (3.4-5.0) Albumin/Globulin Ratio 1.0 (1.0-1.7) Glucose (Fingerstick) 161 mg/dL (70-99) 146 mg/dL (70-99) 193 mg/dL (70-99) Test 04/09/21 20:45 04/10/21 04:30 04/10/21 08:19 Glucose (Fingerstick) 132 mg/dL (70-99) 131 mg/dL (70-99) White Blood Count 19.2 x10^3/uL (4.0-11.0) Red Blood Count 2.15 x10^6/uL (4.30-5.70) Hemoglobin 7.0 g/dL (13.0-17.5) Hematocrit 22.2 % (39.0-53.0) Mean Corpuscular Volume 103 fL (79-100) Mean Corpuscular Hemoglobin 33 pg (25-35) Mean Corpuscular Hemoglobin Concent 32 g/dL (31-37) Red Cell Distribution Width 15.5 % (11.5-14.5) Platelet Count 371 x10^3/uL (140-400) Neutrophils (%) (Auto) 94 % (31-73) Lymphocytes (%) (Auto) 1 % (24-48) Monocytes (%) (Auto) 5 % (0-9) Eosinophils (%) (Auto) 0 % (0-3) Basophils (%) (Auto) 0 % (0-3) Neutrophils # (Auto) 18.0 x10^3/uL (1.8-7.7) Lymphocytes # (Auto) 0.2 x10^3/uL (1.0-4.8) Monocytes # (Auto) 0.9 x10^3/uL (0.0-1.1) Eosinophils # (Auto) 0.0 x10^3/uL (0.0-0.7) Basophils # (Auto) 0.0 x10^3/uL (0.0-0.2) Sodium Level 135 mmol/L (136-145) Potassium Level 5.5 mmol/L (3.5-5.1) Chloride Level 98 mmol/L (98-107) Carbon Dioxide Level 30 mmol/L (21-32) Anion Gap 7 (6-14) Blood Urea Nitrogen 84 mg/dL (8-26) Creatinine 2.2 mg/dL (0.7-1.3) Estimated GFR (Cockcroft-Gault) 35.5 BUN/Creatinine Ratio 38 (6-20) Glucose Level 180 mg/dL (70-99) Calcium Level 8.6 mg/dL (8.5-10.1) Total Bilirubin 0.4 mg/dL (0.2-1.0) Aspartate Amino Transf (AST/SGOT) 22 U/L (15-37) Alanine Aminotransferase (ALT/SGPT) 28 U/L (16-63) Alkaline Phosphatase 75 U/L (46-116) Total Protein 5.6 g/dL (6.4-8.2) Albumin 2.8 g/dL (3.4-5.0) Albumin/Globulin Ratio 1.0 (1.0-1.7) Laboratory Tests Test 04/09/21 12:26 04/09/21 17:04 04/09/21 20:45 04/10/21 04:30 Glucose (Fingerstick) 146 mg/dL (70-99) 193 mg/dL (70-99) 132 mg/dL (70-99) White Blood Count 19.2 x10^3/uL (4.0-11.0) Red Blood Count 2.15 x10^6/uL (4.30-5.70) Hemoglobin 7.0 g/dL (13.0-17.5) Hematocrit 22.2 % (39.0-53.0) Mean Corpuscular Volume 103 fL (79-100) Mean Corpuscular Hemoglobin 33 pg (25-35) Mean Corpuscular Hemoglobin Concent 32 g/dL (31-37) Red Cell Distribution Width 15.5 % (11.5-14.5) Platelet Count 371 x10^3/uL (140-400) Neutrophils (%) (Auto) 94 % (31-73) Lymphocytes (%) (Auto) 1 % (24-48) Monocytes (%) (Auto) 5 % (0-9) Eosinophils (%) (Auto) 0 % (0-3) Basophils (%) (Auto) 0 % (0-3) Neutrophils # (Auto) 18.0 x10^3/uL (1.8-7.7) Lymphocytes # (Auto) 0.2 x10^3/uL (1.0-4.8) Monocytes # (Auto) 0.9 x10^3/uL (0.0-1.1) Eosinophils # (Auto) 0.0 x10^3/uL (0.0-0.7) Basophils # (Auto) 0.0 x10^3/uL (0.0-0.2) Sodium Level 135 mmol/L (136-145) Potassium Level 5.5 mmol/L (3.5-5.1) Chloride Level 98 mmol/L (98-107) Carbon Dioxide Level 30 mmol/L (21-32) Anion Gap 7 (6-14) Blood Urea Nitrogen 84 mg/dL (8-26) Creatinine 2.2 mg/dL (0.7-1.3) Estimated GFR (Cockcroft-Gault) 35.5 BUN/Creatinine Ratio 38 (6-20) Glucose Level 180 mg/dL (70-99) Calcium Level 8.6 mg/dL (8.5-10.1) Total Bilirubin 0.4 mg/dL (0.2-1.0) Aspartate Amino Transf (AST/SGOT) 22 U/L (15-37) Alanine Aminotransferase (ALT/SGPT) 28 U/L (16-63) Alkaline Phosphatase 75 U/L (46-116) Total Protein 5.6 g/dL (6.4-8.2) Albumin 2.8 g/dL (3.4-5.0) Albumin/Globulin Ratio 1.0 (1.0-1.7) Test 04/10/21 08:19 Glucose (Fingerstick) 131 mg/dL (70-99) Medications Active Scripts Medications Dose Route/Sig Max Daily Dose Days Date Category Dose Instructions Sodium Bicarbonate 650 Mg Tablet 1 Tab PO TIDWMEALS 04/01/21 Reported Prednisone 20 Mg Tablet 1 Tab PO DAILY 04/01/21 Reported Acyclovir 400 Mg Tablet 2 Tab PO BID 04/01/21 Reported Azithromycin Tablet (Azithromycin) 250 Mg Tablet 250 Mg PO DAILY 04/01/21 Reported Bactrim 400-80 Mg Tablet (Sulfamethoxazole/Trimethoprim) 1 Each Tablet 2 Tab PO QMTH 04/01/21 Reported Gabapentin (Gabapentin) 300 Mg Capsule 300 Mg PO TID 04/01/21 Reported Lasix (Furosemide) 40 Mg Tablet 1 Tab PO DAILY 30 04/01/21 Reported Mucinex (Guaifenesin) 1,200 Mg Tbmp.12hr 1 Tab PO BID 15 07/13/20 Reported Diltiazem 24HR Cd (Diltiazem Hcl) 120 Mg Cap.er.24h 1 Cap PO DAILY 30 07/13/20 Reported Dexamethasone 4 Mg Tablet 4 Tab PO DAILY 07/13/20 Reported Prednisone (Prednisone) 10 Mg Tablet 10 Mg PO UD 10/28/19 Rx Take 4 tablets by mouth daily for 3 days, then take 3 tablets by mouth daily for 3 days, then take 2 tablets by mouth daily for 3 days, then take 1 tablets by mouth daily for 3 days, then stop [Folic Acid] 1 Mg PO DAILY 10/22/19 Reported Spiriva (Tiotropium [place]) 18 Mcg Cap.w.dev 1 Cap IH DAILY 10/22/19 Reported Montelukast Sodium Tablet (Montelukast Sodium) 10 Mg Tablet 10 Mg PO HS 10/22/19 Reported Proair Hfa (Albuterol Sulfate) 8.5 Gm Hfa.aer.ad 2 Puff IH PRN Q4 PRN 21 10/22/19 Reported Protonix (Pantoprazole Sodium) 20 Mg Tablet.dr 2 Tab PO DAILY 10/22/19 Reported Mometasone Furoate 45 Gm Cream..g. 1 Gó[place] TP DAILY 10/22/19 Reported Mag-Oxide (Magnesium Oxide) 200 Mg Tablet 2 Tab PO DAILY 30 10/22/19 Reported Fluticasone Propionate Nasal [place] (Fluticasone Propionate) 16 Gm [place].susp 2 [place] NS DAILY 10/22/19 Reported Ferrous Sulfate 325 Mg Tablet 1 Tab PO DAILY 10/22/19 Reported B-12 (Cyanocobalamin (Vitamin B-12)) 5,000 Mcg Tab.rapdis 1 Tab PO DAILY 30 10/22/19 Reported Loratadine 10 Mg Tab.rapdis 1 Tab PO DAILY 30 10/22/19 Reported Breo Ellipta 200-25 Mcg INH (Fluticasone/Vilanterol) 1 Each Blst.w.dev 1 Puff IH DAILY 06/26/19 Reported Aspirin 325 Mg Tablet 1 Tab PO DAILY 06/26/19 Reported Albuterol Sulfate Conc Neb Soln (Albuterol Sulfate) 2.5 Mg/0.5 Ml Vial.neb 1 Vial NEB PRN PRN 09/05/16 Reported Impression . IMPRESSION: 1. Acute on chronic respiratory failure, multifactorial. 2. COVID-19 viral pneumonia. 3. Possible bacterial pneumonia. 4. Status post vaccination with a booster approximately a week ago. 5. Multiple myeloma with polyneuropathy, organomegaly, endocrinopathy and monoclonal gammopathy. 6. Chronic kidney disease. 7. Chronic diastolic heart failure. 8. Chronic obstructive pulmonary disease. 9. Castleman syndrome Plan . Patient's oxygen requirement has improved. I have discussed with the patient that he can come off the BiPAP. He is currently on 35% FiO2. Discussed with RN. Patient will be changed to nasal cannula. As needed BiPAP will continue Solu-Medrol, taper. Increase wbc likely from steroids. Will discontinue steroids today. Remdesivir Status post tocilizumab Continue present supportive care. Clinically improving continue present care d/w MALENA PENG MD Apr 10, 2021 10:18
--- NOTE | 2021-04-10 10:33 | PDOC ---
IM PROGRESS NOTES- Subjective Subjective Continues to have some cough and congestion. Objective Vitals/I&O Vital Signs Date Time Temp Pulse Resp B/P (MAP) Pulse Ox O2 Delivery O2 Flow Rate FiO2 04/10/21 08:43 97 Nasal Cannula 5.0 04/10/21 08:33 97 132/68 04/10/21 07:00 23 04/10/21 03:00 97.0 97.0 I & O 04/09/21 04/09/21 04/10/21 15:00 23:00 07:00 Intake Total 200 ml 100 ml 1150 ml Output Total 150 ml 200 ml 725 ml Balance 50 ml -100 ml 425 ml Physical Exam Physical Exam General Appearance - alert and in moderate distress Chest - decreased breath sounds at bases with few wheezes Heart - S1 and S2 normal Abdomen - soft, non tender Neurological - alert and oriented Musculoskeletal - generalized weakness Extremities - no edema Labs Laboratory Tests Test 04/09/21 12:26 04/09/21 17:04 04/09/21 20:45 04/10/21 04:30 Glucose (Fingerstick) 146 mg/dL (70-99) H 193 mg/dL (70-99) H 132 mg/dL (70-99) H White Blood Count 19.2 x10^3/uL (4.0-11.0) H Red Blood Count 2.15 x10^6/uL (4.30-5.70) L Hemoglobin 7.0 g/dL (13.0-17.5) *L Hematocrit 22.2 % (39.0-53.0) L Mean Corpuscular Volume 103 fL (79-100) H Mean Corpuscular Hemoglobin 33 pg (25-35) Mean Corpuscular Hemoglobin Concent 32 g/dL (31-37) Red Cell Distribution Width 15.5 % (11.5-14.5) H Platelet Count 371 x10^3/uL (140-400) Neutrophils (%) (Auto) 94 % (31-73) H Lymphocytes (%) (Auto) 1 % (24-48) L Monocytes (%) (Auto) 5 % (0-9) Eosinophils (%) (Auto) 0 % (0-3) Basophils (%) (Auto) 0 % (0-3) Neutrophils # (Auto) 18.0 x10^3/uL (1.8-7.7) H Lymphocytes # (Auto) 0.2 x10^3/uL (1.0-4.8) L Monocytes # (Auto) 0.9 x10^3/uL (0.0-1.1) Eosinophils # (Auto) 0.0 x10^3/uL (0.0-0.7) Basophils # (Auto) 0.0 x10^3/uL (0.0-0.2) Sodium Level 135 mmol/L (136-145) L Potassium Level 5.5 mmol/L (3.5-5.1) H Chloride Level 98 mmol/L (98-107) Carbon Dioxide Level 30 mmol/L (21-32) Anion Gap 7 (6-14) Blood Urea Nitrogen 84 mg/dL (8-26) H Creatinine 2.2 mg/dL (0.7-1.3) H Estimated GFR (Cockcroft-Gault) 35.5 BUN/Creatinine Ratio 38 (6-20) H Glucose Level 180 mg/dL (70-99) H Calcium Level 8.6 mg/dL (8.5-10.1) Total Bilirubin 0.4 mg/dL (0.2-1.0) Aspartate Amino Transferase (AST) 22 U/L (15-37) Alanine Aminotransferase (ALT) 28 U/L (16-63) Alkaline Phosphatase 75 U/L (46-116) Total Protein 5.6 g/dL (6.4-8.2) L Albumin 2.8 g/dL (3.4-5.0) L Albumin/Globulin Ratio 1.0 (1.0-1.7) Test 04/10/21 08:19 Glucose (Fingerstick) 131 mg/dL (70-99) H Laboratory Tests 04/10/21 04:30 Laboratory Tests 04/10/21 04:30 Meds Current Medications Medications (Trade) Dose Ordered Sig/Juany Route PRN Reason Start Time Stop Time Status Last Admin Dose Admin Methylprednisolone Sodium Succinate (SOLU-Medrol 40MG VIAL) 30 mg DAILY IV 04/10/21 09:00 04/10/21 10:19 DC 04/10/21 08:32 Furosemide (Lasix) 20 mg 1X ONCE IVP 04/10/21 06:00 04/10/21 06:01 DC 04/10/21 08:32 Assessment Assessment 1. Acute on chronic hypoxic respiratory failure due to COVID-19 pneumonia. 2. COVID-19 pneumonia. 3. Multiple myeloma with polyneuropathy, organomegaly, endocrinopathy, monoclonal gammopathy, and skin changes syndrome. 4. Exacerbation of chronic obstructive pulmonary disease. 5. Panlobular emphysema. 6. Simple chronic bronchitis. 7. Chronic diastolic congestive heart failure. 8. Atherosclerotic heart disease. 9. Peripheral artery disease. 10. Gastroesophageal reflux disease without esophagitis. 11. Benign hypertension with chronic kidney disease stage 3. PLAN: 1. COVID-19 pneumonia. Start IV Solu-Medrol. We will consult Dr. Romero and Dr. Dustin Sy for pulmonary and infectious disease management respectively. We will continue him on appropriate protocol for COVID-19 infection. Patient has completed IV cefepime and remdesivir, Tocilizumab. Monitor off antibiotics. Repeat chest x-ray on April 06 does not show any change in the opacities. 2. Acute on chronic hypoxic respiratory failure. Continue oxygenation. FiO2 50% via BiPAP alternating with high flow cannula. 3. Exacerbation of chronic obstructive pulmonary disease, continue IV steroids. Add Spiriva d/w staff. 4. Continue acyclovir and Bactrim-DS for immunosuppression. The patient has received both COVID-19 vaccines previously as well as booster dose recently. 5. Hyperglycemia secondary to steroids .monitor blood sugar as he is on steroids. I will start him on DVT prophylaxis. Continue pantoprazole. Severe malnutrition. Hyperkalemia- Continue to monitor. Anemia Continue to monitor. Hemoglobin is 7. Transfuse 1 unit of packed red cells. There is some difficulty cross matching his blood because of antibodies, so he will have to get it from the community. Leukocytosis WBC 19 k, possibly due to steroids. Azotemia. Getting worse. BUN 84., creatinine 2.4. K 5.5 BUN may be increasing due to steroids. Consult Dr. Mason for nephrology evaluation and management Discussed with Dr. aRngel on April 09, 2021. Hypertension monitor blood pressure. As needed IV hydralazine. Repeat chest x-ray. Clinically unchanged. Select specialty screen. Condition, treatment, discharge plans etc. discussed with patient's yesterday For details, please refer to the orders. Prognosis of this patient is very poor due to his multiple medical problems. Plan Plan For more details regarding further plans, please refer to the orders. Justifications for Admission Other Justification LIBERTY WOODSON MD Apr 10, 2021 10:33
--- NOTE | 2021-04-10 14:25 | PDOC ---
DATE OF SERVICE DATE: 04/10/21 TIME: 14:24 SUBJECTIVE ROS On o2 by NC Feeling better OBJECTIVE Vital Signs Vital Signs Date Time Temp Pulse Resp B/P (MAP) Pulse Ox O2 Delivery O2 Flow Rate FiO2 04/10/21 13:24 100 Nasal Cannula 5.0 04/10/21 11:00 97.4 96 23 143/74 (97) 97.4 I & 0 Intake and Output 04/10/21 07:00 Intake Total 1450 ml Output Total 1075 ml Balance 375 ml Intake Oral 1450 ml Output Urine Total 1075 ml PHYSICAL EXAM Physical Exam GENERAL: Alert, oriented x 3 NAD HEENT: Normocephalic, atraumatic. Anicteric sclerae. BIPAP NECK: Supple. LUNGS: Coarse breath sounds, HEART: S1, S2, regular. ABDOMEN: Soft, nontender, nondistended. EXTREMITIES: No edema, no cyanosis. DERMATOLOGIC: Warm, dry. No generalized rash. NEUROLOGIC: Alert, oriented x 3, PSYCHIATRIC: cooperative. No [place], No CVA or SP tenderness DIAGNOSIS/ASSESSMENT Assessment & Plan EDITA- Mild worsening of renal function ; Cr above his baseline ; BUN significantly elevated 2/2 Steroids . Maintain Hydration Recd Lasix Supportive are, maintain fluid balance, avoid nephrotoxins Hyperkalemia- mild, stable Also on bactrim 2/week - probabaly prophylaxis for POEM's , was receiving Chemo . Monitor, Kayexalate x 1 if worsening. Re-eval in morning CKD stage 3A- Follows with us as OP ; Baseline Cr 1.4-1.8 . Seen in our office on 02/19/21- Cr 1.4. Acute on chronic respiratory failure-On o2 via BiPAP , CxR Dx of pneumonia COVID-19 viral pneumonia - Status post vaccination with a booster approximately a week ago.On o2 via BiPAP, Solu-Medrol, Remdesivir. Status post tocilizumab ; Multiple myeloma with polyneuropathy, organomegaly, endocrinopathy and monoclonal gammopathy. (POEM's) Follows with Dr. Gustafson, recently completed Chemo therapy Anemia- Hgb decreased Chronic diastolic heart failure. Chronic obstructive pulmonary disease. Castleman syndrome COMMENT/RELEVANT DATA Meds Current Medications Medications (Trade) Dose Ordered Sig/Juany Start Time Stop Time Status Last Admin Dose Admin Acyclovir (Zovirax) 400 mg BID 04/01/21 21:00 04/10/21 08:34 400 MG Albuterol Sulfate (Ventolin Neb Soln) 2.5 mg 1X ONCE 04/01/21 12:15 04/01/21 12:16 DC 04/01/21 12:15 2.5 MG Albuterol/ Ipratropium (Duoneb) 3 ml RTQID 04/01/21 20:00 04/02/21 10:07 DC Alprazolam (Xanax) 0.25 mg PRN Q8HRS PRN 04/06/21 22:45 04/09/21 20:20 0.25 MG Aspirin (Kevin Aspirin) 325 mg DAILY 04/02/21 09:00 04/10/21 08:33 325 MG Budesonide (Pulmicort) 0.5 mg RTBID 04/01/21 20:00 04/02/21 10:07 DC Cefepime HCl (Maxipime) 2 gm Q8HRS 04/04/21 14:30 04/05/21 09:18 DC 04/05/21 06:13 2 GM Cetirizine HCl (ZyrTEC) 10 mg DAILY 04/02/21 09:00 04/10/21 08:33 10 MG Cyanocobalamin (Vitamin B-12) 500 mcg DAILY 04/02/21 09:00 04/10/21 08:34 500 MCG Diltiazem HCl (Cardizem 24hr Cd) 120 mg DAILY 04/02/21 09:00 04/10/21 08:33 120 MG Enoxaparin Sodium (Lovenox 40mg Syringe) 40 mg Q24H 04/01/21 19:00 04/09/21 18:09 40 MG Ferrous Sulfate (Feosol) 325 mg DAILY 04/02/21 09:00 04/10/21 08:33 325 MG Fluticasone Propionate (Flonase) 2 spray DAILY 04/02/21 09:00 04/10/21 08:32 2 SPRAY Fluticasone/ Vilanterol (Breo Ellipta 200-25 Mcg) 1 puff DAILY 04/02/21 11:00 04/10/21 08:49 1 PUFF Furosemide (Lasix) 20 mg 1X ONCE 04/10/21 06:00 04/10/21 06:01 DC 04/10/21 08:32 20 MG Hydralazine HCl (Apresoline Inj) 10 mg PRN Q4HRS PRN 04/04/21 09:30 Insulin Human Lispro (HumaLOG) 0-8 UNITS BIDBFRMEAL 04/02/21 07:30 04/07/21 17:12 2 UNITS Levofloxacin/ Dextrose 150 ml @ 100 mls/hr 1X ONCE 04/01/21 12:15 04/01/21 13:44 DC 04/01/21 12:44 100 MLS/HR Lidocaine HCl (Lidocaine Pf 2% Vial) 5 ml STK-MED ONCE 04/09/21 13:06 04/09/21 13:06 DC Magnesium Oxide (Magnesium Oxide) 400 mg DAILY 04/02/21 09:00 04/10/21 08:33 400 MG Methylprednisolone Sodium Succinate (SOLU-Medrol 40MG VIAL) 30 mg DAILY 04/10/21 09:00 04/10/21 10:19 DC 04/10/21 08:32 30 MG Methylprednisolone Sodium Succinate (SOLU-Medrol 125MG VIAL) 60 mg Q12HR 04/01/21 21:00 04/09/21 12:40 DC 04/09/21 08:56 60 MG Montelukast Sodium (Singulair) 10 mg HS 04/01/21 21:00 04/09/21 20:21 10 MG Non-Formulary Medication (Fluticasone/ Vilanterol (Breo Ellipta 200-25 Mcg INH)) 1 puff DAILY 04/02/21 09:00 UNV Non-Formulary Medication (Guaifenesin (Mucinex)) 1 tab BID 04/01/21 21:00 UNV Non-Formulary Medication (Tiotropium [place] (Spiriva)) 1 cap DAILY 04/02/21 09:00 UNV Pantoprazole Sodium (Protonix) 40 mg DAILYAC 04/02/21 07:30 04/10/21 08:33 40 MG Remdesivir 100 mg/ Sodium Chloride 230 ml @ 460 mls/hr Q24H 04/03/21 12:00 04/06/21 12:29 DC 04/06/21 11:24 460 MLS/HR Remdesivir 200 mg/ Sodium Chloride 210 ml @ 210 mls/hr 1X ONCE 04/02/21 12:00 04/02/21 12:59 DC 04/02/21 11:41 210 MLS/HR Sodium Bicarbonate (Sodium Bicarbonate) 650 mg TIDWMEALS 04/02/21 08:00 04/10/21 08:33 650 MG Sodium Chloride 1,000 ml @ 1,000 mls/hr Q1H 04/01/21 12:15 04/01/21 13:14 DC 04/01/21 13:40 1,000 MLS/HR Tocilizumab 400 mg/Sodium Chloride 100 ml @ 100 mls/hr 1X ONCE 04/02/21 16:00 04/02/21 16:59 DC 04/02/21 17:00 100 MLS/HR Trimethoprim/ Sulfamethoxazole (Bactrim Ds) 1 tab QMTH 04/01/21 16:00 04/08/21 09:47 1 TAB Lab Laboratory Tests Test 04/09/21 17:04 04/09/21 20:45 04/10/21 04:30 04/10/21 08:19 Glucose (Fingerstick) 193 mg/dL (70-99) 132 mg/dL (70-99) 131 mg/dL (70-99) White Blood Count 19.2 x10^3/uL (4.0-11.0) Red Blood Count 2.15 x10^6/uL (4.30-5.70) Hemoglobin 7.0 g/dL (13.0-17.5) Hematocrit 22.2 % (39.0-53.0) Mean Corpuscular Volume 103 fL (79-100) Mean Corpuscular Hemoglobin 33 pg (25-35) Mean Corpuscular Hemoglobin Concent 32 g/dL (31-37) Red Cell Distribution Width 15.5 % (11.5-14.5) Platelet Count 371 x10^3/uL (140-400) Neutrophils (%) (Auto) 94 % (31-73) Lymphocytes (%) (Auto) 1 % (24-48) Monocytes (%) (Auto) 5 % (0-9) Eosinophils (%) (Auto) 0 % (0-3) Basophils (%) (Auto) 0 % (0-3) Neutrophils # (Auto) 18.0 x10^3/uL (1.8-7.7) Lymphocytes # (Auto) 0.2 x10^3/uL (1.0-4.8) Monocytes # (Auto) 0.9 x10^3/uL (0.0-1.1) Eosinophils # (Auto) 0.0 x10^3/uL (0.0-0.7) Basophils # (Auto) 0.0 x10^3/uL (0.0-0.2) Sodium Level 135 mmol/L (136-145) Potassium Level 5.5 mmol/L (3.5-5.1) Chloride Level 98 mmol/L (98-107) Carbon Dioxide Level 30 mmol/L (21-32) Anion Gap 7 (6-14) Blood Urea Nitrogen 84 mg/dL (8-26) Creatinine 2.2 mg/dL (0.7-1.3) Estimated GFR (Cockcroft-Gault) 35.5 BUN/Creatinine Ratio 38 (6-20) Glucose Level 180 mg/dL (70-99) Calcium Level 8.6 mg/dL (8.5-10.1) Total Bilirubin 0.4 mg/dL (0.2-1.0) Aspartate Amino Transf (AST/SGOT) 22 U/L (15-37) Alanine Aminotransferase (ALT/SGPT) 28 U/L (16-63) Alkaline Phosphatase 75 U/L (46-116) Total Protein 5.6 g/dL (6.4-8.2) Albumin 2.8 g/dL (3.4-5.0) Albumin/Globulin Ratio 1.0 (1.0-1.7) Test 04/10/21 11:04 Glucose (Fingerstick) 213 mg/dL (70-99) Results All relevant outside records, renal labs, imaging studies, telemetry/EKG's were reviewed. Justicifation of Admission Dx: Justifications for Admission: Justification of Admission Dx: N/A TEO LAW MD Apr 10, 2021 14:25
[2021-04-10] MEDS: ENOXAPARIN 40 MG/0.4 ML SYRINGE. SQ SCH (18:02)
[2021-04-10] MEDS: MONTELUKAST SODIUM 10 MG TABLET. PO SCH (19:58)
[2021-04-10] MEDS: ALPRAZolam 0.25 MG TABLET PO PRN (19:59)
[2021-04-11 03:30] VITALS: BP 133/73
[2021-04-11 07:00] VITALS: BP 132/78
[2021-04-11] MEDS: INSULIN LISPRO 300 UNITS/3 ML VIAL. SQ SCH ×2 (07:30→16:30)
[2021-04-11] MEDS: ACYCLOVIR 200 MG CAPSULE. PO SCH ×2 (07:55→21:20)
[2021-04-11] MEDS: CETIRIZINE HCL 10 MG TABLET. PO SCH (07:55)
[2021-04-11] MEDS: MAGNESIUM OXIDE 400 MG TABLET PO SCH (07:55)
[2021-04-11] MEDS: SODIUM BICARBONATE 650 MG TABLET. PO SCH ×3 (07:55→17:00)
[2021-04-11] MEDS: CYANOCOBALAMIN (VITAMIN B-12) 1,000 MCG TABLET. PO SCH (07:56)
[2021-04-11] MEDS: ASPIRIN 325 MG TABLET PO SCH (07:56)
[2021-04-11] MEDS: FERROUS SULFATE 325 MG TABLET. PO SCH (07:56)
[2021-04-11] MEDS: PANTOPRAZOLE 40 MG TABLET.DR. PO SCH (07:56)
[2021-04-11] MEDS: FLUTICASONE 50MCG/NASAL SPRAY 16GM BOTTLE. NS SCH (07:58)
[2021-04-11] MEDS: FLUTICASONE/VILANTEROL 200/25 INHALER. INH SCH (08:40)
--- NOTE | 2021-04-11 09:34 | PDOC ---
Infectious Disease Note Subjective: Subjective Pt remains on nasal O2/BiPAP as needed States feels a little better Wants to drink water No other acute issues per discussion with RN Vital Signs: Vital Signs Vital Signs Date Time Temp Pulse Resp B/P (MAP) Pulse Ox O2 Delivery O2 Flow Rate FiO2 04/11/21 07:56 97 133/73 04/11/21 07:00 97.5 23 100 BiPAP/CPAP 97.5 04/10/21 20:13 5.0 Physical Exam: PHYSICAL EXAM GENERAL: Alert, oriented x 3, chronically ill-appearing male HEENT: Normocephalic, atraumatic. Anicteric sclerae. NECK: Supple. LUNGS: Coarse breath sounds, mild wheezing. HEART: S1, S2, regular. ABDOMEN: Soft, nontender, nondistended. EXTREMITIES: No edema, no cyanosis. DERMATOLOGIC: Warm, dry. No generalized rash. NEUROLOGIC: Alert, oriented x 3, generalized weakness. PSYCHIATRIC: mildly anxioius and cooperative. Medications: Inpatient Meds: Medications reviewed. Labs: Lab Laboratory Tests Test 04/10/21 11:04 04/10/21 17:05 04/10/21 20:47 04/11/21 08:03 Glucose (Fingerstick) 213 mg/dL (70-99) 200 mg/dL (70-99) 197 mg/dL (70-99) 143 mg/dL (70-99) Objective: Assessment: 1. Acute on chronic hypoxic respiratory failure. 2. Bilateral infiltrates with COVID 19 infection 3. Status post COVID vaccination 3rd in series booster dose a week ago prior to admission. 4. Chronic bronchitis. 5. Multiple myeloma with polyneuropathy organomegaly, endocrinopathy and monoclonal gammopathy. 6. Chronic kidney disease. 7. Chronic diastolic heart failure. 8. Peripheral arterial disease. 9. Gastroesophageal reflux disease. 10. Anemia. Leucocytosis from steroids Plan: Plan of Care Continue supportive care Continue steroids s/p Remdesivir and tocilizumab Monitor labs and cultures Continue supportive care PAUL STALLWORTH MD Apr 11, 2021 09:34
[2021-04-11 09:38] LABS: BASO # 0.1 x10^3/uL (0.0-0.2); BASO % 0 % (0-3); EOS % 0 % (0-3); HEMATOCRIT 25.7 % (39.0-53.0); HEMOGLOBIN 8.3 g/dL (13.0-17.5); LYMPH # 0.4 x10^3/uL (1.0-4.8); LYMPH % 2 % (24-48); MEAN CORPUSCULAR HEMOGLOBIN 31 pg (25-35); MEAN CORPUSCULAR HGB CONC 32 g/dL (31-37); MEAN CORPUSCULAR VOLUME 96 fL (79-100); MONO % 4 % (0-9); NEUT # 25.5 x10^3/uL (1.8-7.7); NEUT % 94 % (31-73); PLATELET COUNT 366 x10^3/uL (140-400); RED BLOOD COUNT 2.67 x10^6/uL (4.30-5.70); RED CELL DISTRIBUTION WIDTH 20.5 % (11.5-14.5)
[2021-04-11 09:48] LABS: CALCIUM 8.4 mg/dL (8.5-10.1); CREATININE 1.8 mg/dL (0.7-1.3); GFR 44.7
[2021-04-11 11:00] VITALS: BP 132/80
--- NOTE | 2021-04-11 11:10 | PDOC ---
PULMONARY PROGRESS NOTES DATE: 04/11/21 TIME: 11:08 Subjective Feels better, Oxygen requirement has improved. Down to 35% FiO2. Still uses BiPAP as needed during the day. Did 6 hours on nasal cannula yesterday Vitals Vital Signs Date Time Temp Pulse Resp B/P (MAP) Pulse Ox O2 Delivery O2 Flow Rate FiO2 04/11/21 07:56 97 133/73 04/11/21 07:00 97.5 23 100 BiPAP/CPAP 97.5 04/10/21 20:13 5.0 ROS: No Nausea, No Chest Pain, No Abdominal Pain, No Increase Cough General: Alert, No acute distress Lungs: Clear Cardiovascular: S1, S2 Abdomen: Soft Neuro Exam: Alert Extremities: No Edema Labs Laboratory Tests Test 04/09/21 12:26 04/09/21 17:04 04/09/21 20:45 04/10/21 04:30 Glucose (Fingerstick) 146 mg/dL (70-99) 193 mg/dL (70-99) 132 mg/dL (70-99) White Blood Count 19.2 x10^3/uL (4.0-11.0) Red Blood Count 2.15 x10^6/uL (4.30-5.70) Hemoglobin 7.0 g/dL (13.0-17.5) Hematocrit 22.2 % (39.0-53.0) Mean Corpuscular Volume 103 fL (79-100) Mean Corpuscular Hemoglobin 33 pg (25-35) Mean Corpuscular Hemoglobin Concent 32 g/dL (31-37) Red Cell Distribution Width 15.5 % (11.5-14.5) Platelet Count 371 x10^3/uL (140-400) Neutrophils (%) (Auto) 94 % (31-73) Lymphocytes (%) (Auto) 1 % (24-48) Monocytes (%) (Auto) 5 % (0-9) Eosinophils (%) (Auto) 0 % (0-3) Basophils (%) (Auto) 0 % (0-3) Neutrophils # (Auto) 18.0 x10^3/uL (1.8-7.7) Lymphocytes # (Auto) 0.2 x10^3/uL (1.0-4.8) Monocytes # (Auto) 0.9 x10^3/uL (0.0-1.1) Eosinophils # (Auto) 0.0 x10^3/uL (0.0-0.7) Basophils # (Auto) 0.0 x10^3/uL (0.0-0.2) Sodium Level 135 mmol/L (136-145) Potassium Level 5.5 mmol/L (3.5-5.1) Chloride Level 98 mmol/L (98-107) Carbon Dioxide Level 30 mmol/L (21-32) Anion Gap 7 (6-14) Blood Urea Nitrogen 84 mg/dL (8-26) Creatinine 2.2 mg/dL (0.7-1.3) Estimated GFR (Cockcroft-Gault) 35.5 BUN/Creatinine Ratio 38 (6-20) Glucose Level 180 mg/dL (70-99) Calcium Level 8.6 mg/dL (8.5-10.1) Total Bilirubin 0.4 mg/dL (0.2-1.0) Aspartate Amino Transf (AST/SGOT) 22 U/L (15-37) Alanine Aminotransferase (ALT/SGPT) 28 U/L (16-63) Alkaline Phosphatase 75 U/L (46-116) Total Protein 5.6 g/dL (6.4-8.2) Albumin 2.8 g/dL (3.4-5.0) Albumin/Globulin Ratio 1.0 (1.0-1.7) Test 04/10/21 08:19 04/10/21 11:04 04/10/21 17:05 04/10/21 20:47 Glucose (Fingerstick) 131 mg/dL (70-99) 213 mg/dL (70-99) 200 mg/dL (70-99) 197 mg/dL (70-99) Test 04/11/21 08:03 04/11/21 09:20 Glucose (Fingerstick) 143 mg/dL (70-99) White Blood Count 27.0 x10^3/uL (4.0-11.0) Red Blood Count 2.67 x10^6/uL (4.30-5.70) Hemoglobin 8.3 g/dL (13.0-17.5) Hematocrit 25.7 % (39.0-53.0) Mean Corpuscular Volume 96 fL (79-100) Mean Corpuscular Hemoglobin 31 pg (25-35) Mean Corpuscular Hemoglobin Concent 32 g/dL (31-37) Red Cell Distribution Width 20.5 % (11.5-14.5) Platelet Count 366 x10^3/uL (140-400) Neutrophils (%) (Auto) 94 % (31-73) Lymphocytes (%) (Auto) 2 % (24-48) Monocytes (%) (Auto) 4 % (0-9) Eosinophils (%) (Auto) 0 % (0-3) Basophils (%) (Auto) 0 % (0-3) Neutrophils # (Auto) 25.5 x10^3/uL (1.8-7.7) Lymphocytes # (Auto) 0.4 x10^3/uL (1.0-4.8) Monocytes # (Auto) 1.0 x10^3/uL (0.0-1.1) Eosinophils # (Auto) 0.0 x10^3/uL (0.0-0.7) Basophils # (Auto) 0.1 x10^3/uL (0.0-0.2) Sodium Level 136 mmol/L (136-145) Potassium Level 5.0 mmol/L (3.5-5.1) Chloride Level 99 mmol/L (98-107) Carbon Dioxide Level 33 mmol/L (21-32) Anion Gap 4 (6-14) Blood Urea Nitrogen 71 mg/dL (8-26) Creatinine 1.8 mg/dL (0.7-1.3) Estimated GFR (Cockcroft-Gault) 44.7 Glucose Level 176 mg/dL (70-99) Calcium Level 8.4 mg/dL (8.5-10.1) Laboratory Tests Test 04/10/21 17:05 04/10/21 20:47 04/11/21 08:03 04/11/21 09:20 Glucose (Fingerstick) 200 mg/dL (70-99) 197 mg/dL (70-99) 143 mg/dL (70-99) White Blood Count 27.0 x10^3/uL (4.0-11.0) Red Blood Count 2.67 x10^6/uL (4.30-5.70) Hemoglobin 8.3 g/dL (13.0-17.5) Hematocrit 25.7 % (39.0-53.0) Mean Corpuscular Volume 96 fL (79-100) Mean Corpuscular Hemoglobin 31 pg (25-35) Mean Corpuscular Hemoglobin Concent 32 g/dL (31-37) Red Cell Distribution Width 20.5 % (11.5-14.5) Platelet Count 366 x10^3/uL (140-400) Neutrophils (%) (Auto) 94 % (31-73) Lymphocytes (%) (Auto) 2 % (24-48) Monocytes (%) (Auto) 4 % (0-9) Eosinophils (%) (Auto) 0 % (0-3) Basophils (%) (Auto) 0 % (0-3) Neutrophils # (Auto) 25.5 x10^3/uL (1.8-7.7) Lymphocytes # (Auto) 0.4 x10^3/uL (1.0-4.8) Monocytes # (Auto) 1.0 x10^3/uL (0.0-1.1) Eosinophils # (Auto) 0.0 x10^3/uL (0.0-0.7) Basophils # (Auto) 0.1 x10^3/uL (0.0-0.2) Sodium Level 136 mmol/L (136-145) Potassium Level 5.0 mmol/L (3.5-5.1) Chloride Level 99 mmol/L (98-107) Carbon Dioxide Level 33 mmol/L (21-32) Anion Gap 4 (6-14) Blood Urea Nitrogen 71 mg/dL (8-26) Creatinine 1.8 mg/dL (0.7-1.3) Estimated GFR (Cockcroft-Gault) 44.7 Glucose Level 176 mg/dL (70-99) Calcium Level 8.4 mg/dL (8.5-10.1) Medications Active Scripts Medications Dose Route/Sig Max Daily Dose Days Date Category Dose Instructions Sodium Bicarbonate 650 Mg Tablet 1 Tab PO TIDWMEALS 04/01/21 Reported Prednisone 20 Mg Tablet 1 Tab PO DAILY 04/01/21 Reported Acyclovir 400 Mg Tablet 2 Tab PO BID 04/01/21 Reported Azithromycin Tablet (Azithromycin) 250 Mg Tablet 250 Mg PO DAILY 04/01/21 Reported Bactrim 400-80 Mg Tablet (Sulfamethoxazole/Trimethoprim) 1 Each Tablet 2 Tab PO QMTH 04/01/21 Reported Gabapentin (Gabapentin) 300 Mg Capsule 300 Mg PO TID 04/01/21 Reported Lasix (Furosemide) 40 Mg Tablet 1 Tab PO DAILY 30 04/01/21 Reported Mucinex (Guaifenesin) 1,200 Mg Tbmp.12hr 1 Tab PO BID 15 07/13/20 Reported Diltiazem 24HR Cd (Diltiazem Hcl) 120 Mg Cap.er.24h 1 Cap PO DAILY 30 07/13/20 Reported Dexamethasone 4 Mg Tablet 4 Tab PO DAILY 07/13/20 Reported Prednisone (Prednisone) 10 Mg Tablet 10 Mg PO UD 10/28/19 Rx Take 4 tablets by mouth daily for 3 days, then take 3 tablets by mouth daily for 3 days, then take 2 tablets by mouth daily for 3 days, then take 1 tablets by mouth daily for 3 days, then stop [Folic Acid] 1 Mg PO DAILY 10/22/19 Reported Spiriva (Tiotropium [place]) 18 Mcg Cap.w.dev 1 Cap IH DAILY 10/22/19 Reported Montelukast Sodium Tablet (Montelukast Sodium) 10 Mg Tablet 10 Mg PO HS 10/22/19 Reported Proair Hfa (Albuterol Sulfate) 8.5 Gm Hfa.aer.ad 2 Puff IH PRN Q4 PRN 21 10/22/19 Reported Protonix (Pantoprazole Sodium) 20 Mg Tablet.dr 2 Tab PO DAILY 10/22/19 Reported Mometasone Furoate 45 Gm Cream..g. 1 [place] TP DAILY 10/22/19 Reported Mag-Oxide (Magnesium Oxide) 200 Mg Tablet 2 Tab PO DAILY 30 10/22/19 Reported Fluticasone Propionate Nasal [place] (Fluticasone Propionate) 16 Gm [place].susp 2 [place] NS DAILY 10/22/19 Reported Ferrous Sulfate 325 Mg Tablet 1 Tab PO DAILY 10/22/19 Reported B-12 (Cyanocobalamin (Vitamin B-12)) 5,000 Mcg Tab.rapdis 1 Tab PO DAILY 30 10/22/19 Reported Loratadine 10 Mg Tab.rapdis 1 Tab PO DAILY 30 10/22/19 Reported Breo Ellipta 200-25 Mcg INH (Fluticasone/Vilanterol) 1 Each Blst.w.dev 1 Puff IH DAILY 06/26/19 Reported Aspirin 325 Mg Tablet 1 Tab PO DAILY 06/26/19 Reported Albuterol Sulfate Conc Neb Soln (Albuterol Sulfate) 2.5 Mg/0.5 Ml Vial.neb 1 Vial NEB PRN PRN 09/05/16 Reported Impression . IMPRESSION: 1. Acute on chronic respiratory failure, multifactorial. 2. COVID-19 viral pneumonia. 3. Possible bacterial pneumonia. 4. Status post vaccination with a booster approximately a week ago. 5. Multiple myeloma with polyneuropathy, organomegaly, endocrinopathy and monoclonal gammopathy. 6. Chronic kidney disease. 7. Chronic diastolic heart failure. 8. Chronic obstructive pulmonary disease. 9. Castleman syndrome Plan . Patient's oxygen requirement has improved. I have discussed with the patient that he can come off the BiPAP. He is currently on 35% FiO2. He did 6 hours of nasal cannula yesterday. Discussed with RN. Patient will be changed to nasal cannula. As needed BiPAP will continue Off his steroids 04/10/2021. Leukocytosis likely secondary to steroids. No fever. Monitor WBC. Remdesivir Status post tocilizumab Continue present supportive care. Clinically improving continue present care d/w MALENA PENG MD Apr 11, 2021 11:10
--- NOTE | 2021-04-11 12:08 | PDOC ---
PROGRESS NOTES Date of Service: DATE: 04/11/21 TIME: 12:05 Subjective Subjective feels ok on BIPAP Objective Objective Vital Signs Date Time Temp Pulse Resp B/P (MAP) Pulse Ox O2 Delivery O2 Flow Rate FiO2 04/11/21 08:00 Nasal Cannula 5.0 04/11/21 07:56 97 133/73 04/11/21 07:00 97.5 23 100 97.5 Intake and Output 04/11/21 07:00 Intake Total 340 ml Output Total 2475 ml Balance -2135 ml Intake Oral 340 ml Output Urine Total 2475 ml Physical Exam Abdomen: Soft Heart: Normal S1, Normal S2 Extremities: No clubbing General: Alert Lungs: Normal air movement MUSCULOSKELETAL: No deformity Neck: Supple Neuro: Normal speech Psych/Mental Status: Mental status NL Skin: No breakdown Diagnosis Problem List Problems Medical Problems: (1) COVID-19 Status: Acute (2) History of COPD Status: Acute (3) Person under investigation for COVID-19 Status: Acute (4) Renal insufficiency Status: Acute (5) Respiratory failure Status: Acute Assessment Assessment 1. Acute on chronic hypoxic respiratory failure due to COVID-19 pneumonia. 2. COVID-19 pneumonia. 3. Multiple myeloma with polyneuropathy, organomegaly, endocrinopathy, monoclonal gammopathy, and skin changes syndrome. 4. Exacerbation of chronic obstructive pulmonary disease. 5. Panlobular emphysema. 6. Simple chronic bronchitis. 7. Chronic diastolic congestive heart failure. 8. Atherosclerotic heart disease. 9. Peripheral artery disease. 10. Gastroesophageal reflux disease without esophagitis. 11. Benign hypertension with chronic kidney disease stage 3. PLAN:wbc 27, high due to steroids, steroids d/adrian yesterday. wean off BIPAP spoke with RN cr 1.7 stable 1. COVID-19 pneumonia. Start IV Solu-Medrol. We will consult Dr. Romero and Dr. Dustin Sy for pulmonary and infectious disease management respectively. We will continue him on appropriate protocol for COVID-19 infection. Patient has completed IV cefepime and remdesivir, Tocilizumab. Monitor off antibiotics. Repeat chest x-ray on April 06 does not show any change in the opacities. 2. Acute on chronic hypoxic respiratory failure. Continue oxygenation. FiO2 50% via BiPAP alternating with high flow cannula. 3. Exacerbation of chronic obstructive pulmonary disease, continue IV steroids. Add Spiriva d/w staff. 4. Continue acyclovir and Bactrim-DS for immunosuppression. The patient has received both COVID-19 vaccines previously as well as booster dose recently. 5. Hyperglycemia secondary to steroids .monitor blood sugar as he is on steroids. I will start him on DVT prophylaxis. Continue pantoprazole. Severe malnutrition. Hyperkalemia- Continue to monitor. Anemia Continue to monitor. Hemoglobin is 7. Transfuse 1 unit of packed red cells. There is some difficulty cross matching his blood because of antibodies, so he will have to get it from the community. Leukocytosis WBC 19 k, possibly due to steroids. Azotemia. Getting worse. BUN 84., creatinine 2.4. K 5.5 BUN may be increasing due to steroids. Consult Dr. Mason for nephrology evaluation and management Discussed with Dr. Rangel on April 09, 2021. Hypertension monitor blood pressure. As needed IV hydralazine. Repeat chest x-ray. Clinically unchanged. Select specialty screen. Condition, treatment, discharge plans etc. discussed with patient's yesterday For details, please refer to the orders. Prognosis of this patient is very poor due to his multiple medical problems. Plan Plan of Care Problems Medical Problems: (1) COVID-19 Status: Acute (2) History of COPD Status: Acute (3) Person under investigation for COVID-19 Status: Acute (4) Renal insufficiency Status: Acute (5) Respiratory failure Status: Acute Comment Review of Relevant I have reviewed the following items barney (where applicable) has been applied. Labs Laboratory Tests Test 04/10/21 17:05 04/10/21 20:47 04/11/21 08:03 04/11/21 09:20 Glucose (Fingerstick) 200 mg/dL (70-99) 197 mg/dL (70-99) 143 mg/dL (70-99) White Blood Count 27.0 x10^3/uL (4.0-11.0) Red Blood Count 2.67 x10^6/uL (4.30-5.70) Hemoglobin 8.3 g/dL (13.0-17.5) Hematocrit 25.7 % (39.0-53.0) Mean Corpuscular Volume 96 fL (79-100) Mean Corpuscular Hemoglobin 31 pg (25-35) Mean Corpuscular Hemoglobin Concent 32 g/dL (31-37) Red Cell Distribution Width 20.5 % (11.5-14.5) Platelet Count 366 x10^3/uL (140-400) Neutrophils (%) (Auto) 94 % (31-73) Lymphocytes (%) (Auto) 2 % (24-48) Monocytes (%) (Auto) 4 % (0-9) Eosinophils (%) (Auto) 0 % (0-3) Basophils (%) (Auto) 0 % (0-3) Neutrophils # (Auto) 25.5 x10^3/uL (1.8-7.7) Lymphocytes # (Auto) 0.4 x10^3/uL (1.0-4.8) Monocytes # (Auto) 1.0 x10^3/uL (0.0-1.1) Eosinophils # (Auto) 0.0 x10^3/uL (0.0-0.7) Basophils # (Auto) 0.1 x10^3/uL (0.0-0.2) Sodium Level 136 mmol/L (136-145) Potassium Level 5.0 mmol/L (3.5-5.1) Chloride Level 99 mmol/L (98-107) Carbon Dioxide Level 33 mmol/L (21-32) Anion Gap 4 (6-14) Blood Urea Nitrogen 71 mg/dL (8-26) Creatinine 1.8 mg/dL (0.7-1.3) Estimated GFR (Cockcroft-Gault) 44.7 Glucose Level 176 mg/dL (70-99) Calcium Level 8.4 mg/dL (8.5-10.1) Test 04/11/21 11:36 Glucose (Fingerstick) 116 mg/dL (70-99) Microbiology 04/01/21 Blood Culture - Final, Complete NO GROWTH AFTER 5 DAYS Vitals/I & O Vital Sign - Last 24 Hours 04/10/21 04/10/21 04/10/21 04/10/21 13:24 15:00 16:57 17:15 Temp 97.1 98.7 97.9 97.1 98.7 97.9 Pulse 102 89 85 Resp 23 20 20 B/P (MAP) 136/72 (93) 118/85 130/65 Pulse Ox 100 95 O2 Delivery Nasal Cannula Nasal Cannula O2 Flow Rate 5.0 04/10/21 04/10/21 04/10/21 04/10/21 18:15 19:15 20:00 20:13 Temp 98.9 97.4 98.9 97.4 Pulse 78 107 103 Resp B/P (MAP) 138/68 156/79 (104) 152/77 Pulse Ox 98 O2 Delivery Nasal Cannula Nasal Cannula O2 Flow Rate 5.0 5.0 04/10/21 04/10/21 04/10/21 04/11/21 20:30 23:05 23:32 02:05 Temp 97.7 97.7 Pulse 100 Resp 25 B/P (MAP) 121/73 (89) Pulse Ox 100 99 99 97 O2 Delivery BiPAP/CPAP BiPAP/CPAP BiPAP/CPAP BiPAP/CPAP 04/11/21 04/11/21 04/11/21 04/11/21 03:30 04:51 07:00 07:56 Temp 97.7 97.5 97.7 97.5 Pulse 97 105 97 Resp B/P (MAP) 133/73 (93) 132/78 (96) 133/73 Pulse Ox 97 94 100 O2 Delivery BiPAP/CPAP BiPAP/CPAP BiPAP/CPAP 04/11/21 08:00 O2 Delivery Nasal Cannula O2 Flow Rate 5.0 l Intake and Output 04/10/21 04/10/21 04/11/21 15:00 23:00 07:00 Intake Total 120 ml 100 ml 120 ml Output Total 225 ml 700 ml 1550 ml Balance -105 ml -600 ml -1430 ml Justifications for Admission Other Justification SYED BAUGH MD Apr 11, 2021 12:08
[2021-04-11 15:00] VITALS: BP 140/74
--- NOTE | 2021-04-11 16:29 | PDOC ---
DATE OF SERVICE DATE: 04/11/21 TIME: 16:26 SUBJECTIVE ROS Feeling better No new acute complaints OBJECTIVE Vital Signs Vital Signs Date Time Temp Pulse Resp B/P (MAP) Pulse Ox O2 Delivery O2 Flow Rate FiO2 04/11/21 14:06 93 High Flow Nasal Cannula 7.0 04/11/21 11:00 97.7 105 23 132/80 (97) 97.7 I & 0 Intake and Output 04/11/21 07:00 Intake Total 340 ml Output Total 2475 ml Balance -2135 ml Intake Oral 340 ml Output Urine Total 2475 ml PHYSICAL EXAM Physical Exam GENERAL: Alert, oriented x 3 NAD HEENT: Normocephalic, atraumatic. Anicteric sclerae. BIPAP NECK: Supple. LUNGS: Coarse breath sounds, HEART: S1, S2, regular. ABDOMEN: Soft, nontender, nondistended. EXTREMITIES: No edema, no cyanosis. DERMATOLOGIC: Warm, dry. No generalized rash. NEUROLOGIC: Alert, oriented x 3, PSYCHIATRIC: cooperative. No [place], No CVA or SP tenderness DIAGNOSIS/ASSESSMENT Assessment & Plan EDITA- Mild worsening of renal function ;Creat back to his baseline ; BUN significantly elevated 2/2 Steroids- Improving . Maintain Hydration Recd Lasix Supportive are, maintain fluid balance, avoid nephrotoxins Hyperkalemia- resolved CKD stage 3A- Follows with us as OP ; Baseline Cr 1.4-1.8 . Seen in our office on 02/19/21- Cr 1.4. Acute on chronic respiratory failure-On o2 via BiPAP , CxR Dx of pneumonia COVID-19 viral pneumonia - Status post vaccination with a booster approximately a week ago.On o2 via BiPAP, Solu-Medrol, Remdesivir. Status post tocilizumab ; Multiple myeloma with polyneuropathy, organomegaly, endocrinopathy and monoclonal gammopathy. (POEM's) Follows with Dr. Gustafson, recently completed Chemo therapy Anemia- Hgb decreased Chronic diastolic heart failure. Chronic obstructive pulmonary disease. Castleman syndrome COMMENT/RELEVANT DATA Meds Current Medications Medications (Trade) Dose Ordered Sig/Juany Start Time Stop Time Status Last Admin Dose Admin Acyclovir (Zovirax) 400 mg BID 04/01/21 21:00 04/11/21 07:55 400 MG Albuterol Sulfate (Ventolin Neb Soln) 2.5 mg 1X ONCE 04/01/21 12:15 04/01/21 12:16 DC 04/01/21 12:15 2.5 MG Albuterol/ Ipratropium (Duoneb) 3 ml RTQID 04/01/21 20:00 04/02/21 10:07 DC Alprazolam (Xanax) 0.25 mg PRN Q8HRS PRN 04/06/21 22:45 04/10/21 19:59 0.25 MG Aspirin (Kevin Aspirin) 325 mg DAILY 04/02/21 09:00 04/11/21 07:56 325 MG Budesonide (Pulmicort) 0.5 mg RTBID 04/01/21 20:00 04/02/21 10:07 DC Cefepime HCl (Maxipime) 2 gm Q8HRS 04/04/21 14:30 04/05/21 09:18 DC 04/05/21 06:13 2 GM Cetirizine HCl (ZyrTEC) 10 mg DAILY 04/02/21 09:00 04/11/21 07:55 10 MG Cyanocobalamin (Vitamin B-12) 500 mcg DAILY 04/02/21 09:00 04/11/21 07:56 500 MCG Diltiazem HCl (Cardizem 24hr Cd) 120 mg DAILY 04/02/21 09:00 04/11/21 07:56 120 MG Enoxaparin Sodium (Lovenox 40mg Syringe) 40 mg Q24H 04/01/21 19:00 04/10/21 18:02 40 MG Ferrous Sulfate (Feosol) 325 mg DAILY 04/02/21 09:00 04/11/21 07:56 325 MG Fluticasone Propionate (Flonase) 2 spray DAILY 04/02/21 09:00 04/11/21 07:58 2 SPRAY Fluticasone/ Vilanterol (Breo Ellipta 200-25 Mcg) 1 puff DAILY 04/02/21 11:00 04/11/21 08:40 1 PUFF Furosemide (Lasix) 20 mg 1X ONCE 04/10/21 06:00 04/10/21 06:01 DC 04/10/21 08:32 20 MG Hydralazine HCl (Apresoline Inj) 10 mg PRN Q4HRS PRN 04/04/21 09:30 Insulin Human Lispro (HumaLOG) 0-8 UNITS BIDBFRMEAL 04/02/21 07:30 04/07/21 17:12 2 UNITS Levofloxacin/ Dextrose 150 ml @ 100 mls/hr 1X ONCE 04/01/21 12:15 04/01/21 13:44 DC 04/01/21 12:44 100 MLS/HR Lidocaine HCl (Lidocaine Pf 2% Vial) 5 ml STK-MED ONCE 04/09/21 13:06 04/09/21 13:06 DC Magnesium Oxide (Magnesium Oxide) 400 mg DAILY 04/02/21 09:00 04/11/21 07:55 400 MG Methylprednisolone Sodium Succinate (SOLU-Medrol 40MG VIAL) 30 mg DAILY 04/10/21 09:00 04/10/21 10:19 DC 04/10/21 08:32 30 MG Methylprednisolone Sodium Succinate (SOLU-Medrol 125MG VIAL) 60 mg Q12HR 04/01/21 21:00 04/09/21 12:40 DC 04/09/21 08:56 60 MG Montelukast Sodium (Singulair) 10 mg HS 04/01/21 21:00 04/10/21 19:58 10 MG Non-Formulary Medication (Fluticasone/ Vilanterol (Breo Ellipta 200-25 Mcg INH)) 1 puff DAILY 04/02/21 09:00 UNV Non-Formulary Medication (Guaifenesin (Mucinex)) 1 tab BID 04/01/21 21:00 UNV Non-Formulary Medication (Tiotropium [place] (Spiriva)) 1 cap DAILY 04/02/21 09:00 UNV Pantoprazole Sodium (Protonix) 40 mg DAILYAC 04/02/21 07:30 04/11/21 07:56 40 MG Remdesivir 100 mg/ Sodium Chloride 230 ml @ 460 mls/hr Q24H 04/03/21 12:00 04/06/21 12:29 DC 04/06/21 11:24 460 MLS/HR Remdesivir 200 mg/ Sodium Chloride 210 ml @ 210 mls/hr 1X ONCE 04/02/21 12:00 04/02/21 12:59 DC 04/02/21 11:41 210 MLS/HR Sodium Bicarbonate (Sodium Bicarbonate) 650 mg TIDWMEALS 04/02/21 08:00 04/11/21 07:55 650 MG Sodium Chloride 1,000 ml @ 1,000 mls/hr Q1H 04/01/21 12:15 04/01/21 13:14 DC 04/01/21 13:40 1,000 MLS/HR Tocilizumab 400 mg/Sodium Chloride 100 ml @ 100 mls/hr 1X ONCE 04/02/21 16:00 04/02/21 16:59 DC 04/02/21 17:00 100 MLS/HR Trimethoprim/ Sulfamethoxazole (Bactrim Ds) 1 tab QMTH 04/01/21 16:00 04/08/21 09:47 1 TAB Lab Laboratory Tests Test 04/10/21 17:05 04/10/21 20:47 04/11/21 08:03 04/11/21 09:20 Glucose (Fingerstick) 200 mg/dL (70-99) 197 mg/dL (70-99) 143 mg/dL (70-99) White Blood Count 27.0 x10^3/uL (4.0-11.0) Red Blood Count 2.67 x10^6/uL (4.30-5.70) Hemoglobin 8.3 g/dL (13.0-17.5) Hematocrit 25.7 % (39.0-53.0) Mean Corpuscular Volume 96 fL (79-100) Mean Corpuscular Hemoglobin 31 pg (25-35) Mean Corpuscular Hemoglobin Concent 32 g/dL (31-37) Red Cell Distribution Width 20.5 % (11.5-14.5) Platelet Count 366 x10^3/uL (140-400) Neutrophils (%) (Auto) 94 % (31-73) Lymphocytes (%) (Auto) 2 % (24-48) Monocytes (%) (Auto) 4 % (0-9) Eosinophils (%) (Auto) 0 % (0-3) Basophils (%) (Auto) 0 % (0-3) Neutrophils # (Auto) 25.5 x10^3/uL (1.8-7.7) Lymphocytes # (Auto) 0.4 x10^3/uL (1.0-4.8) Monocytes # (Auto) 1.0 x10^3/uL (0.0-1.1) Eosinophils # (Auto) 0.0 x10^3/uL (0.0-0.7) Basophils # (Auto) 0.1 x10^3/uL (0.0-0.2) Sodium Level 136 mmol/L (136-145) Potassium Level 5.0 mmol/L (3.5-5.1) Chloride Level 99 mmol/L (98-107) Carbon Dioxide Level 33 mmol/L (21-32) Anion Gap 4 (6-14) Blood Urea Nitrogen 71 mg/dL (8-26) Creatinine 1.8 mg/dL (0.7-1.3) Estimated GFR (Cockcroft-Gault) 44.7 Glucose Level 176 mg/dL (70-99) Calcium Level 8.4 mg/dL (8.5-10.1) Test 04/11/21 11:36 Glucose (Fingerstick) 116 mg/dL (70-99) Results All relevant outside records, renal labs, imaging studies, telemetry/EKG's were reviewed. Justicifation of Admission Dx: Justifications for Admission: Justification of Admission Dx: N/A TEO LAW MD Apr 11, 2021 16:29
[2021-04-11] MEDS: ENOXAPARIN 40 MG/0.4 ML SYRINGE. SQ SCH (18:26)
[2021-04-11 19:50] VITALS: BP 135/79
[2021-04-11] MEDS: MONTELUKAST SODIUM 10 MG TABLET. PO SCH (21:20)
[2021-04-11] MEDS: ALPRAZolam 0.25 MG TABLET PO PRN (21:20)
[2021-04-11 23:30] VITALS: BP 112/66
[2021-04-12 03:45] VITALS: BP 103/63
[2021-04-12 05:44] LABS: BASO % 0 % (0-3); EOS % 0 % (0-3); HEMATOCRIT 24.1 % (39.0-53.0); HEMOGLOBIN 7.9 g/dL (13.0-17.5); LYMPH # 0.2 x10^3/uL (1.0-4.8); LYMPH % 2 % (24-48); MEAN CORPUSCULAR HEMOGLOBIN 31 pg (25-35); MEAN CORPUSCULAR HGB CONC 33 g/dL (31-37); MEAN CORPUSCULAR VOLUME 96 fL (79-100); MONO # 0.3 x10^3/uL (0.0-1.1); MONO % 2 % (0-9); NEUT # 15.9 x10^3/uL (1.8-7.7); NEUT % 97 % (31-73); PLATELET COUNT 324 x10^3/uL (140-400); RED BLOOD COUNT 2.51 x10^6/uL (4.30-5.70); RED CELL DISTRIBUTION WIDTH 20.6 % (11.5-14.5); WHITE BLOOD COUNT 16.5 x10^3/uL (4.0-11.0)
[2021-04-12 06:11] LABS: CALCIUM 8.7 mg/dL (8.5-10.1); CREATININE 1.6 mg/dL (0.7-1.3); GFR 51.2; POTASSIUM 4.5 mmol/L (3.5-5.1)
[2021-04-12 07:00] VITALS: BP 129/77
[2021-04-12] MEDS: INSULIN LISPRO 300 UNITS/3 ML VIAL. SQ SCH ×2 (07:30→16:30)
--- NOTE | 2021-04-12 08:38 | PDOC ---
Infectious Disease Note Subjective: Subjective Pt remains on nasal O2/BiPAP as needed States feels a little better Vital Signs: Vital Signs Vital Signs Date Time Temp Pulse Resp B/P (MAP) Pulse Ox O2 Delivery O2 Flow Rate FiO2 04/12/21 07:00 98.1 96 20 129/77 (94) 90 BiPAP/CPAP 98.1 04/11/21 14:06 7.0 Physical Exam: PHYSICAL EXAM GENERAL: Alert, oriented x 3, chronically ill-appearing male HEENT: Normocephalic, atraumatic. Anicteric sclerae. NECK: Supple. LUNGS: Coarse breath sounds, mild wheezing. HEART: S1, S2, regular. ABDOMEN: Soft, nontender, nondistended. EXTREMITIES: No edema, no cyanosis. DERMATOLOGIC: Warm, dry. No generalized rash. NEUROLOGIC: Alert, oriented x 3, generalized weakness. PSYCHIATRIC: mildly anxioius and cooperative. Medications: Inpatient Meds: Medications reviewed. Labs: Lab Laboratory Tests Test 04/11/21 09:20 04/11/21 11:36 04/11/21 17:13 04/11/21 21:44 White Blood Count 27.0 x10^3/uL (4.0-11.0) Red Blood Count 2.67 x10^6/uL (4.30-5.70) Hemoglobin 8.3 g/dL (13.0-17.5) Hematocrit 25.7 % (39.0-53.0) Mean Corpuscular Volume 96 fL (79-100) Mean Corpuscular Hemoglobin 31 pg (25-35) Mean Corpuscular Hemoglobin Concent 32 g/dL (31-37) Red Cell Distribution Width 20.5 % (11.5-14.5) Platelet Count 366 x10^3/uL (140-400) Neutrophils (%) (Auto) 94 % (31-73) Lymphocytes (%) (Auto) 2 % (24-48) Monocytes (%) (Auto) 4 % (0-9) Eosinophils (%) (Auto) 0 % (0-3) Basophils (%) (Auto) 0 % (0-3) Neutrophils # (Auto) 25.5 x10^3/uL (1.8-7.7) Lymphocytes # (Auto) 0.4 x10^3/uL (1.0-4.8) Monocytes # (Auto) 1.0 x10^3/uL (0.0-1.1) Eosinophils # (Auto) 0.0 x10^3/uL (0.0-0.7) Basophils # (Auto) 0.1 x10^3/uL (0.0-0.2) Sodium Level 136 mmol/L (136-145) Potassium Level 5.0 mmol/L (3.5-5.1) Chloride Level 99 mmol/L (98-107) Carbon Dioxide Level 33 mmol/L (21-32) Anion Gap 4 (6-14) Blood Urea Nitrogen 71 mg/dL (8-26) Creatinine 1.8 mg/dL (0.7-1.3) Estimated GFR (Cockcroft-Gault) 44.7 Glucose Level 176 mg/dL (70-99) Calcium Level 8.4 mg/dL (8.5-10.1) Glucose (Fingerstick) 116 mg/dL (70-99) 114 mg/dL (70-99) 120 mg/dL (70-99) Test 04/12/21 03:40 04/12/21 07:39 White Blood Count 16.5 x10^3/uL (4.0-11.0) Red Blood Count 2.51 x10^6/uL (4.30-5.70) Hemoglobin 7.9 g/dL (13.0-17.5) Hematocrit 24.1 % (39.0-53.0) Mean Corpuscular Volume 96 fL (79-100) Mean Corpuscular Hemoglobin 31 pg (25-35) Mean Corpuscular Hemoglobin Concent 33 g/dL (31-37) Red Cell Distribution Width 20.6 % (11.5-14.5) Platelet Count 324 x10^3/uL (140-400) Neutrophils (%) (Auto) 97 % (31-73) Lymphocytes (%) (Auto) 2 % (24-48) Monocytes (%) (Auto) 2 % (0-9) Eosinophils (%) (Auto) 0 % (0-3) Basophils (%) (Auto) 0 % (0-3) Neutrophils # (Auto) 15.9 x10^3/uL (1.8-7.7) Lymphocytes # (Auto) 0.2 x10^3/uL (1.0-4.8) Monocytes # (Auto) 0.3 x10^3/uL (0.0-1.1) Eosinophils # (Auto) 0.0 x10^3/uL (0.0-0.7) Basophils # (Auto) 0.0 x10^3/uL (0.0-0.2) Sodium Level 139 mmol/L (136-145) Potassium Level 4.5 mmol/L (3.5-5.1) Chloride Level 99 mmol/L (98-107) Carbon Dioxide Level 34 mmol/L (21-32) Anion Gap 6 (6-14) Blood Urea Nitrogen 63 mg/dL (8-26) Creatinine 1.6 mg/dL (0.7-1.3) Estimated GFR (Cockcroft-Gault) 51.2 Glucose Level 107 mg/dL (70-99) Calcium Level 8.7 mg/dL (8.5-10.1) Glucose (Fingerstick) 96 mg/dL (70-99) Objective: Assessment: 1. Acute on chronic hypoxic respiratory failure. 2. Bilateral infiltrates with COVID 19 infection 3. Status post COVID vaccination 3rd in series booster dose a week ago prior to admission. 4. Chronic bronchitis. 5. Multiple myeloma with polyneuropathy organomegaly, endocrinopathy and monoclonal gammopathy. 6. Chronic kidney disease. 7. Chronic diastolic heart failure. 8. Peripheral arterial disease. 9. Gastroesophageal reflux disease. 10. Anemia. Leucocytosis from steroids Plan: Plan of Care Continue supportive care Continue steroids s/p Remdesivir and tocilizumab Monitor labs and cultures Continue supportive care We will sign off Call us if any questions PAUL STALLWORTH MD Apr 12, 2021 08:38
[2021-04-12] MEDS: ACYCLOVIR 200 MG CAPSULE. PO SCH ×2 (08:55→20:21)
[2021-04-12] MEDS: CETIRIZINE HCL 10 MG TABLET. PO SCH (08:55)
[2021-04-12] MEDS: MAGNESIUM OXIDE 400 MG TABLET PO SCH (08:55)
[2021-04-12] MEDS: SODIUM BICARBONATE 650 MG TABLET. PO SCH ×3 (08:55→17:12)
[2021-04-12] MEDS: ASPIRIN 325 MG TABLET PO SCH (08:55)
[2021-04-12] MEDS: FERROUS SULFATE 325 MG TABLET. PO SCH (08:55)
[2021-04-12] MEDS: CYANOCOBALAMIN (VITAMIN B-12) 1,000 MCG TABLET. PO SCH (08:56)
[2021-04-12] MEDS: FLUTICASONE/VILANTEROL 200/25 INHALER. INH SCH (08:58)
[2021-04-12] MEDS: FLUTICASONE 50MCG/NASAL SPRAY 16GM BOTTLE. NS SCH (08:58)
--- NOTE | 2021-04-12 09:08 | PDOC ---
IM PROGRESS NOTES- Subjective Subjective Continues to have some cough and congestion. He states that he is feeling better. He is eating well. Objective Vitals/I&O Vital Signs Date Time Temp Pulse Resp B/P (MAP) Pulse Ox O2 Delivery O2 Flow Rate FiO2 04/12/21 08:57 96 129/77 04/12/21 08:41 87 BiPAP/CPAP 04/12/21 07:00 98.1 20 98.1 04/11/21 14:06 7.0 I & O 04/11/21 04/11/21 04/12/21 15:00 23:00 07:00 Intake Total 1000 ml 360 ml Output Total 200 ml 400 ml 600 ml Balance -200 ml 600 ml -240 ml Physical Exam Physical Exam General Appearance - alert and in mild to moderate distress Chest - decreased breath sounds at bases, bilateral basal rales Heart - S1 and S2 normal Abdomen - soft, non tender Neurological - alert and oriented Musculoskeletal - generalized weakness Extremities - no edema Labs Laboratory Tests Test 04/11/21 09:20 04/11/21 11:36 04/11/21 17:13 04/11/21 21:44 White Blood Count 27.0 x10^3/uL (4.0-11.0) H Red Blood Count 2.67 x10^6/uL (4.30-5.70) L Hemoglobin 8.3 g/dL (13.0-17.5) L Hematocrit 25.7 % (39.0-53.0) L Mean Corpuscular Volume 96 fL (79-100) # Mean Corpuscular Hemoglobin 31 pg (25-35) Mean Corpuscular Hemoglobin Concent 32 g/dL (31-37) Red Cell Distribution Width 20.5 % (11.5-14.5) H Platelet Count 366 x10^3/uL (140-400) Neutrophils (%) (Auto) 94 % (31-73) H Lymphocytes (%) (Auto) 2 % (24-48) L Monocytes (%) (Auto) 4 % (0-9) Eosinophils (%) (Auto) 0 % (0-3) Basophils (%) (Auto) 0 % (0-3) Neutrophils # (Auto) 25.5 x10^3/uL (1.8-7.7) H Lymphocytes # (Auto) 0.4 x10^3/uL (1.0-4.8) L Monocytes # (Auto) 1.0 x10^3/uL (0.0-1.1) Eosinophils # (Auto) 0.0 x10^3/uL (0.0-0.7) Basophils # (Auto) 0.1 x10^3/uL (0.0-0.2) Sodium Level 136 mmol/L (136-145) Potassium Level 5.0 mmol/L (3.5-5.1) Chloride Level 99 mmol/L (98-107) Carbon Dioxide Level 33 mmol/L (21-32) H Anion Gap 4 (6-14) L Blood Urea Nitrogen 71 mg/dL (8-26) H Creatinine 1.8 mg/dL (0.7-1.3) H Estimated GFR (Cockcroft-Gault) 44.7 Glucose Level 176 mg/dL (70-99) H Calcium Level 8.4 mg/dL (8.5-10.1) L Glucose (Fingerstick) 116 mg/dL (70-99) H 114 mg/dL (70-99) H 120 mg/dL (70-99) H Test 04/12/21 03:40 04/12/21 07:39 White Blood Count 16.5 x10^3/uL (4.0-11.0) H Red Blood Count 2.51 x10^6/uL (4.30-5.70) L Hemoglobin 7.9 g/dL (13.0-17.5) L Hematocrit 24.1 % (39.0-53.0) L Mean Corpuscular Volume 96 fL (79-100) Mean Corpuscular Hemoglobin 31 pg (25-35) Mean Corpuscular Hemoglobin Concent 33 g/dL (31-37) Red Cell Distribution Width 20.6 % (11.5-14.5) H Platelet Count 324 x10^3/uL (140-400) Neutrophils (%) (Auto) 97 % (31-73) H Lymphocytes (%) (Auto) 2 % (24-48) L Monocytes (%) (Auto) 2 % (0-9) Eosinophils (%) (Auto) 0 % (0-3) Basophils (%) (Auto) 0 % (0-3) Neutrophils # (Auto) 15.9 x10^3/uL (1.8-7.7) H Lymphocytes # (Auto) 0.2 x10^3/uL (1.0-4.8) L Monocytes # (Auto) 0.3 x10^3/uL (0.0-1.1) Eosinophils # (Auto) 0.0 x10^3/uL (0.0-0.7) Basophils # (Auto) 0.0 x10^3/uL (0.0-0.2) Sodium Level 139 mmol/L (136-145) Potassium Level 4.5 mmol/L (3.5-5.1) Chloride Level 99 mmol/L (98-107) Carbon Dioxide Level 34 mmol/L (21-32) H Anion Gap 6 (6-14) Blood Urea Nitrogen 63 mg/dL (8-26) H Creatinine 1.6 mg/dL (0.7-1.3) H Estimated GFR (Cockcroft-Gault) 51.2 Glucose Level 107 mg/dL (70-99) H Calcium Level 8.7 mg/dL (8.5-10.1) Glucose (Fingerstick) 96 mg/dL (70-99) Laboratory Tests 04/11/21 09:20 04/12/21 03:40 Laboratory Tests 04/11/21 09:20 04/12/21 03:40 Assessment Assessment 1. Acute on chronic hypoxic respiratory failure due to COVID-19 pneumonia. 2. COVID-19 pneumonia. 3. Multiple myeloma with polyneuropathy, organomegaly, endocrinopathy, monoclonal gammopathy, and skin changes syndrome. 4. Exacerbation of chronic obstructive pulmonary disease. 5. Panlobular emphysema. 6. Simple chronic bronchitis. 7. Chronic diastolic congestive heart failure. 8. Atherosclerotic heart disease. 9. Peripheral artery disease. 10. Gastroesophageal reflux disease without esophagitis. 11. Benign hypertension with chronic kidney disease stage 3. PLAN:wbc 27, high due to steroids, steroids d/adrian yesterday. wean off BIPAP spoke with RN cr 1.7 stable 1. COVID-19 pneumonia. Start IV Solu-Medrol. We will consult Dr. Romero and Dr. Dustin Sy for pulmonary and infectious disease management respectively. We will continue him on appropriate protocol for COVID-19 infection. Patient has completed IV cefepime and remdesivir, Tocilizumab. Monitor off antibiotics. Repeat chest x-ray on April 06 does not show any change in the opacities. 2. Acute on chronic hypoxic respiratory failure. Continue oxygenation. FiO2 50% via BiPAP alternating with high flow cannula. 3. Exacerbation of chronic obstructive pulmonary disease, continue IV steroids. Add Spiriva d/w staff. 4. Continue acyclovir and Bactrim-DS for immunosuppression. The patient has received both COVID-19 vaccines previously as well as booster dose recently. 5. Hyperglycemia secondary to steroids .monitor blood sugar as he is on steroids. I will start him on DVT prophylaxis. Continue pantoprazole. Severe malnutrition. Hyperkalemia- Continue to monitor. Anemia Continue to monitor. Hemoglobin is 7. Transfuse 1 unit of packed red cells. There is some difficulty cross matching his blood because of antibodies, so he will have to get it from the community. Leukocytosis WBC 16.5 k, possibly due to steroids. Azotemia. Getting worse. BUN 63.., creatinine 1.6. Renal function is improving. Consult Dr. Mason for nephrology evaluation and management Discussed with Dr. Rangel on April 09, 2021. Hypertension monitor blood pressure. As needed IV hydralazine. Repeat chest x-ray. Clinically unchanged. [facility] screen. Condition, treatment, discharge plans etc. discussed with patient's on Monday. Clinically improving. [facility] Discussed with social psychologist. For details, please refer to the orders. Prognosis of this patient is very poor due to his multiple medical problems. Plan Plan For more details regarding further plans, please refer to the orders. Justifications for Admission Other Justification LIBERTY WOODSON MD Apr 12, 2021 09:08
--- NOTE | 2021-04-12 09:23 | PDOC ---
PULMONARY PROGRESS NOTES DATE: 04/12/21 TIME: 09:23 Subjective Patient feels slightly better continues to require high flow oxygen Vitals Vital Signs Date Time Temp Pulse Resp B/P (MAP) Pulse Ox O2 Delivery O2 Flow Rate FiO2 04/12/21 08:57 96 129/77 04/12/21 08:41 87 BiPAP/CPAP 04/12/21 07:00 98.1 20 98.1 04/11/21 14:06 7.0 ROS: No Nausea, No Chest Pain, No Abdominal Pain, No Increase Cough General: Alert, No acute distress Lungs: Clear Cardiovascular: S1, S2 Abdomen: Soft Neuro Exam: Alert Extremities: No Edema Labs Laboratory Tests Test 04/10/21 11:04 04/10/21 17:05 04/10/21 20:47 04/11/21 08:03 Glucose (Fingerstick) 213 mg/dL (70-99) 200 mg/dL (70-99) 197 mg/dL (70-99) 143 mg/dL (70-99) Test 04/11/21 09:20 04/11/21 11:36 04/11/21 17:13 04/11/21 21:44 White Blood Count 27.0 x10^3/uL (4.0-11.0) Red Blood Count 2.67 x10^6/uL (4.30-5.70) Hemoglobin 8.3 g/dL (13.0-17.5) Hematocrit 25.7 % (39.0-53.0) Mean Corpuscular Volume 96 fL (79-100) Mean Corpuscular Hemoglobin 31 pg (25-35) Mean Corpuscular Hemoglobin Concent 32 g/dL (31-37) Red Cell Distribution Width 20.5 % (11.5-14.5) Platelet Count 366 x10^3/uL (140-400) Neutrophils (%) (Auto) 94 % (31-73) Lymphocytes (%) (Auto) 2 % (24-48) Monocytes (%) (Auto) 4 % (0-9) Eosinophils (%) (Auto) 0 % (0-3) Basophils (%) (Auto) 0 % (0-3) Neutrophils # (Auto) 25.5 x10^3/uL (1.8-7.7) Lymphocytes # (Auto) 0.4 x10^3/uL (1.0-4.8) Monocytes # (Auto) 1.0 x10^3/uL (0.0-1.1) Eosinophils # (Auto) 0.0 x10^3/uL (0.0-0.7) Basophils # (Auto) 0.1 x10^3/uL (0.0-0.2) Sodium Level 136 mmol/L (136-145) Potassium Level 5.0 mmol/L (3.5-5.1) Chloride Level 99 mmol/L (98-107) Carbon Dioxide Level 33 mmol/L (21-32) Anion Gap 4 (6-14) Blood Urea Nitrogen 71 mg/dL (8-26) Creatinine 1.8 mg/dL (0.7-1.3) Estimated GFR (Cockcroft-Gault) 44.7 Glucose Level 176 mg/dL (70-99) Calcium Level 8.4 mg/dL (8.5-10.1) Glucose (Fingerstick) 116 mg/dL (70-99) 114 mg/dL (70-99) 120 mg/dL (70-99) Test 04/12/21 03:40 04/12/21 07:39 White Blood Count 16.5 x10^3/uL (4.0-11.0) Red Blood Count 2.51 x10^6/uL (4.30-5.70) Hemoglobin 7.9 g/dL (13.0-17.5) Hematocrit 24.1 % (39.0-53.0) Mean Corpuscular Volume 96 fL (79-100) Mean Corpuscular Hemoglobin 31 pg (25-35) Mean Corpuscular Hemoglobin Concent 33 g/dL (31-37) Red Cell Distribution Width 20.6 % (11.5-14.5) Platelet Count 324 x10^3/uL (140-400) Neutrophils (%) (Auto) 97 % (31-73) Lymphocytes (%) (Auto) 2 % (24-48) Monocytes (%) (Auto) 2 % (0-9) Eosinophils (%) (Auto) 0 % (0-3) Basophils (%) (Auto) 0 % (0-3) Neutrophils # (Auto) 15.9 x10^3/uL (1.8-7.7) Lymphocytes # (Auto) 0.2 x10^3/uL (1.0-4.8) Monocytes # (Auto) 0.3 x10^3/uL (0.0-1.1) Eosinophils # (Auto) 0.0 x10^3/uL (0.0-0.7) Basophils # (Auto) 0.0 x10^3/uL (0.0-0.2) Sodium Level 139 mmol/L (136-145) Potassium Level 4.5 mmol/L (3.5-5.1) Chloride Level 99 mmol/L (98-107) Carbon Dioxide Level 34 mmol/L (21-32) Anion Gap 6 (6-14) Blood Urea Nitrogen 63 mg/dL (8-26) Creatinine 1.6 mg/dL (0.7-1.3) Estimated GFR (Cockcroft-Gault) 51.2 Glucose Level 107 mg/dL (70-99) Calcium Level 8.7 mg/dL (8.5-10.1) Glucose (Fingerstick) 96 mg/dL (70-99) Laboratory Tests Test 04/11/21 11:36 04/11/21 17:13 04/11/21 21:44 04/12/21 03:40 Glucose (Fingerstick) 116 mg/dL (70-99) 114 mg/dL (70-99) 120 mg/dL (70-99) White Blood Count 16.5 x10^3/uL (4.0-11.0) Red Blood Count 2.51 x10^6/uL (4.30-5.70) Hemoglobin 7.9 g/dL (13.0-17.5) Hematocrit 24.1 % (39.0-53.0) Mean Corpuscular Volume 96 fL (79-100) Mean Corpuscular Hemoglobin 31 pg (25-35) Mean Corpuscular Hemoglobin Concent 33 g/dL (31-37) Red Cell Distribution Width 20.6 % (11.5-14.5) Platelet Count 324 x10^3/uL (140-400) Neutrophils (%) (Auto) 97 % (31-73) Lymphocytes (%) (Auto) 2 % (24-48) Monocytes (%) (Auto) 2 % (0-9) Eosinophils (%) (Auto) 0 % (0-3) Basophils (%) (Auto) 0 % (0-3) Neutrophils # (Auto) 15.9 x10^3/uL (1.8-7.7) Lymphocytes # (Auto) 0.2 x10^3/uL (1.0-4.8) Monocytes # (Auto) 0.3 x10^3/uL (0.0-1.1) Eosinophils # (Auto) 0.0 x10^3/uL (0.0-0.7) Basophils # (Auto) 0.0 x10^3/uL (0.0-0.2) Sodium Level 139 mmol/L (136-145) Potassium Level 4.5 mmol/L (3.5-5.1) Chloride Level 99 mmol/L (98-107) Carbon Dioxide Level 34 mmol/L (21-32) Anion Gap 6 (6-14) Blood Urea Nitrogen 63 mg/dL (8-26) Creatinine 1.6 mg/dL (0.7-1.3) Estimated GFR (Cockcroft-Gault) 51.2 Glucose Level 107 mg/dL (70-99) Calcium Level 8.7 mg/dL (8.5-10.1) Test 04/12/21 07:39 Glucose (Fingerstick) 96 mg/dL (70-99) Medications Active Scripts Medications Dose Route/Sig Max Daily Dose Days Date Category Dose Instructions Sodium Bicarbonate 650 Mg Tablet 1 Tab PO TIDWMEALS 04/01/21 Reported Prednisone 20 Mg Tablet 1 Tab PO DAILY 04/01/21 Reported Acyclovir 400 Mg Tablet 2 Tab PO BID 04/01/21 Reported Azithromycin Tablet (Azithromycin) 250 Mg Tablet 250 Mg PO DAILY 04/01/21 Reported Bactrim 400-80 Mg Tablet (Sulfamethoxazole/Trimethoprim) 1 Each Tablet 2 Tab PO QMTH 04/01/21 Reported Gabapentin (Gabapentin) 300 Mg Capsule 300 Mg PO TID 04/01/21 Reported Lasix (Furosemide) 40 Mg Tablet 1 Tab PO DAILY 30 04/01/21 Reported Mucinex (Guaifenesin) 1,200 Mg Tbmp.12hr 1 Tab PO BID 15 07/13/20 Reported Diltiazem 24HR Cd (Diltiazem Hcl) 120 Mg Cap.er.24h 1 Cap PO DAILY 30 07/13/20 Reported Dexamethasone 4 Mg Tablet 4 Tab PO DAILY 07/13/20 Reported Prednisone (Prednisone) 10 Mg Tablet 10 Mg PO UD 10/28/19 Rx Take 4 tablets by mouth daily for 3 days, then take 3 tablets by mouth daily for 3 days, then take 2 tablets by mouth daily for 3 days, then take 1 tablets by mouth daily for 3 days, then stop [Folic Acid] 1 Mg PO DAILY 10/22/19 Reported Spiriva (Tiotropium [place]) 18 Mcg Cap.w.dev 1 Cap IH DAILY 10/22/19 Reported Montelukast Sodium Tablet (Montelukast Sodium) 10 Mg Tablet 10 Mg PO HS 10/22/19 Reported Proair Hfa (Albuterol Sulfate) 8.5 Gm Hfa.aer.ad 2 Puff IH PRN Q4 PRN 21 10/22/19 Reported Protonix (Pantoprazole Sodium) 20 Mg Tablet.dr 2 Tab PO DAILY 10/22/19 Reported Mometasone Furoate 45 Gm Cream..g. 1 [place] TP DAILY 10/22/19 Reported Mag-Oxide (Magnesium Oxide) 200 Mg Tablet 2 Tab PO DAILY 30 10/22/19 Reported Fluticasone Propionate Nasal [place] (Fluticasone Propionate) 16 Gm [place].susp 2 [place] NS DAILY 10/22/19 Reported Ferrous Sulfate 325 Mg Tablet 1 Tab PO DAILY 10/22/19 Reported B-12 (Cyanocobalamin (Vitamin B-12)) 5,000 Mcg Tab.rapdis 1 Tab PO DAILY 30 10/22/19 Reported Loratadine 10 Mg Tab.rapdis 1 Tab PO DAILY 30 10/22/19 Reported Breo Ellipta 200-25 Mcg INH (Fluticasone/Vilanterol) 1 Each Blst.w.dev 1 Puff IH DAILY 06/26/19 Reported Aspirin 325 Mg Tablet 1 Tab PO DAILY 06/26/19 Reported Albuterol Sulfate Conc Neb Soln (Albuterol Sulfate) 2.5 Mg/0.5 Ml Vial.neb 1 Vial NEB PRN PRN 09/05/16 Reported Impression . IMPRESSION: 1. Acute on chronic respiratory failure, multifactorial. 2. COVID-19 viral pneumonia. 3. Possible bacterial pneumonia. 4. Status post vaccination with a booster approximately a week ago. 5. Multiple myeloma with polyneuropathy, organomegaly, endocrinopathy and monoclonal gammopathy. 6. Chronic kidney disease. 7. Chronic diastolic heart failure. 8. Chronic obstructive pulmonary disease. 9. Castleman syndrome Plan . Updated 04/12 Continue oxygen self plan mentation BiPAP Nasal cannula oxygen for meals Continue steroids Home when safe to do so, will check to see if he qualifies for LTAC Patient's oxygen requirement has improved. I have discussed with the patient that he can come off the BiPAP. He is currently on 35% FiO2. He did 6 hours of nasal cannula yesterday. Discussed with RN. Patient will be changed to nasal cannula. As needed BiPAP will continue Off his steroids 04/10/2021. Leukocytosis likely secondary to steroids. No fever. Monitor WBC. Remdesivir Status post tocilizumab Continue present supportive care. Clinically improving continue present care d/w TU CHEEMA MD Apr 12, 2021 09:23
[2021-04-12 10:49] VITALS: BP 125/68
--- NOTE | 2021-04-12 11:36 | NUR ---
SS following up with discharge planning. SS reviewed pt chart and discussed with pt RN. Pt is currently on BIPAP at 40%. COVID19 positive. PT recommended halfway unit. Pt accepted at [facility], ; fax [phone]. Clinical updates phoned and faxed to [facility]. Possible bed available tomorrow. Pt's spouse updated. SS discussed with physician. Packet on chart. SS will continue to follow for discharge planning.
[2021-04-12] MEDS: predniSONE 20 MG TABLET PO SCH (11:55)
--- NOTE | 2021-04-12 13:46 | PDOC ---
DATE OF SERVICE DATE: 04/12/21 TIME: 13:44 SUBJECTIVE ROS Continues on O2 NC .BiPap as needed C/O congestion , states Feeling better OBJECTIVE Vital Signs Vital Signs Date Time Temp Pulse Resp B/P (MAP) Pulse Ox O2 Delivery O2 Flow Rate FiO2 04/12/21 12:33 94 BiPAP/CPAP 04/12/21 10:49 97.8 100 24 125/68 (87) 97.8 04/12/21 08:00 5.0 I & 0 l Intake and Output 04/12/21 07:00 Intake Total 1360 ml Output Total 1200 ml Balance 160 ml Intake Oral 1360 ml Output Urine Total 1200 ml PHYSICAL EXAM Physical Exam GENERAL: Alert, oriented x 3 NAD HEENT: Normocephalic, atraumatic. Anicteric sclerae. BIPAP NECK: Supple. LUNGS: Coarse breath sounds, HEART: S1, S2, regular. ABDOMEN: Soft, nontender, nondistended. EXTREMITIES: No edema, no cyanosis. DERMATOLOGIC: Warm, dry. No generalized rash. NEUROLOGIC: Alert, oriented x 3, PSYCHIATRIC: cooperative. No [place], No CVA or SP tenderness DIAGNOSIS/ASSESSMENT Assessment & Plan EDITA- Mild worsening of renal function ;Creat back to his baseline ; BUN was significantly elevated 2/2 Steroids- Improving . Maintain Hydration Supportive are, maintain fluid balance, avoid nephrotoxins Hyperkalemia- resolved CKD stage 3A- Follows with us as OP ; Baseline Cr 1.4-1.8 . Seen in our office on 02/19/21- Cr 1.4. Acute on chronic respiratory failure-On o2 via BiPAP , CxR Dx of pneumonia COVID-19 viral pneumonia - Status post vaccination with a booster approximately a week ago.On o2 via BiPAP, Solu-Medrol, Remdesivir. Status post tocilizumab ; Multiple myeloma with polyneuropathy, organomegaly, endocrinopathy and monoclonal gammopathy. (POEM's) Follows with Dr. Gustafson, recently completed Chemo therapy Anemia- Hgb decreased Chronic diastolic heart failure. Chronic obstructive pulmonary disease. Castleman syndrome COMMENT/RELEVANT DATA COMMENT/RELEVANT DATA Meds Current Medications Medications (Trade) Dose Ordered Sig/Juany Start Time Stop Time Status Last Admin Dose Admin Acyclovir (Zovirax) 400 mg BID 04/01/21 21:00 04/12/21 08:55 400 MG Albuterol Sulfate (Ventolin Neb Soln) 2.5 mg 1X ONCE 04/01/21 12:15 04/01/21 12:16 DC 04/01/21 12:15 2.5 MG Albuterol/ Ipratropium (Duoneb) 3 ml RTQID 04/01/21 20:00 04/02/21 10:07 DC Alprazolam (Xanax) 0.25 mg PRN Q8HRS PRN 04/06/21 22:45 04/11/21 21:20 0.25 MG Aspirin (Kevin Aspirin) 325 mg DAILY 04/02/21 09:00 04/12/21 08:55 325 MG Budesonide (Pulmicort) 0.5 mg RTBID 04/01/21 20:00 04/02/21 10:07 DC Cefepime HCl (Maxipime) 2 gm Q8HRS 04/04/21 14:30 04/05/21 09:18 DC 04/05/21 06:13 2 GM Cetirizine HCl (ZyrTEC) 10 mg DAILY 04/02/21 09:00 04/12/21 08:55 10 MG Cyanocobalamin (Vitamin B-12) 500 mcg DAILY 04/02/21 09:00 04/12/21 08:56 500 MCG Diltiazem HCl (Cardizem 24hr Cd) 120 mg DAILY 04/02/21 09:00 04/12/21 08:57 120 MG Enoxaparin Sodium (Lovenox 40mg Syringe) 40 mg Q24H 04/01/21 19:00 04/11/21 18:26 40 MG Ferrous Sulfate (Feosol) 325 mg DAILY 04/02/21 09:00 04/12/21 08:55 325 MG Fluticasone Propionate (Flonase) 2 spray DAILY 04/02/21 09:00 04/12/21 08:58 2 SPRAY Fluticasone/ Vilanterol (Breo Ellipta 200-25 Mcg) 1 puff DAILY 04/02/21 11:00 04/12/21 08:58 1 PUFF Furosemide (Lasix) 20 mg 1X ONCE 04/10/21 06:00 04/10/21 06:01 DC 04/10/21 08:32 20 MG Hydralazine HCl (Apresoline Inj) 10 mg PRN Q4HRS PRN 04/04/21 09:30 Insulin Human Lispro (HumaLOG) 0-8 UNITS BIDBFRMEAL 04/02/21 07:30 04/07/21 17:12 2 UNITS Levofloxacin/ Dextrose 150 ml @ 100 mls/hr 1X ONCE 04/01/21 12:15 04/01/21 13:44 DC 04/01/21 12:44 100 MLS/HR Lidocaine HCl (Lidocaine Pf 2% Vial) 5 ml STK-MED ONCE 04/09/21 13:06 04/09/21 13:06 DC Magnesium Oxide (Magnesium Oxide) 400 mg DAILY 04/02/21 09:00 04/12/21 08:55 400 MG Methylprednisolone Sodium Succinate (SOLU-Medrol 40MG VIAL) 30 mg DAILY 04/10/21 09:00 04/10/21 10:19 DC 04/10/21 08:32 30 MG Methylprednisolone Sodium Succinate (SOLU-Medrol 125MG VIAL) 60 mg Q12HR 04/01/21 21:00 04/09/21 12:40 DC 04/09/21 08:56 60 MG Montelukast Sodium (Singulair) 10 mg HS 04/01/21 21:00 04/11/21 21:20 10 MG Non-Formulary Medication (Fluticasone/ Vilanterol (Breo Ellipta 200-25 Mcg INH)) 1 puff DAILY 04/02/21 09:00 UNV Non-Formulary Medication (Guaifenesin (Mucinex)) 1 tab BID 04/01/21 21:00 UNV Non-Formulary Medication (Tiotropium [place] (Spiriva)) 1 cap DAILY 04/02/21 09:00 UNV Pantoprazole Sodium (Protonix) 40 mg DAILYAC 04/02/21 07:30 04/11/21 07:56 40 MG Prednisone (Prednisone) 30 mg DAILY 04/12/21 10:00 04/12/21 11:55 30 MG Remdesivir 100 mg/ Sodium Chloride 230 ml @ 460 mls/hr Q24H 04/03/21 12:00 04/06/21 12:29 DC 04/06/21 11:24 460 MLS/HR Remdesivir 200 mg/ Sodium Chloride 210 ml @ 210 mls/hr 1X ONCE 04/02/21 12:00 04/02/21 12:59 DC 04/02/21 11:41 210 MLS/HR Sodium Bicarbonate (Sodium Bicarbonate) 650 mg TIDWMEALS 04/02/21 08:00 04/12/21 11:55 650 MG Sodium Chloride 1,000 ml @ 1,000 mls/hr Q1H 04/01/21 12:15 04/01/21 13:14 DC 04/01/21 13:40 1,000 MLS/HR Tocilizumab 400 mg/Sodium Chloride 100 ml @ 100 mls/hr 1X ONCE 04/02/21 16:00 04/02/21 16:59 DC 04/02/21 17:00 100 MLS/HR Trimethoprim/ Sulfamethoxazole (Bactrim Ds) 1 tab QMTH 04/01/21 16:00 04/08/21 09:47 1 TAB Lab Laboratory Tests Test 04/11/21 17:13 04/11/21 21:44 04/12/21 03:40 04/12/21 07:39 Glucose (Fingerstick) 114 mg/dL (70-99) 120 mg/dL (70-99) 96 mg/dL (70-99) White Blood Count 16.5 x10^3/uL (4.0-11.0) Red Blood Count 2.51 x10^6/uL (4.30-5.70) Hemoglobin 7.9 g/dL (13.0-17.5) Hematocrit 24.1 % (39.0-53.0) Mean Corpuscular Volume 96 fL (79-100) Mean Corpuscular Hemoglobin 31 pg (25-35) Mean Corpuscular Hemoglobin Concent 33 g/dL (31-37) Red Cell Distribution Width 20.6 % (11.5-14.5) Platelet Count 324 x10^3/uL (140-400) Neutrophils (%) (Auto) 97 % (31-73) Lymphocytes (%) (Auto) 2 % (24-48) Monocytes (%) (Auto) 2 % (0-9) Eosinophils (%) (Auto) 0 % (0-3) Basophils (%) (Auto) 0 % (0-3) Neutrophils # (Auto) 15.9 x10^3/uL (1.8-7.7) Lymphocytes # (Auto) 0.2 x10^3/uL (1.0-4.8) Monocytes # (Auto) 0.3 x10^3/uL (0.0-1.1) Eosinophils # (Auto) 0.0 x10^3/uL (0.0-0.7) Basophils # (Auto) 0.0 x10^3/uL (0.0-0.2) Sodium Level 139 mmol/L (136-145) Potassium Level 4.5 mmol/L (3.5-5.1) Chloride Level 99 mmol/L (98-107) Carbon Dioxide Level 34 mmol/L (21-32) Anion Gap 6 (6-14) Blood Urea Nitrogen 63 mg/dL (8-26) Creatinine 1.6 mg/dL (0.7-1.3) Estimated GFR (Cockcroft-Gault) 51.2 Glucose Level 107 mg/dL (70-99) Calcium Level 8.7 mg/dL (8.5-10.1) Test 04/12/21 11:26 Glucose (Fingerstick) 99 mg/dL (70-99) Results All relevant outside records, renal labs, imaging studies, telemetry/EKG's were reviewed. Justicifation of Admission Dx: Justifications for Admission: Justification of Admission Dx: N/A TEO LAW MD Apr 12, 2021 13:45
[2021-04-12 14:47] VITALS: BP 121/73
[2021-04-12] MEDS: SMZ/TMP 800/160MG TABLET. PO SCH (17:12)
[2021-04-12] MEDS: ENOXAPARIN 40 MG/0.4 ML SYRINGE. SQ SCH (18:30)
[2021-04-12 19:52] VITALS: BP 139/77
[2021-04-12] MEDS: ALPRAZolam 0.25 MG TABLET PO PRN (20:21)
[2021-04-12] MEDS: MONTELUKAST SODIUM 10 MG TABLET. PO SCH (20:21)
[2021-04-12 22:51] VITALS: BP 107/63
[2021-04-13 02:41] VITALS: BP 98/63
[2021-04-13 07:00] VITALS: BP 129/71
[2021-04-13] MEDS: INSULIN LISPRO 300 UNITS/3 ML VIAL. SQ SCH ×2 (07:30→18:07)
[2021-04-13 08:00] LABS: CALCIUM 8.2 mg/dL (8.5-10.1); CREATININE 1.4 mg/dL (0.7-1.3); GFR 59.8; POTASSIUM 4.9 mmol/L (3.5-5.1)
[2021-04-13 08:18] LABS: BASO % 0 % (0-3); EOS % 0 % (0-3); HEMATOCRIT 25.5 % (39.0-53.0); HEMOGLOBIN 7.7 g/dL (13.0-17.5); LYMPH # 0.1 x10^3/uL (1.0-4.8); LYMPH % 1 % (24-48); MEAN CORPUSCULAR HEMOGLOBIN 31 pg (25-35); MEAN CORPUSCULAR HGB CONC 30 g/dL (31-37); MEAN CORPUSCULAR VOLUME 103 fL (79-100); MONO # 0.5 x10^3/uL (0.0-1.1); MONO % 4 % (0-9); NEUT # 12.9 x10^3/uL (1.8-7.7); NEUT % 95 % (31-73); PLATELET COUNT 277 x10^3/uL (140-400); RED BLOOD COUNT 2.48 x10^6/uL (4.30-5.70); RED CELL DISTRIBUTION WIDTH 20.3 % (11.5-14.5); WHITE BLOOD COUNT 13.6 x10^3/uL (4.0-11.0)
--- NOTE | 2021-04-13 08:53 | PDOC ---
PULMONARY PROGRESS NOTES DATE: 04/13/21 TIME: 08:52 Subjective No different than yesterday patient feels slightly better continues to require high flow oxygen Vitals Vital Signs Date Time Temp Pulse Resp B/P (MAP) Pulse Ox O2 Delivery O2 Flow Rate FiO2 04/13/21 08:23 92 High Flow Nasal Cannula 15.0 04/13/21 07:00 96.8 89 24 129/71 (90) 96.8 ROS: No Nausea, No Chest Pain, No Abdominal Pain, No Increase Cough General: Alert, No acute distress Lungs: Clear Cardiovascular: S1, S2 Abdomen: Soft Neuro Exam: Alert Extremities: No Edema Labs Laboratory Tests Test 04/11/21 09:20 04/11/21 11:36 04/11/21 17:13 04/11/21 21:44 White Blood Count 27.0 x10^3/uL (4.0-11.0) Red Blood Count 2.67 x10^6/uL (4.30-5.70) Hemoglobin 8.3 g/dL (13.0-17.5) Hematocrit 25.7 % (39.0-53.0) Mean Corpuscular Volume 96 fL (79-100) Mean Corpuscular Hemoglobin 31 pg (25-35) Mean Corpuscular Hemoglobin Concent 32 g/dL (31-37) Red Cell Distribution Width 20.5 % (11.5-14.5) Platelet Count 366 x10^3/uL (140-400) Neutrophils (%) (Auto) 94 % (31-73) Lymphocytes (%) (Auto) 2 % (24-48) Monocytes (%) (Auto) 4 % (0-9) Eosinophils (%) (Auto) 0 % (0-3) Basophils (%) (Auto) 0 % (0-3) Neutrophils # (Auto) 25.5 x10^3/uL (1.8-7.7) Lymphocytes # (Auto) 0.4 x10^3/uL (1.0-4.8) Monocytes # (Auto) 1.0 x10^3/uL (0.0-1.1) Eosinophils # (Auto) 0.0 x10^3/uL (0.0-0.7) Basophils # (Auto) 0.1 x10^3/uL (0.0-0.2) Sodium Level 136 mmol/L (136-145) Potassium Level 5.0 mmol/L (3.5-5.1) Chloride Level 99 mmol/L (98-107) Carbon Dioxide Level 33 mmol/L (21-32) Anion Gap 4 (6-14) Blood Urea Nitrogen 71 mg/dL (8-26) Creatinine 1.8 mg/dL (0.7-1.3) Estimated GFR (Cockcroft-Gault) 44.7 Glucose Level 176 mg/dL (70-99) Calcium Level 8.4 mg/dL (8.5-10.1) Glucose (Fingerstick) 116 mg/dL (70-99) 114 mg/dL (70-99) 120 mg/dL (70-99) Test 04/12/21 03:40 04/12/21 07:39 04/12/21 11:26 04/12/21 16:36 White Blood Count 16.5 x10^3/uL (4.0-11.0) Red Blood Count 2.51 x10^6/uL (4.30-5.70) Hemoglobin 7.9 g/dL (13.0-17.5) Hematocrit 24.1 % (39.0-53.0) Mean Corpuscular Volume 96 fL (79-100) Mean Corpuscular Hemoglobin 31 pg (25-35) Mean Corpuscular Hemoglobin Concent 33 g/dL (31-37) Red Cell Distribution Width 20.6 % (11.5-14.5) Platelet Count 324 x10^3/uL (140-400) Neutrophils (%) (Auto) 97 % (31-73) Lymphocytes (%) (Auto) 2 % (24-48) Monocytes (%) (Auto) 2 % (0-9) Eosinophils (%) (Auto) 0 % (0-3) Basophils (%) (Auto) 0 % (0-3) Neutrophils # (Auto) 15.9 x10^3/uL (1.8-7.7) Lymphocytes # (Auto) 0.2 x10^3/uL (1.0-4.8) Monocytes # (Auto) 0.3 x10^3/uL (0.0-1.1) Eosinophils # (Auto) 0.0 x10^3/uL (0.0-0.7) Basophils # (Auto) 0.0 x10^3/uL (0.0-0.2) Sodium Level 139 mmol/L (136-145) Potassium Level 4.5 mmol/L (3.5-5.1) Chloride Level 99 mmol/L (98-107) Carbon Dioxide Level 34 mmol/L (21-32) Anion Gap 6 (6-14) Blood Urea Nitrogen 63 mg/dL (8-26) Creatinine 1.6 mg/dL (0.7-1.3) Estimated GFR (Cockcroft-Gault) 51.2 Glucose Level 107 mg/dL (70-99) Calcium Level 8.7 mg/dL (8.5-10.1) Glucose (Fingerstick) 96 mg/dL (70-99) 99 mg/dL (70-99) 131 mg/dL (70-99) Test 04/12/21 20:41 04/13/21 07:30 04/13/21 07:53 Glucose (Fingerstick) 185 mg/dL (70-99) 87 mg/dL (70-99) White Blood Count 13.6 x10^3/uL (4.0-11.0) Red Blood Count 2.48 x10^6/uL (4.30-5.70) Hemoglobin 7.7 g/dL (13.0-17.5) Hematocrit 25.5 % (39.0-53.0) Mean Corpuscular Volume 103 fL (79-100) Mean Corpuscular Hemoglobin 31 pg (25-35) Mean Corpuscular Hemoglobin Concent 30 g/dL (31-37) Red Cell Distribution Width 20.3 % (11.5-14.5) Platelet Count 277 x10^3/uL (140-400) Neutrophils (%) (Auto) 95 % (31-73) Lymphocytes (%) (Auto) 1 % (24-48) Monocytes (%) (Auto) 4 % (0-9) Eosinophils (%) (Auto) 0 % (0-3) Basophils (%) (Auto) 0 % (0-3) Neutrophils # (Auto) 12.9 x10^3/uL (1.8-7.7) Lymphocytes # (Auto) 0.1 x10^3/uL (1.0-4.8) Monocytes # (Auto) 0.5 x10^3/uL (0.0-1.1) Eosinophils # (Auto) 0.0 x10^3/uL (0.0-0.7) Basophils # (Auto) 0.0 x10^3/uL (0.0-0.2) Sodium Level 136 mmol/L (136-145) Potassium Level 4.9 mmol/L (3.5-5.1) Chloride Level 99 mmol/L (98-107) Carbon Dioxide Level 31 mmol/L (21-32) Anion Gap 6 (6-14) Blood Urea Nitrogen 52 mg/dL (8-26) Creatinine 1.4 mg/dL (0.7-1.3) Estimated GFR (Cockcroft-Gault) 59.8 Glucose Level 99 mg/dL (70-99) Calcium Level 8.2 mg/dL (8.5-10.1) Laboratory Tests Test 04/12/21 11:26 04/12/21 16:36 04/12/21 20:41 04/13/21 07:30 Glucose (Fingerstick) 99 mg/dL (70-99) 131 mg/dL (70-99) 185 mg/dL (70-99) White Blood Count 13.6 x10^3/uL (4.0-11.0) Red Blood Count 2.48 x10^6/uL (4.30-5.70) Hemoglobin 7.7 g/dL (13.0-17.5) Hematocrit 25.5 % (39.0-53.0) Mean Corpuscular Volume 103 fL (79-100) Mean Corpuscular Hemoglobin 31 pg (25-35) Mean Corpuscular Hemoglobin Concent 30 g/dL (31-37) Red Cell Distribution Width 20.3 % (11.5-14.5) Platelet Count 277 x10^3/uL (140-400) Neutrophils (%) (Auto) 95 % (31-73) Lymphocytes (%) (Auto) 1 % (24-48) Monocytes (%) (Auto) 4 % (0-9) Eosinophils (%) (Auto) 0 % (0-3) Basophils (%) (Auto) 0 % (0-3) Neutrophils # (Auto) 12.9 x10^3/uL (1.8-7.7) Lymphocytes # (Auto) 0.1 x10^3/uL (1.0-4.8) Monocytes # (Auto) 0.5 x10^3/uL (0.0-1.1) Eosinophils # (Auto) 0.0 x10^3/uL (0.0-0.7) Basophils # (Auto) 0.0 x10^3/uL (0.0-0.2) Sodium Level 136 mmol/L (136-145) Potassium Level 4.9 mmol/L (3.5-5.1) Chloride Level 99 mmol/L (98-107) Carbon Dioxide Level 31 mmol/L (21-32) Anion Gap 6 (6-14) Blood Urea Nitrogen 52 mg/dL (8-26) Creatinine 1.4 mg/dL (0.7-1.3) Estimated GFR (Cockcroft-Gault) 59.8 Glucose Level 99 mg/dL (70-99) Calcium Level 8.2 mg/dL (8.5-10.1) Test 04/13/21 07:53 Glucose (Fingerstick) 87 mg/dL (70-99) Medications Active Scripts Medications Dose Route/Sig Max Daily Dose Days Date Category Dose Instructions Sodium Bicarbonate 650 Mg Tablet 1 Tab PO TIDWMEALS 04/01/21 Reported Prednisone 20 Mg Tablet 1 Tab PO DAILY 04/01/21 Reported Acyclovir 400 Mg Tablet 2 Tab PO BID 04/01/21 Reported Azithromycin Tablet (Azithromycin) 250 Mg Tablet 250 Mg PO DAILY 04/01/21 Reported Bactrim 400-80 Mg Tablet (Sulfamethoxazole/Trimethoprim) 1 Each Tablet 2 Tab PO QMTH 04/01/21 Reported Gabapentin (Gabapentin) 300 Mg Capsule 300 Mg PO TID 04/01/21 Reported Lasix (Furosemide) 40 Mg Tablet 1 Tab PO DAILY 30 04/01/21 Reported Mucinex (Guaifenesin) 1,200 Mg Tbmp.12hr 1 Tab PO BID 15 07/13/20 Reported Diltiazem 24HR Cd (Diltiazem Hcl) 120 Mg Cap.er.24h 1 Cap PO DAILY 30 07/13/20 Reported Dexamethasone 4 Mg Tablet 4 Tab PO DAILY 07/13/20 Reported Prednisone (Prednisone) 10 Mg Tablet 10 Mg PO UD 10/28/19 Rx Take 4 tablets by mouth daily for 3 days, then take 3 tablets by mouth daily for 3 days, then take 2 tablets by mouth daily for 3 days, then take 1 tablets by mouth daily for 3 days, then stop [Folic Acid] 1 Mg PO DAILY 10/22/19 Reported Spiriva (Tiotropium [place]) 18 Mcg Cap.w.dev 1 Cap IH DAILY 10/22/19 Reported Montelukast Sodium Tablet (Montelukast Sodium) 10 Mg Tablet 10 Mg PO HS 10/22/19 Reported Proair Hfa (Albuterol Sulfate) 8.5 Gm Hfa.aer.ad 2 Puff IH PRN Q4 PRN 21 10/22/19 Reported Protonix (Pantoprazole Sodium) 20 Mg Tablet.dr 2 Tab PO DAILY 10/22/19 Reported Mometasone Furoate 45 Gm Cream..g. 1 [place] TP DAILY 10/22/19 Reported Mag-Oxide (Magnesium Oxide) 200 Mg Tablet 2 Tab PO DAILY 30 10/22/19 Reported Fluticasone Propionate Nasal [place] (Fluticasone Propionate) 16 Gm [place].susp 2 [place] NS DAILY 10/22/19 Reported Ferrous Sulfate 325 Mg Tablet 1 Tab PO DAILY 10/22/19 Reported B-12 (Cyanocobalamin (Vitamin B-12)) 5,000 Mcg Tab.rapdis 1 Tab PO DAILY 30 10/22/19 Reported Loratadine 10 Mg Tab.rapdis 1 Tab PO DAILY 30 10/22/19 Reported Breo Ellipta 200-25 Mcg INH (Fluticasone/Vilanterol) 1 Each Blst.w.dev 1 Puff IH DAILY 06/26/19 Reported Aspirin 325 Mg Tablet 1 Tab PO DAILY 06/26/19 Reported Albuterol Sulfate Conc Neb Soln (Albuterol Sulfate) 2.5 Mg/0.5 Ml Vial.neb 1 Vial NEB PRN PRN 09/05/16 Reported Impression . IMPRESSION: 1. Acute on chronic respiratory failure, multifactorial. 2. COVID-19 viral pneumonia. 3. Possible bacterial pneumonia. 4. Status post vaccination with a booster approximately a week ago. 5. Multiple myeloma with polyneuropathy, organomegaly, endocrinopathy and monoclonal gammopathy. 6. Chronic kidney disease. 7. Chronic diastolic heart failure. 8. Chronic obstructive pulmonary disease. 9. Castleman syndrome Plan . Updated 04/13 Discussed with RT, patient desaturation easily Continue BiPAP Nasal cannula oxygen for meals Continue steroids Discussed with Dr. Dang updated 04/12 Continue oxygen self plan mentation BiPAP Nasal cannula oxygen for meals Continue steroids Home when safe to do so, will check to see if he qualifies for [facility] TU HERMOSILLO MD Apr 13, 2021 08:53
[2021-04-13] MEDS: FLUTICASONE/VILANTEROL 200/25 INHALER. INH SCH (09:00)
[2021-04-13] MEDS: predniSONE 20 MG TABLET PO SCH (09:47)
[2021-04-13] MEDS: ASPIRIN 325 MG TABLET PO SCH (09:48)
[2021-04-13] MEDS: CYANOCOBALAMIN (VITAMIN B-12) 1,000 MCG TABLET. PO SCH (09:49)
[2021-04-13] MEDS: PANTOPRAZOLE 40 MG TABLET.DR. PO SCH (09:49)
[2021-04-13] MEDS: SODIUM BICARBONATE 650 MG TABLET. PO SCH ×3 (09:49→18:06)
[2021-04-13] MEDS: FLUTICASONE 50MCG/NASAL SPRAY 16GM BOTTLE. NS SCH (09:50)
[2021-04-13] MEDS: CETIRIZINE HCL 10 MG TABLET. PO SCH (09:50)
[2021-04-13] MEDS: MAGNESIUM OXIDE 400 MG TABLET PO SCH (09:50)
[2021-04-13] MEDS: ACYCLOVIR 200 MG CAPSULE. PO SCH ×2 (09:50→19:14)
[2021-04-13] MEDS: FERROUS SULFATE 325 MG TABLET. PO SCH (09:50)
--- NOTE | 2021-04-13 10:09 | PDOC ---
DATE OF SERVICE DATE: 04/13/21 TIME: 10:09 SUBJECTIVE ROS No new concerns or complaints Stable OBJECTIVE Vital Signs Vital Signs Date Time Temp Pulse Resp B/P (MAP) Pulse Ox O2 Delivery O2 Flow Rate FiO2 04/13/21 09:49 80 04/13/21 08:23 92 High Flow Nasal Cannula 15.0 04/13/21 07:00 96.8 24 129/71 (90) 96.8 I & 0 Intake and Output 04/13/21 07:00 Intake Total 1500 ml Output Total 1400 ml Balance 100 ml Intake Oral 1500 ml Output Urine Total 1400 ml PHYSICAL EXAM Physical Exam GENERAL: Alert, oriented x 3 NAD HEENT: Normocephalic, atraumatic. Anicteric sclerae. BIPAP NECK: Supple. LUNGS: Coarse breath sounds, HEART: S1, S2, regular. ABDOMEN: Soft, nontender, nondistended. EXTREMITIES: No edema, no cyanosis. DERMATOLOGIC: Warm, dry. No generalized rash. NEUROLOGIC: Alert, oriented x 3, PSYCHIATRIC: cooperative. No [place], No CVA or SP tenderness DIAGNOSIS/ASSESSMENT Assessment & Plan EDITA- Mild worsening of renal function ;Creat back to his baseline ; BUN was significantly elevated 2/2 Steroids- Improving . Maintain Hydration Supportive are, maintain fluid balance, avoid nephrotoxins Hyperkalemia- resolved CKD stage 3A- Follows with us as OP ; Baseline Cr 1.4-1.8 . Seen in our office on 02/19/21- Cr 1.4. Acute on chronic respiratory failure-On o2 via BiPAP , CxR Dx of pneumonia COVID-19 viral pneumonia - Status post vaccination with a booster approximately a week ago.On o2 via BiPAP, Solu-Medrol, Remdesivir. Status post tocilizumab ; Multiple myeloma with polyneuropathy, organomegaly, endocrinopathy and monoclonal gammopathy. (POEM's) Follows with Dr. Gustafson, recently completed Chemo therapy Anemia- Hgb decreased Chronic diastolic heart failure. Chronic obstructive pulmonary disease. Castleman syndrome COMMENT/RELEVANT DATA Meds Current Medications Medications (Trade) Dose Ordered Sig/Juany Start Time Stop Time Status Last Admin Dose Admin Acyclovir (Zovirax) 400 mg BID 04/01/21 21:00 04/13/21 09:50 400 MG Albuterol Sulfate (Ventolin Neb Soln) 2.5 mg 1X ONCE 04/01/21 12:15 04/01/21 12:16 DC 04/01/21 12:15 2.5 MG Albuterol/ Ipratropium (Duoneb) 3 ml RTQID 04/01/21 20:00 04/02/21 10:07 DC Alprazolam (Xanax) 0.25 mg PRN Q8HRS PRN 04/06/21 22:45 04/12/21 20:21 0.25 MG Aspirin (Kevin Aspirin) 325 mg DAILY 04/02/21 09:00 04/13/21 09:48 325 MG Budesonide (Pulmicort) 0.5 mg RTBID 04/01/21 20:00 04/02/21 10:07 DC Cefepime HCl (Maxipime) 2 gm Q8HRS 04/04/21 14:30 04/05/21 09:18 DC 04/05/21 06:13 2 GM Cetirizine HCl (ZyrTEC) 10 mg DAILY 04/02/21 09:00 04/13/21 09:50 10 MG Cyanocobalamin (Vitamin B-12) 500 mcg DAILY 04/02/21 09:00 04/13/21 09:49 500 MCG Diltiazem HCl (Cardizem 24hr Cd) 120 mg DAILY 04/02/21 09:00 04/13/21 09:49 120 MG Enoxaparin Sodium (Lovenox 40mg Syringe) 40 mg Q24H 04/01/21 19:00 04/12/21 18:30 40 MG Ferrous Sulfate (Feosol) 325 mg DAILY 04/02/21 09:00 04/13/21 09:50 325 MG Fluticasone Propionate (Flonase) 2 spray DAILY 04/02/21 09:00 04/13/21 09:50 2 SPRAY Fluticasone/ Vilanterol (Breo Ellipta 200-25 Mcg) 1 puff DAILY 04/02/21 11:00 04/12/21 08:58 1 PUFF Furosemide (Lasix) 20 mg 1X ONCE 04/10/21 06:00 04/10/21 06:01 DC 04/10/21 08:32 20 MG Hydralazine HCl (Apresoline Inj) 10 mg PRN Q4HRS PRN 04/04/21 09:30 Insulin Human Lispro (HumaLOG) 0-8 UNITS BIDBFRMEAL 04/02/21 07:30 04/07/21 17:12 2 UNITS Levofloxacin/ Dextrose 150 ml @ 100 mls/hr 1X ONCE 04/01/21 12:15 04/01/21 13:44 DC 04/01/21 12:44 100 MLS/HR Lidocaine HCl (Lidocaine Pf 2% Vial) 5 ml STK-MED ONCE 04/09/21 13:06 04/09/21 13:06 DC Magnesium Oxide (Magnesium Oxide) 400 mg DAILY 04/02/21 09:00 04/13/21 09:50 400 MG Methylprednisolone Sodium Succinate (SOLU-Medrol 40MG VIAL) 30 mg DAILY 04/10/21 09:00 04/10/21 10:19 DC 04/10/21 08:32 30 MG Methylprednisolone Sodium Succinate (SOLU-Medrol 125MG VIAL) 60 mg Q12HR 04/01/21 21:00 04/09/21 12:40 DC 04/09/21 08:56 60 MG Montelukast Sodium (Singulair) 10 mg HS 04/01/21 21:00 04/12/21 20:21 10 MG Non-Formulary Medication (Fluticasone/ Vilanterol (Breo Ellipta 200-25 Mcg INH)) 1 puff DAILY 04/02/21 09:00 UNV Non-Formulary Medication (Guaifenesin (Mucinex)) 1 tab BID 04/01/21 21:00 UNV Non-Formulary Medication (Tiotropium [place] (Spiriva)) 1 cap DAILY 04/02/21 09:00 UNV Pantoprazole Sodium (Protonix) 40 mg DAILYAC 04/02/21 07:30 04/13/21 09:49 40 MG Prednisone (Prednisone) 30 mg DAILY 04/12/21 10:00 04/13/21 09:47 30 MG Remdesivir 100 mg/ Sodium Chloride 230 ml @ 460 mls/hr Q24H 04/03/21 12:00 04/06/21 12:29 DC 04/06/21 11:24 460 MLS/HR Remdesivir 200 mg/ Sodium Chloride 210 ml @ 210 mls/hr 1X ONCE 04/02/21 12:00 04/02/21 12:59 DC 04/02/21 11:41 210 MLS/HR Sodium Bicarbonate (Sodium Bicarbonate) 650 mg TIDWMEALS 04/02/21 08:00 04/13/21 09:49 650 MG Sodium Chloride 1,000 ml @ 1,000 mls/hr Q1H 04/01/21 12:15 04/01/21 13:14 DC 04/01/21 13:40 1,000 MLS/HR Tocilizumab 400 mg/Sodium Chloride 100 ml @ 100 mls/hr 1X ONCE 04/02/21 16:00 04/02/21 16:59 DC 04/02/21 17:00 100 MLS/HR Trimethoprim/ Sulfamethoxazole (Bactrim Ds) 1 tab QMTH 04/01/21 16:00 04/12/21 17:12 1 TAB Lab Laboratory Tests Test 04/12/21 11:26 04/12/21 16:36 04/12/21 20:41 04/13/21 07:30 Glucose (Fingerstick) 99 mg/dL (70-99) 131 mg/dL (70-99) 185 mg/dL (70-99) White Blood Count 13.6 x10^3/uL (4.0-11.0) Red Blood Count 2.48 x10^6/uL (4.30-5.70) Hemoglobin 7.7 g/dL (13.0-17.5) Hematocrit 25.5 % (39.0-53.0) Mean Corpuscular Volume 103 fL (79-100) Mean Corpuscular Hemoglobin 31 pg (25-35) Mean Corpuscular Hemoglobin Concent 30 g/dL (31-37) Red Cell Distribution Width 20.3 % (11.5-14.5) Platelet Count 277 x10^3/uL (140-400) Neutrophils (%) (Auto) 95 % (31-73) Lymphocytes (%) (Auto) 1 % (24-48) Monocytes (%) (Auto) 4 % (0-9) Eosinophils (%) (Auto) 0 % (0-3) Basophils (%) (Auto) 0 % (0-3) Neutrophils # (Auto) 12.9 x10^3/uL (1.8-7.7) Lymphocytes # (Auto) 0.1 x10^3/uL (1.0-4.8) Monocytes # (Auto) 0.5 x10^3/uL (0.0-1.1) Eosinophils # (Auto) 0.0 x10^3/uL (0.0-0.7) Basophils # (Auto) 0.0 x10^3/uL (0.0-0.2) Sodium Level 136 mmol/L (136-145) Potassium Level 4.9 mmol/L (3.5-5.1) Chloride Level 99 mmol/L (98-107) Carbon Dioxide Level 31 mmol/L (21-32) Anion Gap 6 (6-14) Blood Urea Nitrogen 52 mg/dL (8-26) Creatinine 1.4 mg/dL (0.7-1.3) Estimated GFR (Cockcroft-Gault) 59.8 Glucose Level 99 mg/dL (70-99) Calcium Level 8.2 mg/dL (8.5-10.1) Test 04/13/21 07:53 Glucose (Fingerstick) 87 mg/dL (70-99) Results All relevant outside records, renal labs, imaging studies, telemetry/EKG's were reviewed. Justicifation of Admission Dx: Justifications for Admission: Justification of Admission Dx: N/A TEO LAW MD Apr 13, 2021 10:09
[2021-04-13] MEDS: ALPRAZolam 0.25 MG TABLET PO PRN ×2 (10:12→19:14)
[2021-04-13 11:00] VITALS: BP 120/70
--- NOTE | 2021-04-13 11:31 | PDOC ---
IM PROGRESS NOTES- Subjective Subjective Continues to have some cough and congestion. He states that he is feeling better. He is eating well. Objective Vitals/I&O Vital Signs Date Time Temp Pulse Resp B/P (MAP) Pulse Ox O2 Delivery O2 Flow Rate FiO2 04/13/21 09:49 80 04/13/21 08:23 92 High Flow Nasal Cannula 15.0 04/13/21 07:00 96.8 24 129/71 (90) 96.8 I & O 04/12/21 04/12/21 04/13/21 15:00 23:00 07:00 Intake Total 340 ml 780 ml 380 ml Output Total 400 ml 400 ml 600 ml Balance -60 ml 380 ml -220 ml Physical Exam Physical Exam General Appearance - alert and in no distress Chest - decreased breath sounds at bases Heart - S1 and S2 normal Abdomen - soft, non tender Neurological - alert and oriented Musculoskeletal - generalized weakness Extremities - no edema Labs Laboratory Tests Test 04/12/21 16:36 04/12/21 20:41 04/13/21 07:30 04/13/21 07:53 Glucose (Fingerstick) 131 mg/dL (70-99) H 185 mg/dL (70-99) H 87 mg/dL (70-99) White Blood Count 13.6 x10^3/uL (4.0-11.0) H Red Blood Count 2.48 x10^6/uL (4.30-5.70) L Hemoglobin 7.7 g/dL (13.0-17.5) L Hematocrit 25.5 % (39.0-53.0) L Mean Corpuscular Volume 103 fL (79-100) #H Mean Corpuscular Hemoglobin 31 pg (25-35) Mean Corpuscular Hemoglobin Concent 30 g/dL (31-37) L Red Cell Distribution Width 20.3 % (11.5-14.5) H Platelet Count 277 x10^3/uL (140-400) Neutrophils (%) (Auto) 95 % (31-73) H Lymphocytes (%) (Auto) 1 % (24-48) L Monocytes (%) (Auto) 4 % (0-9) Eosinophils (%) (Auto) 0 % (0-3) Basophils (%) (Auto) 0 % (0-3) Neutrophils # (Auto) 12.9 x10^3/uL (1.8-7.7) H Lymphocytes # (Auto) 0.1 x10^3/uL (1.0-4.8) L Monocytes # (Auto) 0.5 x10^3/uL (0.0-1.1) Eosinophils # (Auto) 0.0 x10^3/uL (0.0-0.7) Basophils # (Auto) 0.0 x10^3/uL (0.0-0.2) Sodium Level 136 mmol/L (136-145) Potassium Level 4.9 mmol/L (3.5-5.1) Chloride Level 99 mmol/L (98-107) Carbon Dioxide Level 31 mmol/L (21-32) Anion Gap 6 (6-14) Blood Urea Nitrogen 52 mg/dL (8-26) H Creatinine 1.4 mg/dL (0.7-1.3) H Estimated GFR (Cockcroft-Gault) 59.8 Glucose Level 99 mg/dL (70-99) Calcium Level 8.2 mg/dL (8.5-10.1) L Laboratory Tests 04/13/21 07:30 Laboratory Tests 04/13/21 07:30 Assessment Assessment 1. Acute on chronic hypoxic respiratory failure due to COVID-19 pneumonia. 2. COVID-19 pneumonia. 3. Multiple myeloma with polyneuropathy, organomegaly, endocrinopathy, monoclonal gammopathy, and skin changes syndrome. 4. Exacerbation of chronic obstructive pulmonary disease. 5. Panlobular emphysema. 6. Simple chronic bronchitis. 7. Chronic diastolic congestive heart failure. 8. Atherosclerotic heart disease. 9. Peripheral artery disease. 10. Gastroesophageal reflux disease without esophagitis. 11. Benign hypertension with chronic kidney disease stage 3. PLAN:wbc 27, high due to steroids, steroids d/adrian yesterday. wean off BIPAP spoke with RN cr 1.7 stable 1. COVID-19 pneumonia. Start IV Solu-Medrol. We will consult Dr. Romero and Dr. Dustin Sy for pulmonary and infectious disease management respectively. We will continue him on appropriate protocol for COVID-19 infection. Patient has completed IV cefepime and remdesivir, Tocilizumab. Monitor off antibiotics. Repeat chest x-ray on April 06 does not show any change in the opacities. 2. Acute on chronic hypoxic respiratory failure. Continue oxygenation. FiO2 50% via BiPAP alternating with high flow cannula. 3. Exacerbation of chronic obstructive pulmonary disease, continue IV steroids. Add Spiriva d/w staff. 4. Continue acyclovir and Bactrim-DS for immunosuppression. The patient has received both COVID-19 vaccines previously as well as booster dose recently. 5. Hyperglycemia secondary to steroids .monitor blood sugar as he is on steroids. I will start him on DVT prophylaxis. Continue pantoprazole. Severe malnutrition. Hyperkalemia- Continue to monitor. Anemia Continue to monitor. Hemoglobin is 7. Transfuse 1 unit of packed red cells. There is some difficulty cross matching his blood because of antibodies, so he will have to get it from the community. Leukocytosis WBC 16.5 k, possibly due to steroids. Azotemia. Getting worse. BUN 63.., creatinine 1.6. Renal function is improvin g. Consult Dr. Mason for nephrology evaluation and management Discussed with Dr. Rangel on April 09, 2021. Hypertension monitor blood pressure. As needed IV hydralazine. Repeat chest x-ray. Clinically unchanged. [facility] specialty screen. Condition, treatment, discharge plans etc. discussed with patient's on Monday. Clinically improving. [facility]. Discussed with geriatric social worker. For details, please refer to the orders. Prognosis of this patient is very poor due to his multiple medical problems. Plan Plan For more details regarding further plans, please refer to the orders. Justifications for Admission Other Justification LIBERTY WOODSON MD Apr 13, 2021 11:31
[2021-04-13] MEDS: ENOXAPARIN 40 MG/0.4 ML SYRINGE. SQ SCH (18:06)
[2021-04-13] MEDS: MONTELUKAST SODIUM 10 MG TABLET. PO SCH (19:14)
[2021-04-13 19:42] VITALS: BP 136/73
[2021-04-13 23:04] VITALS: BP 127/72
[2021-04-14 02:55] VITALS: BP 126/66
[2021-04-14] MEDS: ALPRAZolam 0.25 MG TABLET PO PRN ×2 (03:10→11:50)
[2021-04-14 06:29] VITALS: BP 124/70
[2021-04-14] MEDS: INSULIN LISPRO 300 UNITS/3 ML VIAL. SQ SCH (07:30)
[2021-04-14] MEDS: ASPIRIN 325 MG TABLET PO SCH (08:28)
[2021-04-14] MEDS: FERROUS SULFATE 325 MG TABLET. PO SCH (08:28)
[2021-04-14] MEDS: SODIUM BICARBONATE 650 MG TABLET. PO SCH ×2 (08:29→11:50)
[2021-04-14] MEDS: CYANOCOBALAMIN (VITAMIN B-12) 1,000 MCG TABLET. PO SCH (08:29)
[2021-04-14] MEDS: MAGNESIUM OXIDE 400 MG TABLET PO SCH (08:29)
[2021-04-14] MEDS: PANTOPRAZOLE 40 MG TABLET.DR. PO SCH (08:30)
[2021-04-14] MEDS: CETIRIZINE HCL 10 MG TABLET. PO SCH (08:30)
[2021-04-14] MEDS: ACYCLOVIR 200 MG CAPSULE. PO SCH (08:30)
[2021-04-14] MEDS: predniSONE 20 MG TABLET PO SCH (08:30)
[2021-04-14] MEDS: FLUTICASONE/VILANTEROL 200/25 INHALER. INH SCH (08:39)
[2021-04-14] MEDS: FLUTICASONE 50MCG/NASAL SPRAY 16GM BOTTLE. NS SCH (08:39)
--- NOTE | 2021-04-14 08:53 | PDOC ---
PULMONARY PROGRESS NOTES DATE: 04/14/21 TIME: 08:53 Subjective Feels better, currently tolerating nasal cannula oxygen eating breakfast Vitals Vital Signs Date Time Temp Pulse Resp B/P (MAP) Pulse Ox O2 Delivery O2 Flow Rate FiO2 04/14/21 08:29 97 124/70 04/14/21 08:27 85 BiPAP/CPAP 04/14/21 08:16 15.0 04/14/21 06:29 96.6 22 96.6 ROS: No Nausea, No Chest Pain, No Abdominal Pain, No Increase Cough General: Alert, No acute distress Lungs: Clear Cardiovascular: S1, S2 Abdomen: Soft Neuro Exam: Alert Extremities: No Edema Labs Laboratory Tests Test 04/12/21 11:26 04/12/21 16:36 04/12/21 20:41 04/13/21 07:30 Glucose (Fingerstick) 99 mg/dL (70-99) 131 mg/dL (70-99) 185 mg/dL (70-99) White Blood Count 13.6 x10^3/uL (4.0-11.0) Red Blood Count 2.48 x10^6/uL (4.30-5.70) Hemoglobin 7.7 g/dL (13.0-17.5) Hematocrit 25.5 % (39.0-53.0) Mean Corpuscular Volume 103 fL (79-100) Mean Corpuscular Hemoglobin 31 pg (25-35) Mean Corpuscular Hemoglobin Concent 30 g/dL (31-37) Red Cell Distribution Width 20.3 % (11.5-14.5) Platelet Count 277 x10^3/uL (140-400) Neutrophils (%) (Auto) 95 % (31-73) Lymphocytes (%) (Auto) 1 % (24-48) Monocytes (%) (Auto) 4 % (0-9) Eosinophils (%) (Auto) 0 % (0-3) Basophils (%) (Auto) 0 % (0-3) Neutrophils # (Auto) 12.9 x10^3/uL (1.8-7.7) Lymphocytes # (Auto) 0.1 x10^3/uL (1.0-4.8) Monocytes # (Auto) 0.5 x10^3/uL (0.0-1.1) Eosinophils # (Auto) 0.0 x10^3/uL (0.0-0.7) Basophils # (Auto) 0.0 x10^3/uL (0.0-0.2) Sodium Level 136 mmol/L (136-145) Potassium Level 4.9 mmol/L (3.5-5.1) Chloride Level 99 mmol/L (98-107) Carbon Dioxide Level 31 mmol/L (21-32) Anion Gap 6 (6-14) Blood Urea Nitrogen 52 mg/dL (8-26) Creatinine 1.4 mg/dL (0.7-1.3) Estimated GFR (Cockcroft-Gault) 59.8 Glucose Level 99 mg/dL (70-99) Calcium Level 8.2 mg/dL (8.5-10.1) Test 04/13/21 07:53 04/13/21 11:38 04/13/21 16:39 04/13/21 21:30 Glucose (Fingerstick) 87 mg/dL (70-99) 126 mg/dL (70-99) 204 mg/dL (70-99) 190 mg/dL (70-99) Test 04/14/21 06:59 Glucose (Fingerstick) 82 mg/dL (70-99) Laboratory Tests Test 04/13/21 11:38 04/13/21 16:39 04/13/21 21:30 04/14/21 06:59 Glucose (Fingerstick) 126 mg/dL (70-99) 204 mg/dL (70-99) 190 mg/dL (70-99) 82 mg/dL (70-99) Medications Active Scripts Medications Dose Route/Sig Max Daily Dose Days Date Category Dose Instructions Sodium Bicarbonate 650 Mg Tablet 1 Tab PO TIDWMEALS 04/01/21 Reported Prednisone 20 Mg Tablet 1 Tab PO DAILY 04/01/21 Reported Acyclovir 400 Mg Tablet 2 Tab PO BID 04/01/21 Reported Azithromycin Tablet (Azithromycin) 250 Mg Tablet 250 Mg PO DAILY 04/01/21 Reported Bactrim 400-80 Mg Tablet (Sulfamethoxazole/Trimethoprim) 1 Each Tablet 2 Tab PO QMTH 04/01/21 Reported Gabapentin (Gabapentin) 300 Mg Capsule 300 Mg PO TID 04/01/21 Reported Lasix (Furosemide) 40 Mg Tablet 1 Tab PO DAILY 30 04/01/21 Reported Mucinex (Guaifenesin) 1,200 Mg Tbmp.12hr 1 Tab PO BID 15 07/13/20 Reported Diltiazem 24HR Cd (Diltiazem Hcl) 120 Mg Cap.er.24h 1 Cap PO DAILY 30 07/13/20 Reported Dexamethasone 4 Mg Tablet 4 Tab PO DAILY 07/13/20 Reported Prednisone (Prednisone) 10 Mg Tablet 10 Mg PO UD 10/28/19 Rx Take 4 tablets by mouth daily for 3 days, then take 3 tablets by mouth daily for 3 days, then take 2 tablets by mouth daily for 3 days, then take 1 tablets by mouth daily for 3 days, then stop [Folic Acid] 1 Mg PO DAILY 10/22/19 Reported Spiriva (Tiotropium [place]) 18 Mcg Cap.w.dev 1 Cap IH DAILY 10/22/19 Reported Montelukast Sodium Tablet (Montelukast Sodium) 10 Mg Tablet 10 Mg PO HS 10/22/19 Reported Proair Hfa (Albuterol Sulfate) 8.5 Gm Hfa.aer.ad 2 Puff IH PRN Q4 PRN 21 10/22/19 Reported Protonix (Pantoprazole Sodium) 20 Mg Tablet.dr 2 Tab PO DAILY 10/22/19 Reported Mometasone Furoate 45 Gm Cream..g. 1 [place] TP DAILY 10/22/19 Reported Mag-Oxide (Magnesium Oxide) 200 Mg Tablet 2 Tab PO DAILY 30 10/22/19 Reported Fluticasone Propionate Nasal [place] (Fluticasone Propionate) 16 Gm [place].susp 2 [place] NS DAILY 10/22/19 Reported Ferrous Sulfate 325 Mg Tablet 1 Tab PO DAILY 10/22/19 Reported B-12 (Cyanocobalamin (Vitamin B-12)) 5,000 Mcg Tab.rapdis 1 Tab PO DAILY 30 10/22/19 Reported Loratadine 10 Mg Tab.rapdis 1 Tab PO DAILY 30 10/22/19 Reported Breo Ellipta 200-25 Mcg INH (Fluticasone/Vilanterol) 1 Each Blst.w.dev 1 Puff IH DAILY 06/26/19 Reported Aspirin 325 Mg Tablet 1 Tab PO DAILY 06/26/19 Reported Albuterol Sulfate Conc Neb Soln (Albuterol Sulfate) 2.5 Mg/0.5 Ml Vial.neb 1 Vial NEB PRN PRN 09/05/16 Reported Impression . IMPRESSION: 1. Acute on chronic respiratory failure, multifactorial. 2. COVID-19 viral pneumonia. 3. Possible bacterial pneumonia. 4. Status post vaccination with a booster approximately a week ago. 5. Multiple myeloma with polyneuropathy, organomegaly, endocrinopathy and monoclonal gammopathy. 6. Chronic kidney disease. 7. Chronic diastolic heart failure. 8. Chronic obstructive pulmonary disease. 9. Castleman syndrome Plan . Updated Continue current support BiPAP as needed and nightly Nasal cannula oxygen when off of BiPAP Awaiting transfer to LTAC updated 04/13 Discussed with RT, patient desaturation easily Continue BiPAP Nasal cannula oxygen for meals Continue steroids Discussed with Dr. Dang updated 04/12 Continue oxygen self plan mentation BiPAP Nasal cannula oxygen for meals Continue steroids Home when safe to do so, will check to see if he qualifies for LTAC TU HERMOSILLO MD Apr 14, 2021 08:53
--- NOTE | 2021-04-14 09:01 | NUR ---
NURSING PT CONTINUES TO HAVE SIGNIFICANT ANXIETY RELATED TO USING NASAL CANNULA RATHER THAN THE BIPAP. RT, NURSING BOTH ENCOURAGE PT TO USE NC FOR LARGER PORTIONS OF THE DAY, REDUCING USE OF BIPAP. REDNESS TO FACE 2/2 BIPAP USE ALSO NOTED ET DISCUSSED WITH PT. HIS RESPONSES "I DONT CARE" AND "I NEED IT"
--- NOTE | 2021-04-14 09:17 | PDOC ---
IM PROGRESS NOTES- Subjective Subjective He states that he is feeling better. He is eating well. Objective Vitals/I&O Vital Signs Date Time Temp Pulse Resp B/P (MAP) Pulse Ox O2 Delivery O2 Flow Rate FiO2 04/14/21 08:29 97 124/70 04/14/21 08:27 85 BiPAP/CPAP 04/14/21 08:16 15.0 04/14/21 06:29 96.6 22 96.6 I & O 04/13/21 04/13/21 04/14/21 15:00 23:00 07:00 Intake Total 740 ml 300 ml 440 ml Output Total 200 ml 200 ml Balance 740 ml 100 ml 240 ml Physical Exam Physical Exam General Appearance - alert and in mild distress Chest - decreased breath sounds at bases occasional coarse breath sounds Heart - S1 and S2 normal Abdomen - soft, non tender Neurological - alert and oriented Musculoskeletal - generalized weakness Extremities - no edema Labs Laboratory Tests Test 04/13/21 11:38 04/13/21 16:39 04/13/21 21:30 04/14/21 06:59 Glucose (Fingerstick) 126 mg/dL (70-99) H 204 mg/dL (70-99) H 190 mg/dL (70-99) H 82 mg/dL (70-99) Assessment Assessment 1. Acute on chronic hypoxic respiratory failure due to COVID-19 pneumonia. 2. COVID-19 pneumonia. 3. Multiple myeloma with polyneuropathy, organomegaly, endocrinopathy, monoclonal gammopathy, and skin changes syndrome. 4. Exacerbation of chronic obstructive pulmonary disease. 5. Panlobular emphysema. 6. Simple chronic bronchitis. 7. Chronic diastolic congestive heart failure. 8. Atherosclerotic heart disease. 9. Peripheral artery disease. 10. Gastroesophageal reflux disease without esophagitis. 11. Benign hypertension with chronic kidney disease stage 3. PLAN:wbc 27, high due to steroids, steroids d/adrian yesterday. wean off BIPAP spoke with RN cr 1.7 stable 1. COVID-19 pneumonia. Start IV Solu-Medrol. We will consult Dr. Romero and Dr. Dustin Sy for pulmonary and infectious disease management respectively. We will continue him on appropriate protocol for COVID-19 infection. Patient has completed IV cefepime and remdesivir, Tocilizumab. Monitor off antibiotics. Repeat chest x-ray on April 06 does not show any change in the opacities. 2. Acute on chronic hypoxic respiratory failure. Continue oxygenation. FiO2 50% via BiPAP alternating with high flow cannula. 3. Exacerbation of chronic obstructive pulmonary disease, continue IV steroids. Add Spiriva d/w staff. 4. Continue acyclovir and Bactrim-DS for immunosuppression. The patient has received both COVID-19 vaccines previously as well as booster dose recently. 5. Hyperglycemia secondary to steroids .monitor blood sugar as he is on steroids. I will start him on DVT prophylaxis. Continue pantoprazole. Severe malnutrition. Hyperkalemia- Continue to monitor. Anemia Continue to monitor. Hemoglobin is 7. Transfuse 1 unit of packed red cells. There is some difficulty cross matching his blood because of antibodies, so he will have to get it from the community. Leukocytosis WBC 16.5 k, possibly due to steroids. Azotemia. Getting worse. BUN 63.., creatinine 1.6. Renal function is improving. Consult Dr. Mason for nephrology evaluation and management Discussed with Dr. Rangel on April 09, 2021. Hypertension monitor blood pressure. As needed IV hydralazine. Repeat chest x-ray. Clinically unchanged. [facility] screen. Condition, treatment, discharge plans etc. discussed with patient's on Monday. Clinically improving. [facility] Discussed with social work specialist. For details, please refer to the orders. Prognosis of this patient is very poor due to his multiple medical problems. Plan Plan For more details regarding further plans, please refer to the orders. Justifications for Admission Other Justification LIBERTY WOODSON MD Apr 14, 2021 09:17
--- NOTE | 2021-04-14 10:04 | PDOC ---
DATE OF SERVICE DATE: 04/14/21 TIME: 10:03 SUBJECTIVE ROS No new concerns or complaints Stable OBJECTIVE Vital Signs Vital Signs Date Time Temp Pulse Resp B/P (MAP) Pulse Ox O2 Delivery O2 Flow Rate FiO2 04/14/21 08:29 97 124/70 04/14/21 08:27 85 BiPAP/CPAP 04/14/21 08:16 15.0 04/14/21 06:29 96.6 22 96.6 I & 0 Intake and Output 04/14/21 07:00 Intake Total 1480 ml Output Total 400 ml Balance 1080 ml Intake Oral 1480 ml Output Urine Total 400 ml # Voids 1 # Bowel Movements 1 PHYSICAL EXAM Physical Exam GENERAL: Alert, oriented x 3 NAD HEENT: Normocephalic, atraumatic. Anicteric sclerae. BIPAP NECK: Supple. LUNGS: Coarse breath sounds, HEART: S1, S2, regular. ABDOMEN: Soft, nontender, nondistended. EXTREMITIES: No edema, no cyanosis. DERMATOLOGIC: Warm, dry. No generalized rash. NEUROLOGIC: Alert, oriented x 3, PSYCHIATRIC: cooperative. No [place], No CVA or SP tenderness DIAGNOSIS/ASSESSMENT Assessment & Plan EDITA- Mild worsening of renal function ;Resolved , back to his baseline ; BUN was significantly elevated 2/2 Steroids- Improving . Supportive are, maintain fluid balance, avoid nephrotoxins Hyperkalemia- resolved CKD stage 3A- Follows with us as OP ; Baseline Cr 1.4-1.8 . Seen in our office on 02/19/21- Cr 1.4. Acute on chronic respiratory failure-On o2 via BiPAP , CxR Dx of pneumonia COVID-19 viral pneumonia - Status post vaccination with a booster approximately a week ago.On o2 via BiPAP, Solu-Medrol, Remdesivir. Status post tocilizumab ; Multiple myeloma with polyneuropathy, organomegaly, endocrinopathy and monoclonal gammopathy. (POEM's) Follows with Dr. Gustafson, recently completed Chemo therapy Anemia- Hgb decreased Chronic diastolic heart failure. Chronic obstructive pulmonary disease. Castleman syndrome COMMENT/RELEVANT DATA Meds Current Medications Medications (Trade) Dose Ordered Sig/Juany Start Time Stop Time Status Last Admin Dose Admin Acyclovir (Zovirax) 400 mg BID 04/01/21 21:00 04/14/21 08:30 400 MG Albuterol Sulfate (Ventolin Neb Soln) 2.5 mg 1X ONCE 04/01/21 12:15 04/01/21 12:16 DC 04/01/21 12:15 2.5 MG Albuterol/ Ipratropium (Duoneb) 3 ml RTQID 04/01/21 20:00 04/02/21 10:07 DC Alprazolam (Xanax) 0.25 mg PRN Q8HRS PRN 04/06/21 22:45 04/14/21 03:10 0.25 MG Aspirin (Kevin Aspirin) 325 mg DAILY 04/02/21 09:00 04/14/21 08:28 325 MG Budesonide (Pulmicort) 0.5 mg RTBID 04/01/21 20:00 04/02/21 10:07 DC Cefepime HCl (Maxipime) 2 gm Q8HRS 04/04/21 14:30 04/05/21 09:18 DC 04/05/21 06:13 2 GM Cetirizine HCl (ZyrTEC) 10 mg DAILY 04/02/21 09:00 04/14/21 08:30 10 MG Cyanocobalamin (Vitamin B-12) 500 mcg DAILY 04/02/21 09:00 04/14/21 08:29 500 MCG Diltiazem HCl (Cardizem 24hr Cd) 120 mg DAILY 04/02/21 09:00 04/14/21 08:29 120 MG Enoxaparin Sodium (Lovenox 40mg Syringe) 40 mg Q24H 04/01/21 19:00 04/13/21 18:06 40 MG Ferrous Sulfate (Feosol) 325 mg DAILY 04/02/21 09:00 04/14/21 08:28 325 MG Fluticasone Propionate (Flonase) 2 spray DAILY 04/02/21 09:00 04/14/21 08:39 2 SPRAY Fluticasone/ Vilanterol (Breo Ellipta 200-25 Mcg) 1 puff DAILY 04/02/21 11:00 04/14/21 08:39 1 PUFF Furosemide (Lasix) 20 mg 1X ONCE 04/10/21 06:00 04/10/21 06:01 DC 04/10/21 08:32 20 MG Hydralazine HCl (Apresoline Inj) 10 mg PRN Q4HRS PRN 04/04/21 09:30 Insulin Human Lispro (HumaLOG) 0-8 UNITS BIDBFRMEAL 04/02/21 07:30 04/13/21 18:07 3 UNITS Levofloxacin/ Dextrose 150 ml @ 100 mls/hr 1X ONCE 04/01/21 12:15 04/01/21 13:44 DC 04/01/21 12:44 100 MLS/HR Lidocaine HCl (Lidocaine Pf 2% Vial) 5 ml STK-MED ONCE 04/09/21 13:06 04/09/21 13:06 DC Magnesium Oxide (Magnesium Oxide) 400 mg DAILY 04/02/21 09:00 04/14/21 08:29 400 MG Methylprednisolone Sodium Succinate (SOLU-Medrol 40MG VIAL) 30 mg DAILY 04/10/21 09:00 04/10/21 10:19 DC 04/10/21 08:32 30 MG Methylprednisolone Sodium Succinate (SOLU-Medrol 125MG VIAL) 60 mg Q12HR 04/01/21 21:00 04/09/21 12:40 DC 04/09/21 08:56 60 MG Montelukast Sodium (Singulair) 10 mg HS 04/01/21 21:00 04/13/21 19:14 10 MG Non-Formulary Medication (Fluticasone/ Vilanterol (Breo Ellipta 200-25 Mcg INH)) 1 puff DAILY 04/02/21 09:00 UNV Non-Formulary Medication (Guaifenesin (Mucinex)) 1 tab BID 04/01/21 21:00 UNV Non-Formulary Medication (Tiotropium Presto (Spiriva)) 1 cap DAILY 04/02/21 09:00 UNV Pantoprazole Sodium (Protonix) 40 mg DAILYAC 04/02/21 07:30 04/14/21 08:30 40 MG Prednisone (Prednisone) 30 mg DAILY 04/12/21 10:00 04/14/21 08:30 30 MG Remdesivir 100 mg/ Sodium Chloride 230 ml @ 460 mls/hr Q24H 04/03/21 12:00 04/06/21 12:29 DC 04/06/21 11:24 460 MLS/HR Remdesivir 200 mg/ Sodium Chloride 210 ml @ 210 mls/hr 1X ONCE 04/02/21 12:00 04/02/21 12:59 DC 04/02/21 11:41 210 MLS/HR Sodium Bicarbonate (Sodium Bicarbonate) 650 mg TIDWMEALS 04/02/21 08:00 04/14/21 08:29 650 MG Sodium Chloride 1,000 ml @ 1,000 mls/hr Q1H 04/01/21 12:15 04/01/21 13:14 DC 04/01/21 13:40 1,000 MLS/HR Tocilizumab 400 mg/Sodium Chloride 100 ml @ 100 mls/hr 1X ONCE 04/02/21 16:00 04/02/21 16:59 DC 04/02/21 17:00 100 MLS/HR Trimethoprim/ Sulfamethoxazole (Bactrim Ds) 1 tab QMTH 04/01/21 16:00 04/12/21 17:12 1 TAB Lab Laboratory Tests Test 04/13/21 11:38 04/13/21 16:39 04/13/21 21:30 04/14/21 06:59 Glucose (Fingerstick) 126 mg/dL (70-99) 204 mg/dL (70-99) 190 mg/dL (70-99) 82 mg/dL (70-99) Results All relevant outside records, renal labs, imaging studies, telemetry/EKG's were reviewed. Justicifation of Admission Dx: Justifications for Admission: Justification of Admission Dx: N/A TEO LAW MD Apr 14, 2021 10:04
[2021-04-14 11:00] VITALS: BP 128/66
--- NOTE | 2021-04-14 17:22 | NUR ---
DISCHARGE REPORT CALLED TO VINITA AT [facility] AT 1630. ALL QUESTIONS ANSWERED, ET PHONE NUMBER LEFT FOR ANY QUESTIONS THEY MAY HAVE ONCE PT ARRIVES. EMS TRANSPORT AT 1715. PT TRANSFERRED TO [facility] BY SHEET SLIDE, SO NOT TO WEAR HIM OUT. TRANSPORTS ON 15L/NC. IS IN NO DISTRESS, ET IS ALERT ET ASKING QUESTIONS. ALL POSSESSIONS SENT WITH PATIENT AT TIME OF DISCHARGE.
== END 2021-04-14 17:15 | DRG 871 ==
LOC: ER 11:59 → 6 SOUTH 14:00
PROVIDERS: ADMIT Internal Medicine; ATTEND Internal Medicine
PROC: 5A09357 Assistance with Respiratory Ventilation, Less than 24 Consecutive Hours, Continuous Positive Airway Pressure (ICD-10-PCS; 2021-04-01)
PROC: 5A0935A Assistance with Respiratory Ventilation, Less than 24 Consecutive Hours, High Flow/Velocity Cannula (ICD-10-PCS; 2021-04-02)
PROC: 5A09357 Assistance with Respiratory Ventilation, Less than 24 Consecutive Hours, Continuous Positive Airway Pressure (ICD-10-PCS; 2021-04-02)
PROC: XW033E5 Introduction of Remdesivir Anti-infective into Peripheral Vein, Percutaneous Approach, New Technology Group 5 (ICD-10-PCS; 2021-04-03)
PROC: 5A0935A Assistance with Respiratory Ventilation, Less than 24 Consecutive Hours, High Flow/Velocity Cannula (ICD-10-PCS; 2021-04-03)
PROC: 5A09357 Assistance with Respiratory Ventilation, Less than 24 Consecutive Hours, Continuous Positive Airway Pressure (ICD-10-PCS; 2021-04-03)
PROC: 5A0935A Assistance with Respiratory Ventilation, Less than 24 Consecutive Hours, High Flow/Velocity Cannula (ICD-10-PCS; 2021-04-04)
PROC: 5A09357 Assistance with Respiratory Ventilation, Less than 24 Consecutive Hours, Continuous Positive Airway Pressure (ICD-10-PCS; 2021-04-04)
PROC: 5A09357 Assistance with Respiratory Ventilation, Less than 24 Consecutive Hours, Continuous Positive Airway Pressure (ICD-10-PCS; 2021-04-05)
PROC: 5A09357 Assistance with Respiratory Ventilation, Less than 24 Consecutive Hours, Continuous Positive Airway Pressure (ICD-10-PCS; 2021-04-06)
PROC: 5A09357 Assistance with Respiratory Ventilation, Less than 24 Consecutive Hours, Continuous Positive Airway Pressure (ICD-10-PCS; 2021-04-07)
PROC: 5A09357 Assistance with Respiratory Ventilation, Less than 24 Consecutive Hours, Continuous Positive Airway Pressure (ICD-10-PCS; 2021-04-08)
PROC: 30233R1 Transfusion of Nonautologous Platelets into Peripheral Vein, Percutaneous Approach (ICD-10-PCS; principal; 2021-04-10)
PROC: 5A09357 Assistance with Respiratory Ventilation, Less than 24 Consecutive Hours, Continuous Positive Airway Pressure (ICD-10-PCS; 2021-04-10)
PROC: 5A0935A Assistance with Respiratory Ventilation, Less than 24 Consecutive Hours, High Flow/Velocity Cannula (ICD-10-PCS; 2021-04-11)
PROC: 5A09457 Assistance with Respiratory Ventilation, 24-96 Consecutive Hours, Continuous Positive Airway Pressure (ICD-10-PCS; 2021-04-11)
PROC: 5A0935A Assistance with Respiratory Ventilation, Less than 24 Consecutive Hours, High Flow/Velocity Cannula (ICD-10-PCS; 2021-04-13)
PROC: 5A0935A Assistance with Respiratory Ventilation, Less than 24 Consecutive Hours, High Flow/Velocity Cannula (ICD-10-PCS; 2021-04-13)
PROC: 5A0935A Assistance with Respiratory Ventilation, Less than 24 Consecutive Hours, High Flow/Velocity Cannula (ICD-10-PCS; 2021-04-14)
PROC: 5A09357 Assistance with Respiratory Ventilation, Less than 24 Consecutive Hours, Continuous Positive Airway Pressure (ICD-10-PCS; 2021-04-14)
DX: A41.89 Other specified sepsis (principal); J96.21 Acute and chronic respiratory failure with hypoxia; U07.1 COVID-19; J12.82 Pneumonia due to coronavirus disease 2019; C90.00 Multiple myeloma not having achieved remission; I13.0 Hypertensive heart and chronic kidney disease with heart failure and stage 1 through stage 4 chronic kidney disease, or unspecified chronic kidney disease; I50.32 Chronic diastolic (congestive) heart failure; D64.9 Anemia, unspecified; G62.9 Polyneuropathy, unspecified; I25.10 Atherosclerotic heart disease of native coronary artery without angina pectoris; I73.9 Peripheral vascular disease, unspecified; J43.1 Panlobular emphysema; K21.9 Gastro-esophageal reflux disease without esophagitis; N18.9 Chronic kidney disease, unspecified; Z80.0 Family history of malignant neoplasm of digestive organs; Z82.49 Family history of ischemic heart disease and other diseases of the circulatory system; Z83.3 Family history of diabetes mellitus; Z92.21 Personal history of antineoplastic chemotherapy; Z92.3 Personal history of irradiation; Z99.81 Dependence on supplemental oxygen; Z88.0 Allergy status to penicillin; J41.0 Simple chronic bronchitis; N18.30 Chronic kidney disease, stage 3 unspecified
CPT/HCPCS: 36415; 36430; 36600; 71045; 80048; 80053; 80197; 82805; 82962; 83605; 83735; 83880; 84484; 85007; 85025; 86140; 86850; 86870; 86900; 86901; 86922; 87040; 87426; 87804; 93005; 94640; 94660; 94760; 96361; 96365; 96375; J0692; J1650; J1815; J1940; J1956; J2920; J2930; J3262; J7030; J7050; J7512; P9016; P9612; 97530-GP; 97535-GO; 99285-25; G0378; J7613